=== PATIENT | male | born 1965 ===

== ENCOUNTER 2020-09-19 08:35 | Outpatient (REF) | payer OTHER, SELFPAY ==
[2020-09-19 10:03] LABS: Alanine Aminotransferase 12 U/L (0-40); Albumin Level 4.5 g/dL (3.5-5.0); Alkaline Phosphatase 76 U/L (39-117); Anion Gap 13 (12-20); Aspartate Amino Transferase 16 U/L (5-37); Bilirubin Total 0.7 mg/dL (0.0-1.0); Blood Urea Nitrogen 19 mg/dL (9-16); Calcium 9.4 mg/dL (8.4-10.2); Carbon Dioxide 27 mmol/L (22-29); Chloride 104 mmol/L (96-108); Cholesterol 199 mg/dL; Estimated Glomerular Filt Rate > 60; Glucose Fasting 95 mg/dL (60-99); HDL Cholesterol 36 mg/dL; LDL Cholesterol Calculated 142 mg/dl; Sodium 139 mmol/L (135-145); Total Protein 7.7 g/dL (6.5-8.0); Triglycerides 105 mg/dL; Uric Acid 8.4 mg/dL (3.4-7.0)
== END 2020-09-19 08:36 | disposition home or self-care (01) ==
LOC: HO.LAB 08:35
PROVIDERS: PCP Internal Medicine; Visit Provider Internal Medicine
DX: E78.00 Pure hypercholesterolemia, unspecified (principal); M10.9 Gout, unspecified
CPT/HCPCS: 80053; 80061; 84550

== ENCOUNTER 2021-12-11 07:17 | Outpatient (REF) | payer OTHER, SELFPAY ==
[2021-12-11 07:27] LABS: MANUAL DIFF FLAG NO
[2021-12-11 07:37] LABS: Basophils Absolute Auto 0.1 X10*3/uL (0.0-0.2); Basophils Percent Auto 0.9 % (0-2); Eosinophils Percent Auto 11.7 % (0-4); Hematocrit 47.6 % (42.0-52.0); Hemoglobin 15.8 g/dl (14.0-18.0); Imm Gran Abs Auto 0.02 X10*3/uL (0.00-0.03); Imm Gran Pct Auto 0.2 % (0.0-0.4); Lymphocytes Absolute Auto 2.5 X10*3/uL (1.2-4.9); Lymphocytes Percent Auto 30.6 % (20-40); Mean Corpuscular HGB Conc 33.2 g/dl (31.0-36.0); Mean Corpuscular Hemoglobin 30.3 pg (27.0-33.0); Mean Corpuscular Volume 91.2 fL (80.0-98.0); Mean Platelet Volume 9.5 fL (9.4-12.4); Monocytes Absolute Auto 0.8 X10*3/uL (0.1-1.2); Monocytes Percent Auto 10.1 % (2-11); Neutrophils Absolute Auto 3.8 x10*3/uL (2.0-8.3); Neutrophils Percent Auto 46.5 % (45-73); Platelet Count 230 X10*3/uL (160-400); Red Blood Count 5.22 X10*6/uL (4.60-5.80); Red Cell Distribution Width 12.9 % (11.0-16.0); White Blood Count 8.1 X10*3/uL (4.8-10.8)
[2021-12-11 08:06] LABS: Alanine Aminotransferase 18 U/L (0-40); Albumin Level 4.6 g/dL (3.5-5.0); Alkaline Phosphatase 79 U/L (39-117); Anion Gap 13 (12-20); Aspartate Amino Transferase 24 U/L (5-37); Bilirubin Total 0.5 mg/dL (0.0-1.0); Blood Urea Nitrogen 14 mg/dL (9-16); Calcium 9.8 mg/dL (8.4-10.2); Carbon Dioxide 28 mmol/L (22-29); Chloride 105 mmol/L (96-108); Cholesterol 180 mg/dL; Estimated Glomerular Filt Rate > 60; Glucose Random 105 mg/dL (60-115); HDL Cholesterol 31 mg/dL; LDL Cholesterol Calculated 125 mg/dl; Potassium 4.5 mmol/L (3.3-5.1); Sodium 141 mmol/L (135-145); Total Protein 7.8 g/dL (6.5-8.0); Triglycerides 123 mg/dL; Uric Acid 9.4 mg/dL (3.4-7.0)
[2021-12-11 09:29] LABS: Appearance Urine CLEAR; Color Urine YELLOW; Glucose Urine UA NEG (NEG); Leukocyte Esterase Urine NEG (NEG); Nitrite Urine NEG (NEG); PH 5.5 (5.0-8.0); Specific Gravity - Urine 1.025 (1.005-1.025); Urine Blood NEG (NEG); Urine Ketones NEG (NEG); Urine Protein NEG (NEG-TRACE)
[2021-12-11 10:14] LABS: PSA,Total (Free>4and<10) 0.52 ng/mL (0.00-4.00)
[2021-12-13 04:06] LABS: HIV AB/AG Nonreactive (Nonreactive); HIV Num 1 0.16 S/CO (0.00-0.99)
[2021-12-13 04:08] LABS: ~HepC Num1 0.06 S/CO (0.00-0.79); ~Hepatitis C Antibody Nonreactive (Nonreactive)
== END 2021-12-11 07:18 | disposition home or self-care (01) ==
LOC: HO.LAB 07:17
PROVIDERS: PCP Internal Medicine; Visit Provider Internal Medicine
DX: Z12.5 Encounter for screening for malignant neoplasm of prostate (principal); Z11.4 Encounter for screening for human immunodeficiency virus [HIV]; M1A.0720 Idiopathic chronic gout, left ankle and foot, without tophus (tophi)
CPT/HCPCS: 36415; 80053; 80061; 81003; 84153; 84550; 85025; 86803; 87389

== ENCOUNTER 2022-01-18 10:50 | Outpatient (REF) | payer OTHER, SELFPAY ==
--- NOTE | ~2022-01-18 | XR_ITS ---
EXAMINATION: XR KNEE, RIGHT CLINICAL INFORMATION: Right knee pain. COMPARISON: 07/05/2020 TECHNIQUE: Four views of the right knee. FINDINGS: There is a small to moderate-sized right knee joint effusion. Bones are normal. No fracture. Alignment is anatomic. Joint spaces are well maintained. No abnormal soft tissue calcification. XR/XR knee RT 4V IMPRESSION: Right knee joint effusion but otherwise negative exam.
== END 2022-01-18 10:51 | disposition home or self-care (01) ==
LOC: HO.XRAY 10:50
PROVIDERS: Absent Provider Internal Medicine; PCP Internal Medicine; Visit Provider Emergency Medicine
DX: M25.561 Pain in right knee (principal); Z87.39 Personal history of other diseases of the musculoskeletal system and connective tissue
CPT/HCPCS: 73564

== ENCOUNTER → 2022-02-17 14:09 | Outpatient (RCR) | payer OTHER, SELFPAY ==
--- NOTE | 2020-07-30 18:43 | MHC.PT.EP ---
[facility] [place] Office [place] Office [place] Office [address] Sriv[address]ava [address] [phone] F: [phone] F: [phone] F: [phone] F: [phone] Physical Therapy Plan of Care Date of Evaluation: 07/30/20 Date of Surgery: Diagnosis: Soft tissue injury R knee (L knee). 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 Pt is deemed an appropriate candidate to receive skilled PT services to address his physical impairments in order to improve his functional ability. Frequency and Duration: The patient will be seen 2 x wk x 4 wks. Short Term Goals: In 1 week: initiate HEP with evidence of compliance. In 3 weeks: improve R knee ext MMT to > 4+/5; initial 4/5 with pain. Media Specialist Goals: In 5 weeks: I with HEP. In 5 weeks: ascends and descends 1 flight of stairs with reciprocal fashion. Treatment Plan: Modalities to reduce pain, spasms and effusion. Manual therapy to restore motion and function. Therapeutic exercise to improve strength and flexibility. Neuromuscular re-education for posture and balance. Therapeutic activities to return to functional activities of daily living. Please sign and return to therapist. Thank you for your referral.
--- NOTE | 2020-09-01 15:59 | MHC.PT.DC ---
[facility] [place] Office [place] Office [place] Office [address] Abram Srivastava [address] [phone] F: [phone] F: [phone] F: [phone] F: [phone] Physical Therapy Discharge Report Diagnosis: Soft tissue injury R knee (L knee). Date of Surgery: Date of Evaluation: 07/30/20 Date of Discharge: Treatments to Date: 1 Cancellations to Date: 0 No Shows to Date: 0 Discharge Status: Visit Non-compliance Discharge Summary: Pt did not f/u with therapy after his evaluation despite reminder calls. Electronically signed by: Conner Mckeon PT Please sign and return to therapist. Thank you for your referral.
== END | disposition home or self-care (01) ==
LOC: HO.PTCHIC 07-30 16:45
PROVIDERS: Visit Provider Orthopaedic Surgery
DX: S89.91XD Unspecified injury of right lower leg, subsequent encounter (principal)
CPT/HCPCS: 97110; 97161

== ENCOUNTER 2022-11-28 11:00 | Outpatient (REF) | payer OTHER, SELFPAY ==
--- NOTE | ~2022-11-28 | US_ITS ---
EXAMINATION: US VENOUS ULTRASOUND WITH DOPPLER LOWER EXTREMITY, RIGHT CLINICAL INFORMATION: Swelling and pain COMPARISON: None TECHNIQUE: Ultrasound of the deep veins is performed from the hip to the calf with compression sonography and color and pulse Doppler assessment. Spectral analysis with color-flow imaging is performed. FINDINGS: There is normal venous compression and respiratory variation and augmented flow. The visualized common femoral vein, superficial femoral vein, profunda femoral vein, popliteal vein, and the trifurcation region shows no evidence of deep venous thrombosis. There is no significant popliteal fossa cyst. US/US venous duplex LE RT IMPRESSION: No DVT demonstrated in the right lower extremity.
== END 2022-11-28 11:01 | disposition home or self-care (01) ==
LOC: HO.US 11:00
PROVIDERS: PCP Internal Medicine; Visit Provider Emergency Medicine
DX: M79.661 Pain in right lower leg (principal); M79.89 Other specified soft tissue disorders
CPT/HCPCS: 93971

== ENCOUNTER 2023-08-14 08:37 | Outpatient (REF) | payer OTHER, SELFPAY ==
[2023-08-14 12:25] LABS: Cholesterol 126 mg/dL (<200); HDL Cholesterol 24 mg/dL (>40); LDL Cholesterol Calculated 74 mg/dL (<100); Triglycerides 140 mg/dL (<150)
[2023-08-14 14:52] LABS: Reflex LDLD? No
[2023-08-19 18:44] LABS: Testosterone, Free 60.3 pg/mL (35.0-155.0); Testosterone, Total 524 ng/dL (250-1100)
== END 2023-08-14 08:38 | disposition home or self-care (01) ==
LOC: HO.HHCL 08:37
PROVIDERS: Visit Provider Internal Medicine
DX: E78.1 Pure hyperglyceridemia (principal); N52.9 Male erectile dysfunction, unspecified
CPT/HCPCS: 36415; 80061; 84402; 84403

== ENCOUNTER 2023-09-14 08:33 | Outpatient (AMB) | payer OTHER, SELFPAY ==
--- NOTE | 2023-09-14 08:37 | A.OFFVIS_ITS ---
Intake Vital Signs 09/14/23 08:43 Height 5 ft 7 in Weight 179 lb 3.773 oz BMI 28.1 BP 118/66 Blood Pressure Location Rt brachial Position Sitting Pulse 68 Pulse Source Pulse Oximeter Temp 96.8 F Temp Source Skin Pulse Oximetry (%) 97 Oxygen Delivery Method Room Air Intake Visit Reasons: Hyperuricemia/gout Intake Note: New pt presents today for Gout consult. 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 Patient stated that he started having gout in his 40s. Initially it would affect his toes and feet, ankles then it progressed to involve his knees as well. He has stopped alcohol consumption many years ago since he started getting gout attacks. Patient has been on different medicines including indomethacin, colchicine and ibuprofen for his gout. He was on colchicine twice daily at some point which helped his gout but caused diarrhea. He states that currently he takes colchicine as needed for flare-ups. He took allopurinol for 2 weeks but did not want to continue taking it. States that this year has been most severe last month he was in [facility], he had a heart attack, he had a cardiac catheterization and 3 stents were placed. During the hospitalization he developed a gout flare-up affecting his right knee. Per patient arthrocentesis was attempted but was not successful. He states that he has had 2 other instances of arthrocentesis in the past. Last week he started having another gout flare-up affecting his right knee and right ankle. He now has to use a cane. Been taking colchicine once daily since the attack started He denies any history of kidney stones. Mentions that his father had gout as w ell [facility] Medical History Coronary artery disease Gout Surgical History History of cardiac catheterization History of sinus surgery Family History Father Medical history unknown Mother Diabetes Hypertension Paternal Aunt Cancer Maternal Grandmother No problems noted. Maternal Grandfather No problems noted. Social History Household Members: Spouse and Family Alcohol intake: current Alcohol intake frequency: does not drink Patient Tobacco Use Status: Former Tobacco user Current occupational status: disabled Review of Systems Musc Reports arthralgias, Reports joint swelling and Reports stiffness Physical Exam Vital Signs: Last Vital Signs Temp 96.8 F 09/14/23 08:43 Pulse 68 09/14/23 08:43 BP 118/66 09/14/23 08:43 Pulse Ox 97 09/14/23 08:43 Oxygen Delivery Method Room Air 09/14/23 08:43 BMI result Body Mass Index 28.1 Const General: cooperative, healthy appearing and comfortable Nutritional Appearance: overweight Orientation/consciousness: patient oriented x3 Limitations: ambulation with cane HEENT Head: Yes normocephalic and Yes atraumatic Mouth: moist mucous membranes Resp Effort & Inspection: normal respiratory effort and able to speak in complete sentences Auscultation: clear to auscultation bilaterally Cardio Rate: regular rate Rhythm: regular rhythm GI Palpation (GI): Soft to palpation and nontender Skin General skin exam: no rashes or lesions noted Neuro General: patient oriented x3 Extrem Other: Right knee swelling, warmth and pain with any range of motion Right ankle warmth and tenderness No gouty tophi noted Osteoarthritic changes of both hands with no active synovitis Assessment & Plan Assessment & Plan (1) Gout: Code(s): M10.9 - Gout, unspecified Qualifiers: Gout site: unspecified site Gout etiology: idiopathic Chronicity: chronic Presence of tophus: without tophus Qualified Code(s): M1A.00X0 - Idiopathic chronic gout, unspecified site, without tophus (tophi) Plan: This is a 58-year-old male with gout who presents for gout management. Per patient gout started in his 40s. He only took allopurinol for 2 weeks. This year has been most troublesome with a gout flare-up almost every month. Uric acid 05/2023 was 9.7. Discussed gout complications such as gouty nephropathy and gout association with cardiovascular disease. Discussed the need to start urate lowering therapy. Patient agreed to proceed. Start prednisone taper for acute gout flare Continue with colchicine 0.6 mg daily for prophylaxis (higher doses cause diarrhea) Start allopurinol 100 mg daily after 2 weeks Advised patient to ice affected joints in a flare of Labs today Follow-up in 4 weeks Plan I spent 45 minutes reviewing patient's chart, evaluating patient, ordering diagnostic workup, counseling patient and documenting in the chart Orders: Orders Complete Blood Count Auto Diff Today M10.9 - Gout, unspecified C Reactive Protein Today M10.9 - Gout, unspecified Creatine Kinase Total Today M10.9 - Gout, unspecified Comprehensive Met. Panel Today M10.9 - Gout, unspecified Erythrocyte Sedimentation Rate Today M10.9 - Gout, unspecified Uric Acid Today M10.9 - Gout, unspecified Medications: New colchicine 0.6 mg PO DAILY 90 tabs 1RF allopurinol Start taking mid September 100 mg PO DAILY 30 tabs 1RF prednisone Take 3 tabs by mouth once daily for 3 days then 2 tabs daily for 3 days then 1 tab daily for 3 days 18 tabs 0RF Coding Level of Care Code New Pt Level 4 (56538) Diagnoses Idiopathic chronic gout without tophus, unspecified site M1A.00X0 Gout site: unspecified site Gout etiology: idiopathic Chronicity: chronic Presence of tophus: without tophus
[2023-09-14 08:43] VITALS: BP 118/66; PULSE 68; TEMP 36; O2SAT 97; BMI 28.1
== END 2023-09-14 09:26 | disposition home or self-care (01) ==
PROVIDERS: PCP Internal Medicine; Referring Provider Internal Medicine; Visit Provider Student in an Organized Health Care Education/Training Program
DX: M1A.00X0 Idiopathic chronic gout, unspecified site, without tophus (tophi) (principal)
CPT/HCPCS: 99204

== ENCOUNTER → 2023-09-14 08:33 | Outpatient (BNVA) | payer OTHER, SELFPAY | PROVIDERS: PCP Internal Medicine; Referring Provider Internal Medicine; Visit Provider Student in an Organized Health Care Education/Training Program ==

== ENCOUNTER 2023-09-14 09:39 | Outpatient (REF) | payer OTHER, SELFPAY ==
[2023-09-14 10:19] LABS: MANUAL DIFF FLAG NO
[2023-09-14 10:22] LABS: Basophils Absolute Auto 0.1 X10*3/uL (0.0-0.2); Eosinophils Absolute Auto 0.5 X10*3/uL (0.0-0.4); Eosinophils Percent Auto 4.8 % (0-4); Hematocrit 42.4 % (42.0-52.0); Hemoglobin 14.2 g/dl (14.0-18.0); Imm Gran Abs Auto 0.03 X10*3/uL (0.00-0.03); Imm Gran Pct Auto 0.3 % (0.0-0.4); Lymphocytes Absolute Auto 2.7 X10*3/uL (1.2-4.9); Lymphocytes Percent Auto 26.5 % (20-40); Mean Corpuscular HGB Conc 33.5 g/dl (31.0-36.0); Mean Corpuscular Volume 89.6 fL (80.0-98.0); Monocytes Percent Auto 9.3 % (2-11); Neutrophils Percent Auto 58.1 % (45-73); Platelet Count 221 X10*3/uL (160-400); Red Blood Count 4.73 X10*6/uL (4.60-5.80); Red Cell Distribution Width 13.3 % (11.0-16.0); White Blood Count 10.3 X10*3/uL (4.8-10.8)
[2023-09-14 10:52] LABS: Alanine Aminotransferase 22 U/L (0-40); Albumin Level 4.3 g/dL (3.5-5.0); Alkaline Phosphatase 63 U/L (39-117); Anion Gap 11 (12-20); Aspartate Amino Transferase 18 U/L (5-37); Bilirubin Total 0.6 mg/dL (0.0-1.0); Blood Urea Nitrogen 16 mg/dL (9-16); C Reactive Protein 4.04 mg/dL (< or = 0.50); Calcium 9.9 mg/dL (8.4-10.2); Carbon Dioxide 28 mmol/L (22-29); Chloride 106 mmol/L (96-108); Estimated Glomerular Filt Rate > 60; Glucose Random 110 mg/dL (60-115); Potassium 4.4 mmol/L (3.3-5.1); Sodium 141 mmol/L (135-145); Total Protein 8.1 g/dL (6.5-8.0); Uric Acid 7.2 mg/dL (3.4-7.0)
[2023-09-14 11:02] LABS: Erythrocyte Sedimentation Rate 43 MM/HR (0-15)
== END 2023-09-14 09:40 | disposition home or self-care (01) ==
LOC: HO.10HDL 09:39
PROVIDERS: Visit Provider Student in an Organized Health Care Education/Training Program
DX: M10.9 Gout, unspecified (principal)
CPT/HCPCS: 36415; 80053; 82550; 84550; 85025; 85652; 86140

== ENCOUNTER 2023-10-12 08:06 | Outpatient (AMB) | payer OTHER, SELFPAY ==
--- NOTE | 2023-10-12 08:06 | MHC.OFFVIS ---
Intake Vital Signs 10/12/23 08:14 Height 5 ft 7 in Weight 180 lb 15.992 oz BMI 28.3 BP 132/70 Blood Pressure Location Rt brachial Position Sitting Pulse 60 Pulse Source Pulse Oximeter Temp 97 F Temp Source Skin Pulse Oximetry (%) 98 Oxygen Delivery Method Room Air Intake Visit Reasons: Gout Intake Note: Pt last seen 09/14/23 presents today for follow up and test results. Reports using colchicine PRN. Finished prednisone taper. 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 He completed the prednisone taper and started taking allopurinol daily, he did not start colchicine as prescribed. however last week he started having significant pain swelling and redness of his left foot and ankle, consistent with a gout attack. He started colchicine 1 tab twice daily for the past few days and the attack is resolving. He gets some diarrhea with colchicine twice daily Initial history: This is a 58-year-old male who was referred for gout management. Patient stated that he started having gout in his 40s. Initially it would affect his toes and feet, ankles then it progressed to involve his knees as well. He has stopped alcohol consumption many years ago since he started getting gout attacks. Patient has been on different medicines including indomethacin, colchicine and ibuprofen for his gout. He was on colchicine twice daily at some point which helped his gout but caused diarrhea. He states that currently he takes colchicine as needed for flare-ups. He took allopurinol for 2 weeks but did not want to continue taking it. States that this year has been most severe last month he was in [facility], he had a heart attack, he had a cardiac catheterization and 3 stents were placed. During the hospitalization he developed a gout flare-up affecting his right knee. Per patient arthrocentesis was attempted but was not successful. He states that he has had 2 other instances of arthrocentesis in the past. Last week he started having another gout flare-up affecting his right knee and right ankle. He now has to use a cane. Been taking colchicine once daily since the attack started He denies any history of kidney stones. Mentions that his father had gout as well PFSH Medical History Coronary artery disease Gout Surgical History History of cardiac catheterization History of sinus surgery Family History Father Medical history unknown Mother Diabetes Hypertension Paternal Aunt Cancer Maternal Grandmother No problems noted. Maternal Grandfather No problems noted. Social History Household Members: Spouse and Family Alcohol intake: current Alcohol intake frequency: does not drink Patient Tobacco Use Status: Former Tobacco user Current occupational status: disabled Review of Systems [facility] Reports arthralgias, Reports joint swelling and Reports stiffness Physical Exam Vital Signs: Last Vital Signs Temp 97 F 10/12/23 08:14 Pulse 60 10/12/23 08:14 BP 132/70 10/12/23 08:14 Pulse Ox 98 10/12/23 08:14 Oxygen Delivery Method Room Air 10/12/23 08:14 BMI result Body Mass Index 28.3 Const General: cooperative, healthy appearing and comfortable Nutritional Appearance: overweight Orientation/consciousness: patient oriented x3 Limitations: ambulation with cane HEENT Head: Yes normocephalic and Yes atraumatic Mouth: moist mucous membranes Resp Effort & Inspection: normal respiratory effort and able to speak in complete sentences Auscultation: clear to auscultation bilaterally Cardio Rate: regular rate Rhythm: regular rhythm GI Palpation (GI): Soft to palpation and nontender Skin General skin exam: no rashes or lesions noted Neuro General: patient oriented x3 Extrem Other: Minimal tenderness to palpation just and true lateral to the left lateral malleolus no noticeable redness, swelling or warmth No gouty tophi noted Osteoarthritic changes of both hands with no active synovitis Results Reviewed Results Reviewed: Lab 05/2023 Uric acid 9.7 mg/dl Assessment & Plan Assessment & Plan (1) Gout: Code(s): M10.9 - Gout, unspecified Qualifiers: Gout site: unspecified site Gout etiology: idiopathic Chronicity: chronic Presence of tophus: without tophus Qualified Code(s): M1A.00X0 - Idiopathic chronic gout, unspecified site, without tophus (tophi) Plan: This is a 58-year-old male with gout who presents for follow-up. He is on allopurinol 100 mg daily, did not start colchicine as a standing dose as prescribed. Started having a gout flare-up affecting his left ankle about a week ago and it is resolving. Has been taking colchicine twice daily for the last few days. Discussed the importance of gout prophylaxis for at least 3-6 months. Advised patient to start taking colchicine 1 tab daily Continue allopurinol 100 mg daily, preferably I would have increased his allopurinol to 200 mg today however current gout flare and lack of reliability with the colchicine. Will continue with allopurinol 100 mg daily for now Will prescribe a short prednisone taper to treat current flare Labs before next visit in 2 months Plan I spent 26 minutes reviewing patient's chart, evaluating patient, ordering diagnostic workup, counseling patient and documenting in the chart Orders: Orders Complete Blood Count Auto Diff 2 Months M10.9 - Gout, unspecified Uric Acid 2 Months M10.9 - Gout, unspecified Comprehensive Met. Panel 2 Months M10.9 - Gout, unspecified Medications: Changed From allopurinol Start taking mid September 100 mg PO DAILY 30 tabs 1RF To allopurinol 100 mg PO DAILY 90 tabs 1RF From prednisone Take 3 tabs by mouth once daily for 3 days then 2 tabs daily for 3 days then 1 tab daily for 3 days 18 tabs 0RF To prednisone Take 3 tabs by mouth once daily for 2 days then 2 tabs daily for 2 days then 1 tab daily for 2 days 12 tabs 1RF From colchicine 0.6 mg PO DAILY PRN To colchicine 0.6 mg PO DAILY 90 tabs 0RF Coding Level of Care Code Est Pt Level 4 (84375) Diagnoses Idiopathic chronic gout without tophus, unspecified site M1A.00X0 Gout site: unspecified site Gout etiology: idiopathic Chronicity: chronic Presence of tophus: without tophus
[2023-10-12 08:14] VITALS: BP 132/70; PULSE 60; TEMP 36.1; O2SAT 98; BMI 28.3
== END 2023-10-12 08:35 | disposition home or self-care (01) ==
PROVIDERS: PCP Internal Medicine; Visit Provider Student in an Organized Health Care Education/Training Program
DX: M1A.00X0 Idiopathic chronic gout, unspecified site, without tophus (tophi) (principal)
CPT/HCPCS: 99214

== ENCOUNTER → 2023-10-12 08:06 | Outpatient (BNVA) | payer OTHER, SELFPAY | PROVIDERS: PCP Internal Medicine; Visit Provider Student in an Organized Health Care Education/Training Program ==

== ENCOUNTER 2023-11-08 08:44 | Outpatient (AMB) | payer BC, OTHER, SELFPAY ==
--- NOTE | 2023-11-08 08:59 | A.OFFVIS_ITS ---
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 He has a pleasant 58-year-old male, in July he traveled to [place] meet with his family and have dental work up done. He then developed acute myocardial infarction. His symptoms were back pain the day prior which she node. However the following day he got back pain radiating up to the front with significant pressure/squeezing in his chest associated with diaphoresis and both arms getting numb. He then called for help and was taken to the local hospital there. He was then told that he was having a myocardial infarction, unknown territory. He subsequently underwent emergent cardiac catheterization and up getting 3 drug-eluting stents placement again to unknown vessels. He seems to think that there were 2 vessels that were involved 1 had 100% blockage in the other 90% blockage. However he has not sure of the anatomy. I do not have any old records. Since then he has not been pushing himself because he is afraid of having another event. He has been taking all his medications regularly. He denies any recurrent chest discomfort. Denies any prolonged palpitation irregular heartbeat. No lightheadedness, syncope. Currently taking dual antiplatelet therapy as well as high-intensity statin therapy. He denies any heart failure symptoms. [facility] Medical History Coronary artery disease Gout Surgical History Stented coronary artery History of cardiac catheterization History of sinus surgery Family History Father Medical history unknown Mother Diabetes Hypertension Paternal Aunt Cancer Maternal Grandmother No problems noted. Maternal Grandfather No problems noted. Social History Household Members: Spouse and Family Alcohol intake: current Alcohol intake frequency: does not drink Patient Tobacco Use Status: Former Tobacco user Current occupational status: disabled Review of Systems Const Denies chills, Denies daytime sleepiness, Denies fatigue, Denies fever(s), Denies frequent falls, Denies poor appetite, Denies snoring, Denies stops breathing during sleep, Denies weakness, Denies weight gain and Denies weight loss Eyes Denies loss of vision ENT Denies dizziness and Denies hearing loss Card Denies chest pain, Denies claudication, Denies leg edema, Denies lightheadedness, Denies palpitations, Denies dyspnea, Denies dyspnea on exertion and Denies orthopnea Resp Denies cough, Denies excessive phlegm production, Denies dyspnea, Denies dyspnea on exertion, Denies snoring and Denies wheezing GI Denies abdominal pain, Denies hematochezia, Denies change in bowel habits, Denie s nausea and Denies vomiting Denies dysuria and Denies urinary frequency Musc Denies arthralgias, Denies muscle weakness, Denies numbness and Denies other (frequent falls) Skin/Breast Denies nail changes and Denies rash Neuro Denies Abnormal speech present, Denies dizziness, Denies frequent falls, Denies loss of vision, Denies memory loss, Denies numbness and Denies weakness Psych Denies depression and Denies memory loss Endo Denies fatigue and Denies palpitations [place]/Lymph Reports easy bruising and Reports other (anemia) Aller/Immun Denies wheezing Physical Exam Vital Signs: Last Vital Signs Pulse 60 11/08/23 09:02 BP 116/70 11/08/23 09:02 BMI result Body Mass Index 29.3 Const General: cooperative, comfortable, no acute distress, alert, awake and well groomed Nutritional Appearance: overweight Orientation/consciousness: patient oriented x3 Limitations: no limitations HEENT Head: Yes normocephalic and Yes atraumatic Neck Neck: Yes trachea midline, Yes supple and Yes no JVD Carotids: no bruits Resp Effort & Inspection: normal respiratory effort Auscultation: clear to auscultation bilaterally Cardio Jugular venous distension: no JVD Palpation: normal PMI Rate: regular rate Rhythm: regular rhythm Heart sounds: S1 normal heart sound present, S2 normal heart sound present, no click, no gallops, no murmurs and no rubs GI Auscultation: normal bowel sounds Skin General skin exam: no rashes or lesions noted Neuro General: patient oriented x3 and no focal motor deficits Speech: No Abnormal speech present Extrem General: Yes no clubbing, cyanosis or edema Psych Affect: Anxious affect present Office Procedures EKG Details: EKG shows normal sinus rhythm with small Q-waves in inferior leads with sinus arrhythmia [id number], Complete Assessment & Plan Assessment & Plan (1) Coronary artery disease: Code(s): I25.10 - Atherosclerotic heart disease of [place] coronary artery without angina pectoris Plan: Patient with myocardial infarction 3 months ago while traveling [place] undergoing 3 drug-eluting stent placement to unknown coronary vessels. Whether he had 2 vessel coronary artery disease unclear. Will try to obtain old results. I had a detailed discussion about pathophysiology of coronary artery disease as well as acute coronary syndrome. Also discussed about nature of drug-eluting stents in details. Discussed with him about uninterrupted use of dual antiplatelet therapy for 1 year and will probably continue prolonged dual antiplatelet therapy for 30 months in him given his low bleeding risk. Also importance of high-intensity statin therapy was discussed to reduce recurrent events. Advised lipid panel near future. He is very anxious about having recurrent event and not able to exercise. I have therefore taken the liberty to refer him to phase 2 cardiac rehabilitation to improve his outlook as well as help him deal with this event as well as improve his quality of life and functional capacity. Continue aggressive control blood pressure which is currently well optimized. Target goal blood pressure less than 130/84. He is advised and encouraged to participate in exercise activity. Will obtain an echocardiogram to assess for LV systolic and diastolic function to see if there is any residual infarcted segments. Will follow up in the clinic in 6 weeks time, sooner p.r.n.. Thank you for allowing me to partake in his care Orders: Orders CRP High Sensitivity Today E78.5 - Hyperlipidemia, unspecified, I25.10 - Atherosclerotic heart disease of [place] coronary artery without angina pectoris CA echo transthoracic complete Today I25.10 - Atherosclerotic heart disease of [place] coronary artery without angina pectoris Cardiac Rehab Today I25.10 - Atherosclerotic heart disease of [place] coronary artery without angina pectoris Lipid Panel Today I25.10 - Atherosclerotic heart disease of [place] coronary artery without angina pectoris Coding Level of Care Code New Pt Level 4 (64500) Diagnoses Coronary artery disease I25.10 CPT Codes EKG - CPT: 25961-[id number], Complete ([id number])
[2023-11-08 09:02] VITALS: BP 116/70; PULSE 60; BMI 29.3
== END 2023-11-08 09:32 | disposition home or self-care (01) ==
PROVIDERS: PCP Internal Medicine; Visit Provider Internal Medicine Cardiovascular Disease
DX: I25.10 Atherosclerotic heart disease of native coronary artery without angina pectoris (principal)
CPT/HCPCS: 93010; 99204

== ENCOUNTER → 2023-11-08 08:44 | Outpatient (BNVA) | payer BC, OTHER, SELFPAY | PROVIDERS: PCP Internal Medicine; Visit Provider Internal Medicine Cardiovascular Disease | DX: I25.10 Atherosclerotic heart disease of native coronary artery without angina pectoris (principal) | CPT/HCPCS: 93005 ==

== ENCOUNTER 2023-11-20 09:00 | Outpatient (REF) | payer BC, SELFPAY ==
[2023-11-20 12:11] LABS: Cholesterol 113 mg/dL (<200); HDL Cholesterol 34 mg/dL (>40); LDL Cholesterol Calculated 52 mg/dL (<100); Triglycerides 137 mg/dL (<150)
[2023-11-21 15:33] LABS: CRP High Sensitivity 0.8 mg/L
== END 2023-11-20 09:01 | disposition home or self-care (01) ==
LOC: HO.HHCL 09:00
PROVIDERS: Visit Provider Internal Medicine Cardiovascular Disease
DX: E78.5 Hyperlipidemia, unspecified (principal); I25.10 Atherosclerotic heart disease of native coronary artery without angina pectoris
CPT/HCPCS: 36415; 80061; 86141

== ENCOUNTER → 2023-11-27 14:10 | Outpatient (REF) | payer BC, SELFPAY ==
--- NOTE | 2023-11-27 14:13 | CA_ITS ---
Transthoracic Echocardiogram Patient (Last, First, Middle): Christiano Hathaway, Gender: Male Date of : 1965 Age: 58 Procedure Date: 11/27/2023 Procedure Type: Transthoracic Echocardiogram Location: OP Height: 170.18 cm Weight: 83.01 kg BSA: 1.95 m2 Heart Rate: bpm BP: 122 / 80 mmHg Architectural Engineering Teacher: Referring MD: Elpidio Ravi MD Symptoms: I25.10 - Atherosclerotic heart disease of [place] coronary artery without... Study Quality: Good ECG Rhythm: Sinus Conclusions: - The left ventricular systolic function is normal. The calculated ejection fraction is 65% by biplane method. - No obvious valvular pathology seen on this study. Findings Left Ventricle Normal left ventricular cavity size. There is normal left ventricular wall thickness. The left ventricular systolic function is normal. The calculated ejection fraction is 65% by biplane method. There is no evidence of regional wall motion abnormalities. Diastolic function is normal for age. Right Ventricle Normal right ventricular cavity size and systolic function. Atria Both atria are normal in size. Aortic Valve There is a normal trileaflet aortic valve. There is no aortic valve stenosis. There is no aortic valve regurgitation. Mitral Valve The mitral valve appears normal. There is no mitral valve regurgitation. There is no mitral valve stenosis. Pulmonic Valve The pulmonic valve is likely normal. Tricuspid Valve Normal tricuspid valve structure. There is mild tricuspid valve regurgitation. There is no evidence of pulmonary hypertension. Great Vessels The asc aorta is normal in size. Venous The inferior vena cava is normal in size and collapses greater than 50% with inspiration. Pericardium/Pleural There is no evidence of pericardial effusion. Prior Study Comparison No prior study available for comparison. Recommendations, Care & Conclusions No obvious valvular pathology seen on this study. Measurements 2D Linear Measurements IVSd: 0.96 0.6-0.9/0.6-1.0 cm LVIDd: 5.23 3.9-5.3/4.2-5.9 cm LVIDd Index: 2.68 2.4-3.2/2.2-3.1 cm/m2 LVIDs: 3.13 2.0-3.6 cm LVPWd: 1.00 0.7-1.1 cm Ao Root: 3.00 2.1-3.5 cm LA Diam: 4.10 2.7-3.8/3.0-4.0 cm LAIDs Index: 2.10 1.5-2.3 cm/m2 LV Mass: 236.82 67-162/88-224 g LV Mass Index: 121.45 43-95/49-115 g/m2 LVOT Diam: 2.00 3.0+(-)1.3 cm 2D Systolic Function EF 4C: 66.30 >55% EF 2C: 64.50 >55% EF BiP: 65.30 >55% Mitral Valve MV Pk E: 0.96 MV PK A: 0.61 MV Decel Time: 210.00 E/A: 1.60 E'Lateral: 10.10 E'Medial: 8.59 E/E' Med: 11.20 E/E' Lat: 9.50 PHT: 62.00 MVA PHT: 3.55 Decel Hayes: 4.58 Aortic Valve AoV Pk Lazaro: 1.42 AoV Mn Lazaro: 0.92 AoV VTI: 0.37 AoV Pk Grad: 8.00 Aov Mn Grad: 4.00 PO Cont.VTI: 1.99 LVOT LVOT Pk Lazaro: 1.01 LVOT Mn Lazaro: 0.62 LVOT VTI: 0.23 LVOT Pk Grad: 4.00 LVOT Mn Grad: 2.00 LVOT Diam: 2.00 LVOT Area: 3.14 Diastolic Function MV Pk E: 0.96 MV Pk A: 0.61 E/A: 1.60 E'Medial: 8.59 E/E' Med: 11.20 E' Laterial: 10.10 E/E' Lat: 9.50 Right Ventricle TAPSE (mm): 28.00 TVS' Lazaro: 12.00 Tricuspid Valve TR Pk Lazaro: 2.66 TR Pk Grad: 28.00 RA Press: 3.00 RVSP: 31.00 Great Vessels Aorta Ao Root-2D: 3.00 2.0-3.7 cm Ao Asc: 3.40 2.1-3.4 cm Pulmonary Valve PV Pk Lazaro: 1.19 Peak PV Grad: 6.00 Updated in Other Vendor System with Status of Final Endy Hobbs MD electronically signed on 11/28/2023 8:10:23 AM with status of Final
== END ==
LOC: HO.CARD 14:10
PROVIDERS: PCP Internal Medicine; Visit Provider Internal Medicine Cardiovascular Disease
DX: I25.10 Atherosclerotic heart disease of native coronary artery without angina pectoris (principal)
CPT/HCPCS: 93306

== ENCOUNTER → 2023-11-27 14:13 | Outpatient (BNV) | payer BC, SELFPAY | PROVIDERS: PCP Internal Medicine; Visit Provider Internal Medicine | DX: I36.1 Nonrheumatic tricuspid (valve) insufficiency (principal) | CPT/HCPCS: 93306 ==

== ENCOUNTER 2023-12-11 12:25 | Outpatient (REF) | payer BC, SELFPAY ==
[2023-12-11 12:35] LABS: MANUAL DIFF FLAG NO
[2023-12-11 13:20] LABS: Basophils Absolute Auto 0.1 X10*3/uL (0.0-0.2); Basophils Percent Auto 0.8 % (0-2); Eosinophils Absolute Auto 0.6 X10*3/uL (0.0-0.4); Eosinophils Percent Auto 6.6 % (0-4); Hematocrit 43.3 % (42.0-52.0); Hemoglobin 14.4 g/dl (14.0-18.0); Imm Gran Abs Auto 0.03 X10*3/uL (0.00-0.03); Imm Gran Pct Auto 0.3 % (0.0-0.4); Lymphocytes Absolute Auto 3.6 X10*3/uL (1.2-4.9); Lymphocytes Percent Auto 41.3 % (20-40); Mean Corpuscular HGB Conc 33.3 g/dl (31.0-36.0); Mean Corpuscular Hemoglobin 30.1 pg (27.0-33.0); Mean Corpuscular Volume 90.4 fL (80.0-98.0); Mean Platelet Volume 10.3 fL (9.4-12.4); Monocytes Absolute Auto 0.6 X10*3/uL (0.1-1.2); Monocytes Percent Auto 6.6 % (2-11); Neutrophils Absolute Auto 3.9 x10*3/uL (2.0-8.3); Neutrophils Percent Auto 44.4 % (45-73); Platelet Count 204 X10*3/uL (160-400); Red Blood Count 4.79 X10*6/uL (4.60-5.80); Red Cell Distribution Width 14.1 % (11.0-16.0); White Blood Count 8.8 X10*3/uL (4.8-10.8)
[2023-12-11 14:44] LABS: Alanine Aminotransferase 21 U/L (0-40); Albumin Level 4.5 g/dL (3.5-5.0); Alkaline Phosphatase 68 U/L (39-117); Anion Gap 12 (12-20); Aspartate Amino Transferase 24 U/L (5-37); Bilirubin Total 0.3 mg/dL (0.0-1.0); Blood Urea Nitrogen 15 mg/dL (9-16); Carbon Dioxide 27 mmol/L (22-29); Chloride 105 mmol/L (96-108); Estimated Glomerular Filt Rate > 60; Glucose Random 81 mg/dL (60-115); Potassium 4.2 mmol/L (3.3-5.1); Sodium 140 mmol/L (135-145); Total Protein 7.9 g/dL (6.5-8.0); Uric Acid 5.2 mg/dL (3.4-7.0)
== END 2023-12-11 12:26 | disposition home or self-care (01) ==
LOC: HO.LAB 12:25
PROVIDERS: PCP Internal Medicine; Visit Provider Student in an Organized Health Care Education/Training Program
DX: M10.9 Gout, unspecified (principal)
CPT/HCPCS: 36415; 80053; 84550; 85025

== ENCOUNTER 2023-12-14 15:17 | Outpatient (AMB) | payer BC, SELFPAY ==
--- NOTE | 2023-12-14 15:23 | A.OFFVIS_ITS ---
Intake Vital Signs 12/14/23 15:32 Height 5 ft 7 in Weight 186 lb 4.65 oz BMI 29.2 BP 118/64 Blood Pressure Location Rt brachial Position Sitting Pulse 60 Pulse Source Pulse Oximeter Pulse Oximetry (%) 96 Oxygen Delivery Method Room Air Intake Visit Reasons: Gout Intake Note: Patient last seen 10/12/23 presents today for follow up and test results. Reports intermittent joint pain. County Coroner Required: No Accompanied by: Self / Same As Patient Allergies levofloxacin [From LEVAQUIN] Allergy (Unknown, Verified 12/14/23 15:37) Rash Medication List - Last Reconciled 12/14/23 by Jordon Burnette MD allopurinol 100 mg PO DAILY aspirin 81 mg PO DAILY colchicine 0.6 mg PO DAILY losartan 50 mg PO BID metoprolol succinate ER 100 mg PO DAILY prasugrel 10 mg PO DAILY rosuvastatin 40 mg PO DAILY HPI HPI Comments History of Present Illness Details 58-year-old male with gout returns for f ollow-up. He is on allopurinol 100 mg daily and colchicine 0.6 mg daily. He has been compliant with both meds. Stated that the last 2 weeks he has been feeling great with no joint pain or swelling. Before that he was having some intermittent joint pain. No other complaints today Initial history: This is a 58-year-old male who was referred for gout management. Patient stated that he started having gout in his 40s. Initially it would affect his toes and feet, ankles then it progressed to involve his knees as well. He has stopped alcohol consumption many years ago since he started getting gout attacks. Patient has been on different medicines including indomethacin, colchicine and ibuprofen for his gout. He was on colchicine twice daily at some point which helped his gout but caused diarrhea. He states that currently he takes colchicine as needed for flare-ups. He took allopurinol for 2 weeks but did not want to continue taking it. States that this year has been most severe last month he was in [facility], he had a heart attack, he had a cardiac catheterization and 3 stents were placed. During the hospitalization he developed a gout flare-up affecting his right knee. Per patient arthrocentesis was attempted but was not successful. He states that he has had 2 other instances of arthrocentesis in the past. Last week he started having another gout flare-up affecting his right knee and right ankle. He now has to use a cane. Been taking colchicine once daily since the attack started He denies any history of kidney stones. Mentions that his father had gout as well [facility] Medical History History of [place] (myocardial infarction) Coronary artery disease Gout Surgical History Stented coronary artery History of cardiac catheterization History of sinus surgery Family History Father Medical history unknown Mother Diabetes Hypertension Paternal Aunt Cancer Maternal Grandmother No problems noted. Maternal Grandfather No problems noted. Social History Household Members: Spouse and Family Alcohol intake: current Alcohol intake frequency: does not drink Patient Tobacco Use Status: Former Tobacco user Current occupational status: disabled Review of Systems Musc Denies arthralgias, Denies joint swelling and Denies stiffness Physical Exam Vital Signs: Last Vital Signs Pulse 60 12/14/23 15:32 BP 118/64 12/14/23 15:32 Pulse Ox 96 12/14/23 15:32 Oxygen Delivery Method Room Air 12/14/23 15:32 BMI result Body Mass Index 29.2 Const General: cooperative, healthy appearing and comfortable Nutritional Appearance: overweight Orientation/consciousness: patient oriented x3 Limitations: ambulation with cane HEENT Head: Yes normocephalic and Yes atraumatic Mouth: moist mucous membranes Resp Effort & Inspection: normal respiratory effort and able to speak in complete sentences Cardio Rate: regular rate Rhythm: regular rhythm GI Palpation (GI): Soft to palpation and nontender Skin General skin exam: no rashes or lesions noted Neuro General: patient oriented x3 Extrem Other: No synovitis today. No tophi noted Osteoarthritic changes of both hands Results Reviewed Results Reviewed: Lab 05/2023 Uric acid 9.7 mg/dl Assessment & Plan Assessment & Plan (1) Gout: Code(s): M10.9 - Gout, unspecified Qualifiers: Gout site: unspecified site Gout etiology: idiopathic Chronicity: chronic Presence of tophus: without tophus Qualified Code(s): M1A.00X0 - Idiopathic chronic gout, unspecified site, without tophus (tophi) Plan: This is a 58-year-old male with gout who presents for follow-up. On colchicine 0.6 mg daily and allopurinol 100 mg daily. Doing well with no gout flare-ups. Has been feeling quite well for the last 2 weeks, before that he was having some intermittent joint pain. His uric acid level is 5.2 mg/dl at goal Discussed the importance of medication compliance. Patient worried about side effects of medications. I reinforced compliance. Explained that colchicine is now used for patients with CAD. Continue with allopurinol 100 mg daily and colchicine 0.6 mg daily. Labs before next visit in 3 months Plan I spent 16 minutes reviewing patient's chart, evaluating patient, ordering diagnostic workup, counseling patient and documenting in the chart Orders: Orders Complete Blood Count Auto Diff 3 Months M10.9 - Gout, unspecified Comprehensive Met. Panel 3 Months M10.9 - Gout, unspecified Uric Acid 3 Months M10.9 - Gout, unspecified Coding Level of Care Code Est Pt Level 3 (25120) Diagnoses Idiopathic chronic gout without tophus, unspecified site M1A.00X0 Gout site: unspecified site Gout etiology: idiopathic Chronicity: chronic Presence of tophus: without tophus
[2023-12-14 15:32] VITALS: BP 118/64; PULSE 60; O2SAT 96; BMI 29.2
== END 2023-12-14 15:59 | disposition home or self-care (01) ==
PROVIDERS: PCP Internal Medicine; Visit Provider Student in an Organized Health Care Education/Training Program
DX: M1A.00X0 Idiopathic chronic gout, unspecified site, without tophus (tophi) (principal)
CPT/HCPCS: 99213

== ENCOUNTER → 2023-12-14 15:17 | Outpatient (BNVA) | payer OTHER, SELFPAY | PROVIDERS: PCP Internal Medicine; Visit Provider Student in an Organized Health Care Education/Training Program ==

== ENCOUNTER 2023-12-22 11:07 | Outpatient (AMB) | payer BC, SELFPAY ==
[2023-12-22 11:11] VITALS: BP 120/62; PULSE 60; BMI 28.7
--- NOTE | 2023-12-22 11:11 | A.OFFVIS_ITS ---
Intake Vital Signs 12/22/23 11:11 Height 5 ft 7 in Weight 182 lb 15.739 oz BMI 28.7 BP 120/62 Blood Pressure Location Lt brachial Position Sitting Pulse 60 Pulse Source Pulse Oximeter Intake Visit Reasons: s/p echo/ lipid rehab [place] notes Allergies levofloxacin [From LEVAQUIN] Allergy (Unknown, Verified 12/22/23 11:17) Rash Medication List - Last Reconciled 12/22/23 by Elpidio Ravi MD allopurinol 100 mg PO DAILY aspirin 81 mg PO DAILY colchicine 0.6 mg PO DAILY losartan 50 mg PO BID metoprolol succinate ER 100 mg PO DAILY prasugrel 10 mg PO DAILY rosuvastatin 40 mg PO DAILY HPI HPI Comments History of Present Illness Details Christiano comes for follow-up. He remains very anxious about his event. He has been taking all his medication although he said he ran out of losartan due to pharmacy issues. He is taking other medications. LDL is well optimized. Recent echocardiogram shows normal LV systolic function without any major regional wall motion abnormality. Said with exertion now is noticing some shortness of breath when he starts exercising. No chest pain. Denies any lightheadedness, syncope. No bleeding issues or neurologic events. No palpitations. No orthopnea, PND. [facility] Medical History (Updated 12/22/23 @ 13:25 by Elpidio Ravi MD) HTN (hypertension) History of [place] (myocardial infarction) Coronary artery disease Gout Surgical History Stented coronary artery History of cardiac catheterization History of sinus surgery Family History Father Medical history unknown Mother Diabetes Hypertension Paternal Aunt Cancer Maternal Grandmother No problems noted. Maternal Grandfather No problems noted. Social History Household Members: Spouse and Family Alcohol intake: current Alcohol intake frequency: does not drink Patient Tobacco Use Status: Former Tobacco user Current occupational status: disabled Review of Systems Const Reports no additional complaints ENT Reports dizziness Card Denies chest pain, Denies chest pain at rest, Denies chest pain with activity, Denies rapid heart rate, Denies pedal edema, Denies edema, Denies leg edema, Denies lightheadedness, Denies palpitations, Reports dyspnea, Reports dyspnea on exertion and Denies orthopnea Resp Denies cough, Reports dyspnea and Reports dyspnea on exertion GI Denies hematochezia and Denies change in stool character Musc Denies abnormal gait, Reports limited range of motion, Reports muscle cramps, Denies muscle weakness, Denies numbness, Denies radiating pain into limb, Denies stiffness and Denies tingling Neuro Denies Abnormal speech present, Denies abnormal gait, Reports dizziness, Denies numbness and Denies tingling Endo Denies palpitations Physical Exam Vital Signs: Last Vital Signs Pulse 60 12/22/23 11:11 BP 120/62 12/22/23 11:11 BMI result Body Mass Index 28.7 Const General: cooperative, comfortable, no acute distress, alert, awake and well groomed Nutritional Appearance: overweight Orientation/consciousness: patient oriented x3 Limitations: no limitations HEENT Head: Yes normocephalic and Yes atraumatic Neck Neck: Yes trachea midline, Yes supple and Yes no JVD Carotids: no bruits Resp Effort & Inspection: normal respiratory effort Auscultation: clear to auscultation bilaterally Cardio Jugular venous distension: no JVD Palpation: normal PMI Rate: regular rate Rhythm: regular rhythm Heart sounds: S1 normal heart sound present, S2 normal heart sound present, no click, no gallops, no murmurs and no rubs GI Auscultation: normal bowel sounds Skin General skin exam: no rashes or lesions noted Neuro General: patient oriented x3 and no focal motor deficits Speech: No Abnormal speech present Extrem General: Yes no clubbing, cyanosis or edema Psych Affect: Anxious affect present Assessment & Plan Assessment & Plan (1) Coronary artery disease: Code(s): I25.10 - Atherosclerotic heart disease of [place] coronary artery without angina pectoris Plan: Coronary artery disease status post STEMI in July last year. He is still is really concerned about his whole finding. I discussed about pathophysiology of coronary artery disease acute coronary syndrome again. His recent echocardiogram shows normal LV systolic function without any major wall motion abnormality suggestive that he had a timely treatment. We discussed about management of coronary artery disease. Continue aspirin and prasugrel for 1 year uninterrupted and in long-term given his age would probably continue dual antiplatelet therapy for total of 30 months. His LDL is well optimized on high- intensity statin therapy. Blood pressure is well controlled. He is strongly encouraged to participate in phase 2 cardiac rehabilitation. (2) HTN (hypertension): Code(s): I10 - Essential (primary) hypertension Plan: Hypertension which is currently well optimized advised to monitor blood pressure at home maintain a log. Goal blood pressure less than 130/84. Importance of good blood pressure control was discussed. Advised to gradually increase activity level. Low-salt diet was discussed. Follow up in the clinic in 6 months time, sooner p.r.n.. Thank you for allowing me to partake in his care Medications: New aspirin 81 mg PO DAILY 90 tabs 3RF prasugrel 10 mg PO DAILY 90 tabs 3RF rosuvastatin 40 mg PO DAILY 90 tabs 3RF losartan 50 mg PO BID 180 tabs 3RF metoprolol succinate ER 100 mg PO DAILY 90 tabs 3RF Refilled aspirin 81 mg PO DAILY 90 tabs 3RF losartan 50 mg PO BID 180 tabs 3RF rosuvastatin 40 mg PO DAILY 90 tabs 3RF metoprolol succinate ER 100 mg PO DAILY 90 tabs 3RF prasugrel 10 mg PO DAILY 90 tabs 3RF Coding Level of Care Code Est Pt Level 4 (57636) Diagnoses Coronary artery disease I25.10 HTN (hypertension) I10
== END 2023-12-22 11:30 | disposition home or self-care (01) ==
PROVIDERS: PCP Internal Medicine; Visit Provider Internal Medicine Cardiovascular Disease
DX: I25.10 Atherosclerotic heart disease of native coronary artery without angina pectoris (principal); I10 Essential (primary) hypertension
CPT/HCPCS: 99214

== ENCOUNTER → 2023-12-22 11:07 | Outpatient (BNVA) | payer BC, SELFPAY | PROVIDERS: PCP Internal Medicine; Visit Provider Internal Medicine Cardiovascular Disease ==

== ENCOUNTER 2024-01-10 10:19 | Outpatient (REF) | payer BC, SELFPAY ==
--- NOTE | ~2024-01-10 | XR_ITS ---
EXAMINATION: XR CHEST CLINICAL INFORMATION: Wheezing, shortness of breath, diffuse wheezing with history of coronary artery disease and NC 6 months ago. Wheezing on auscultation, acute exacerbation of intrinsic asthma. COMPARISON: None available. TECHNIQUE: 3 views of the chest. FINDINGS: The lungs are well inflated. Heart size is normal. There is no gross pneumothorax. No gross pleural effusion. Mild degenerative changes in the thoracic spine. Left lower lobe heterogeneous opacities may represent an infectious/inflammatory process. Small focal ill-defined opacity at the right lung base may be related to the anterior aspect of the right sixth rib versus focal pulmonary parenchymal process. XR/XR chest 2V IMPRESSION: Left lower lobe heterogeneous opacities may represent an infectious/inflammatory process. Small focal ill-defined opacity at the right lung base may be related to the anterior aspect of the right sixth rib versus focal pulmonary parenchymal process. Recommend follow-up imaging in 4-6 weeks to confirm resolution and exclude underlying pathology. This study was presented today 01/10/2024 for interpretation. STAT results provided at this time as requested by referring provider.
== END 2024-01-10 10:20 | disposition home or self-care (01) ==
LOC: HO.HHCX 10:19
PROVIDERS: Visit Provider Internal Medicine
DX: J45.901 Unspecified asthma with (acute) exacerbation (principal)
CPT/HCPCS: 71046

== ENCOUNTER 2024-02-08 08:41 | Outpatient (REF) | payer BC, SELFPAY ==
--- NOTE | ~2024-02-08 | XR_ITS ---
EXAMINATION: XR CHEST CLINICAL INFORMATION: Difficulty breathing COMPARISON: Prior chest radiograph 01/10/2024 TECHNIQUE: 2 views of the chest were obtained. FINDINGS: Lungs grossly clear. Minor chronic markings at the lung bases, with no substantial change. No infiltrate or pleural effusion seen. Heart and pulmonary vessels normal. XR/XR chest 2V IMPRESSION: No active disease.
== END 2024-02-08 08:42 | disposition home or self-care (01) ==
LOC: HO.HHCX 08:41
PROVIDERS: Visit Provider Internal Medicine
DX: J45.901 Unspecified asthma with (acute) exacerbation (principal); R93.89 Abnormal findings on diagnostic imaging of other specified body structures
CPT/HCPCS: 71046

== ENCOUNTER 2024-02-23 12:00 | Outpatient (REF) | payer BC, SELFPAY ==
[2024-02-23 12:22] LABS: MANUAL DIFF FLAG NO
[2024-02-23 12:34] LABS: Basophils Percent Auto 0.2 % (0-2); Hematocrit 38.9 % (42.0-52.0); Hemoglobin 13.3 g/dl (14.0-18.0); Imm Gran Abs Auto 0.22 X10*3/uL (0.00-0.03); Lymphocytes Absolute Auto 2.1 X10*3/uL (1.2-4.9); Lymphocytes Percent Auto 9.4 % (20-40); Mean Corpuscular HGB Conc 34.2 g/dl (31.0-36.0); Mean Corpuscular Hemoglobin 30.9 pg (27.0-33.0); Mean Corpuscular Volume 90.3 fL (80.0-98.0); Mean Platelet Volume 9.7 fL (9.4-12.4); Monocytes Absolute Auto 0.6 X10*3/uL (0.1-1.2); Monocytes Percent Auto 2.7 % (2-11); Neutrophils Absolute Auto 19.3 x10*3/uL (2.0-8.3); Neutrophils Percent Auto 86.7 % (45-73); Platelet Count 250 X10*3/uL (160-400); Red Blood Count 4.31 X10*6/uL (4.60-5.80); Red Cell Distribution Width 14.8 % (11.0-16.0); White Blood Count 22.3 X10*3/uL (4.8-10.8)
[2024-02-23 13:18] LABS: Alanine Aminotransferase 29 U/L (0-40); Albumin Level 4.2 g/dL (3.5-5.0); Alkaline Phosphatase 63 U/L (39-117); Anion Gap 16 (12-20); Aspartate Amino Transferase 55 U/L (5-37); Bilirubin Total 0.4 mg/dL (0.0-1.0); Blood Urea Nitrogen 27 mg/dL (9-16); Calcium 9.6 mg/dL (8.4-10.2); Carbon Dioxide 20 mmol/L (22-29); Chloride 109 mmol/L (96-108); Estimated Glomerular Filt Rate 58; Glucose Random 116 mg/dL (60-115); Potassium 4.9 mmol/L (3.3-5.1); Sodium 140 mmol/L (135-145); Total Protein 7.2 g/dL (6.5-8.0); Uric Acid 6.4 mg/dL (3.4-7.0)
== END 2024-02-23 12:01 | disposition home or self-care (01) ==
LOC: HO.LAB 12:00
PROVIDERS: PCP Internal Medicine; Visit Provider Student in an Organized Health Care Education/Training Program
DX: M10.9 Gout, unspecified (principal)
CPT/HCPCS: 36415; 80053; 84550; 85025

== ENCOUNTER 2024-02-29 14:31 | Outpatient (AMB) | payer BC, SELFPAY ==
[2024-02-29 14:34] VITALS: BP 118/68; PULSE 53; O2SAT 97; BMI 28.1
--- NOTE | 2024-02-29 14:34 | MHC.OFFVIS ---
Vital Signs 02/29/24 14:34 Height 5 ft 7 in Weight 179 lb 7.3 oz BMI 28.1 BP 118/68 Blood Pressure Location Rt brachial Position Sitting Pulse 53 Pulse Source Pulse Oximeter Pulse Oximetry (%) 97 Oxygen Delivery Method Room Air Intake Visit Reasons: Gout/ CM Intake Note: Patient last seen 12/14/23 presents today for follow up and test results. Reports he had pneumonia and has been feeling SOB. Will be seeing pulm Dr Calderon in April. Institutional Custodian Required: No Accompanied by: Self / Same As Patient Allergies levofloxacin [From LEVAQUIN] Allergy (Unknown, Verified 02/29/24 14:49) Rash Medication List - Last Reconciled 02/29/24 by Jordon Burnette MD albuterol sulfate mg inhalation albuterol sulfate 90 mcg/actuation (Ventolin HFA) inhalation allopurinol 100 mg PO DAILY aspirin 81 mg PO DAILY colchicine 0.6 mg PO DAILY doxycycline hyclate 100 mg PO BID losartan 50 mg PO BID metoprolol succinate ER 100 mg PO DAILY prasugrel 10 mg PO DAILY prednisone mg PO rosuvastatin 40 mg PO DAILY HPI Comments Details: 58-year-old male with gout returns for follow-up. He is on allopurinol 100 mg daily and colchicine 0.6 mg daily. He has been compliant with both meds. He has been doing quite well overall in terms of his gout. Has not had any flare-ups recently. Stated that he was diagnosed with pneumonia about a month ago and is receiving antibiotics and prednisone. He is improving but Continues to have minimal shortness of breath Initial history: This is a 58-year-old male who was referred for gout management. Patient stated that he started having gout in his 40s. Initially it would affect his toes and feet, ankles then it progressed to involve his knees as well. He has stopped alcohol consumption many years ago since he started getting gout attacks. Patient has been on different medicines including indomethacin, colchicine and ibuprofen for his gout. He was on colchicine twice daily at some point which helped his gout but caused diarrhea. He states that currently he takes colchicine as needed for flare-ups. He took allopurinol for 2 weeks but did not want to continue taking it. States that this year has been most severe last month he was in [facility], he had a heart attack, he had a cardiac catheterization and 3 stents were placed. During the hospitalization he developed a gout flare-up affecting his right knee. Per patient arthrocentesis was attempted but was not successful. He states that he has had 2 other instances of arthrocentesis in the past. Last week he started having another gout flare-up affecting his right knee and right ankle. He now has to use a cane. Been taking colchicine once daily since the attack started He denies any history of kidney stones. Mentions that his father had gout as well [facility] Medical History HTN (hypertension) History of [place] (myocardial infarction) Coronary artery disease Gout Surgical History Stented coronary artery History of cardiac catheterization History of sinus surgery Family History Father Medical history unknown Mother Diabetes Hypertension Paternal Aunt Cancer Maternal Grandmother No problems noted. Maternal Grandfather No problems noted. Social History Household Members: Spouse and Family Alcohol intake: current Alcohol intake frequency: does not drink Patient Tobacco Use Status: Former Tobacco user Current occupational status: disabled Review of Systems Card Reports dyspnea Resp Reports dyspnea Musc Denies arthralgias, Denies joint swelling and Denies stiffness Physical Exam Vital Signs: Last Vital Signs Pulse 53 02/29/24 14:34 BP 118/68 02/29/24 14:34 Pulse Ox 97 02/29/24 14:34 Oxygen Delivery Method Room Air 02/29/24 14:34 BMI result Body Mass Index 28.1 Const General: cooperative, healthy appearing and comfortable Nutritional Appearance: overweight Orientation/consciousness: patient oriented x3 Limitations: ambulation with cane HEENT Head: Yes normocephalic and Yes atraumatic Mouth: moist mucous membranes Resp Effort & Inspection: normal respiratory effort and able to speak in complete sentences Cardio Rate: regular rate Rhythm: regular rhythm GI Palpation (GI): Soft to palpation and nontender Skin General skin exam: no rashes or lesions noted Neuro General: patient oriented x3 Extrem Other: No synovitis today. No tophi noted Osteoarthritic changes of both hands Results Reviewed Results Reviewed: Lab 05/2023 Uric acid 9.7 mg/dl Assessment & Plan Assessment & Plan (1) Gout: Comment: dx 09/2024 Allopurinol + Colchicine 09/2023 Code(s): M10.9 - Gout, unspecified Category: Medical Qualifiers: Gout site: unspecified site Gout etiology: idiopathic Chronicity: chronic Presence of tophus: without tophus Qualified Code(s): M1A.00X0 - Idiopathic chronic gout, unspecified site, without tophus (tophi) Plan: This is a 58-year-old male with gout who presents for follow-up. On colchicine 0.6 mg daily and allopurinol 100 mg daily. Doing well with no gout flare-ups. Uric acid level slightly increased at 6.4 mg dL. Not at goal. Increase allopurinol to 200 mg daily Continue colchicine 0.6 mg daily. If patient gets no gout flare-ups over the coming 3 months, colchicine might be discontinued however I asked patient to discuss with his fugitive detective whether he would be a candidate for long-term colchicine due to his history of coronary artery disease Labs before next visit in 3 months Plan I spent 16 minutes reviewing patient's chart, evaluating patient, ordering diagnostic workup, counseling patient and documenting in the chart Orders: Orders Comprehensive Met. Panel 3 Months M1A.00X0 - Idiopathic chronic gout, unspecified site, without tophus (tophi) Uric Acid 3 Months M1A.00X0 - Idiopathic chronic gout, unspecified site, without tophus (tophi) Medications: Changed From allopurinol 100 mg PO DAILY 90 tabs 1RF To allopurinol 200 mg (2 x 100 mg) PO DAILY 180 tabs 1RF Refilled colchicine 0.6 mg PO DAILY 90 tabs 0RF Coding Level of Care Code Est Pt Level 3 (87675) Diagnoses Idiopathic chronic gout without tophus, unspecified site M1A.00X0 Gout site: unspecified site Gout etiology: idiopathic Chronicity: chronic Presence of tophus: without tophus
== END 2024-02-29 15:02 | disposition home or self-care (01) ==
PROVIDERS: PCP Internal Medicine; Visit Provider Student in an Organized Health Care Education/Training Program
DX: M1A.00X0 Idiopathic chronic gout, unspecified site, without tophus (tophi) (principal)
CPT/HCPCS: 99213

== ENCOUNTER → 2024-02-29 14:31 | Outpatient (BNVA) | payer BC, SELFPAY | PROVIDERS: PCP Internal Medicine; Visit Provider Student in an Organized Health Care Education/Training Program ==

== ENCOUNTER 2024-04-17 10:14 | Outpatient (AMB) | payer BC, SELFPAY ==
[2024-04-17 10:19] VITALS: BP 120/60; PULSE 60; O2SAT 99; BMI 28.1
--- NOTE | 2024-04-17 10:19 | A.OFFVIS_ITS ---
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 The patient is a 59-year-old gentleman with a known history of CAD status spoke PCI while he was in [place]. Apparently patient was in her usual state health until the last several months when he started developing worsening shortness of breath and cough. He was evaluated in the ER with a chest x-ray. Appeared to have an opacity in the left lower lobe and also some other minimal changes. I did personally review the x- ray and I did not see any significant disease just minimal changes. The patient was treated with antibiotics and prednisone, then , had a subsequent chest x-ray demonstrating some persistent minimal changes. He does state that he had pneumonia 10-15 years ago. He is scheduled to undergo a CT scan of the chest later on this month. From a respiratory status is doing better. He continues have a cough. [id number]. Nonproductive in nature. Overall he has been feeling better. The patient does have a rescue inhaler he typically does not use it more than twice a week. At this point does not need any additional therapies. [facility] Medical History (Updated 04/18/24 @ 22:37 by Dwayne Calderon MD) Pneumonia Cough HTN (hypertension) History of [place] (myocardial infarction) Coronary artery disease Gout Surgical History Stented coronary artery History of cardiac catheterization History of sinus surgery Family History Father Medical history unknown Mother Diabetes Hypertension Paternal Aunt Cancer Maternal Grandmother No problems noted. Maternal Grandfather No problems noted. Social History Household Members: Spouse and Family Alcohol intake: current Alcohol intake frequency: does not drink Patient Tobacco Use Status: Former Tobacco user Current occupational status: disabled Review of Systems Const Reports no additional complaints Card Denies chest pain and Denies palpitations Resp Reports cough Musc Denies abnormal gait and Denies muscle weakness Neuro Denies abnormal gait Endo Denies palpitations Physical Exam Vital Signs: Last Vital Signs Pulse 60 04/17/24 10:19 BP 120/60 04/17/24 10:19 Pulse Ox 99 04/17/24 10:19 Oxygen Delivery Method Room Air 04/17/24 10:19 BMI result Body Mass Index 28.1 Const General: comfortable Limitations: no limitations HEENT Head: Yes normocephalic and Yes atraumatic Neck Neck: Yes supple Resp Effort & Inspection: normal respiratory effort Auscultation: clear to auscultation bilaterally Cardio Heart sounds: S1 normal heart sound present and S2 normal heart sound present GI Auscultation: normal bowel sounds Skin General skin exam: no rashes or lesions noted Extrem General: Yes no clubbing, cyanosis or edema Assessment & Plan Assessment & Plan (1) Cough: Code(s): R05.9 - Cough, unspecified Category: Medical Qualifiers: Cough type: subacute Qualified Code(s): R05.2 - Subacute cough (2) Pneumonia: Code(s): J18.9 - Pneumonia, unspecified organism Category: Medical Qualifiers: Pneumonia type: due to unspecified organism Laterality: left Lung location: unspecified part of lung Qualified Code(s): J18.9 - Pneumonia, unspecified organism (3) Standard chest x-ray abnormal: Code(s): R93.89 - Abnormal findings on diagnostic imaging of other specified body structures Category: Medical Plan CT chest PFTs JAMILA as needed F/U 2-3 months Orders: Orders PFT pulmonary function test Today R05.2 - Subacute cough Coding Level of Care Code New Pt Level 4 (87825) Diagnoses Subacute cough R05.2 Cough type: subacute Pneumonia of left lung due to infectious organism, unspecified part of lung J18.9 Pneumonia type: due to unspecified organism Laterality: left Lung location: unspecified part of lung Standard chest x-ray abnormal R93.89 Time Spent (min) 35
== END 2024-04-17 10:50 | disposition home or self-care (01) ==
PROVIDERS: PCP Internal Medicine; Visit Provider Hospitalist
DX: R05.2 Subacute cough (principal); J18.9 Pneumonia, unspecified organism; R93.89 Abnormal findings on diagnostic imaging of other specified body structures
CPT/HCPCS: 99204

== ENCOUNTER → 2024-04-17 10:14 | Outpatient (BNVA) | payer BC, SELFPAY | PROVIDERS: PCP Internal Medicine; Visit Provider Hospitalist ==

== ENCOUNTER 2024-04-22 08:30 | Outpatient (RCR) | payer BC, SELFPAY | END 2024-05-08 06:53 | disposition home or self-care (01) | LOC: HO.CR 08:30 | PROVIDERS: PCP Internal Medicine; Visit Provider Internal Medicine Cardiovascular Disease | DX: I25.10 Atherosclerotic heart disease of native coronary artery without angina pectoris (principal); I25.2 Old myocardial infarction; Z95.5 Presence of coronary angioplasty implant and graft | CPT/HCPCS: 93798 ==

== ENCOUNTER 2024-05-08 10:03 | Outpatient (REF) | payer BC, SELFPAY ==
--- NOTE | ~2024-05-08 | CT_ITS ---
EXAMINATION: CT CHEST WITH CONTRAST CLINICAL INFORMATION: Abnormal chest radiograph, recurrent cough COMPARISON: Chest radiograph 02/08/2024 TECHNIQUE: Multidetector volumetric CT imaging of the chest was obtained after the administration of 50 mL of Omnipaque 350 intravenous contrast without immediate adverse reactions. Axial MIP volume rendering provided. Sagittal and coronal reformatted images were obtained. This CT examination was performed using dose optimization techniques as appropriate, variously including the following: *Automated exposure control *Adjustment of mA and/or kV according to patient size (this includes techniques or standardized protocols for targeted exams where dose is matched to indication/reason for exam; i.e. extremities or head) *Use of iterative reconstruction technique DLP: 149 mGy-cm FINDINGS: LUNGS: Central airways are patent. No focal consolidation. No suspicious pulmonary nodule. MEDIASTINUM: Heart is normal in size. No pericardial effusion. No enlarged mediastinal or hilar lymph nodes. Coronary artery calcifications versus stents. Thoracic aorta is nonaneurysmal with mild atherosclerotic calcifications of the aortic arch. 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 PLEURA: There is no pleural effusion. No pleural mass or thickening. AXILLA: No lymphadenopathy. UPPER ABDOMEN: Partially visualized bilateral simple renal cortical cysts. No adrenal nodules. OSSEOUS STRUCTURES: No acute or suspicious osseous abnormality. Mild degenerative changes of the visualized spine. CT/CT chest w IV con IMPRESSION: No focal consolidation or suspicious pulmonary nodule. 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 Correlation with MRI chest can be considered as clinically needed. Electronically signed by: Isac Jansen MD 06/06/2024 01:47 PM EDT
[2024-05-09 10:22] LABS: Creatinine POC 1.1 mg/dL (0.5-1.4); GFR POC > 60
== END 2024-05-08 10:04 | disposition home or self-care (01) ==
LOC: HO.CT 10:03
PROVIDERS: PCP Internal Medicine; Visit Provider Internal Medicine
DX: R93.89 Abnormal findings on diagnostic imaging of other specified body structures (principal)
CPT/HCPCS: 71260; 82565

== ENCOUNTER 2024-05-29 14:09 | Outpatient (AMB) | payer BC, SELFPAY ==
--- NOTE | 2024-05-29 14:10 | MHC.OFFVIS ---
Vital Signs 05/29/24 14:12 Height 5 ft 7 in Weight 188 lb 0.869 oz BMI 29.5 BP 118/74 Blood Pressure Location Lt brachial Position Sitting Pulse 56 Pulse Source Pulse Oximeter Pulse Oximetry (%) 97 Oxygen Delivery Method Room Air Intake Visit Reasons: gout/cm Intake Note: Patient last seen on 02/29/2024, presents today with gout follow up. Allergies levofloxacin [From LEVAQUIN] Allergy (Unknown, Verified 05/29/24 14:15) Rash Medication List - Last Reconciled 05/29/24 by Jordon Burnette MD albuterol sulfate mg inhalation albuterol sulfate 90 mcg/actuation (Ventolin HFA) inhalation allopurinol 100 mg PO DAILY aspirin 81 mg PO DAILY colchicine 0.6 mg PO DAILY losartan 50 mg PO BID metoprolol succinate ER 100 mg PO DAILY nebulizers As directed prasugrel 10 mg PO DAILY rosuvastatin 40 mg PO DAILY HPI Comments Details: 59-year-old male with gout returns for follow-up. He is on allopurinol 100 mg daily and colchicine 0.6 mg daily. He did not increase the allopurinol to 200 mg daily as recommended last visit. He has been doing quite well overall in terms of his gout. Has not had any flare-ups recently. He states that a few days ago he went to the hospital due to an episode of chest discomfort, sweating and syncope. He was admitted at [facility] for 1 day and discharged and he was advised to make an appointment with his safe technician soon Initial history: This is a 58-year-old male who was referred for gout management. Patient stated that he started having gout in his 40s. Initially it would affect his toes and feet, ankles then it progressed to involve his knees as well. He has stopped alcohol consumption many years ago since he started getting gout attacks. Patient has been on different medicines including indomethacin, colchicine and ibuprofen for his gout. He was on colchicine twice daily at some point which helped his gout but caused diarrhea. He states that currently he takes colchicine as needed for flare-ups. He took allopurinol for 2 weeks but did not want to continue taking it. States that this year has been most severe last month he was in [facility], he had a heart attack, he had a cardiac catheterization and 3 stents were placed. During the hospitalization he developed a gout flare-up affecting his right knee. Per patient arthrocentesis was attempted but was not successful. He states that he has had 2 other instances of arthrocentesis in the past. Last week he started having another gout flare-up affecting his right knee and right ankle. He now has to use a cane. Been taking colchicine once daily since the attack started He denies any history of kidney stones. Mentions that his father had gout as well [facility] Medical History Pneumonia Cough HTN (hypertension) History of [place] (myocardial infarction) Coronary artery disease Gout Surgical History Stented coronary artery History of cardiac catheterization History of sinus surgery Family History Father Medical history unknown Mother Diabetes Hypertension Paternal Aunt Cancer Maternal Grandmother No problems noted. Maternal Grandfather No problems noted. Social History Household Members: Spouse and Family Alcohol intake: current Alcohol intake frequency: does not drink Patient Tobacco Use Status: Former Tobacco user Current occupational status: disabled Review of Systems Card Reports dyspnea Resp Reports dyspnea Musc Denies arthralgias, Denies joint swelling and Denies stiffness Physical Exam Vital Signs: Last Vital Signs Pulse 56 05/29/24 14:12 BP 118/74 05/29/24 14:12 Pulse Ox 97 05/29/24 14:12 Oxygen Delivery Method Room Air 05/29/24 14:12 BMI result Body Mass Index 29.5 Const General: cooperative, healthy appearing and comfortable Nutritional Appearance: overweight Orientation/consciousness: patient oriented x3 HEENT Head: Yes normocephalic and Yes atraumatic Mouth: moist mucous membranes Resp Effort & Inspection: normal respiratory effort and able to speak in complete sentences Skin General skin exam: no rashes or lesions noted Neuro General: patient oriented x3 Extrem Other: No synovitis today. No tophi noted Osteoarthritic changes of both hands Results Reviewed Results Reviewed: Lab 05/2023 Uric acid 9.7 mg/dl Assessment & Plan Assessment & Plan (1) Gout: Comment: dx 09/2024 Allopurinol + Colchicine 09/2023 Code(s): M10.9 - Gout, unspecified Category: Medical Qualifiers: Gout site: unspecified site Gout etiology: idiopathic Chronicity: chronic Presence of tophus: without tophus Qualified Code(s): M1A.00X0 - Idiopathic chronic gout, unspecified site, without tophus (tophi) Plan: This is a 59-year-old male with gout who presents for follow-up. On colchicine 0.6 mg daily and allopurinol 100 mg daily. Last visit his uric acid level was slightly increased at 6.4 mg/dL. I advised patient to increase his allopurinol to 200 mg daily. Patient did not inches allopurinol dose. He does not want to change it at this time he is doing quite well. Has not had any gout flare-ups for many months. At this time I will continue to monitor patient on allopurinol 100 mg daily From Rheumatology standpoint, patient has not had any gout flare-ups in the last 6 months, colchicine might be discontinued however I asked patient to discuss with his safe technician whether he would be a candidate for long-term colchicine due to his history of coronary artery disease Labs before next visit in months Plan I spent 16 minutes reviewing patient's chart, evaluating patient, ordering diagnostic workup, counseling patient and documenting in the chart Orders: Orders Comprehensive Met. Panel 6 Months M1A.00X0 - Idiopathic chronic gout, unspecified site, without tophus (tophi) Uric Acid 6 Months M1A.00X0 - Idiopathic chronic gout, unspecified site, without tophus (tophi) Coding Level of Care Code Est Pt Level 3 (78296) Diagnoses Idiopathic chronic gout without tophus, unspecified site M1A.00X0 Gout site: unspecified site Gout etiology: idiopathic Chronicity: chronic Presence of tophus: without tophus
[2024-05-29 14:12] VITALS: BP 118/74; PULSE 56; O2SAT 97; BMI 29.5
== END 2024-05-29 14:24 | disposition home or self-care (01) ==
PROVIDERS: PCP Internal Medicine; Referring Provider Internal Medicine; Visit Provider Student in an Organized Health Care Education/Training Program
DX: M1A.00X0 Idiopathic chronic gout, unspecified site, without tophus (tophi) (principal)
CPT/HCPCS: 99213

== ENCOUNTER → 2024-05-29 14:09 | Outpatient (BNVA) | payer BC, SELFPAY | PROVIDERS: PCP Internal Medicine; Visit Provider Student in an Organized Health Care Education/Training Program ==

== ENCOUNTER 2024-06-04 12:47 | Outpatient (AMB) | payer BC, SELFPAY ==
[2024-06-04 12:54] VITALS: BP 118/60; PULSE 62; BMI 29.7
--- NOTE | 2024-06-04 12:54 | MHC.OFFVIS ---
Vital Signs 06/04/24 12:54 Height 5 ft 7 in Weight 189 lb 9.561 oz BMI 29.7 BP 118/60 Blood Pressure Location Lt brachial Position Sitting Pulse 62 Pulse Source Pulse Oximeter Intake Visit Reasons: [facility] f/up Allergies levofloxacin [From LEVAQUIN] Allergy (Unknown, Verified 05/29/24 14:15) Rash Medication List - Last Reconciled 06/04/24 by Neeut Mcnally NP albuterol sulfate mg inhalation albuterol sulfate 90 mcg/actuation (Ventolin HFA) inhalation allopurinol 100 mg PO DAILY aspirin 81 mg PO DAILY colchicine 0.6 mg PO DAILY losartan 50 mg PO BID metoprolol succinate ER 100 mg PO DAILY nebulizers As directed prasugrel 10 mg PO DAILY rosuvastatin 40 mg PO DAILY HPI Comments Details: 59-year-old male presents today for a follow-up after emergency care. He went to [facility] on 05/26 for chest pains and shortness of breath. He was playing dominoes with his family and suddenly got chest pains, shortness of breath, dizziness, diaphoretic, and he had vomited. He decribes the chest pain then as a elephant on his chest which reminded him of his [place] almost one year ago. He had his family call EMS. When he was registering at [facility] he syncopized and regained consciousness around 60 sec later per note. He reports he has been feeling better since. Some chest tightness worse with exertion such as heavy lifting. He reports he has some palpitations also. During his overnight stay at [facility] he had negative troponins x3, no EKG changes suggesting ischemia, CT r/o PE, and telemetery not showing any arrrhythmias, and syncopal episode thought to be vasovagal from the pain. He reports complaint with his medications. [facility] Medical History Palpitations Syncope Pneumonia Cough HTN (hypertension) History of [place] (myocardial infarction) Coronary artery disease Gout Surgical History Stented coronary artery History of cardiac catheterization History of sinus surgery Family History Father Medical history unknown Mother Diabetes Hypertension Paternal Aunt Cancer Maternal Grandmother No problems noted. Maternal Grandfather No problems noted. Social History Household Members: Spouse and Family Alcohol intake: current Alcohol intake frequency: does not drink Patient Tobacco Use Status: Former Tobacco user Current occupational status: disabled Review of Systems Const Denies weakness ENT Denies dizziness Card Denies chest pain, Denies chest pain with activity, Denies syncope, Denies rapid heart rate, Denies pedal edema, Denies edema, Denies leg edema, Denies lightheadedness, Denies palpitations, Denies dyspnea, Denies dyspnea on exertion and Denies orthopnea Resp Denies cough, Denies dyspnea and Denies dyspnea on exertion GI Denies hematochezia and Denies change in stool character Musc Denies abnormal gait, Denies muscle cramps, Denies muscle weakness, Denies numbness, Denies radiating pain into limb and Denies tingling Neuro Denies abnormal gait, Denies dizziness, Denies syncope, Denies numbness, Denies tingling and Denies weakness Endo Denies palpitations Physical Exam Vital Signs: Last Vital Signs Pulse 62 06/04/24 12:54 BP 118/60 06/04/24 12:54 BMI result Body Mass Index 29.7 Const General: healthy appearing and no acute distress Orientation/consciousness: patient oriented x3 HEENT Head: Yes normal to inspection Eyes General: appearance normal, both eyes and all related structures Neck Neck: Yes normal visual inspection Chest Chest palpation & inspection: normal inspection of the chest Resp Effort & Inspection: normal respiratory effort Auscultation: clear to auscultation bilaterally Cardio Jugular venous distension: no JVD Palpation: normal PMI Rate: regular rate Rhythm: regular rhythm Heart sounds: S1 normal heart sound present, S2 normal heart sound present, no click, no gallops, no murmurs and no rubs GI Inspection: Yes normal to inspection Palpation (GI): Soft to palpation Skin General skin exam: no rashes or lesions noted Neuro General: patient oriented x3 Extrem General: Yes normal to inspection Psych Appearance: grossly normal Assessment & Plan Assessment & Plan (1) Coronary artery disease: Code(s): I25.10 - Atherosclerotic heart disease of [place] coronary artery without angina pectoris Category: Medical (2) HTN (hypertension): Code(s): I10 - Essential (primary) hypertension Category: Medical (3) Syncope: Code(s): R55 - Syncope and collapse Category: Medical (4) Palpitations: Code(s): R00.2 - Palpitations Category: Medical Plan Coronary artery stent placed in July 2023. Continue aspirin and prasugrel. LDL in November 2023 was 52 - within goal. Blood pressure within range. We will get cardiac stress test with nuclear imaging to assess for ischemia. Has ongoing intermittent chest tightness. Patient reports he is not claustiphobic and can exercise on the treadmill. We will get a heart monitor to assess for arrhythmias to see if related to the chest tightness or syncopal episode. He does report intermittent palpitations which he struggles to describe. ED care if needed we will follow up after testing. Orders: Orders CA stress test 06/04/24 I10 - Essential (primary) hypertension, I25.10 - Atherosclerotic heart disease of [place] coronary artery without angina pectoris, R55 - Syncope and collapse ECG 14 day holter monitor 06/04/24 R00.2 - Palpitations, R55 - Syncope and collapse NM cardiolite stress test 06/04/24 I10 - Essential (primary) hypertension, I25.10 - Atherosclerotic heart disease of [place] coronary artery without angina pectoris, R55 - Syncope and collapse Coding Level of Care Code Est Pt Level 4 (47195) Diagnoses Coronary artery disease I25.10 HTN (hypertension) I10 Syncope R55 Palpitations R00.2
== END 2024-06-04 13:22 | disposition home or self-care (01) ==
PROVIDERS: PCP Internal Medicine; Visit Provider Nurse Practitioner
DX: I25.10 Atherosclerotic heart disease of native coronary artery without angina pectoris (principal); I10 Essential (primary) hypertension; R55 Syncope and collapse; R00.2 Palpitations
CPT/HCPCS: 99214

== ENCOUNTER → 2024-06-04 12:47 | Outpatient (BNVA) | payer BC, SELFPAY | PROVIDERS: PCP Internal Medicine; Visit Provider Nurse Practitioner | DX: I25.10 Atherosclerotic heart disease of native coronary artery without angina pectoris (principal); I10 Essential (primary) hypertension; R00.2 Palpitations; R55 Syncope and collapse; Z79.82 Long term (current) use of aspirin ==

== ENCOUNTER → 2024-07-05 08:14 | Outpatient (REF) | payer BC, SELFPAY ==
--- NOTE | 2024-07-05 08:18 | HM_ITS ---
* Total monitoring time 14 days. * Underlying rhythm is sinus with an average rate of 65/Min. * Frequent supraventricular ectopy with a burden of 5%. * Rare ventricular ectopy. * No significant pauses or high-grade AV blocks. * Patient marker used once in association with sinus rhythm. * No diary events. MTDD
== END ==
LOC: HO.CARD 08:14
PROVIDERS: PCP Internal Medicine; Visit Provider Nurse Practitioner
DX: R00.2 Palpitations (principal); R55 Syncope and collapse
CPT/HCPCS: 93246

== ENCOUNTER → 2024-07-05 08:18 | Outpatient (BNV) | payer BC, SELFPAY | PROVIDERS: PCP Internal Medicine; Visit Provider Internal Medicine | DX: I47.10 Supraventricular tachycardia, unspecified (principal) | CPT/HCPCS: 93248 ==

== ENCOUNTER 2024-07-10 10:09 | Outpatient (AMB) | payer BC, SELFPAY ==
[2024-07-10 10:18] VITALS: BP 110/60; PULSE 58; O2SAT 97; BMI 29.6
--- NOTE | 2024-07-10 10:18 | A.OFFVIS_ITS ---
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 Apparently patient was in her usual state health until the last several months when he started developing worsening shortness of breath and cough. He was evaluated in the ER with a chest x-ray. Appeared to have an opacity in the left lower lobe and also some other minimal changes. I did personally review the x-ray and I did not see any significant disease just minimal changes. The patient was treated with antibiotics and prednisone, then , had a subsequent chest x-ray demonstrating some persistent minimal changes. He does state that he had pneumonia 10-15 years ago. He is scheduled to undergo a CT scan of the chest later on this month. From a respiratory status is doing better. He continues have a cough. [id number]. Nonproductive in nature. Overall he has been feeling better. The patient does have a rescue inhaler he typically does not use it more than twice a week. At this point does not need any additional therapies. 07/10/2024 the patient is here for a pulmonary follow-up visit. Overall the patient has been doing well from a respiratory status. Unfortunately he was having some chest discomfort and he was evaluated at [facility]. There he had a CTA ruled out any aortic injury. Right now is working with Cardiology regarding do any cardiac stress test and also doing a Holter monitor. Hopefully everything comes out to be okay. He does have CAD with stent placement back in 2022. 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 Unfortunately the CT scan is not great modality to assess for this type of condition. Therefore the he will benefit from getting an MRI. Will plan to do that in the next 3-4 months to see if there is any progression or regression of disease. He was also found to have renal cyst. Will have to get an ultrasound of the kidneys to make sure that the renal cysts are further evaluated. But overall from a respiratory status he is doing well his cough is better. The patient does not have any evidence of any airspace disease. In he has a trip planned to [place] and he should be able to travel without any difficulties as long as his heart is okay. [facility] Medical History (Updated 07/10/24 @ 22:24 by Dwayne Calderon MD) Renal cyst Palpitations Syncope Pneumonia Cough HTN (hypertension) History of [place] (myocardial infarction) Coronary artery disease Gout Surgical History Stented coronary artery History of cardiac catheterization History of sinus surgery Family History Father Medical history unknown Mother Diabetes Hypertension Paternal Aunt Cancer Maternal Grandmother No problems noted. Maternal Grandfather No problems noted. Social History Household Members: Spouse and Family Alcohol intake: current Alcohol intake frequency: does not drink Patient Tobacco Use Status: Former Tobacco user Current occupational status: disabled Review of Systems Const Reports no additional complaints ENT Denies sore throat Card Denies chest pain and Denies palpitations Resp Reports cough Musc Denies abnormal gait and Denies muscle weakness Neuro Denies abnormal gait Endo Denies palpitations Physical Exam Vital Signs: Last Vital Signs Pulse 58 07/10/24 10:18 BP 110/60 07/10/24 10:18 Pulse Ox 97 07/10/24 10:18 Oxygen Delivery Method Room Air 07/10/24 10:18 BMI result Body Mass Index 29.6 Const General: comfortable Limitations: no limitations HEENT Head: Yes normocephalic and Yes atraumatic Neck Neck: Yes supple Resp Effort & Inspection: normal respiratory effort Auscultation: clear to auscultation bilaterally Cardio Heart sounds: S1 normal heart sound present and S2 normal heart sound present GI Auscultation: normal bowel sounds Skin General skin exam: no rashes or lesions noted Extrem General: Yes no clubbing, cyanosis or edema Assessment & Plan Assessment & Plan (1) Cough: Code(s): R05.9 - Cough, unspecified Category: Medical Qualifiers: Cough type: subacute Qualified Code(s): R05.2 - Subacute cough (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
== END 2024-07-10 10:49 | disposition home or self-care (01) ==
PROVIDERS: PCP Internal Medicine; Visit Provider Hospitalist
DX: R05.2 Subacute cough (principal); E32.8 Other diseases of thymus; N28.1 Cyst of kidney, acquired
CPT/HCPCS: 99214

== ENCOUNTER → 2024-07-10 10:09 | Outpatient (BNVA) | payer BC, SELFPAY | PROVIDERS: PCP Internal Medicine; Visit Provider Hospitalist ==

== ENCOUNTER → 2024-07-18 08:22 | Outpatient (REF) | payer BC, SELFPAY ==
--- NOTE | ~2024-07-18 | NM_ITS ---
EXERCISE MYOCARDIAL PERFUSION STUDY INDICATION: Chest pain TECHNIQUE: The patient was brought in for an exercise perfusion study on 07/18/2024. Patient performed exercise as per Jono protocol and was injected 30 mCi of sestamibi once target heart rate was achieved. Images were obtained using the SPECT gamma camera interlaced with the gating device. Images were obtained in supine position. Resting perfusion study was performed on 07/23/2024. Patient was administered 30 mCi of sestamibi intravenously at rest. Images were then obtained in supine position. Total DLP 93 mGy-cm. Images were processed with the software and compared side to side in short axis, horizontal long axis and vertical long axis views. FINDINGS: Raw aquisition reviewed. The stress perfusion study showed no significant perfusion abnormality. Both uncorrected as well as CT attenuation corrected images were reviewed. The gated study shows normal LV systolic function with calculated LVEF of > 70%. LV cavity is normal in size. The gated study shows normal wall thickening and contraction of segments. Resting study shows no significant perfusion abnormality. Gating at rest reveals normal wall motion with ejection fraction at 64%. The findings are consistent with no clear reversible or fixed perfusion abnormality. NM/NM cardiolite stress test IMPRESSION: 1. Myocardial perfusion imaging study shows normal myocardial perfusion. 2. Gated LVEF is > 70% during stress and 64% during rest. 3. Transient ischemic dilatation not present. EKG component of the test reported separately. Electronically signed by: Endy Hobbs MD 07/23/2024 12:23 PM EDT
--- NOTE | 2024-07-18 08:24 | CA_ITS ---
Acquisition Time: 2024-07-18 08:30:54 Total Exercise Time: 00:10:01 Test Indications: CAD CP Medications: SEE H Protocol: JOSE Max HR: 142 BPM 88% of Pred: 161 BPM Max BP: 134/064 mmHG Max Work Load: 11.7 METS Exercis stress test exercise 10 min 1 sec of Jose protocol achieivng 88% MPHR, with mild SOB, no chest discomfort, with mild dizziness at peak, with isolated PACs, with normotensive response to exercise, without EKG changes.Breathing and SOB resolved with rest. Nuclear images pending. Test reviewed with Dr. Del Cid. Referred By: Neetu Mcnally Overread By: Neetu Mcnally
== END ==
LOC: HO.CARD 08:22
PROVIDERS: PCP Internal Medicine; Visit Provider Nurse Practitioner
DX: I25.10 Atherosclerotic heart disease of native coronary artery without angina pectoris (principal); I10 Essential (primary) hypertension; R55 Syncope and collapse
CPT/HCPCS: 78452; 93017; A9500

== ENCOUNTER → 2024-07-18 08:24 | Outpatient (BNV) | payer BC, SELFPAY | PROVIDERS: PCP Internal Medicine; Visit Provider Nurse Practitioner | DX: R07.9 Chest pain, unspecified (principal) | CPT/HCPCS: 78452; 93016; 93018 ==

== ENCOUNTER 2024-07-23 08:14 | Outpatient (REF) | payer BC, SELFPAY ==
--- NOTE | ~2024-07-23 | US_ITS ---
EXAMINATION: US RETROPERITONEAL LIMITED (RENAL ONLY) CLINICAL INFORMATION: Cyst of kidney, acquired. COMPARISON: CT chest 05/08/2024. Ultrasound abdomen 02/24/2015. TECHNIQUE: Real-time imaging of the kidneys. FINDINGS: RIGHT KIDNEY: 10.6 x 6.1 x 4.9 cm (SAG x AP x TRV). The kidney is normal in size, contour, and echogenicity. Renal cortical thickness is normal. No renal calculi or hydronephrosis. Three benign Bosniak class I renal cysts are noted, the largest measuring 2.4 cm, which require no additional imaging or follow-up. No solid renal masses are seen. LEFT KIDNEY: 11.0 x 6.6 x 5.9 cm (SAG x AP x TRV). The kidney is normal in size, contour, and echogenicity. Renal cortical thickness is normal. No renal calculi or hydronephrosis. Multiple benign Bosniak class I renal cysts are noted, the largest two measuring 3.8 and 3.0 cm, none of these require any additional imaging or follow-up. No solid renal masses are seen. US/US renal BI IMPRESSION: Bilateral benign Bosniak class I renal cysts which require no additional imaging or follow up. Electronically signed by: Blanco Shaw MD 09/14/2024 10:47 AM EST
== END 2024-07-23 08:15 | disposition home or self-care (01) ==
LOC: HO.US 08:14
PROVIDERS: PCP Internal Medicine; Visit Provider Hospitalist
DX: N28.1 Cyst of kidney, acquired (principal)
CPT/HCPCS: 76775

== ENCOUNTER 2024-08-15 14:44 | Outpatient (AMB) | payer BC, SELFPAY ==
--- NOTE | 2024-08-15 15:08 | A.OFFVIS_ITS ---
Vital Signs 08/15/24 15:09 Height 5 ft 7 in Weight 195 lb 12.328 oz BMI 30.7 BP 100/62 Blood Pressure Location Lt brachial Position Sitting Pulse 67 Pulse Source Pulse Oximeter Intake Visit Reasons: f/up mibi/ holter Scientific Associate Required: No Allergies levofloxacin [From LEVAQUIN] Allergy (Unknown, Verified 08/15/24 15:11) Rash Medication List - Last Reconciled 08/15/24 by Halley Madison NP-C allopurinol 100 mg PO DAILY aspirin 81 mg PO DAILY colchicine 0.6 mg PO DAILY losartan 50 mg PO BID metoprolol succinate ER 100 mg PO DAILY nebulizers As directed prasugrel 10 mg PO DAILY rosuvastatin 40 mg PO DAILY sildenafil (Viagra) 100 mg PO DAILY PRN HPI HPI f/up mibi/ holter: Details: Christiano is a 59-year-old male with past medical history of hypertension, hyperlipidemia, coronary artery disease, STEMI 07/2023 in [place] with cardiac catheterization and 3 stents placed, who was seen in the [facility] emergency room for chest discomfort 05/2024, where he had a syncopal event, ruled out for ACS and PE. In follow-up he underwent a nuclear stress test and Holter monitor and now presents for follow-up. Today he reports that he has been doing well in the last few months. He has not had any chest discomfort at rest or with activity. His prior angina was initially back pain that radiated to the front with squeezing chest sensation, diaphoresis and bilateral arm numbness. He has not had any recurrent presyncope, syncope, falls. No shortness of breath, PND, orthopnea or edema. He has been walking routinely for exercise which he says he tolerates well. He is taking all his meds as directed. [facility] Medical History Renal cyst Palpitations Syncope Pneumonia Cough HTN (hypertension) History of [place] (myocardial infarction) Coronary artery disease Gout Surgical History Stented coronary artery History of cardiac catheterization History of sinus surgery Family History Father Medical history unknown Mother Diabetes Hypertension Paternal Aunt Cancer Maternal Grandmother No problems noted. Maternal Grandfather No problems noted. Social History Household Members: Spouse and Family Alcohol intake: current Alcohol intake frequency: does not drink Patient Tobacco Use Status: Former Tobacco user Current occupational status: disabled Review of Systems Const All systems reviewed & are unremarkable except as noted in HPI and below ENT Denies dizziness Card Denies chest pain, Denies chest pain at rest, Denies chest pain with activity, Denies rapid heart rate, Denies pedal edema, Denies edema, Denies leg edema, Denies lightheadedness, Denies palpitations, Denies dyspnea, Reports dyspnea on exertion and Denies orthopnea Resp Denies cough, Denies dyspnea and Reports dyspnea on exertion GI Denies hematochezia and Denies change in stool character Musc Denies abnormal gait, Denies limited range of motion, Denies muscle cramps, Denies muscle weakness, Denies numbness, Denies radiating pain into limb, Denies stiffness and Denies tingling Neuro Denies abnormal gait, Denies dizziness, Denies numbness and Denies tingling Endo Denies palpitations Physical Exam Vital Signs: Last Vital Signs Pulse 67 08/15/24 15:09 BP 100/62 08/15/24 15:09 BMI result Body Mass Index 30.7 Const General: cooperative, healthy appearing, comfortable and no acute distress Orientation/consciousness: patient oriented x3 Neck Neck: Yes normal visual inspection Resp Effort & Inspection: normal respiratory effort Auscultation: clear to auscultation bilaterally, no crackles, no rales, no rhonchi and no wheezes Cardio Jugular venous distension: no JVD Rate: regular rate Rhythm: regular rhythm Heart sounds: S1 normal heart sound present, S2 normal heart sound present, no murmurs and no rubs Neuro General: patient oriented x3 Extrem General: Yes normal to inspection, No no pedal edema and No calf tenderness Psych Appearance: grossly normal Mental Status: mental status grossly normal Speech and movement: Normal speech and movement present Assessment & Plan Assessment & Plan (1) Coronary artery disease: Code(s): I25.10 - Atherosclerotic heart disease of [place] coronary artery without angina pectoris Category: Medical Plan: History of CAD with acute STEMI 07/2023 in [place]. Full details not available. Notes indicate he did have a cardiac catheterization with 2 stents to the OM branch of circumflex and stent to the mid LAD - he had done well then had recurrent chest discomfort in May with ER evaluation. He ruled out for ACS and PE. He did have a syncopal event at that time which was thought to be vasovagal related to pain. An outpatient Holter monitor was done on 07/05/2024 for 14 days showing sinus rhythm with average heart rate 65, frequent PACs, 5%, rare ventricular ectopy. A nuclear stress test was done 07/18/2024 with exercise 10 minutes, mild shortness of breath, no EKG changes and normal myocardial perfusion imaging. His last echocardiogram was done on 11/27/2023 showing EF 65%, no valve abnormalities. At this time will continue on med management for stable CAD. Continue dual antiplatelet therapy for a total of 30 months post NH. he is currently on aspirin and prasugrel. Continue metoprolol, losartan and rosuvastatin. [place] LDL goal less than 70. Labs done 11/20/2023 showed LDL 52. Signs and symptoms of angina reviewed with him. Emergency care if ever needed for symptoms. Cardiology follow-up 6 months, sooner if needed. (2) Stented coronary artery: Comment: 2 drug-eluting stents, overlapping to OM branch of circumflex artery for STEMI. Drug-eluting stent to mid LAD for obstructive stenosis at the time of STEMI Code(s): Z95.5 - Presence of coronary angioplasty implant and graft Category: Surgical Plan: As above (3) HTN (hypertension): Code(s): I10 - Essential (primary) hypertension Category: Medical Plan: Running on the low side, asymptomatic. No med changes made. Instructed to call if he does have lightheadedness with position changes. Maintain good hydration. Plan Time spent on chart review, documentation, interview and assessment Coding Level of Care Code Est Pt Level 4 (46161) Complex EM visit Add On G2211 Diagnoses Coronary artery disease I25.10 Stented coronary artery Z95.5 HTN (hypertension) I10 Time Spent (min) 28
[2024-08-15 15:09] VITALS: BP 100/62; PULSE 67; BMI 30.7
== END 2024-08-15 15:33 | disposition home or self-care (01) ==
LOC: HO.HCS 14:45
PROVIDERS: PCP Internal Medicine; Visit Provider Nurse Practitioner Family
DX: I25.10 Atherosclerotic heart disease of native coronary artery without angina pectoris (principal); Z95.5 Presence of coronary angioplasty implant and graft; I10 Essential (primary) hypertension
CPT/HCPCS: 99214

== ENCOUNTER → 2024-08-15 14:44 | Outpatient (BNVA) | payer BC, SELFPAY | PROVIDERS: PCP Internal Medicine; Visit Provider Nurse Practitioner Family ==

== ENCOUNTER 2024-09-30 10:36 | Outpatient (REF) | payer BC, SELFPAY ==
--- NOTE | ~2024-09-30 | XR_ITS ---
EXAMINATION: XR CHEST CLINICAL INFORMATION: cough x over a week. COMPARISON: X-ray 02/08/2024 TECHNIQUE: 3 views chest FINDINGS: The cardiomediastinal silhouette is within normal limits. The lungs are well expanded. There is no focal consolidation, edema, or effusion. Mild bronchial wall thickening. No pneumothorax. No acute osseous abnormality. XR/XR chest 2V IMPRESSION: Mild bronchial wall thickening suggestive of small airway disease. Electronically signed by: Nazario Villavicencio MD 09/30/2024 03:36 PM EST
== END 2024-09-30 10:37 | disposition home or self-care (01) ==
LOC: HO.HHCX 10:36
PROVIDERS: Visit Provider Internal Medicine
DX: R05.9 Cough, unspecified (principal)
CPT/HCPCS: 71046

== ENCOUNTER 2024-10-02 08:38 | Outpatient (REF) | payer BC, SELFPAY ==
[2024-10-02 12:09] LABS: Uric Acid 7.7 mg/dL (3.4-7.0)
[2024-10-02 12:17] LABS: Alanine Aminotransferase 42 U/L (0-40); Albumin Level 4.4 g/dL (3.5-5.0); Alkaline Phosphatase 65 U/L (39-117); Anion Gap 12 (12-20); Aspartate Amino Transferase 76 U/L (5-37); Bilirubin Total 0.4 mg/dL (0.0-1.0); Blood Urea Nitrogen 46 mg/dL (9-16); Calcium 8.8 mg/dL (8.4-10.2); Carbon Dioxide 23 mmol/L (22-29); Chloride 107 mmol/L (96-108); Cholesterol 103 mg/dL (<200); Estimated Glomerular Filt Rate 36; Glucose Random 87 mg/dL (60-115); HDL Cholesterol 31 mg/dL (>40); LDL Cholesterol Calculated 54 mg/dL (<100); Potassium 4.1 mmol/L (3.3-5.1); Sodium 138 mmol/L (135-145); Total Protein 7.6 g/dL (6.5-8.0); Triglycerides 90 mg/dL (<150)
[2024-10-02 12:30] LABS: Prostate Specific Antigen Scr 0.31 ng/mL (<0.05-4.0)
== END 2024-10-02 08:39 | disposition home or self-care (01) ==
LOC: HO.HHCL 08:38
PROVIDERS: Student in an Organized Health Care Education/Training Program; Visit Provider Internal Medicine
DX: Z00.00 Encounter for general adult medical examination without abnormal findings (principal); Z12.5 Encounter for screening for malignant neoplasm of prostate; M1A.00X0 Idiopathic chronic gout, unspecified site, without tophus (tophi); E78.1 Pure hyperglyceridemia
CPT/HCPCS: 36415; 80053; 80061; 84153; 84550

== ENCOUNTER 2024-11-22 09:32 | Outpatient (REF) | payer OTHER, SELFPAY ==
[2024-11-22 10:45] LABS: MANUAL DIFF FLAG NO
--- OUTSIDE RECORDS SUMMARY | 2024-11-22 11:18 | XMS_ITS | Encounter Summary ---
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 Name Role Phone Jorge Calvillo MD Primary Care Provide r Reason for Visit * Reason Comments Med Refill Encounter Details Date Type Department Care Team ([facility] st Contact Info) Description 12/23/2023 Refill [facility] [address], [place] [phone] Jorge Calvillo MD [address], [place] [phone] Erectile dysfunction, unspecified erectile dysfunction type Social History Tobacco Use Types Packs/Day Years Used Date Smoking Tobacco: Every Day Cigarettes Passive Smoke Exposure: Current Smokeless Tobacco: Never Alcohol Use Standard Drinks/Week Comments Never 0 (1 standard drink = 0.6 oz pur e alcohol) Depression Answer Date Recorded Patient Health Questionnaire-9 Score 1 08/17/2023 Patient Health Questionnaire-9 Score 1 08/17/2023 Last PHQ-9: Questionnaire Data Not on file 1 10/17/2022 Housing Stability Answer Date Recorded What is your housing situation today? I have rian forde 08/14/[address] you li ve. Do you have problems with any of the following? None of the above 08/14/2023 Food Insecurity Answer Date Recorded Within the past 12 months, y ou worried that your food would run out before you got money to buy more: Never True 08/14/2023 Within the past 12 months,th e food you bought just didn't last and you didn't have enough money to get more: Never True Transportation Answer Date Recorded In the past 12 months, has l ack of transportation kept you from medical appts, meetings, work or from getting things needed for daily living? No 08/14/2023 Utilities Answer Date Recorded In the past 12 months, has t he electric, gas, oil or water company threatened to shut off services in your home? No 08/14/2023 Depression Answer Date Recorded Patient Health Questionnaire-2 Score 0 08/17/2023 Sex and Gender Information Value Date Recorded Sex Assigned at Male 08/15/2022 10:37 AM EDT Legal Sex Male 10:37 AM EDT Gender Identity Male 08/15/2022 10:37 AM EDT Sexual Orientation Straight 08/15/2022 10 :37 AM EDT documented as of this encounter Plan of Treatment Upcoming Encounters Date Type Department Care Team (Late st Contact Info) Description 12/26/2024 11:30 AM EDT Office Visit [facility] [address] [place] [phone] Jorge Calvillo MD [address] [place] [address] documented as of this encounter Visit Diagnoses Diagnosis Erectile dysfunction, unspecified erectile dysfunction type documented in this encounter Additional Health Concerns Assessment Noted Time PHQ-9 Depression Total Score: 1 08/17/20 23 10:33 AM EDT documented as of this encounter Care Teams [employer] Le[employer] Pumper Relationship Specialty Start Date End Date Jorge Calvillo MD [address] [place] [id number] PCP - General Internal Medicine 01/08/21 documented as of this encounter
--- OUTSIDE RECORDS SUMMARY | 2024-11-22 11:18 | XMS_ITS | Encounter Summary ---
Author Organization [employer] Address [address] [facility] 7t [place] [address] Care Team Providers Care Drying And Winding Supervisor Name Role Phone Jorge Calvillo MD Primary Care Provide r Reason for Visit * Reason Comments Cough Encounter Details Date Type Department Care Team ([facility] st Contact Info) Description 11/11/2024 10:40 AM EST Office Visit [facility] [address] [place] [address] [phone] Name, MD Luis [address] [place] [address] Cough in adult patient (Primary Dx); Wheezing on auscultation Social History Tobacco Use Types Packs/Day Years Used Date Smoking Tobacco: Former Cigarettes Passive Smoke Exposure: Past Smokeless Tobacco: Never Alcohol Use Standard Drinks/Week Comments Never 0 (1 standard drink = 0.6 oz pur e alcohol) Depression Answer Date Recorded Patient Health Questionnaire-9 Score 0 08/29/2024 Patient Health Questionnaire-9 Score 0 08/29/2024 Last PHQ-9: Questionnaire Data Not on file 1 10/29/2023 Housing Stability Answer Date Recorded What is your housing situation today? I have rianmaya forde 08/29/[address] you li ve. Do you have problems with any of the following? None of the above 08/29/2024 Food Insecurity Answer Date Recorded Within the past 12 months, y ou worried that your food would run out before you got money to buy more: Never True 08/29/2024 Within the past 12 months,th e food you bought just didn't last and you didn't have enough money to get more: Never True Transportation Answer Date Recorded In the past 12 months, has l ack of transportation kept you from medical appts, meetings, work or from getting things needed for daily living? No 08/29/2024 Utilities Answer Date Recorded In the past 12 months, has t he electric, gas, oil or water company threatened to shut off services in your home? No 08/29/2024 Depression Answer Date Recorded Patient Health Questionnaire-2 Score 0 08/29/2024 Internet Access Answer Date Recorded Internet Access Q1 I am not sure 08/29/2024 Internet Access Q2 Not on file 08/29/2024 Sex and Gender Information Value Date Recorded Sex Assigned at Male 08/15/2022 10:37 AM EDT Legal Sex Male 10:37 AM EDT Gender Identity Male 08/15/2022 10:37 AM EDT Sexual Orientation Straight 08/15/2022 10 :37 AM EDT documented as of this encounter Last Filed Vital Signs Vital Sign Reading Time Taken Comments Blood Pressure 135/81 11/11/2024 10:08 AM EST Pulse 65 11/11/2024 10:08 AM EST Temperature 36.9 ??C (98.4 ??F) 11/11/2024 10:[address] Respiratory Rate 18 11/11/2024 10:08 AM EST Oxygen Saturation - - Inhaled Oxygen Concentration - - Weight 87.1 kg (192 lb) 11/11/2024 10:08 AM EST Height - - Body Mass Index 30.07 08/29/2024 9:13 AM EST documented in this encounter Progress Notes * Luis Wilks, - 11/11/2024 10:40 AM EST Subjective Patient ID: Christiano Apodaca is a 59 y.o. male who presents for Cough. Patient comes complaining of cough, wheezing, shortness of breath. This is a recurrent problem for this patient since last year. He follows with pulmonary medicine at [facility]. He is currently treated only with albuterol. In the past he responded to short courses of prednisone. He denies ever having a history of asthma. He is a former smoker. Today viral testing was negative for COVID and flu. Review of Systems Constitutional: Negative for fatigue. Respiratory: Positive for cough, shortness of breath and wheezing. Cardiovascular: Negative for palpitations and leg swelling. Gastrointestinal: Negative for abdominal pain and blood in stool. Visit Vitals BP 135/81 (BP Location: Left arm, Patient Position: Sitting, BP Cuff Size: Large adult) Pulse 65 Temp 98.4 ??F (36.9 ??C) (Temporal) Resp 18 Wt 192 lb (87.1 kg) BMI 30.07 kg/m?? Smoking Status Former BSA 2.03 m?? Objective Physical Exam Constitutional: Appearance: Normal appearance. Cardiovascular: Rate and Rhythm: Normal rate and regular rhythm. Heart sounds: No murmur heard. Pulmonary: Effort: Pulmonary effort is normal. No respiratory distress. Breath sounds: Wheezing present. No rhonchi or rales. Abdominal: Palpations: Abdomen is soft. Tenderness: There is no abdominal tenderness. Musculoskeletal: Right lower leg: No edema. Left lower leg: No edema. Neurological: Mental Status: He is alert. Latest Reference Range & Units 11/11/24 10:12 11/11/24 10:20 Influenza A Negative, Indeterminate Negative Influenza B Negative, Indeterminate Negative Rapid COVID Ag Negative [address] [address] XRay Report Signed Patient: Christiano Magaña MR#: M [id number] : 1965 Acct:[id number] Age/Sex: 59 / M ADM Date: 09/30/24 Loc: HO.HHCX Attending Dr: Jorge Mcclure MD Ordering Physician: Jorge Mcclure MD Date of Service: 09/30/24 Procedure(s): XR chest 2V Accession Number(s): [id number] cc: Jorge Mcclure MD EXAMINATION: XR CHEST CLINICAL INFORMATION: cough x over a week. COMPARISON: X-ray 02/08/2024 TECHNIQUE: 3 views chest FINDINGS: The cardiomediastinal silhouette is within normal limits. The lungs are well expanded. There is no focal consolidation, edema, or effusion. Mild bronchial wall thickening. No pneumothorax. No acute osseous abnormality. XR/XR chest 2V IMPRESSION: Mild bronchial wall thickening suggestive of small airway disease. Electronically signed by: Nazario Villavicencio MD 09/30/2024 03:36 PM EST Dictated By: Nazario Villavicencio MD Signed By: <Electronically signed by Nazario Villavicencio MD in OV> 09/30/[address] [address] [address] Scan Report Signed Patient: Christiano Magaña MR#: M [id number] : 1965 Acct:[id number] Age/Sex: 59 / M ADM Date: 05/08/24 Loc: HO.CT Attending Dr: Jorge Cherry MD Ordering Physician: Jorge Cherry MD Date of Service: 05/08/24 Procedure(s): CT chest w IV con Accession Number(s): [id number] cc: Jorge Cherry MD EXAMINATION: CT CHEST WITH CONTRAST CLINICAL INFORMATION: Abnormal chest radiograph, recurrent cough COMPARISON: Chest radiograph 02/08/2024 TECHNIQUE: Multidetector volumetric CT imaging of the chest was obtained after the administration of 50 mL of Omnipaque 350 intravenous contrast without immediate adverse reactions. Axial MIP volume rendering provided. Sagittal and coronal reformatted images were obtained. This CT examination was performed using dose optimization techniques as appropriate, variously including the following: *Automated exposure control *Adjustment of mA and/or kV according to patient size (this includes techniques or standardized protocols for targeted exams where dose is matched to indication/reason for exam; i.e. extremities or head) *Use of iterative reconstruction technique DLP: 149 mGy-cm FINDINGS: LUNGS: Central airways are patent. No focal consolidation. No suspicious pulmonary nodule. MEDIASTINUM: Heart is normal in size. No pericardial effusion. No enlarged mediastinal or hilar lymph nodes. Coronary artery calcifications versus stents. Thoracic aorta is nonaneurysmal with mild atherosclerotic calcifications of the aortic arch. 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 PLEURA: There is no pleural effusion. No pleural mass or thickening. AXILLA: No lymphadenopathy. UPPER ABDOMEN: Partially visualized bilateral simple renal cortical cysts. No adrenal nodules. OSSEOUS STRUCTURES: No acute or suspicious osseous abnormality. Mild degenerative changes of the visualized spine. CT/CT chest w IV con IMPRESSION: No focal consolidation or suspicious pulmonary nodule. 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 Correlation with MRI chest can be considered as clinically needed. Electronically signed by: Isac Jansen MD 06/06/2024 01:47 PM EDT RP Dictated By: Isac Jansen Signed By: <Electronically signed by Isac Jansen in OV> 06/06/24 1347 Assessment/Plan Diagnoses and all orders for this visit: Cough in adult patient Comments: Patient is having asthma-like symptoms. I recommended to continue rescue albuterol, short course ofprednisone, start daily Arnuity. Keep upcoming appointment with pulmonary. Orders: - Influenza A (ID NOW Rapid Molecular) - Influenza B (ID NOW Rapid Molecular) - POCT Rapid COVID Ag Wheezing on auscultation Other orders - predniSONE (Deltasone) 20 MG tablet; Take 2 tablets (40 mg) by mouth Once per day for 5 days. - fluticasone furoate (Arnuity Ellipta) 200 MCG/ACT inhaler; Inhale 1 puff Once per day. Rinse mouth with water after use to reduce aftertaste and incidence of candidiasis. Do not swallow. - albuterol (Ventolin HFA) 108 (90 Base) MCG/ACT inhaler; Inhale 2 puffs every 6 (six) hours if needed for wheezing. documented in this encounter Plan of Treatment Upcoming Encounters Date Type Department Care Team (Late st Contact Info) Description 12/26/2024 11:30 AM EDT Office Visit [facility] [address] [place] [address] Jorge Calvillo MD [address] [place], [place] [phone] documented as of this encounter Procedures Procedure Name Priority Date/Time Associated Diagnosis Comments POCT INFLUENZA B (ID NOW RAPID MOLECULAR) Routine 11/11/2024 10:20 AM EST Cough in adult patient POCT INFLUENZA A (ID NOW RAPID MOLECULAR) Routine 11/11/2024 10:20 AM EST Cough in adult patient POCT RAPID COVID ANTIGEN Routine 11/11/2024 10:12 AM EST Cough in adult patient documented in this encounter Results * Influenza B (ID NOW Rapid Molecular) (11/11/2024 10:20 AM EST) Influenza B Negative Negative, Indeterminate [facility] Swab 11/11/2024 10:2 0 AM EST us Luis Wilks MD POINT OF CARE TEST ENTER/EDIT OR DERABLES Final Result Performing Organization Address [facility]/ZIP Co de Phone Number [facility] [address] [place] [phone] * Influenza A (ID NOW Rapid Molecular) (11/11/2024 10:20 AM EST) [facility] Influenza A Negative Negative, Indeterminate [facility] Swab 11/11/2024 10:2 0 AM EST us Luis Wilks MD POINT OF CARE TEST ENTER/EDIT OR DERABLES Final Result Performing Organization Address [facility] Co de Phone Number [facility] [address] [place] [phone] * POCT Rapid COVID Ag (11/11/2024 10:12 AM EST) Pathologist [facility] Rapid COVID Ag Negative Swab 11/11/2024 10:1 2 AM EST us Luis Wilks MD POINT OF CARE TEST ENTER/EDIT OR DERABLES Final Result documented in this encounter Visit Diagnoses Diagnosis Cough in adult patient- Primary Wheezing on auscultation documented in this encounter Additional Health Concerns Assessment Noted Time PHQ-9 Depression Total Score: 0 08/29/20 24 9:13 AM EST documented as of this encounter Care Teams Drying And Winding Supervisor Relationship Specialty Start Date End Date Jorge Calvillo MD [address] [place] [address] PCP - General Internal Medicine 01/08/21 documented as of this encounter
--- OUTSIDE RECORDS SUMMARY | 2024-11-22 11:18 | XMS_ITS | Encounter Summary ---
Author Organization [employer] Address [address] [facility] 7t [place] [address] Care Team Providers Care Felt Washing Machine Tender Name Role Phone Jorge Calvillo MD Primary Care Provide r Reason for Visit * Reason Onset Date Comments Med Refill 12/20/2023 Encounter Details Date Type Department Care Team (Late st Contact Info) Description 12/20/2023 Refill [facility] [address] [place], [place] [phone] Jorge Calvillo MD [address] [place], [place] [phone] Erectile dysfunction, unspecified erectile dysfunction type Social [...] housing situation today? I have rianmaya forde 08/14/[address] you [...] Description 12/26/2024 11:30 AM EDT Office Visit [facility] [address] [place] [address] Jorge Calvillo MD [address] [place] [address] documented as of this encounter Visit Diagnoses Diagnosis Erectile dysfunction, unspecified erectile dysfunction type documented in this encounter Additional Health Concerns Assessment Noted Time PHQ-9 Depression Total Score: 1 08/17/20 23 10:33 AM EDT documented as of this encounter Care Teams Felt Washing Machine Tender Relationship Specialty Start Date End Date Jorge Calvillo MD [address] [place] [address] PCP - General Internal Medicine 01/08/21 documented as of this encounter
--- OUTSIDE RECORDS SUMMARY | 2024-11-22 11:18 | XMS_ITS | Encounter Summary ---
Author Organization [employer] Address [address] [facility] [address] 7t [place] [address] Care Team Providers Care Chief Diversity Officer Name Role Phone Jorge Calvillo MD Primary Care Provide r Encounter Details Date Type Department Care Team (Late st Contact Info) Description 01/12/2024 Orders Only [facility] [address] [place] [address] Apple Martinez FNP Social History Tobacco Use Types Packs/Day Years [...] t he electric, gas, oil or water [employer] threatened to shut off services in your [...] Description 12/26/2024 11:30 AM EDT Office Visit [facility] [address] [place] [address] Jorge Calvillo MD [address] [place] [address] documented as of this encounter Procedures Procedure Name Priority Date/Time Associated Diagnosis Comments XR CHEST 2 VIEWS Routine 02/08/2024 8:53 AM EDT documented in this encounter Results * XR Chest 2 Views (02/08/2024 8:53 AM EDT) Anatomical Region Laterality Modality Chest Radiographic Erin ging 02/08/2024 8:53 AM EDT Narrative 02/08/2024 9:25 AM EDT ?[facility] ?Ilda [address]. ?[place] [address] ?XRay Report ? Signed ? Patient: Colon Apodaca,Christiano ?MR#: M ?? [id number] ? : 1965 ?Acct:[id number] ? Age/Sex: 58 / M ?ADM Date: 04/25/24 ? Loc: HO.HHCX ? Attending Dr: Sarika Diego MD ? Ordering Physician: Sarika Diego MD ?? Date of Service: 02/08/24 ?? Procedure(s): XR chest 2V ?? Accession Number(s): [id number] ? cc: Sarika Diego MD ? EXAMINATION: ?? XR CHEST ? CLINICAL INFORMATION: ?? Difficulty breathing ? COMPARISON: ?? Prior chest radiograph 01/10/2024 ? TECHNIQUE: ?? 2 views of the chest were obtained. ? FINDINGS: ?? Lungs grossly clear. Minor chronic markings at the lung bases, with no ?? substantial change. No infiltrate or pleural effusion seen. Heart and ?? pulmonary vessels normal. ? XR/XR chest 2V ?? IMPRESSION: ?? No active disease. ? Dictated By: ?Kael Sawyer MD ? Signed By: ?<Electronically signed by Kael Sawyer MD in OV> ?02/08/24 0922 ? DD/ 0853 ? TD/TT: ? Certified Medical Asst: ? Procedure Note Marco Christensen - 02/08/[address] [address] XRay Report Signed Patient: Timo Magaña#: M [id number] : 1965Acct:[id number] Age/Sex: 58 / MADM Date: 02/08/24 Loc: HO.HHCX Attending Dr: Sarika Diego MD Ordering Physician: Sarika Diego MD Date of Service: 02/08/24 Procedure(s): XR chest 2V Accession Number(s): [id number] cc: Sarika Diego MD EXAMINATION: XR CHEST CLINICAL INFORMATION: Difficulty breathing COMPARISON: Prior chest radiograph 01/10/2024 TECHNIQUE: 2 views of the chest were obtained. FINDINGS: Lungs grossly clear. Minor chronic markings at the lung bases, with no substantial change. No infiltrate or pleural effusion seen. Heart and pulmonary vessels normal. XR/XR chest 2V IMPRESSION: No active disease. Dictated By: Kael Sawyer MD Signed By: <Electronically signed by Kael Sawyer MD in OV> 02/08/24921 DD/ 2 TD/TT: Certified Medical Asst: Sarika Diego MD IMG XR PROCEDURES Final Resul t documented in this encounter Visit Diagnoses Not on filedocumented in this encounter Additional Health Concerns Assessment Noted Time PHQ-9 Depression Total Score: 1 08/17/20 23 10:33 AM EDT documented as of this encounter Care Teams Chief Diversity Officer Relationship Specialty Start Date End Date Jorge Calvillo MD [address] [place] [phone] PCP - General Internal Medicine 01/08/21 documented as of this encounter
--- OUTSIDE RECORDS SUMMARY | 2024-11-22 11:18 | XMS_ITS | Encounter Summary ---
Author Organization [facility] Address [address] [facility] 7t [place] [address] Care Team Providers Care Drawing In Machine Tender Name Role Phone Jorge Calvillo MD Primary Care Provide r Reason for Visit * Reason Comments Med Refill Encounter Details Date Type Department Care Team ([facility] Contact Info) Description 04/11/2023 Refill [facility] [address] [place], [place] [phone] Apple Munguia FNP [address] [place], [place] [phone] Social History Tobacco Use Types Packs/Day Years Used Date Smoking Tobacco: Never Passive Smoke Exposure: Never Smokeless Tobacco: Never Alcohol Use Standard Drinks/Week Comments Never 0 (1 standard drink = 0.6 oz pur e alcohol) Sex and Gender Information Value Date Recorded Sex Assigned at Male 08/15/2022 10:37 AM EDT Legal Sex Male 10:37 AM EDT Gender Identity Male 08/15/2022 10:37 AM EDT Sexual Orientation Straight 08/15/2022 10 :37 AM EDT COVID-19 Exposure Response Date Recorded In the last 10 days, have yo u been in contact with someone who was confirmed or suspected to have Coronavirus/COVID-19? No / Unsure 03/20/2023 10:45 AM EDT documented as of this encounter Plan of Treatment Upcoming Encounters Date Type Department Care Team ([facility] Contact Info) Description 12/26/2024 11:30 AM EDT Office Visit [facility] [address] [place] [address] Jorge Calvillo MD [address] [place] [address] documented as of this encounter Visit Diagnoses Not on filedocumented in this encounter Care Teams Drawing In Machine Tender Relationship Specialty Start Date End Date Jorge Calvillo MD [address] [place] [phone] PCP - General Internal Medicine 01/08/21 documented as of this encounter
--- OUTSIDE RECORDS SUMMARY | 2024-11-22 11:18 | XMS_ITS | Encounter Summary ---
Author Organization [employer] Address [address] [facility] 7t [place] [address] Care Team Providers Care Communication Electronic Technician Name Role Phone Jorge Calvillo MD Primary Care Provide r Encounter Details Date Type Department Care Team (Latest Contact Info) Description 11/11/2024 Travel Social History Tobacco Use Types Packs/Day Years [...] housing situation today? I have rian forde 08/29/[address] you [...] 11:30 AM EDT Office Visit [facility] [address] [place] [address] Jorge Calvillo MD [address] [place] [address] documented as of this encounter Visit Diagnoses Not on filedocumented in this encounter Additional Health Concerns Assessment Noted Time PHQ-9 Depression Total Score: 0 08/29/20 24 9:13 AM EST documented as of this encounter Care Teams Communication Electronic Technician Relationship Specialty Start Date End Date Jorge Calvillo MD [address] [place] [phone] PCP - General Internal Medicine 01/08/21 documented as of this encounter
--- OUTSIDE RECORDS SUMMARY | 2024-11-22 11:18 | XMS_ITS | Encounter Summary ---
Author Organization [employer] [facility] Address [address] [facility] 7t [place] [address] Care Team Providers Care Mangle Tender Name Role Phone Jorge Calvillo MD Primary Care Provide r Reason for Visit * Reason Comments Med Refill Encounter Details Date Type Department Care Team (Late Contact Info) Description 12/28/2022 Refill [facility] [address] [place], [place] [phone] Kodak Delacruz FNP Acute idiopathic gout of right foot Social History Tobacco Use Types Packs/Day Years [...] suspected to have Coronavirus/COVID-19? No / Unsure 12/06/2022 9:10 AM EST documented as of this encounter Plan of Treatment Upcoming Encounters Date Type Department Care Team (Late Contact Info) Description 12/26/2024 11:30 AM EDT Office Visit [facility] [address] [place], [place] [phone] Jorge Calvillo MD [address] [place], [place] [phone] documented as of this encounter Visit Diagnoses Diagnosis Acute idiopathic gout of right foot documented in this encounter Care Teams Mangle Tender Relationship Specialty Start Date End Date Jorge Calvillo MD [address] [place] [phone] PCP - General Internal Medicine 01/08/21 documented as of this encounter
--- OUTSIDE RECORDS SUMMARY | 2024-11-22 11:18 | XMS_ITS | Encounter Summary ---
Author Organization [employer] [facility] Address [address] [place] [address] 7t [place] [address] Care Team Providers Care Cyanide Case Hardener Name Role Phone Jorge Calvillo MD Primary Care Provide r Encounter Details Date Type Department Care Team (Late Contact Info) Description 05/02/2023 Telephone [facility] [address] [place] [address] [phone] Jorge Calvillo MD [address] [place] [address] [phone] Social History Tobacco Use Types Packs/Day Years [...] Description 12/26/2024 11:30 AM EDT Office Visit [facility] [address] [place] [address] [phone] Jorge Calvillo MD [address] [place] [address] [phone] documented as of this encounter Visit Diagnoses Not on filedocumented in this encounter Care Teams Cyanide Case Hardener Relationship Specialty Start Date End Date Jorge Calvillo MD [address] [place] [address] PCP - General Internal Medicine 01/08/21 documented as of this encounter
--- OUTSIDE RECORDS SUMMARY | 2024-11-22 11:18 | XMS_ITS | Encounter Summary ---
Author Organization [employer] Address [address] [facility] 7t [place] [address] Care Team Providers Care News Producer Name Role Phone Jorge Calvillo MD Primary Care Provide r Reason for Visit * Reason Comments Med Refill Encounter Details Date Type Department Care Team ([facility] st Contact Info) Description 02/12/2024 Refill [facility] [address] [place], [place] [phone] Jorge Calvillo MD [address] [place] [address] Hyperuricemia Social History Tobacco Use Types Packs/Day Years [...] Description 12/26/2024 11:30 AM EDT Office Visit [facility] [address] [place] [address] Jorge Calvillo MD [address] [place] [address] documented as of this encounter Visit Diagnoses Diagnosis Hyperuricemia Other abnormal blood chemistry documented in this encounter Additional Health Concerns Assessment Noted Time PHQ-9 Depression Total Score: 1 08/17/20 23 10:33 AM EDT documented as of this encounter Care Teams News Producer Relationship Specialty Start Date End Date Jorge Calvillo MD [address] [place] [address] PCP - General Internal Medicine 01/08/21 documented as of this encounter
--- OUTSIDE RECORDS SUMMARY | 2024-11-22 11:18 | XMS_ITS | Encounter Summary ---
Author Organization [employer] [facility] Address [address] [place] [address] 7t [place] [address] Care Team Providers Care Twisting Frame Fixer Name Role Phone Jorge Calvillo MD Primary Care Provide r Reason for Visit * Reason Comments Med Change Request Encounter Details Date Type Department Care Team (Late Contact Info) Description 06/01/2023 Refill [facility] [address] [place], [place] [phone] Jorge Calvillo MD [address] [place], [place] [phone] Social History Tobacco Use Types Packs/Day Years [...] Description 12/26/2024 11:30 AM EDT Office Visit [facility] [address] [place], [place] [phone] Jorge Calvillo MD [address] [place], [place] [phone] documented as of this encounter Visit Diagnoses Not on filedocumented in this encounter Care Teams Twisting Frame Fixer Relationship Specialty Start Date End Date Jorge Calvillo MD [address] [place] [phone] PCP - General Internal Medicine 01/08/21 documented as of this encounter
--- OUTSIDE RECORDS SUMMARY | 2024-11-22 11:19 | XMS_ITS | Clinical Summary ---
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 180 tablet 1 02/10/20 23 Active metoprolol succinate XL (Toprol-XL) 100 MG 24 hr tablet Take 100 mg by mouth in the morning. Do not crush or chew. Active losartan (Cozaar) 50 MG tablet Take 50 mg by mouth 2 times daily. Active aspirin 81 MG EC tablet Take 81 mg by mouth in the morning. Active rosuvastatin (Crestor) 40 MG tablet Take 40 mg by mouth in the morning. Active prasugrel (Effient) 10 MG tablet Take 10 mg by mouth in the morning. Active Nebulizers misc 1 kit if needed in the morning, at noon, in the evening, and at bedtime (shortness of breath, cough, wheezing). Given in walk in center 01/10/24, teaching provided. Use as directed Active sildenafil (Viagra) 100 MG tabletIndicati ons:Erectile dysfunction, unspecified erectile dysfunction type TAKE 1 TABLET 1 HOUR BEFORE SEXUAL RELATIONS ONCE DAILY NEEDED. 10 tablet 1 07/23/20 24 Active albuterol (2.5 MG/3ML) 0.083% nebulizer solutionIndica tions:Cough in adult patient Take 3 mL (2.5 mg) by nebulization every 6 (six) hours if needed for wheezing or shortness of breath. 75 mL 09/30/20 24 2024 Active fluticasone (Flonase) 50 MCG/ACT nasal sprayIndicatio ns:Cough in adult patient Administer 1 spray into each nostril if needed at bedtime for rhinitis. Shake gently. Before first use, prime pump. After use, clean tip and replace cap. 16 g 10/07/20 24 2024 Active allopurinol (Zyloprim) 100 MG tabletIndicati ons:Hyperurice estefanía TAKE 1 TABLET BY MOUTH EVERY MORNING 30 tablet 1 10/22/19 Active fluticasone furoate (Arnuity Ellipta) 200 MCG/ACT inhaler Inhale 1 puff Once per day. Rinse mouth with water after use to reduce aftertaste and incidence of candidiasis. Do not swallow. 1 each 11/11/19 25 2025 Active albuterol (Ventolin HFA) 108 (90 Base) MCG/ACT inhaler Inhale 2 puffs every 6 (six) hours if needed for wheezing. 18 g 11/11/19 25 Active Ventolin HFA 108 (90 Base) MCG/ACT inhaler INHALE 2 PUFFS BY MOUTH EVERY 4 HOURS NEEDED FOR WHEEZING OR SHORTNESS OF BREATH 18 g 1 03/12/20 24 2024 Discontinued(R eorder (will not trigger notification to Pharmacy)) predniSONE (Deltasone) 20 MG tablet Take 2 tablets (40 mg) by mouth Once per day for 5 days. 10 tablet 11/11/19 25 2024 Active Problems Problem Noted Date Diagnosed Date Elevated blood sugar level 03/28/2024 Assessment & Plan (03/28/2024 1:25 PM EDT): 116 unclear if fasting Will repeat Recurrent non-productive cough 02/20/2024 Assessment & Plan (08/29/2024 9:13 AM EST): Patient with previous c/o recurrent non productive cough, associated with wheezing Pt diagnosed with CAP. Repeat xhest x-ray 02/08/2024 had shown resolution. Given recurrence of symptoms and perviously abnormal chest x-ray I ordered a Chest CT to rule out any obstructive process that could be contributing to his symptoms ( Pt denies any Hx of smoking, No hx of asthma ) CT chest 05/2024 showed: IMPRESSION: No focal consolidation or suspicious pulmonary nodule. 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 Correlation with MRI chest can be considered as clinically needed. I placed order, [facility] recommended to [facility] order to CT of chest with and without contrast instead He was also seen by Pulmonology for evaluation and Pulmonary function testing, last seen 07/10/2024 Uses Albuterol MDI PRN Assessment & Plan (03/28/2024 1:17 PM EDT): Patient with recurrent non productive cough, associated with wheezing Pt diagnosed with CAP back in december. Repeat xhest x-ray 02/08/2024 had shown resolution. Given recurrence of symptoms and perviously abnormal chest x-ray I ordered a Chest CT to rule out any obstructive process that could be contributing to his symptoms ( Pt denies any Hx of smoking, No hx of asthma ) booked for 05/08/2024 He was also referred to Pulmonology for evaluation and Pulmonary function testing Uses Albuterol MDI PRN Assessment & Plan (02/20/2024 9:59 AM EDT): Patient with recurrent non productive cough, associated with wheezing x 4 days On exam he has left sided expiratory wheezes. Pt recently diagnosed with CAP back in december. Repeat xhest x-ray 02/08/2024 had shown resolution. Plan: Given recurrence of symptoms and perviously abnormal chest x-ray I will proceed with a Chest CT to rule out any obstructive process that could be contributing to his symptoms ( Pt denies any Hx of smoking, No hx of asthma ) Will also refer to Pulmonology for evaluation and Pulmonary function testing In the meantime will give nilesh a prednisone taper and will star on Doxy 100 mg po BID x 10 days. Continue Albuterol MDI PRN Rapid Covid-19 was negative Asked pt to come back if symptoms do not improve or worsen Abnormal chest xray 02/01/2024 Assessment & Plan (02/20/2024 9:22 AM EDT): Pt seen at our [facility] on 2 different ocasions first 01/09 diagnosed with acute asthmatic exacerbation and again on 01/12/2024 where her was diagnosed with a CAP and was started on Abx Chest x-ray showed: Left lower lobe heterogeneous opacities may represent an infectious/inflammatory process. Small focal ill-defined opacity at the right lung base may be related to the anterior aspect of the right sixth rib versus focal pulmonary parenchymal process. Recommend follow-up imaging in 4-6 weeks to confirm resolution and exclude underlying pathology. Repeat Chest x-ray on 02/08/2024 was read as clear lungs, no further work up Assessment & Plan (02/01/2024 3:09 PM EDT): Pt seen at our [facility] on 2 different ocasions first 01/09 diagnosed with acute asthmatic exacerbation and again on 01/12/2024 where her was diagnosed with a CAP and was started on Abx Chest x-ray showed: Left lower lobe heterogeneous opacities may represent an infectious/inflammatory process. Small focal ill-defined opacity at the right lung base may be related to the anterior aspect of the right sixth rib versus focal pulmonary parenchymal process. Recommend follow-up imaging in 4-6 weeks to confirm resolution and exclude underlying pathology. Plan: Repeat Chest x-ray on 02/07/2024 If findings resolve no further intervention, if findings persist will need to proceed with a CT of chest Follow up with me in 2 weeks Primary hypertension 02/01/2024 Assessment & Plan (08/29/2024 9:17 AM EST): Blood pressure controlled on BMP 02/23/2024 Normal Losartan 50 mg po daily and Metoprolol XL 100 mg po daily Assessment & Plan (03/28/2024 1:19 PM EDT): Blood pressure controlled on BMP 02/23/2024 Normal Losartan 50 mg po daily and Metoprolol XL 100 mg po daily Assessment & Plan (02/01/2024 3:12 PM EDT): Blood pressure controlled on Losartan 50 mg po daily and Metoprolol XL 100 mg po daily History of ST elevation myocardial infarction (S PRO) 08/17/2023 Assessment & Plan (08/17/2023 11:29 AM EDT): Pt comes in after recently having been in his [place] [facility] where he apparently had an STEMI on 08/03/2023. He was hospitalized from 08-03 until 08/06/2023 were he presented with oppressive chest pain, dyspnea and nausea x 1 hr while he was walking. EKG confirmed STEMI in the inferior wall and an emergency coronary angiogram was done that showed: The main left trunk without lesions The Anterior descending artery had a lesion of about 80% in its middle third and another distal lesion of 90% The circumflex artery had an acute oclussion of the obtuse marginal artery due to abundant thrombi The right coronary had mild plaques As a result he underwent Primary ballon angioplasty on the OM1 lesion, because of an episode of Ventricular fibrillation discharge with 360jl was need. 2 drug eluding-stents were placed in tandem obtaining KINJAL 3 flow. Tirofiban infusion was started because of thrombi On the middle third of the anterior descending artery was placed a drug-elluding stent obtaining good final result. ECHO was reported as normal without ventricular dysfunction. 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 Today his vital signs are stable, he denies any chest pain, sob or any other symptom. EKG shows evidence of previous [place]. Recent Lipid profile within acceptable ranges Plan: Cardiology referral Pt requested specifically Dr Ravi He tells me he has a 6 month supply of all of his medications that he purchased in [facility] Follow up with me after he sees Cardiology Coronary artery disease invo lving [place] coronary artery of [place] heart without angina pectoris 08/17/2023 Assessment & Plan (08/29/2024 9:17 AM EST): Hx of STEMI on 08/03/2023 in [facility]. He was hospitalized from 08-03 until 08/06/2023 EKG confirmed STEMI in the inferior wall and an emergency coronary angiogram was done that showed: The main left trunk without lesions The Anterior descending artery had a lesion of about 80% in its middle third and another distal lesion of 90% The circumflex artery had an acute oclussion of the obtuse marginal artery due to abundant thrombi The right coronary had mild plaques As a result he underwent Primary ballon angioplasty on the OM1 lesion, because of an episode of Ventricular fibrillation discharge with 360jl was need. 2 drug eluding-stents were placed in tandem obtaining KINJAL 3 flow. Tirofiban infusion was started because of thrombi On the middle third of the anterior descending artery was placed a drug-elluding stent obtaining good final result. ECHO was reported as normal without ventricular dysfunction. He is now under the care of Dr Ravi, seen 08/15/2024. He mentioned patient had an outpatient Holter monitor was done on 07/05/2024 for 14 days showing sinus rhythm with average heart rate 65, frequent PACs, 5%, rare ventricular ectopy. A nuclear stress test was done 07/18/2024 with exercise 10 minutes, mild shortness of breath, no EKG changes and normal myocardial perfusion imaging. His last echocardiogram was done on 11/27/2023 showing EF 65%, no valve abnormalities. At this time will continue on med management for stable CAD. He recommended to continue dual antiplatelet therapy for a total of 30 months post IL. he is currently on aspirin and prasugrel. Continue metoprolol, losartan and rosuvastatin. [place] LDL goal less than 70. Labs done 11/20/2023 showed LDL 52. Signs and symptoms of angina reviewed with him. Cardiology follow-up 6 months Assessment & Plan (03/28/2024 1:20 PM EDT): Hx of STEMI on 08/03/2023 in [facility]. He was hospitalized from 08-03 until 08/06/2023 EKG confirmed STEMI in the inferior wall and an emergency coronary angiogram was done that showed: The main left trunk without lesions The Anterior descending artery had a lesion of about 80% in its middle third and another distal lesion of 90% The circumflex artery had an acute oclussion of the obtuse marginal artery due to abundant thrombi The right coronary had mild plaques As a result he underwent Primary ballon angioplasty on the OM1 lesion, because of an episode of Ventricular fibrillation discharge with 360jl was need. 2 drug eluding-stents were placed in tandem obtaining KINJAL 3 flow. Tirofiban infusion was started because of thrombi On the middle third of the anterior descending artery was placed a drug-elluding stent obtaining good final result. ECHO was reported as normal without ventricular dysfunction. 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 He is now under the care of Dr Ravi, seen 12/22/2023 He reviewed with patient that his most recent echocardiogram showed normal LV systolic function without any major wall motion abnormality suggestive that he had a timely treatment. Dr ravi recommended he continued aspirin and prasugrel for 1 year uninterrupted and in long-term and stated that given his age he would probably continue dual antiplatelet therapy for total of 30 months. Currently His LDL is well optimized on high-intensity statin therapy. And Blood pressure is well controlled. He was strongly encouraged to participate in phase 2 cardiac rehabilitation by [employer]. Assessment & Plan (02/01/2024 3:03 PM EDT): Hx of STEMI on 08/03/2023 in [facility]. He was hospitalized from 08-03 until 08/06/2023 EKG confirmed STEMI in the inferior wall and an emergency coronary angiogram was done that showed: The main left trunk without lesions The Anterior descending artery had a lesion of about 80% in its middle third and another distal lesion of 90% The circumflex artery had an acute oclussion of the obtuse marginal artery due to abundant thrombi The right coronary had mild plaques As a result he underwent Primary ballon angioplasty on the OM1 lesion, because of an episode of Ventricular fibrillation discharge with 360jl was need. 2 drug eluding-stents were placed in tandem obtaining KINJAL 3 flow. Tirofiban infusion was started because of thrombi On the middle third of the anterior descending artery was placed a drug-elluding stent obtaining good final result. ECHO was reported as normal without ventricular dysfunction. 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 He is now under the care of Dr Ravi, seen 12/22/2023 He reviewed with patient that his most recent echocardiogram showed normal LV systolic function without any major wall motion abnormality suggestive that he had a timely treatment. Dr ravi recommended he continued aspirin and prasugrel for 1 year uninterrupted and in long-term and stated that given his age he would probably continue dual antiplatelet therapy for total of 30 months. Currently His LDL is well optimized on high-intensity statin therapy. And Blood pressure is well controlled. He was strongly encouraged to participate in phase 2 cardiac rehabilitation by [employer]. Assessment & Plan (11/23/2023 11:50 AM EST): Hx of STEMI on 08/03/2023 in [facility]. He was hospitalized from 08-03 until 08/06/2023 EKG confirmed STEMI in the inferior wall and an emergency coronary angiogram was done that showed: The main left trunk without lesions The Anterior descending artery had a lesion of about 80% in its middle third and another distal lesion of 90% The circumflex artery had an acute oclussion of the obtuse marginal artery due to abundant thrombi The right coronary had mild plaques As a result he underwent Primary ballon angioplasty on the OM1 lesion, because of an episode of Ventricular fibrillation discharge with 360jl was need. 2 drug eluding-stents were placed in tandem obtaining KINJAL 3 flow. Tirofiban infusion was started because of thrombi On the middle third of the anterior descending artery was placed a drug-elluding stent obtaining good final result. ECHO was reported as normal without ventricular dysfunction. 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 He is now under the care of Dr Ravi, seen 11/08/2023 Preventative health care 06/08/2023 Assessment & Plan (08/29/2024 9:19 AM EST): NICO: next PE, PSA 12/11/2021 Normal Colonoscopy: 2019 Dr Ben Serrano, 10 year follow up Vaccines: Declines all, tried to educate him about the importance of vaccine , specially Covid-19 vaccines, stated he would think about it Assessment & Plan (03/28/2024 1:34 PM EDT): NICO: next , PSA 12/11/2021 Normal Colonoscopy: Pt reports he had one 4 years ago at [facility] records requested never obtained. He will requested them directly from her previous PCP Dr. Cook, have not received yet, asked my MA to insist Vaccines: Declines all, tried to educate him about the importance of vaccine , specially Covid-19 vaccines, stated he would think about it Assessment & Plan (11/23/2023 11:51 AM EST): NICO: next , PSA 12/11/2021 Normal Colonoscopy: Pt reports he had one 4 years ago at [facility] records requested never obtained. He will request that directly from her previous PCP Dr. Cook Vaccines: Declines all, tried to educate him about the importance of vaccine , specially Covid-19 vaccines, stated he would think about it Assessment & Plan (06/08/2023 2:34 PM EDT): NICO: next , PSA 12/11/2021 Normal Colonoscopy: Pt reports he had one 4 years ago at [facility] records requested never obtained. He will request that directly from her previous PCP Dr. Cook Vaccines: Declines all, tried to educate him about the importance of vaccine , specially Covid-19 vaccines, stated he would think about it Hypertriglyceridemia 06/08/2023 Assessment & Plan (08/29/2024 9:19 AM EST): Pt had lab work done in [facility] that showed elevated Triglicerides of 271 back in January 2023 Repeat Lab Results Component Value Date TRIG 140 08/14/2023 CHOL 126 08/14/2023 LDLCHOLCAL 74 08/14/2023 HDL 24 (L) 08/14/2023 On Crestor 40 Assessment & Plan (11/23/2023 11:48 AM EST): Pt had lab work done in [facility] that showed elevated Triglicerides of 271 back in January 2023 Repeat 08/14/2023 Triglycerides <150 mg/dL 140 Comment: Desirable Triglyceride: ? less than 150 mg/dLBorderline High Triglyceride ??150-199 mg/dLHigh Triglyceride: ?200-499 mg/dLVery High Triglyceride: ? greater than or equal to ?5OO mg/dL Cholesterol <200 mg/dL 126 Comment: Desirable Cholesterol: ?less than 200 mg/dLBorderline High Cholesterol: ??200-239 mg/dLHigh Cholesterol: ? greater than 239 mg/dL LDL Cholesterol Calculated <100 mg/dL 74 Comment: Desirable LDL: ? less than 100 mg/dLNear Optimal/Above Optimal LDL: ??110-129 mg/dLBorderline High LDL: ? 130-159 mg/dLHigh LDL: ?160-189 mg/dLVery High LDL: ? greater than or equal to ? 190 mg/dL HDL Cholesterol >40 mg/dL 24??Low?? On Crestor 40 Assessment & Plan (08/17/2023 11:30 AM EDT): Pt had lab work done in [facility] that showed elevated Triglicerides of 271 back in January 2023 Repeat 08/14/2023 Triglycerides <150 mg/dL 140 Comment: Desirable Triglyceride: ? less than 150 mg/dLBorderline High Triglyceride ??150-199 mg/dLHigh Triglyceride: ?200-499 mg/dLVery High Triglyceride: ? greater than or equal to ?5OO mg/dL Cholesterol <200 mg/dL 126 Comment: Desirable Cholesterol: ?less than 200 mg/dLBorderline High Cholesterol: ??200-239 mg/dLHigh Cholesterol: ? greater than 239 mg/dL LDL Cholesterol Calculated <100 mg/dL 74 Comment: Desirable LDL: ? less than 100 mg/dLNear Optimal/Above Optimal LDL: ??110-129 mg/dLBorderline High LDL: ? 130-159 mg/dLHigh LDL: ?160-189 mg/dLVery High LDL: ? greater than or equal to ? 190 mg/dL HDL Cholesterol >40 mg/dL 24??Low?? Assessment & Plan (06/08/2023 2:32 PM EDT): Pt had lab work done in [place] that showed elevated Triglicerides of 271 back in January 2023 Plan: will repeat Erectile dysfunction 06/08/2023 Assessment & Plan (03/28/2024 1:26 PM EDT): Pt with c/o ED x Testosterone free and total normal 2022 Uses Viagra PRN Assessment & Plan (06/08/2023 3:00 PM EDT): Pt with c/o ED x 1 year Plan : Testosterone free and total Trial of Viagra, discussed pros and cons Class 1 obesity due to exces s calories without serious comorbidity with body mass index (BMI) of 31.0 to 31.9 in adult 06/08/2023 Assessment & Plan (08/29/2024 9:26 AM EST): Patient has been counseled and educated about diet and exercise.Patient has comorbidity of: HTN Personal goal of weight loss: 10 lbs. Assessment & Plan (06/08/2023 3:02 PM EDT): Patient has been counseled and educated about diet and exercise. Idiopathic gout of left foot 03/03/2023 Assessment & Plan (02/01/2024 2:57 PM EDT): Persistent hyperuricemia Taking Allopurinol more consistently Under the care of Rheumatology, last seen 11/2023 recommended: To stay on colchicine 0.6 mg daily and allopurinol 100 mg daily. His uric acid level is 5.2 mg/dl at goal Discussed the importance of medication compliance. Assessment & Plan (11/23/2023 11:47 AM EST): Persistent hyperuricemia Taking Allopurinol more consistently Under the care of Rheumatology Assessment & Plan (03/03/2023 11:07 AM EDT): PRD 40 mg taper x 1-2w. Avoid protein rich diet, infor re low purine diet given today. Avoid ETOH, red meat etc. Check U. Acid levels 2w after acute attack is resolved, fu w PCP Out of work x 3d Chronic gout of left foot 03/03/2023 Assessment & Plan (08/29/2024 9:18 AM EST): Persistent hyperuricemia On Allopurinol 100 mg 2 tabs po daily Under the care of Rheumatology, last seen 05/29/2024 Assessment & Plan (03/28/2024 1:23 PM EDT): Persistent hyperuricemia On Allopurinol 100 mg 2 tabs po daily Under the care of Rheumatology, last seen 02/29/2024 Assessment & Plan (06/08/2023 3:01 PM EDT): Persistent hyperuricemia Does not take Allopurinol consistently Today acute gouty attack for over 1 week, does not tolerate Indocin and Ibuprofen has been ineffective Plan: Prednisone taper, Rheum consult Once attack resolved instructed to resume Allopurinol Hyperuricemia 03/03/2023 Assessment & Plan (06/08/2023 2:41 PM EDT): Most recent Uric Acid 03/20/2023 was elevated at 9.7 Pt declines to take medication, dose not give me a clear explanation as to why he is hesitant he just tells me he does not want to take many medications and is concerned about side effects, I tried to reassure him unsuccessfully. Pt is supposed to be on Allopurinol 100 mg po daily Plan: Rheumatology referral Encounters Date Type Department Care Team Description 11/11/2024 10:40 AM EST Office Visit [facility] [address] [place] [id number] Name, MD Luis Cough in adult patient (Primary Dx); Wheezing on auscultation 11/11/2024 Travel 10/22/2024 Refill [facility] [address] [place] [id number] Karime Chou MD Hyperuricemia 10/07/2024 9:00 AM EST Office Visit [facility] [address] [address] Yvrose Garrison NP Cough in adult patient 10/02/2024 Orders Only GENERIC EXTERNAL DATA DEPARTMENT Provider, Generic External Data 10/01/2024 Telephone [facility] [address] [place], [place] [id number] Jorge Mcclure MD Results 09/30/2024 9:40 AM EST Office Visit [facility] [address] [place] [id number] Jorge Mcclure MD Cough in adult patient 09/13/2024 Refill [facility] [address] [place] [phone] Stephanie Rodriguez MD Hyperuricemia 08/29/2024 9:15 AM EST Office Visit [facility] [address] [place] [address] Jorge Calvillo MD Primary hypertension (Primary Dx); Recurrent non-productive cough; Coronary artery disease involving [place] coronary artery of [place] heart without angina pectoris; Chronic gout of left foot, unspecified cause; Hypertriglyceridemia; Preventative health care; Class 1 obesity due to excess calories without serious comorbidity with body mass index (BMI) of 31.0 to 31.9 in adult; Dietary counseling; Exercise counseling 08/29/2024 Travel from Last 3 Months Social History Tobacco Use Types Packs/Day Years Used Date Smoking Tobacco: Former Cigarettes Passive Smoke Exposure: Past Smokeless Tobacco: Never Tobacco Cessation:Counseling Given: Not Answered Alcohol Use Standard Drinks/Week Comments Never 0 (1 standard drink = 0.6 oz pur e alcohol) Depression Answer Date Recorded Patient Health Questionnaire-9 Score 0 08/29/2024 Patient Health Questionnaire-9 Score 0 08/29/2024 Last PHQ-9: Questionnaire Data Not on file 1 10/29/2023 Housing Stability Answer Date Recorded What is your housing situation today? I have rian maurisio 08/29/[address] you li [...] Orientation Straight 08/15/2022 10 :37 AM EDT Last Filed Vital Signs Vital Sign Reading Time Taken Comments Blood Pressure 135/81 11/11/2024 10:08 AM EST Pulse 65 11/11/2024 10:08 AM EST Temperature 36.9 ??C (98.4 ??F) 11/11/2024 10:[address] Respiratory Rate 18 11/11/2024 10:08 AM EST Oxygen Saturation 97% 10/07/2024 9:08 AM EST Inhaled Oxygen Concentration - - Weight 87.1 kg (192 lb) 11/11/2024 10:08 AM EST Height 170.2 cm (5' 7 ) 08/29/2024 9:13 AM EST Body Mass Index 30.07 08/29/2024 9:13 AM EST Plan of Treatment Upcoming Encounters Date Type Department Care Team (Late st Contact Info) Description 12/26/2024 11:30 AM EDT Office Visit [facility] [address] [place] [address] Jorge Calvillo MD [address] [place] [address] Health Maintenance Due Date Last Done Comments CT Colonography 1965 FIT DNA/Cologuard 1965 FIT 1965 FOBT 1965 Sigmoidoscopy 1965 DTaP/Tdap/Td Vaccines (1 - Tdap) 1984 Hepatitis B Vaccines (1 of 3 - 19+ 3-dose series) 1984 Pneumococcal Vaccine: 50+ Years (1 of 2 - PCV) 1984 Zoster Vaccines (1 of 2) 2015 COVID-19 Vaccine (1 - 2023-2 5 season) 2024 Influenza Vaccine (#1) 2024 Alcohol/Substance Use Screening 08/29/2025 08/29/2024 Depression Screening 08/29/2025 08/29/2024, 08/29/2024 SDOH Screening 08/29/2025 08/29/2024 Tobacco Screening 10/07/2025 10/07/2024 Colonoscopy 11/16/2028 11/16/2018 Colorectal Cancer Screening 11/16/2028 Lipid Panel 10/02/2029 10/02/2024, 08/14/2023 RSV Patients and Patients Aged 60 years or older (1 - 1-dose 75+ series) 2040 HIV Screening Completed 12/11/2021 Hepatitis C Screening Completed 12/11/2021 HIB Vaccines Aged Out No longer eligi ble based on patient's age to complete this topic HPV Vaccines Aged Out No longer eligi ble based on patient's age to complete this topic Hepatitis A Vaccines Aged Out No long er eligible based on patient's age to complete this topic IPV Vaccines Aged Out No longer eligi ble based on patient's age to complete this topic Meningococcal Vaccine Aged Out No amber yareli eligible based on patient's age to complete this topic RSV under 20 months Aged Out No longe r eligible based on patient's age to complete this topic Rotavirus Vaccines Aged Out No longer eligible based on patient's age to complete this topic Procedures Procedure Name Priority Date/Time Associated Diagnosis Comments POCT INFLUENZA B (ID NOW RAPID MOLECULAR) Routine 11/11/2024 10:20 AM EST Cough in adult patient POCT INFLUENZA A (ID NOW RAPID MOLECULAR) Routine 11/11/2024 10:20 AM EST Cough in adult patient POCT RAPID COVID ANTIGEN Routine 11/11/2024 10:12 AM EST Cough in adult patient POCT INFLUENZA B (ID NOW RAPID MOLECULAR) Routine 10/07/2024 9:17 AM EST Cough in adult patient POCT INFLUENZA A (ID NOW RAPID MOLECULAR) Routine 10/07/2024 9:16 AM EST Cough in adult patient POCT RAPID COVID ANTIGEN Routine 10/07/2024 9:14 AM EST Cough in adult patient COMPREHENSIVE METABOLIC PANEL Routine 10/02/2024 8:40 AM EST URIC ACID Routine 10/02/2024 8:40 AM EST PSA, SCREEN Routine 10/02/2024 8:40 AM EST Preventative health care LIPID PANEL, STANDARD Routine 10/02/2024 8:40 AM EST Hypertriglyceridem ia XR CHEST 2 VIEWS Routine 09/30/2024 10:3 6 AM EST Cough in adult patient POCT INFLUENZA B (ID NOW RAPID MOLECULAR) Routine 09/30/2024 10:20 AM EST Cough in adult patient POCT INFLUENZA A (ID NOW RAPID MOLECULAR) Routine 09/30/2024 10:19 AM EST Cough in adult patient POCT RAPID COVID ANTIGEN Routine 09/30/2024 10:04 AM EST Cough in adult patient ZZZ HISTORICAL HEPATITIS C ANTIBODY RFLX Routine 12/11/2021 7:26 AM EST ZZZ HISTORICAL HIV AB/AG Routine 12/11/2021 7:26 AM EST HM COLONOSCOPY Routine 11/16/2018 from Last 3 Months or Most Recently Relevant to Health Maintenance Results * Influenza B (ID NOW Rapid Molecular) (11/11/2024 10:20 AM EST) Only the most recent of3 resultswithin the time period is included. Influenza B Negative Negative, Indeterminate [facility] Swab 11/11/2024 10:2 0 AM EST Luis Wilks MD POINT OF CARE TEST ENTER/EDIT OR DERABLES Final Result [facility] [address] [place] [phone] * Influenza A (ID NOW Rapid Molecular) (11/11/2024 10:20 AM EST) Only the most recent of3 resultswithin the time period is included. Pathologist [facility] Influenza A Negative Negative, Indeterminate [facility] Swab 11/11/2024 10:2 0 AM EST Luis Wilks MD POINT OF CARE TEST ENTER/EDIT OR DERABLES Final Result Performing Organization Address City/[facility]/ZIP Co de Phone Number [facility] [address] [place] [phone] * POCT Rapid COVID Ag (11/11/2024 10:12 AM EST) Only the most recent of3 resultswithin the time period is included. [facility] Rapid COVID Ag Negative Swab 11/11/2024 10:1 2 AM EST Luis Wilks MD POINT OF CARE TEST ENTER/EDIT OR DERABLES Final Result * PSA, Screen (10/02/2024 8:40 AM EST) [facility] PSA, Total 0.31 <0.05 - 4.0 ng/mL [facility] Comment:PSA methodology: Abb tia Aliwilbertty i ChemiluminescentMicroparticle Immunoassay (CMIA) Blood Venous blood specimen / Unknown 10/02/2024 8:40 AM EST 10/02/2024 11:52 AM EST Jorge Thomas MD LAB BLOOD ORDERABLES Final Result Performing Organization Address [facility]/ZIP Co de Phone Number [facility] [address] [place] [phone] * (ABNORMAL) Uric acid (10/02/2024 8:40 AM EST) [facility] Uric Acid 7.7(H) 3.4 - 7.0 mg/dL [facility] 10/02/2024 8:40 AM EST 10/02/2024 11:52 AM EST us Generic External Data Provider LAB BLOOD ORDERAB LES Final Result Performing Organization Address [facility]/ZIP Co de Phone Number [facility] [address] [place] [phone] * (ABNORMAL) Lipid Panel, Standard (10/02/2024 8:40 AM EST) Triglycerides 90 <150 mg/dL [facility] Comment:Desirable Triglyceri de: less than 150 mg/dLBorderline High Triglyceride 150-199 mg/dLHigh Triglyceride: 200-499 mg/dLVery High Triglyceride: greater than or equal to 5OO mg/dL Cholesterol 103 <200 mg/dL [facility] Comment:Desirable Cholestero l: less than 200 mg/dLBorderline High Cholesterol: 200-239 mg/dLHigh Cholesterol: greater than 239 mg/dL LDL Cholesterol Calculated 54 <100 mg/dL [facility] Comment:Desirable LDL: less than 100 mg/dLNear Optimal/Above Optimal LDL: 110- 129 mg/dLBorderline High LDL: 130-159 mg/dLHigh LDL: 160-189 mg/dLVery High LDL: greater than or equal to 190 mg/dL HDL Cholesterol 31(L) >40 mg/dL [facility] Comment:Desirable HDL: great er than 40 mg/dL Note: This HDL assay may give artificially low results in patients with liver disease. Blood Venous blood specimen / Unknown 10/02/2024 8:40 AM EST 10/02/2024 11:52 AM EST us Jorge Thomas MD LAB BLOOD ORDERABLES Final Result Performing Organization Address City/[facility]/ZIP Co de Phone Number [facility] [address] [place] [phone] * (ABNORMAL) Comprehensive Metabolic Panel (10/02/2024 8:40 AM EST) Sodium 138 135 - 145 mmol/L [facility] Potassium 4.1 3.3 - 5.1 mmol/L [facility] Chloride 107 96 - 108 mmol/L [facility] Carbon Dioxide 23 22 - 29 mmol/L [facility] Anion Gap 12 12 - 20 [facility] Urea Nitrogen (BUN) 46(H) 9 - 16 mg/dL [facility] Creatinine, Serum 1.90(H) 0.5 - 1.4 mg/dL [facility] Estimated Glomerular Filt Rate 36 [facility] Comment:Chronic Kidney Disea se: Estimated GFR < 60 mL/min/1.58f4Eusvma Kidney Disease: Estimated GFR < 15 mL/min/1.73m2 Glucose 87 60 - 115 mg/dL [facility] Calcium 8.8 8.4 - 10.2 mg/dL [facility] Bilirubin, Total 0.4 0.0 - 1.0 mg/dL [facility] Aspartate Amino Transferase 76(H) 5 - 37 U/L [facility] Alanine Aminotransferase 42(H) 0 - 40 U/L [facility] Total Protein 7.6 6.5 - 8.0 g/dL [facility] Albumin Level 4.4 3.5 - 5.0 g/dL [facility] Alkaline Phosphatase 65 39 - 117 U/L [facility] 10/02/2024 8:40 AM EST 10/02/2024 11:52 AM EST us Generic External Data Provider LAB BLOOD ORDERAB LES Final Result [facility] [address] [place] [phone] * XR Chest 2 Views (09/30/2024 10:36 AM EST) Anatomical Region Laterality Modality Chest Radiographic Erin ging 09/30/2024 10:3 6 AM EST Narrative 09/30/2024 3:39 PM EST ?[facility] ?[address] ?[place] [address] ?XRay Report ? Signed ? Patient: Colon Apodaca,Christiano ?MR#: [id number] ?? [id number] ? : 1965 ?Acct:[id number] ? Age/Sex: 59 / M ?ADM Date: 09/30/24 ? Loc: HO.HHCX ? Attending Dr: Jorge Mcclure MD ? Ordering Physician: Jorge Mcclure MD ?? Date of Service: 09/30/24 ?? Procedure(s): XR chest 2V ?? Accession Number(s): [id number] ? cc: Jorge Mcclure MD ? EXAMINATION: ?? XR CHEST ? CLINICAL INFORMATION: ?? cough x over ??a week. ? COMPARISON: ?? X-ray 02/08/2024 ? TECHNIQUE: ?? 3 views chest ? FINDINGS: ?? The cardiomediastinal silhouette is within normal limits. The lungs are ?? well expanded. There is no focal consolidation, edema, or effusion. ?? Mild bronchial wall thickening. No pneumothorax. ? No acute osseous abnormality. ? XR/XR chest 2V ?? IMPRESSION: ?? Mild bronchial wall thickening suggestive of small airway disease. ? Electronically signed by: ??Nazario Villavicencio MD ??09/30/2024 03:36 PM EST ? Dictated By: ?Nazario Villavicencio MD ? Signed By: ?<Electronically signed by Nazario Villavicencio MD in OV> ?09/30/24 1536 ? DD/ 1036 ? TD/TT: 09/30/24 1040 ? Baccarat Manager: HB ? Procedure Note Amparo, Image - 09/30/2024 [facility] [address] [place] [address] XRay Report Signed Patient: Timo Magaña#: M [id number] : 1965Acct:[id number] Age/Sex: 59 / MADM Date: 09/30/24 Loc: HO.HHCX Attending Dr: Jorge Mcclure MD Ordering Physician: Jorge Mcclure MD Date of Service: 09/30/24 Procedure(s): XR chest 2V Accession Number(s): [id number] cc: Jorge Mcclure MD EXAMINATION: XR CHEST [...] Nazario Villavicencio MD in OV> 09/30/24 1536 DD/ 1036 TD/TT: 09/30/24 1040 Baccarat Manager: OLIVIA Jorge Mcclure MD IMG XR PROCEDURES Edited Re sult - Final * HEPATITIS C ANTIBODY RFLX (12/11/2021 7:26 AM EST) Pathologist [facility] Hepatitis C Antibody Nonreactive Nonreactive [facility] Comment: Antibodies to HCV not detected; does not exclude early acute HCV infection. 12/11/2021 7:26 AM EST Jroge Thomas MD HISTORICAL/NON ORDERA BLE LABS Final Result [facility] [address] * HIV AB/AG (12/11/2021 7:26 AM EST) HIV AB/AG Nonreactive Nonreactive [facility] Comment: HIV-1 p24 Ag and/or HIV-1/HIV-2 Ab not detected. ?? A test result that is nonreactive does not exclude the possibility of exposure to or infection with HIV-1 and/or HIV-2. Nonreactive results in this assay for individuals with prior exposure to HIV-1 and/or HIV-2 may be due to antigen and antibody levels that are below the limit of detection of this assay. ?? The [employer] Up HIV Ag/Ab Combo assay result and supplemental assay results should be interpreted in conjunction with the patient's clinical presentation, history and other laboratory results. ??If the results are inconsistent with clinical evidence, additional testing is suggested to confirm the result. 12/11/2021 7:26 AM EST Jorge Thomas MD HISTORICAL/NON ORDERA BLE LABS Final Result [facility] [address] * Colonoscopy (11/16/2018) [facility] Colonoscopy Normal Normal 11/16/2018 Historical Provider HEALTH MAINTENANCE Final Result from Last 3 Months or Most Recently Relevant to Health Maintenance Insurance [facility] FULL Care Teams Tankage Grinder Operator Relationship Specialty Start Date End Date Jorge Calvillo MD [address] [place] [phone] PCP - General Internal Medicine 01/08/21
--- OUTSIDE RECORDS SUMMARY | 2024-11-22 11:19 | XMS_ITS | Encounter Summary ---
Author Organization [employer] Address [address] [facility] [address]t [place] [address] Care Team Providers Care Diesel Technician Mechanic Name Role Phone Jorge Calvillo MD Primary Care Provide r Reason for Visit * Reason Onset Date Comments Med Refill 08/28/2023 Encounter Details Date Type Department Care Team (Late st Contact Info) Description 08/28/2023 Refill [facility] [address] [place], [place] [phone] Jorge Calvillo MD [address] [place], [place] [phone] Erectile dysfunction, unspecified erectile dysfunction type Social [...] 12/26/2024 11:30 AM EDT Office Visit [facility] [address] [place] [address] Jorge Calvillo MD [address] [place] [address] documented as of this encounter Visit Diagnoses Diagnosis Erectile dysfunction, unspecified erectile dysfunction type documented in this encounter Additional Health Concerns Assessment Noted Time PHQ-9 Depression Total Score: 1 08/17/20 23 10:33 AM EDT documented as of this encounter Care Teams Diesel Technician Mechanic Relationship Specialty Start Date End Date Jorge Calvillo MD [address] [place] [phone] PCP - General Internal Medicine 01/08/21 documented as of this encounter
[2024-11-22 11:36] LABS: Basophils Percent Auto 0.5 % (0-2); Eosinophils Absolute Auto 0.7 X10*3/uL (0.0-0.4); Eosinophils Percent Auto 8.8 % (0-4); Hematocrit 46.6 % (42.0-52.0); Hemoglobin 15.7 g/dl (14.0-18.0); Imm Gran Abs Auto 0.02 X10*3/uL (0.00-0.03); Imm Gran Pct Auto 0.2 % (0.0-0.4); Lymphocytes Absolute Auto 3.8 X10*3/uL (1.2-4.9); Lymphocytes Percent Auto 46.3 % (20-40); Mean Corpuscular HGB Conc 33.7 g/dl (31.0-36.0); Mean Corpuscular Volume 89.1 fL (80.0-98.0); Mean Platelet Volume 9.7 fL (9.4-12.4); Monocytes Absolute Auto 0.6 X10*3/uL (0.1-1.2); Monocytes Percent Auto 7.7 % (2-11); Neutrophils Percent Auto 36.5 % (45-73); Platelet Count 194 X10*3/uL (160-400); Red Blood Count 5.23 X10*6/uL (4.60-5.80); Red Cell Distribution Width 13.2 % (11.0-16.0); White Blood Count 8.3 X10*3/uL (4.8-10.8)
[2024-11-22 12:09] LABS: Alanine Aminotransferase 73 U/L (0-40); Albumin Level 4.1 g/dL (3.5-5.0); Alkaline Phosphatase 65 U/L (39-117); Anion Gap 12 (12-20); Aspartate Amino Transferase 47 U/L (5-37); Bilirubin Total 0.4 mg/dL (0.0-1.0); Blood Urea Nitrogen 29 mg/dL (9-16); Calcium 8.9 mg/dL (8.4-10.2); Carbon Dioxide 21 mmol/L (22-29); Chloride 110 mmol/L (96-108); Estimated Glomerular Filt Rate > 60; Glucose Random 89 mg/dL (60-115); Potassium 4.6 mmol/L (3.3-5.1); Sodium 138 mmol/L (135-145); Total Protein 7.8 g/dL (6.5-8.0); Uric Acid 6.7 mg/dL (3.4-7.0)
[2024-11-22 12:12] LABS: Erythrocyte Sedimentation Rate 23 MM/HR (0-15)
[2024-11-25 07:47] LABS: IgA 408 mg/dL (47-310); IgG 1060 mg/dL (600-1640); IgM 96 mg/dL (50-300)
[2024-11-27 14:19] LABS: Class Alternaria alternata 0; Class Aspergillus fumigatus 0/1; Class Bermuda Grass 4; Class Birch 5; Class Cat Dander 2; Class Cladosporium herbarum 0; Class Cockroach 3; Class Common Ragweed 3; Class Cottonwood 3; Class Derm. pterony 1; Class Dermatophagoides farinae 1; Class Dog Dander 2; Class Elm 3; Class Maple Box Elder 3; Class Mountain Cedar 3; Class Mouse Urine Protein 0; Class Mugwort 3; Class Oak 5; Class Penicillium crysogenum 0; Class Rough Pigweed 3; Class Sheep Sorrel 3; Class Sycamore 3; Class Timothy Grass 5; Class Walnut Tree 3; Class White Ash 3; Class White Mulberry 3; D001 IgE D pteronyssinus 0.36 kU/L; D002 - IgE D farinae 0.54 kU/L; E001 - IgE Cat Dander 1.82 kU/L; E005 - IgE Dog Dander 1.22 kU/L; E072-IgE Mouse Urine <0.10 kU/L; I006-IgE Cockroach, German 4.67 kU/L; Immunoglobulin E 3653 kU/L (<OR=114); M001 IgE Penicillium chrysogen <0.10 kU/L; M002 - IgE Cladosporium herbar <0.10 kU/L; M003 - IgE Aspergillus fumigat 0.12 kU/L; M006 - IgE Alternaria alternat <0.10 kU/L; T006 - IgE Cedar, Mountain 4.06 kU/L; T010 - IgE Walnut 9.83 kU/L; T014 - IgE Cottonwood 5.45 kU/L; T015 - IgE Ash, White 6.32 kU/L; T070 - IgE White Mulberry 4.06 kU/L; W006 - IgE Mugwort 4.03 kU/L; W014 IgE Pigweed, Common 5.47 kU/L; W018 IgE Sheep Sorrel 7.73 kU/L
[2024-12-10 11:44] LABS: Asperg fumigatus Precip Abs NEGATIVE; Micropoly faeni Abs NEGATIVE; Pigeon serum Abs NEGATIVE; Thermo candidus Abs NEGATIVE; Thermoa vulgaris #1 NEGATIVE
[2024-12-10 11:45] LABS: Saccharo pora viridis Abs NEGATIVE
== END 2024-11-22 09:33 | disposition home or self-care (01) ==
LOC: HO.LAB 09:32
PROVIDERS: Student in an Organized Health Care Education/Training Program; PCP Internal Medicine; Visit Provider Hospitalist
DX: R91.8 Other nonspecific abnormal finding of lung field (principal); T78.40XA Allergy, unspecified, initial encounter; J45.909 Unspecified asthma, uncomplicated; R91.1 Solitary pulmonary nodule; M1A.00X0 Idiopathic chronic gout, unspecified site, without tophus (tophi)
CPT/HCPCS: 36415; 80053; 82784; 82785; 84550; 85025; 85652; 86003; 86331; 86606; 86609

== ENCOUNTER → 2024-11-22 09:32 | Outpatient (AMB) | payer OTHER, SELFPAY ==
--- NOTE | 2024-11-22 09:50 | MHC.OFFVIS ---
Vital Signs 11/22/24 09:50 Height 5 ft 7 in Weight 184 lb 1.376 oz BMI 28.8 BP 110/62 Blood Pressure Location Lt brachial Position Sitting Pulse 63 Pulse Source Pulse Oximeter Pulse Oximetry (%) 96 Oxygen Delivery Method Room Air Intake Visit Reasons: cough Building Associate Required: No Allergies levofloxacin [From LEVAQUIN] Allergy (Unknown, Verified 11/22/24 09:53) Rash HPI Comments Details: The patient is a 59-year-old gentleman with a known history of CAD status spoke PCI while he was in [place]. Apparently patient was in her usual state health until the last several months when he started developing worsening shortness of breath and cough. He was evaluated in the ER with a chest x-ray. Appeared to have an opacity in the left lower lobe and also some other minimal changes. I did personally review the x-ray and I did not see any significant disease just minimal changes. The patient was treated with antibiotics and prednisone, then , had a subsequent chest x-ray demonstrating some persistent minimal changes. He does state that he had pneumonia 10-15 years ago. He is scheduled to undergo a CT scan of the chest later on this month. From a respiratory status is doing better. He continues have a cough. [id number]. Nonproductive in nature. Overall he has been feeling better. The patient does have a rescue inhaler he typically does not use it more than twice a week. At this point does not need any additional therapies. 07/10/2024 the patient is here for a pulmonary follow-up visit. Overall the patient has been doing well from a respiratory status. Unfortunately he was having some chest discomfort and he was evaluated at [facility]. There he had a CTA ruled out any aortic injury. Right now is working with Cardiology regarding do any cardiac stress test and also doing a Holter monitor. Hopefully everything comes out to be okay. He does have CAD with stent placement back in 2022. 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 Unfortunately the CT scan is not great modality to assess for this type of condition. Therefore the he will benefit from getting an MRI. Will plan to do that in the next 3-4 months to see if there is any progression or regression of disease. He was also found to have renal cyst. Will have to get an ultrasound of the kidneys to make sure that the renal cysts are further evaluated. But overall from a respiratory status he is doing well his cough is better. The patient does not have any evidence of any airspace disease. In he has a trip planned to [place] and he should be able to travel without any difficulties as long as his heart is okay. 11/22/2024 the patient is here for pulmonary follow-up visit. He has been having hard time with his breathing since September. He has been seen at his primary care doctor urgent cares because of significant shortness of breath and chest tightness. He did have a chest x-ray done 10/04/2024 which I personally reviewed demonstrating small airways disease. He has been treated with a course of prednisone and antibiotics. More recently he was given another course of prednisone which is completed. Initially did help her. But then symptoms returned. 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 In the meantime will optimize his respiratory therapy by switching his Arnuity to Trelegy. He also has a nebulizer he has been using albuterol. Because he has significant wheezing on exam he will need another course of prednisone. Was also placed him on some antibiotics in case these are infectious process that may be triggering his bronchospasms. The patient will undergo blood work before starting the prednisone so we could assess for biologic options. The patient also has a thymic cyst or mass. He is scheduled to undergo an MRI in the coming weeks. Will review that on his return in 3-4 weeks. [facility] Medical History (Updated 11/24/24 @ 19:28 by Dwayne Calderon MD) Allergies Asthma Renal cyst Palpitations Syncope Pneumonia Cough HTN (hypertension) History of [place] (myocardial infarction) Coronary artery disease Gout Surgical History Stented coronary artery History of cardiac catheterization History of sinus surgery Family History Father Medical history unknown Mother Diabetes Hypertension Paternal Aunt Cancer Maternal Grandmother No problems noted. Maternal Grandfather No problems noted. Social History Household Members: Spouse and Family Alcohol intake: current Alcohol intake frequency: does not drink Patient Tobacco Use Status: Former Tobacco user Current occupational status: disabled Review of Systems Const All systems reviewed & are unremarkable except as noted in HPI and below ENT Denies dizziness Card Denies chest pain, Denies chest pain at rest, Denies chest pain with activity, Denies rapid heart rate, Denies pedal edema, Denies edema, Denies leg edema, Denies lightheadedness, Denies palpitations, Denies dyspnea, Reports dyspnea on exertion and Denies orthopnea Resp Reports cough, Denies dyspnea, Reports dyspnea on exertion and Reports wheezing GI Denies hematochezia and Denies change in stool character Musc Denies abnormal gait, Denies limited range of motion, Denies muscle cramps, Denies muscle weakness, Denies numbness, Denies radiating pain into limb, Denies stiffness and Denies tingling Neuro Denies abnormal gait, Denies dizziness, Denies numbness and Denies tingling Endo Denies palpitations Aller/Immun Reports wheezing Physical Exam Vital Signs: Last Vital Signs Pulse 63 11/22/24 09:50 BP 110/62 11/22/24 09:50 Pulse Ox 96 11/22/24 09:50 Oxygen Delivery Method Room Air 11/22/24 09:50 BMI result Body Mass Index 28.8 Const General: comfortable Limitations: no limitations HEENT Head: Yes normocephalic and Yes atraumatic Neck Neck: Yes supple Resp Effort & Inspection: normal respiratory effort Auscultation: wheezes and diminished lung sounds Cardio Heart sounds: S1 normal heart sound present and S2 normal heart sound present GI Auscultation: normal bowel sounds Skin General skin exam: no rashes or lesions noted Extrem General: Yes no clubbing, cyanosis or edema Assessment & Plan Assessment & Plan (1) Asthma: Code(s): J45.909 - Unspecified asthma, uncomplicated Category: Medical Qualifiers: Asthma severity: moderate Asthma complication type: with acute exacerbation Asthma persistence: persistent Qualified Code(s): J45.41 - Moderate persistent asthma with (acute) exacerbation (2) Cough: Code(s): R05.9 - Cough, unspecified Category: Medical Qualifiers: Cough type: subacute Qualified Code(s): R05.2 - Subacute cough (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 Category: Medical (4) Renal cyst: Code(s): N28.1 - Cyst of kidney, acquired Category: Medical (5) Allergies: Code(s): T78.40XA - Allergy, unspecified, initial encounter Category: Medical Qualifiers: Encounter type: initial encounter Qualified Code(s): T78.40XA - Allergy, unspecified, initial encounter Plan Start Trelegy 200 start Prednisone Zpack JAMILA as needed Bloodwork / allergy testing Thymus MRI F/U 4-6 weeks Orders: Orders Complete Blood Count Auto Diff 11/22/24 J45.909 - Unspecified asthma, uncomplicated, T78.40XA - Allergy, unspecified, initial encounter Hypersensitive Pneumonitis Prf 11/22/24 J45.909 - Unspecified asthma, uncomplicated, R91.8 - Other nonspecific abnormal finding of lung field, T78.40XA - Allergy, unspecified, initial encounter Resp Allergy Profile Region I 11/22/24 J45.909 - Unspecified asthma, uncomplicated, R91.1 - Solitary pulmonary nodule, T78.40XA - Allergy, unspecified, initial encounter Immunoglobulin E 11/22/24 J45.909 - Unspecified asthma, uncomplicated, T78.40XA - Allergy, unspecified, initial encounter Immunoglobulins,IgG IgA IgM 11/22/24 J45.909 - Unspecified asthma, uncomplicated, T78.40XA - Allergy, unspecified, initial encounter Erythrocyte Sedimentation Rate 11/22/24 J45.909 - Unspecified asthma, uncomplicated, T78.40XA - Allergy, unspecified, initial encounter Medications: New qxfnzjqcmld-wqtntlnci-wfbsheyv 200-62.5-25 mcg (Trelegy Ellipta) 1 inh inhalation DAILY 60 ea 12RF 30 days azithromycin 500 mg PO DAILY 5 tabs 0RF 5 days prednisone PO daily; Take 6 tabs daily x 3 days, then 5 tabs x 3 days, then 4 tabs x 3 days, then 3 tabs x 3 days, then 2 tabs daily x 3 days, then 1 tab x 3 days to complete. 63 tabs 0RF 18 days Coding Level of Care Code Est Pt Level 4 (47641) Diagnoses Moderate persistent asthma with acute exacerbation J45.41 Asthma severity: moderate Asthma complication type: with acute exacerbation Asthma persistence: persistent Subacute cough R05.2 Cough type: subacute Thymic cyst E32.8 Renal cyst N28.1 Allergy, initial encounter T78.40XA Encounter type: initial encounter Time Spent (min) 17
== END | disposition home or self-care (01) ==
PROVIDERS: PCP Internal Medicine; Visit Provider Hospitalist
CPT/HCPCS: 99214

== ENCOUNTER → 2024-12-09 10:20 | Outpatient (BNV) | payer OTHER, SELFPAY | PROVIDERS: PCP Internal Medicine; Visit Provider Radiology Diagnostic Radiology | DX: E32.8 Other diseases of thymus (principal) | CPT/HCPCS: 71552 ==

== ENCOUNTER 2024-12-09 10:29 | Outpatient (REF) | payer OTHER, SELFPAY ==
--- NOTE | ~2024-12-09 | MR_ITS ---
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 TECHNIQUE: Coronal T2 and STIR, sagittal T2 and axial in and out of phase gradient echo, T2, and fat-suppressed T2-weighted MR images of the chest were obtained. Subsequently, axial and coronal fat-suppressed T1-weighted images were obtained after the intravenous administration of 8.5 mm Gadavist. COMPARISON: Correlation is made with a CT of the chest with contrast dated 05/08/2024. FINDINGS: There is a 4.2 x 2.9 x 2.1 cm fluid signal intensity structure in the anterior superior mediastinum corresponding to the hypodensity noted on CT. This demonstrates fluid signal intensity on all sequences and does not enhance. There are no associated soft tissue components. 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 There is no mediastinal lymphadenopathy. The great vessels are patent. No abnormality is seen involving the chest wall. Imaging of the visualized upper abdomen demonstrates multiple bilateral renal cysts measuring up to 5.9 cm. These are incompletely imaged. The visualized bones demonstrate normal signal intensity. 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 Electronically signed by: Mustapha Perez MD 12/09/2024 03:03 PM [facility]
[2024-12-09] MEDS: gadobutroL 10 ML VIAL IVPUSH (11:42)
--- OUTSIDE RECORDS SUMMARY | 2024-12-09 11:46 | XMS_ITS | Encounter Summary ---
Author Organization [employer] Address [address] [facility] 7t [place] [address] Care Team Providers Care Rn Er Name Role Phone Jorge Calvillo MD Primary Care Provide r Reason for Visit * Reason Comments Med Refill Encounter Details Date Type Department Care Team ([facility] st Contact Info) Description 02/12/2024 Refill [facility] [address] [place], [place] [phone] Jorge Calvillo MD [address] [place] [address] Hyperuricemia Social History Tobacco Use Types Packs/Day [...] Description 12/26/2024 11:30 AM EDT Office Visit [facility] [address] [place] [address] Jorge Calvillo MD [address] [place] [address] documented as of this encounter Visit Diagnoses Diagnosis Hyperuricemia Other abnormal blood chemistry documented in this encounter Additional Health Concerns Assessment Noted Time PHQ-9 Depression Total Score: 1 08/17/20 23 10:33 AM EDT documented as of this encounter Care Teams Rn Er Relationship Specialty Start Date End Date Jorge Calvillo MD [address] [place] [phone] PCP - General Internal Medicine 01/08/21 documented as of this encounter
--- OUTSIDE RECORDS SUMMARY | 2024-12-09 11:46 | XMS_ITS | Encounter Summary ---
Author Organization [employer] [facility] Address [address] [facility] 7t [place] [address] Care Team Providers Care Java Web Developer Name Role Phone Jogre Calvillo MD Primary Care Provide r Reason for Visit * Reason Comments Med Refill Encounter Details Date Type Department Care Team (Late Contact Info) Description 12/28/2022 Refill [facility] [address] [place], [place] [phone] Kodak Delacruz FNP Acute idiopathic gout of [...] Description 12/26/2024 11:30 AM EDT Office Visit [facility] [address] [place], [place] [phone] Jorge Calvillo MD [address] [place], [place] [phone] documented as of this encounter Visit Diagnoses Diagnosis Acute idiopathic gout of right foot documented in this encounter Care Teams Java Web Developer Relationship Specialty Start Date End Date Jorge Calvillo MD [address] [place] [phone] PCP - General Internal Medicine 01/08/21 documented as of this encounter
--- OUTSIDE RECORDS SUMMARY | 2024-12-09 11:47 | XMS_ITS | Encounter Summary ---
Author Organization [employer] Address [address] [facility] 7t [place] [address] Care Team Providers Care Clinical Informatics Spec Name Role Phone Jorge Calvillo MD Primary Care Provide r Reason for Visit * Reason Comments Med Refill Encounter Details Date Type Department Care Team ([facility] st Contact Info) Description 12/23/2023 Refill [facility] [address] [place], [place] [phone] Jorge Calvillo MD [address] [place], [place] [phone] Erectile dysfunction, unspecified erectile dysfunction type Social [...] Description 12/26/2024 11:30 AM EDT Office Visit [facility] [address] [place] [phone] Jorge Calvillo MD [address] [place] [address] documented as of this encounter Visit Diagnoses Diagnosis Erectile dysfunction, unspecified erectile dysfunction type documented in this encounter Additional Health Concerns Assessment Noted Time PHQ-9 Depression Total Score: 1 08/17/20 23 10:33 AM EDT documented as of this encounter Care Teams Clinical Informatics Spec Relationship Specialty Start Date End Date Jorge Calvillo MD [address] [place] [phone] PCP - General Internal Medicine 01/08/21 documented as of this encounter
--- OUTSIDE RECORDS SUMMARY | 2024-12-09 11:47 | XMS_ITS | Encounter Summary ---
Author Organization [employer] Address [address] [facility] 7[address] [place] [address] Care Team Providers Care Medicine Man Name Role Phone Jorge Calvillo MD Primary Care Provide r Encounter Details Date Type Department Care Team (Late st Contact Info) Description 11/22/2024 Orders Only GENERIC EXTERNAL DATA DEPARTMENT Provider, Generic External Data Social History Tobacco Use Types Packs/Day Years [...] 11:30 AM EDT Office Visit [facility] [address] [place], [place] [phone] Jorge Calvillo MD [address] [place] [phone] Pending Results Name Type Priority Associated Diagnoses Date /Time Immunoglobulins, Quantitative, IgA, IgG, IgM Lab Routine 04/2025 10:43 AM EST Immunoglobulin E Lab Routine 11/22/19 10:43 AM EST Respiratory Allergy Profile Region I Lab Routine 11/22/2024 10:43 AM EST documented as of this encounter Procedures Procedure Name Priority Date/Time Associated Diagnosis Comments RESPIRATORY ALLERGY PROFILE REGION I Routine 11/22/2024 10:43 AM EST CBC WITH AUTO DIFFERENTIAL Routine 11/22/2024 10:43 AM EST SED RATE BY MODIFIED WESTERGREN Routine 11/22/2024 10:43 AM EST IMMUNOGLOBULINS, QUANTITATIVE, IGA, IGG, IGM Routine 11/22/2024 10:43 AM EST URIC ACID Routine 11/22/2024 10:43 AM EST IMMUNOGLOBULIN E Routine 11/22/2024 10:4 3 AM EST COMPREHENSIVE METABOLIC PANEL Routine 11/22/2024 10:43 AM EST documented in this encounter Results * (ABNORMAL) Sed Rate by Modified Westergren (11/22/2024 10:43 AM EST) Erythrocyte Sedimentation Rate 23(H) 0 - 15 MM/HR [facility] Comment:Patients with polycy themia and many hemoglobin abnormalitiesmay have depressed sed rates whereas patients with anemiamay have elevated sed rates. 11/22/2024 10:4 3 AM EST 11/22/2024 10:43 AM EST Generic External Data Provider LAB BLOOD ORDERAB LES Final Result Performing Organization Address [facility] de Phone Number [facility] [address] [place] [phone] * Uric acid (11/22/2024 10:43 AM EST) [facility] Uric Acid 6.7 3.4 - 7.0 mg/dL [facility] 11/22/2024 10:4 3 AM EST 11/22/2024 10:43 AM EST [employer] External Data Provider LAB BLOOD ORDERAB LES Final Result Performing Organization Address [facility] de Phone Number [facility] [address] [place] [phone] * (ABNORMAL) Comprehensive Metabolic Panel (11/22/2024 10:43 AM EST) Pathologist [facility] Sodium 138 135 - 145 mmol/L [facility] Potassium 4.6 3.3 - 5.1 mmol/L [facility] Chloride 110(H) 96 - 108 mmol/L [facility] Carbon Dioxide 21(L) 22 - 29 mmol/L [facility] Anion Gap 12 12 - 20 [facility] Urea Nitrogen (BUN) 29(H) 9 - 16 mg/dL [facility] Creatinine, Serum 1.19 0.5 - 1.4 mg/dL [facility] Estimated Glomerular Filt Rate >60 [facility] Comment:Chronic Kidney Disea se: Estimated GFR < 60 mL/min/1.28w2Bmragk Kidney Disease: Estimated GFR < 15 mL/min/1.73m2 Glucose 89 60 - 115 mg/dL [facility] Calcium 8.9 8.4 - 10.2 mg/dL [facility] Bilirubin, Total 0.4 0.0 - 1.0 mg/dL [facility] Aspartate Amino Transferase 47(H) 5 - 37 U/L [facility] Alanine Aminotransferase 73(H) 0 - 40 U/L [facility] Total Protein 7.8 6.5 - 8.0 g/dL [facility] Albumin Level 4.1 3.5 - 5.0 g/dL [facility] Alkaline Phosphatase 65 39 - 117 U/L [facility] 11/22/2024 10:4 3 AM EST 11/22/2024 10:43 AM EST us Generic External Data Provider LAB BLOOD ORDERAB LES Final Result Performing Organization Address City/State/[facility] Co de Phone Number [facility] [address] [place] [phone] * (ABNORMAL) CBC auto differential (11/22/2024 10:43 AM EST) White Blood Count 8.3 4.8 - 10.8 X10*3/uL [facility] Red Blood Count 5.23 4.60 - 5.80 X10*6/uL [facility] Hemoglobin 15.7 14.0 - 18.0 g/dl [facility] Hematocrit 46.6 42.0 - 52.0 % [facility] Mean Corpuscular Volume 89.1 80.0 - 98.0 fL [facility] Mean Corpuscular Hemoglobin 30.0 27.0 - 33.0 pg [facility] Mean Corpuscular HGB Conc 33.7 31.0 - 36.0 g/dl [facility] Red Cell Distribution Width 13.2 11.0 - 16.0 % [facility] Platelet Count 194 160 - 400 X10*3/uL [facility] Mean Platelet Volume 9.7 9.4 - 12.4 fL [facility] Neutrophils Percent Auto 36.5(L) 45 - 73 % [facility] Imm Gran Pct Auto 0.2 0.0 - 0.4 % [facility] Lymphocytes Percent Auto 46.3(H) 20 - 40 % [facility] Monocytes Percent Auto 7.7 2 - 11 % [facility] Eosinophils Percent Auto 8.8(H) 0 - 4 % [facility] Basophils Percent Auto 0.5 0 - 2 % [facility] NRBC Pct Auto 0.0 0.0 - 0.2 /100WBC [facility] Neutrophils Absolute Auto 3.0 2.0 - 8.3 x10*3/uL [facility] Imm Gran Abs Auto 0.02 0.00 - 0.03 X10*3/uL [facility] Lymphocytes Absolute Auto 3.8 1.2 - 4.9 X10*3/uL [facility] Monocytes Absolute Auto 0.6 0.1 - 1.2 X10*3/uL [facility] Eosinophils Absolute Auto 0.7(H) 0.0 - 0.4 X10*3/uL [facility] Basophils Absolute Auto 0.0 0.0 - 0.2 X10*3/uL [facility] NRBC Abs Auto 0.000 0.0 - 0.012 X10*3/uL [facility] 11/22/2024 10:4 3 AM EST 11/22/2024 10:43 AM EST us Generic External Data Provider LAB BLOOD ORDERAB LES Final Result [facility] [address] [place] [phone] [phone] documented in this encounter Visit Diagnoses Not on filedocumented in this encounter Additional Health Concerns Assessment Noted Time PHQ-9 Depression Total Score: 0 08/29/20 24 9:13 AM EST documented as of this encounter Care Teams Medicine Man Relationship Specialty Start Date End Date Jorge Calvillo MD [address] [place] [phone] PCP - General Internal Medicine 01/08/21 documented as of this encounter
--- OUTSIDE RECORDS SUMMARY | 2024-12-09 11:47 | XMS_ITS | Clinical Summary ---
Author Organization [employer] Address [address] [place] [address] 7t [place] [address] Care Team Providers Care Rn Clinical Documentation Specialist Name Role Phone Jorge Calvillo MD Primary [...] considered as clinically needed. I placed order, [facility] recommended to [facility] order to CT of chest with and [...] 9:22 AM EDT): Pt seen at our [facility] on 2 different ocasions first 01/09 [...] 3:09 PM EDT): Pt seen at our [facility] on 2 different ocasions first 01/09 [...] in after recently having been in his [place] [facility] where he apparently had an [...] On August 10 he was evaluated by Sales Promotion Representative and he was allowed to return to [place] in a commercial flight. Today his vital signs are stable, he denies any chest pain, sob or any other symptom. EKG shows evidence of previous GA. Recent Lipid profile within acceptable ranges Plan: Cardiology referral Pt requested specifically Dr Ravi He tells me he has a 6 month supply of all of his medications that he purchased in [facility] Follow up with me after he sees Cardiology Coronary artery disease invo lving [place] coronary artery of [place] heart without angina pectoris 08/17/2023 Assessment & Plan (08/29/2024 9:17 AM EST): Hx of STEMI on 08/03/2023 in [facility]. He was hospitalized from 08-03 [...] for a total of 30 months post GA. he is currently on aspirin and prasugrel. Continue metoprolol, losartan and rosuvastatin. [place] LDL goal less than 70. Labs done 11/20/2023 showed LDL 52. Signs and symptoms of angina reviewed with him. Cardiology follow-up 6 months Assessment & Plan (03/28/2024 1:20 PM EDT): Hx of STEMI on 08/03/2023 in [facility]. He was hospitalized from 08-03 [...] On August 10 he was evaluated by Sales Promotion Representative and he was allowed to return to [place] commercial flight. He is now [...] participate in phase 2 cardiac rehabilitation by Sales Promotion Representative. Assessment & Plan (02/01/2024 3:03 PM EDT): Hx of STEMI on 08/03/2023 in [facility]. He was hospitalized from 08-03 [...] On August 10 he was evaluated by Sales Promotion Representative and he was allowed to return to [place] commercial flight. He is now [...] participate in phase 2 cardiac rehabilitation by Sales Promotion Representative. Assessment & Plan (11/23/2023 11:50 AM EST): Hx of STEMI on 08/03/2023 in [facility]. He was hospitalized from 08-03 [...] On August 10 he was evaluated by Sales Promotion Representative and he was allowed to return to [place] in a commercial flight. He is now [...] he had one 4 years ago at [facility] records requested never obtained. He will requested [...] he had one 4 years ago at [facility] records requested never obtained. He will request that directly from her previous PCP Dr. Cook Vaccines: Declines all, tried to educate him about the importance of vaccine , specially Covid-19 vaccines, stated he would think about it Assessment & Plan (06/08/2023 2:34 PM EDT): NICO: next , PSA 12/11/2021 Normal Colonoscopy: Pt reports he had one 4 years ago at [facility] records requested never obtained. He will request that directly from her previous PCP Dr. Cook Vaccines: Declines all, tried to educate him about the importance of vaccine , specially Covid-19 vaccines, stated he would think about it Hypertriglyceridemia 06/08/2023 Assessment & Plan (08/29/2024 9:19 AM EST): Pt had lab work done in [facility] that showed elevated Triglicerides of 271 back in January 2023 Repeat Lab Results Component Value Date TRIG 140 08/14/2023 CHOL 126 08/14/2023 LDLCHOLCAL 74 08/14/2023 HDL 24 (L) 08/14/2023 On Crestor 40 Assessment & Plan (11/23/2023 11:48 AM EST): Pt had lab work done in [facility] that showed elevated Triglicerides of [...] EDT): Pt had lab work done in [facility] that showed elevated Triglicerides of [...] Encounters Date Type Department Care Team Description 11/22/2024 Orders Only GENERIC EXTERNAL DATA DEPARTMENT Provider, Generic External Data 11/11/2024 10:40 AM EST Office Visit [facility] [address] [place] [phone] Name, MD Luis Cough in adult patient (Primary Dx); Wheezing on auscultation 11/11/2024 Travel 10/22/2024 Refill [facility] [address] [place] [phone] Karime Chou MD Hyperuricemia 10/07/2024 9:00 AM EST Office Visit [facility] [address] [place] [phone] Yvrose Garrison NP Cough in adult patient 10/02/2024 Orders Only GENERIC EXTERNAL DATA DEPARTMENT Provider, Generic External Data 10/01/2024 Telephone [facility] [address] [place] [address] Jorge Mcclure MD Results 09/30/2024 9:40 AM EST [facility] [address] [phone] Jorge Mcclure MD Cough in adult patient 09/13/2024 Refill [facility] [address] [place] [phone] Stephanie Rodriguez MD Hyperuricemia from Last 3 Months Social History Tobacco [...] Description 12/26/2024 11:30 AM EDT Office Visit [facility] [address] [place], [place] [phone] Jorge Calvillo MD [address] [place], [place] [phone] Health Maintenance Due Date Last Done Comments CT Colonography 1965 FIT DNA/Cologuard 1965 FIT 1965 FOBT 1965 Sigmoidoscopy 1965 DTaP/Tdap/Td Vaccines (1 - Tdap) 1984 Hepatitis B Vaccines (1 of 3 - 19+ 3-dose series) 1984 Pneumococcal Vaccine: 50+ Years (1 of 2 - PCV) 1984 Zoster Vaccines (1 of 2) 2015 COVID-19 Vaccine ( - 2023-2 5 season) 2024 Influenza Vaccine [...] REGION I Routine 11/22/2024 10:43 AM EST IMMUNOGLOBULIN E Routine 11/22/2024 10:4 3 AM EST IMMUNOGLOBULINS, QUANTITATIVE, IGA, IGG, IGM Routine 11/22/2024 10:43 AM EST SED RATE BY MODIFIED WESTERGREN Routine 11/22/2024 10:43 AM EST URIC ACID Routine 11/22/2024 10:43 AM EST COMPREHENSIVE METABOLIC PANEL Routine 11/22/2024 10:43 AM EST CBC WITH AUTO DIFFERENTIAL Routine 11/22/2024 10:43 AM EST POCT INFLUENZA B (ID NOW RAPID MOLECULAR) [...] HIV AB/AG Routine 12/11/2021 7:26 AM EST COLONOSCOPY Routine 11/16/2018 from Last 3 Months or Most Recently Relevant to Health Maintenance Results * (ABNORMAL) CBC auto differential (11/22/2024 10:43 AM EST) White Blood Count 8.3 4.8 - 10.8 X10*3/uL [facility] Red Blood Count 5.23 4.60 - 5.80 X10*6/uL [facility] Hemoglobin 15.7 14.0 - 18.0 g/dl [facility] Hematocrit 46.6 42.0 - 52.0 % [facility] Mean Corpuscular Volume 89.1 80.0 - 98.0 fL [facility] Mean Corpuscular Hemoglobin 30.0 27.0 - 33.0 pg [facility] Mean Corpuscular HGB Conc 33.7 31.0 - 36.0 g/dl [facility] Red Cell Distribution Width 13.2 11.0 - 16.0 % [facility] Platelet Count 194 160 - 400 X10*3/uL [facility] Mean Platelet Volume 9.7 9.4 - 12.4 fL [facility] Neutrophils Percent Auto 36.5(L) 45 - 73 % [facility] Imm Gran Pct Auto 0.2 0.0 - 0.4 % [facility] Lymphocytes Percent Auto 46.3(H) 20 - 40 % [facility] Monocytes Percent Auto 7.7 2 - 11 % [facility] Eosinophils Percent Auto 8.8(H) 0 - 4 % [facility] Basophils Percent Auto 0.5 0 - 2 % [facility] NRBC Pct Auto 0.0 0.0 - 0.2 /100WBC [facility] Neutrophils Absolute Auto 3.0 2.0 - 8.3 x10*3/uL [facility] Imm Gran Abs Auto 0.02 0.00 - 0.03 X10*3/uL [facility] Lymphocytes Absolute Auto 3.8 1.2 - 4.9 X10*3/uL [facility] Monocytes Absolute Auto 0.6 0.1 - 1.2 X10*3/uL [facility] Eosinophils Absolute Auto 0.7(H) 0.0 - 0.4 X10*3/uL [facility] Basophils Absolute Auto 0.0 0.0 - 0.2 X10*3/uL [facility] NRBC Abs Auto 0.000 0.0 - 0.012 X10*3/uL [facility] 11/22/2024 10:4 3 AM EST 11/22/2024 10:43 AM EST Generic External Data Provider LAB BLOOD ORDERAB LES Final Result Performing Organization Address [facility] de Phone Number [facility] [address] [place] [phone] * (ABNORMAL) Sed Rate by Modified Martellren (11/22/2024 10:43 AM EST) Pathologist [facility] Erythrocyte Sedimentation Rate 23(H) 0 - 15 MM/HR [facility] Comment:Patients with polycy themia and many hemoglobin abnormalitiesmay have depressed sed rates whereas patients with anemiamay have elevated sed rates. 11/22/2024 10:4 3 AM EST 11/22/2024 10:43 AM EST Generic External Data Provider LAB BLOOD ORDERAB LES Final Result Performing Organization Address [facility] Phone Number [facility] [address] [place] [phone] * Uric acid (11/22/2024 10:43 AM EST) Only the most recent of2 resultswithin the time period is included. [facility] Uric Acid 6.7 3.4 - 7.0 mg/dL [facility] 11/22/2024 10:4 3 AM EST 11/22/2024 10:43 AM EST Generic External Data Provider LAB BLOOD ORDERAB LES Final Result Performing Organization Address [facility] de Phone Number [facility] [address] [place] [phone] * (ABNORMAL) Comprehensive Metabolic Panel (11/22/2024 10:43 AM EST) Only the most recent of2 resultswithin the time period is included. Pathologist [facility] Sodium 138 135 - 145 mmol/L [facility] Potassium 4.6 3.3 - 5.1 mmol/L [facility] Chloride 110(H) 96 - 108 mmol/L [facility] Carbon Dioxide 21(L) 22 - 29 mmol/L [facility] Anion Gap 12 12 - 20 [facility] Urea Nitrogen (BUN) 29(H) 9 - 16 mg/dL [facility] Creatinine, Serum 1.19 0.5 - 1.4 mg/dL [facility] Estimated Glomerular Filt Rate >60 [facility] Comment:Chronic Kidney Disea se: Estimated GFR < 60 mL/min/1.84e2Ljimgp Kidney Disease: Estimated GFR < 15 mL/min/1.73m2 Glucose 89 60 - 115 mg/dL [facility] Calcium 8.9 8.4 - 10.2 mg/dL [facility] Bilirubin, Total 0.4 0.0 - 1.0 mg/dL [facility] Aspartate Amino Transferase 47(H) 5 - 37 U/L [facility] Alanine Aminotransferase 73(H) 0 - 40 U/L [facility] Total Protein 7.8 6.5 - 8.0 g/dL [facility] Albumin Level 4.1 3.5 - 5.0 g/dL [facility] Alkaline Phosphatase 65 39 - 117 U/L [facility] 11/22/2024 10:4 3 AM EST 11/22/2024 10:43 AM EST us Generic External Data Provider LAB BLOOD ORDERAB LES Final Result Performing Organization Address City/[facility]/ZIP Co de Phone Number [facility] [address] [place] [phone] * Influenza B (ID NOW Rapid Molecular) (11/11/2024 10:20 AM EST) Only the most recent of3 resultswithin the time period is included. Influenza B Negative Negative, Indeterminate [facility] Swab 11/11/2024 10:2 0 AM EST us Luis Wilks MD POINT OF CARE TEST ENTER/EDIT OR DERABLES Final Result [facility] [address] [place] [phone] * Influenza A (ID NOW Rapid Molecular) (11/11/2024 10:20 AM EST) Only the most recent of3 resultswithin the time period is included. Pathologist [facility] Influenza A Negative Negative, Indeterminate [facility] Swab 11/11/2024 10:2 0 AM EST Luis Wilks MD POINT OF CARE TEST ENTER/EDIT OR DERABLES Final Result Performing Organization Address City/[facility]/ZIP Co de Phone Number [facility] [address] [place] [phone] * POCT Rapid COVID Ag (11/11/2024 10:12 AM EST) Only the most recent of3 resultswithin the time period is included. [facility] Rapid COVID Ag Negative Swab 11/11/2024 10:1 2 AM EST Luis Wilks MD POINT OF CARE TEST ENTER/EDIT OR DERABLES Final Result * PSA, Screen (10/02/2024 8:40 AM EST) [facility] PSA, Total 0.31 <0.05 - 4.0 ng/mL [facility] Comment:PSA methodology: Abb tia Alinity i ChemiluminescentMicroparticle Immunoassay (CMIA) Blood Venous blood specimen / Unknown 10/02/2024 8:40 AM EST 10/02/2024 11:52 AM EST Jorge Thomas MD LAB BLOOD ORDERABLES Final Result [facility] [address] [place] [phone] * (ABNORMAL) Lipid Panel, Standard (10/02/2024 8:40 AM EST) Triglycerides 90 <150 mg/dL [facility] Comment:Desirable Triglyceri de: less than 150 mg/dLBorderline High Triglyceride 150-199 mg/dLHigh Triglyceride: 200-499 mg/dLVery High Triglyceride: greater than or equal to 5OO mg/dL Cholesterol 103 <200 mg/dL [facility] Comment:Desirable Cholestero l: less than 200 mg/dLBorderline High Cholesterol: 200-239 mg/dLHigh Cholesterol: greater than 239 mg/dL LDL Cholesterol Calculated 54 <100 mg/dL [facility] Comment:Desirable LDL: less than 100 mg/dLNear [...] Thomas MD LAB BLOOD ORDERABLES Final Result [facility] [address] [place], [place] [phone] * XR Chest 2 Views (09/30/2024 10:36 AM EST) Anatomical Region Laterality Modality Chest Radiographic Erin ging 09/30/2024 10:3 6 AM EST Narrative 09/30/2024 3:39 PM EST ?[facility] ?[address] ?[place] [address] ?XRay Report ? Signed ? Patient: Colon Apodaca,Christiano ?MR#: [id number] ?? [id number] ? : 1965 ?Acct:[id number] ? Age/Sex: 59 / M ?ADM Date: 12/16/24 ? Loc: HO.HHCX ? Attending Dr: Jorge Mcclure MD ? Ordering Physician: Jorge Mcclure MD ?? Date of Service: 09/30/24 ?? Procedure(s): XR chest 2V ?? Accession Number(s): [id number] ? cc: Jorge Mcclure MD ? EXAMINATION: [...] signed by Nazario Villavicencio MD in OV> ?12/16/24 1536 ? DD/ 1036 ? TD/TT: 09/30/24 1040 ? Technician Assistant: HB ? Procedure Note Garthrica, Image - 09/30/2024 [place] [address] XRay Report Signed Patient: Timo Magaña#: [id number] : 1965Acct:[id number] Age/Sex: 59 / MADM Date: 09/30/24 Loc: HO.HHCX Attending Dr: Jorge Mcclure MD Ordering Physician: Jorge Mcclure MD Date of Service: 09/30/24 Procedure(s): XR chest 2V Accession Number(s): [id number] cc: Jorge Mcclure MD EXAMINATION: XR CHEST [...] 09/30/24 1536 DD/ 1036 TD/TT: 09/30/24 1040 Technician Assistant: OLIVIA Jorge Mcclure MD IMG XR PROCEDURES Edited Re sult - Final * HEPATITIS C ANTIBODY RFLX (12/11/2021 7:26 AM EST) Pathologist [facility] Hepatitis C Antibody Nonreactive Nonreactive [facility] Comment: Antibodies to HCV not detected; does not exclude early acute HCV infection. 12/11/2021 7:26 AM EST Jorge Thomas MD HISTORICAL/NON ORDERA BLE LABS Final Result [facility] [address] * HIV AB/AG (12/11/2021 7:26 AM EST) Pathologist [facility] HIV AB/AG Nonreactive Nonreactive [facility] Comment: HIV-1 p24 Ag and/or [...] detection of this assay. ?? The [facility] HIV Ag/Ab Combo assay result and supplemental assay results should be interpreted in conjunction with the patient's clinical presentation, history and other laboratory results. ??If the results are inconsistent with clinical evidence, additional testing is suggested to confirm the result. 12/11/2021 7:26 AM EST Jorge Thomas MD HISTORICAL/NON ORDERA BLE LABS Final Result [facility] [address] * Colonoscopy (11/16/2018) Colonoscopy Normal Normal 11/16/2018 Historical Provider HEALTH MAINTENANCE Final Result from Last 3 Months or Most Recently Relevant to Health Maintenance [place] [address] [place] [address] [facility] Care Teams Rn Clinical Documentation Specialist Relationship Specialty Start Date End Date Jorge Calvillo MD [address] [place] [phone] PCP - General Internal Medicine 01/08/21
--- OUTSIDE RECORDS SUMMARY | 2024-12-09 11:47 | XMS_ITS | Encounter Summary ---
Author Organization [employer] [facility] Address [address] [place] [address] [address] [place] [address] Care Team Providers Care Cook Jelly Name Role Phone Jorge Calvillo MD Primary Care Provide r Reason for Visit * Reason Comments Med Change Request Encounter Details Date Type Department Care Team (Late Contact Info) Description 06/01/2023 Refill [facility] [address] [place], [place] [phone] Jorge Calvillo MD [address] [place], [place] [phone] Social History Tobacco Use Types Packs/Day Years [...] Description 12/26/2024 11:30 AM EDT Office Visit [facility] [address] [place], [place] [phone] Jorge Calvillo MD [address] [place], [place] [phone] documented as of this encounter Visit Diagnoses Not on filedocumented in this encounter Care Teams Cook Jelly Relationship Specialty Start Date End Date Jorge Calvillo MD [address] [place] [phone] PCP - General Internal Medicine 01/08/21 documented as of this encounter
--- OUTSIDE RECORDS SUMMARY | 2024-12-09 11:47 | XMS_ITS | Encounter Summary ---
Author Organization [employer] Address [address] [facility] 7t [place] [address] Care Team Providers Care Manual Training Teacher Name Role Phone Jorge Calvillo MD Primary Care Provide r Reason for Visit * Reason Onset Date Comments Med Refill 08/28/2023 Encounter Details Date Type Department Care Team (Late st Contact Info) Description 08/28/2023 Refill [facility] MEDICINE [address] [place], [place] [phone] Jorge Calvillo MD [address] [place], [place] [phone] Erectile dysfunction, unspecified erectile dysfunction type Social [...] Description 12/26/2024 11:30 AM EDT Office Visit [facility] MEDICINE [address] [place] [address] Jorge Calvillo MD [address] [place] [address] documented as of this encounter Visit Diagnoses Diagnosis Erectile dysfunction, unspecified erectile dysfunction type documented in this encounter Additional Health Concerns Assessment Noted Time PHQ-9 Depression Total Score: 1 08/17/20 23 10:33 AM EDT documented as of this encounter Care Teams Manual Training Teacher Relationship Specialty Start Date End Date Jorge Calvillo MD [address] [place] [phone] PCP - General Internal Medicine 01/08/21 documented as of this encounter
--- OUTSIDE RECORDS SUMMARY | 2024-12-09 11:47 | XMS_ITS | Encounter Summary ---
Author Organization [email or web address] Address [address] [facility] 7t [place] [address] Care Team Providers Care Pcmh Specialist Name Role Phone Jorge Calvillo MD Primary Care Provide r Reason for Visit * Reason Comments Cough Encounter Details Date Type Department Care Team ([facility] st Contact Info) Description 11/11/2024 10:40 AM EST Office Visit [facility] [address] [place] [address] [phone] Name, MD Luis [address] [place] [address] Cough in adult patient (Primary Dx); Wheezing [...] year. He follows with pulmonary medicine at [facility]. He is currently treated only with albuterol. [...] Negative, Indeterminate Negative Rapid COVID Ag Negative [address] [address] XRay Report Signed Patient: Christiano Magaña MR#: [id number] : 1965 Acct:[id number] Age/Sex: 59 / M ADM Date: 09/30/24 Loc: HO.HHCX Attending Dr: Jorge Mcclure MD Ordering Physician: Jorge Mcclure MD Date of Service: 09/30/24 Procedure(s): XR chest 2V Accession Number(s): [id number] cc: Jorge Mcclure MD EXAMINATION: XR CHEST [...] Nazario Villavicencio MD in OV> 09/30/[address] [address] [address] Scan Report Signed Patient: Christiano Magaña MR#: [id number] : 1965 Acct:[id number] Age/Sex: 59 / M ADM Date: 05/08/24 Loc: HO.CT Attending Dr: Jorge Cherry MD Ordering Physician: Jorge Cherry MD Date of Service: 05/08/24 Procedure(s): CT chest w IV con Accession Number(s): [id number] cc: Jorge Cherry MD EXAMINATION: CT CHEST [...] Description 12/26/2024 11:30 AM EDT Office Visit [facility] [address] [place] [address] Jorge Calvillo MD [address] [place], [place] [phone] documented as of this encounter Procedures Procedure [...] AM EST) Influenza B Negative Negative, Indeterminate [facility] Swab 11/11/2024 10:2 0 AM EST us Luis Wilks MD POINT OF CARE TEST ENTER/EDIT OR DERABLES Final Result Performing Organization Address [facility]/ZIP Co de Phone Number [facility] [address] [place] [phone] * Influenza A (ID NOW Rapid Molecular) (11/11/2024 10:20 AM EST) [facility] Influenza A Negative Negative, Indeterminate [facility] Swab 11/11/2024 10:2 0 AM EST us Luis Wilks MD POINT OF CARE TEST ENTER/EDIT OR DERABLES Final Result Performing Organization Address [facility] Co de Phone Number [facility] [address] [place] [phone] * POCT Rapid COVID Ag (11/11/2024 10:12 AM EST) Pathologist [facility] Rapid COVID Ag Negative Swab 11/11/2024 10:1 [...] documented as of this encounter Care Teams Pcmh Specialist Relationship Specialty Start Date End Date Jorge Calvillo MD [address] [place] [address] PCP - General Internal Medicine 01/08/21 documented as of this encounter
--- OUTSIDE RECORDS SUMMARY | 2024-12-09 11:47 | XMS_ITS | Encounter Summary ---
Author Organization [employer] Address [address] [facility] 7t [place] [address] Care Team Providers Care Set Up Mechanic Stamping Machines Name Role Phone Jorge Calvillo MD Primary Care Provide r Reason for Visit * Reason Onset Date Comments Med Refill 12/20/2023 Encounter Details Date Type Department Care Team (Late st Contact Info) Description 12/20/2023 Refill [facility] MEDICINE [address] [place], [place] [phone] Jorge Calvillo MD [address] [place], [place] [phone] Erectile dysfunction, unspecified erectile dysfunction type Social [...] Description 12/26/2024 11:30 AM EDT Office Visit [facility] MEDICINE [address] [place] [address] Jorge Calvillo MD [address] [place] [address] documented as of this encounter Visit Diagnoses Diagnosis Erectile dysfunction, unspecified erectile dysfunction type documented in this encounter Additional Health Concerns Assessment Noted Time PHQ-9 Depression Total Score: 1 08/17/20 23 10:33 AM EDT documented as of this encounter Care Teams Set Up Mechanic Stamping Machines Relationship Specialty Start Date End Date Jorge Calvillo MD [address] [place] [address] PCP - General Internal Medicine 01/08/21 documented as of this encounter
--- OUTSIDE RECORDS SUMMARY | 2024-12-09 11:47 | XMS_ITS | Encounter Summary ---
Author Organization [employer] Address [address] [facility] [address] 7t [place] [address] Care Team Providers Care Skiagrapher Name Role Phone Jorge Calvillo MD Primary Care Provide r Encounter Details Date Type Department Care Team (Late st Contact Info) Description 01/12/2024 Orders Only [facility] [address] [place] [address] Apple Martinez FNP Social History Tobacco Use [...] t he electric, gas, oil or water [employer] threatened to shut off services in your [...] 11:30 AM EDT Office Visit [facility] MEDICINE [address] [place] [address] Jorge Calvillo MD [address] [place] [address] documented as of this encounter Procedures Procedure Name Priority Date/Time Associated Diagnosis Comments XR CHEST 2 VIEWS Routine 02/08/2024 8:53 AM EDT documented in this encounter Results * XR Chest 2 Views (02/08/2024 8:53 AM EDT) Anatomical Region Laterality Modality Chest Radiographic Erin ging 02/08/2024 8:53 AM EDT Narrative 02/08/2024 9:25 AM EDT ?[facility] ?[address]a [address]. ?[place] [address] ?XRay Report ? Signed ? Patient: Colon Apodaca,Christiano ?MR#: M ?? [id number] ? : 1965 ?Acct:[id number] ? Age/Sex: 58 / M ?ADM Date: 04/25/24 ? Loc: HO.HHCX ? Attending Dr: Sarika Diego MD ? Ordering Physician: Sarika Diego MD ?? Date of Service: 02/08/24 ?? Procedure(s): XR chest 2V ?? Accession Number(s): [id number] ? cc: Sarika Diego MD ? EXAMINATION: [...] ?? No active disease. ? Dictated By: ?Kale Sawyer MD ? Signed By: ?<Electronically signed by Kael Sawyer MD in OV> ?02/08/24 0922 ? DD/ 0853 ? TD/TT: ? Bicycle Fitter: ? Procedure Note Marco Christensen - 02/08/[address] [address] XRay Report Signed Patient: Timo Magaña#: M [id number] : 1965Acct:[id number] Age/Sex: 58 / MADM Date: 02/08/24 Loc: HO.HHCX Attending Dr: Sarika Diego MD Ordering Physician: Sarika Diego MD Date of Service: 02/08/24 Procedure(s): XR chest 2V Accession Number(s): [id number] cc: Sarika Diego MD EXAMINATION: XR CHEST [...] MD in OV> 02/08/24921 DD/ 2 TD/TT: Bicycle Fitter: Sarika Diego MD IMG XR PROCEDURES Final Resul t documented in this encounter Visit Diagnoses Not on filedocumented in this encounter Additional Health Concerns Assessment Noted Time PHQ-9 Depression Total Score: 1 08/17/20 23 10:33 AM EDT documented as of this encounter Care Teams Skiagrapher Relationship Specialty Start Date End Date Jorge Calvillo MD [address] [place] [phone] PCP - General Internal Medicine 01/08/21 documented as of this encounter
--- OUTSIDE RECORDS SUMMARY | 2024-12-09 11:47 | XMS_ITS | Encounter Summary ---
Author Organization [employer] [facility] Address [address] [place] [address] 7t [place] [address] Care Team Providers Care Middle School Professional Name Role Phone Jorge Calvillo MD Primary Care Provide r Encounter Details Date Type Department Care Team (Late Contact Info) Description 05/02/[address] [facility] MEDICINE [address] [place] [address] [phone] Jorge Calvillo MD [address] [place] [address] [phone] Social History Tobacco Use Types Packs/Day Years [...] Description 12/26/2024 11:30 AM EDT Office Visit [facility] MEDICINE [address] [place] [address] [phone] Jorge Calvillo MD [address] [place] [address] [phone] documented as of this encounter Visit Diagnoses Not on filedocumented in this encounter Care Teams Middle School Professional Relationship Specialty Start Date End Date Jorge Calvillo MD [address] [place] [address] PCP - General Internal Medicine 01/08/21 documented as of this encounter
--- OUTSIDE RECORDS SUMMARY | 2024-12-09 11:47 | XMS_ITS | Encounter Summary ---
Author Organization [employer] Address [address] [facility] 7t [place] [address] Care Team Providers Care Independent Consultant Name Role Phone Jorge Calvillo MD Primary [...] Description 12/26/2024 11:30 AM EDT Office Visit [facility] MEDICINE [address] [place] [address] Jorge Calvillo MD [address] [place] [address] documented as of this encounter Visit Diagnoses Not on filedocumented in this encounter Additional Health Concerns Assessment Noted Time PHQ-9 Depression Total Score: 0 08/29/20 24 9:13 AM EST documented as of this encounter Care Teams Independent Consultant Relationship Specialty Start Date End Date Jorge Calvillo MD [address] [place] [phone] PCP - General Internal Medicine 01/08/21 documented as of this encounter
--- OUTSIDE RECORDS SUMMARY | 2024-12-09 11:47 | XMS_ITS | Encounter Summary ---
Author Organization [employer] [facility] Address [address] [facility] 7t [place] [address] Care Team Providers Care Miter Grinder Operator Name Role Phone Jorge Calvillo MD Primary Care Provide r Reason for Visit * Reason Comments Med Refill Encounter Details Date Type Department Care Team ([facility] Contact Info) Description 04/11/2023 Refill [facility] MEDICINE [address] [place], [place] [phone] Apple Munguia FNP [address] [place], [place] [phone] Social History Tobacco Use Types Packs/Day Years [...] Upcoming Encounters Date Type Department Care Team ([facility] Contact Info) Description 12/26/2024 11:30 AM EDT Office Visit [facility] MEDICINE [address] [place] [address] Jorge Calvillo MD [address] [place] [address] documented as of this encounter Visit Diagnoses Not on filedocumented in this encounter Care Teams Miter Grinder Operator Relationship Specialty Start Date End Date Jorge Calvillo MD [address] [place] [phone] PCP - General Internal Medicine 01/08/21 documented as of this encounter
== END 2024-12-09 10:30 | disposition home or self-care (01) ==
LOC: HO.MRI 10:29
PROVIDERS: PCP Internal Medicine; Visit Provider Hospitalist
DX: E32.8 Other diseases of thymus (principal)
CPT/HCPCS: 71552; A9585

== ENCOUNTER 2024-12-12 12:57 | Outpatient (AMB) | payer OTHER, SELFPAY ==
[2024-12-12 13:13] VITALS: BP 116/74; PULSE 57; O2SAT 98; BMI 29.9
--- NOTE | 2024-12-12 13:13 | MHC.OFFVIS ---
Vital Signs 12/12/24 13:13 Height 5 ft 7 in Weight 190 lb 11.198 oz BMI 29.9 BP 116/74 Blood Pressure Location Rt brachial Position Sitting Pulse 57 Pulse Source Pulse Oximeter Pulse Oximetry (%) 98 Oxygen Delivery Method Room Air Intake Visit Reasons: Cough Allergies levofloxacin [From LEVAQUIN] Allergy (Unknown, Verified 12/12/24 13:17) Rash HPI Comments Details: The patient is a 59-year-old gentleman with a known history of CAD status spoke PCI while he was in [place]. Apparently patient was in her usual state health until the last several months when he started developing worsening shortness of breath and cough. He was evaluated in the ER with a chest x-ray. Appeared to have an opacity in the left lower lobe and also some other minimal changes. I did personally review the x-ray and I did not see any significant disease just minimal changes. The patient was treated with antibiotics and prednisone, then , had a subsequent chest x-ray demonstrating some persistent minimal changes. He does state that he had pneumonia 10-15 years ago. He is scheduled to undergo a CT scan of the chest later on this month. From a respiratory status is doing better. He continues have a cough. [id number]. Nonproductive in nature. Overall he has been feeling better. The patient does have a rescue inhaler he typically does not use it more than twice a week. At this point does not need any additional therapies. 07/10/2024 the patient is here for a pulmonary follow-up visit. Overall the patient has been doing well from a respiratory status. Unfortunately he was having some chest discomfort and he was evaluated at [facility]. There he had a CTA ruled out any aortic injury. Right now is working with Cardiology regarding do any cardiac stress test and also doing a Holter monitor. Hopefully everything comes out to be okay. He does have CAD with stent placement back in 2022. 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 Unfortunately the CT scan is not great modality to assess for this type of condition. Therefore the he will benefit from getting an MRI. Will plan to do that in the next 3-4 months to see if there is any progression or regression of disease. He was also found to have renal cyst. Will have to get an ultrasound of the kidneys to make sure that the renal cysts are further evaluated. But overall from a respiratory status he is doing well his cough is better. The patient does not have any evidence of any airspace disease. In he has a trip planned to [place] and he should be able to travel without any difficulties as long as his heart is okay. 11/22/2024 the patient is here for pulmonary follow-up visit. He has been having hard time with his breathing since September. He has been seen at his primary care doctor urgent cares because of significant shortness of breath and chest tightness. He did have a chest x-ray done 10/04/2024 which I personally reviewed demonstrating small airways disease. He has been treated with a course of prednisone and antibiotics. More recently he was given another course of prednisone which is completed. Initially did help her. But then symptoms returned. 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 In the meantime will optimize his respiratory therapy by switching his Arnuity to Trelegy. He also has a nebulizer he has been using albuterol. Because he has significant wheezing on exam he will need another course of prednisone. Was also placed him on some antibiotics in case these are infectious process that may be triggering his bronchospasms. The patient will undergo blood work before starting the prednisone so we could assess for biologic options. The patient also has a thymic cyst or mass. He is scheduled to undergo an MRI in the coming weeks. Will review that on his return in 3-4 weeks. 12/12/2024 the patient is here for a pulmonary follow-up visit. Overall he is feeling a lot better. He has started the Trelegy. He has not completed the prednisone and the antibiotics. The patient has a rescue inhaler he has not had to use it more than twice a week. In addition to that he did undergo blood work including allergy testing. He has severe allergies. Would potentially benefit from biologic therapy if he continues to be symptomatic feels a little better. Only dealing with some gout issues. The patient also did undergo an MRI of the chest. 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 In addition to that does have some renal cysts. Overall the cyst appeared to be benign in have not significantly worsened. To repeat a CT scan in a year's time to make sure that there is no interval worsening of disease. Will have the patient return in 6 months to address the ongoing respiratory issues. [facility] Medical History (Updated 12/12/24 @ 20:05 by Dwayne Calderon MD) Allergies Asthma Renal cyst Palpitations Syncope Pneumonia Cough HTN (hypertension) History of NH (myocardial infarction) Coronary artery disease Gout Surgical History Stented coronary artery History of cardiac catheterization History of sinus surgery Family History Father Medical history unknown Mother Diabetes Hypertension Paternal Aunt Cancer Maternal Grandmother No problems noted. Maternal Grandfather No problems noted. Social History Household Members: Spouse and Family Alcohol intake: current Alcohol intake frequency: does not drink Patient Tobacco Use Status: Former Tobacco user Current occupational status: disabled Review of Systems Const All systems reviewed & are unremarkable except as noted in HPI and below ENT Denies dizziness Card Denies chest pain, Denies chest pain at rest, Denies chest pain with activity, Denies rapid heart rate, Denies pedal edema, Denies edema, Denies leg edema, Denies lightheadedness, Denies palpitations, Denies dyspnea, Reports dyspnea on exertion and Denies orthopnea Resp Reports cough, Denies dyspnea, Reports dyspnea on exertion and Denies wheezing GI Denies hematochezia and Denies change in stool character Musc Denies abnormal gait, Denies limited range of motion, Denies muscle cramps, Denies muscle weakness, Denies numbness, Denies radiating pain into limb, Denies stiffness and Denies tingling Neuro Denies abnormal gait, Denies dizziness, Denies numbness and Denies tingling Endo Denies palpitations Aller/Immun Denies wheezing Physical Exam Vital Signs: Last Vital Signs Pulse 57 12/12/24 13:13 BP 116/74 12/12/24 13:13 Pulse Ox 98 12/12/24 13:13 Oxygen Delivery Method Room Air 12/12/24 13:13 BMI result Body Mass Index 29.9 Const General: comfortable Limitations: no limitations HEENT Head: Yes normocephalic and Yes atraumatic Neck Neck: Yes supple Resp Effort & Inspection: normal respiratory effort Auscultation: clear to auscultation bilaterally and no wheezes Cardio Heart sounds: S1 normal heart sound present and S2 normal heart sound present GI Auscultation: normal bowel sounds Skin General skin exam: no rashes or lesions noted Extrem General: Yes no clubbing, cyanosis or edema Assessment & Plan Assessment & Plan (1) Asthma: Code(s): J45.909 - Unspecified asthma, uncomplicated Category: Medical Qualifiers: Asthma complication type: uncomplicated Asthma persistence: persistent Asthma severity: moderate Qualified Code(s): J45.40 - Moderate persistent asthma, uncomplicated (2) Cough: Code(s): R05.9 - Cough, unspecified Category: Medical Qualifiers: Cough type: subacute Qualified Code(s): R05.2 - Subacute cough (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 Category: Medical (4) Renal cyst: Code(s): N28.1 - Cyst of kidney, acquired Category: Medical (5) Allergies: Code(s): T78.40XA - Allergy, unspecified, initial encounter Category: Medical Qualifiers: Encounter type: initial encounter Qualified Code(s): T78.40XA - Allergy, unspecified, initial encounter Plan continue Trelegy 200 JAMILA as needed Allergy avoidance start Zyrtec start Singulair Thymus MRI-stable Will repeat CT chest in 1 yr F/U 6 months Medications: New montelukast (Singulair) 10 mg PO BEDTIME 30 tabs 11RF 30 days J45.909 - Unspecified asthma, uncomplicated cetirizine (Zyrtec) 10 mg PO DAILY 30 tabs 10RF 30 days Coding Level of Care Code Est Pt Level 4 (00933) Complex EM visit Add On G2211 Diagnoses Moderate persistent asthma without complication J45.40 Asthma complication type: uncomplicated Asthma persistence: persistent Asthma severity: moderate Subacute cough R05.2 Cough type: subacute Thymic cyst E32.8 Renal cyst N28.1 Allergy, initial encounter T78.40XA Encounter type: initial encounter Time Spent (min) 18
--- OUTSIDE RECORDS SUMMARY | 2024-12-12 15:23 | XMS_ITS | Encounter Summary ---
Author Organization [facility] Address [address] [place] [address] 7t [place] [address] Care Team Providers Care Technical Delivery Manager Name Role Phone Jorge Calvillo MD Primary Care Provide r Encounter Details Date Type Department Care Team (Late Contact Info) Description 05/02/2023 Telephone [facility] MEDICINE [address] [place] [address] [phone] Jorge Calvillo MD [address] [place] [address] [phone] Social History Tobacco Use Types Packs/Day Years [...] Description 12/26/2024 11:30 AM EDT Office Visit [facility] MEDIC[facility] [address] [place] [address] [phone] Jorge Calvillo MD [address] [place] [address] [phone] documented as of this encounter Visit Diagnoses Not on filedocumented in this encounter Care Teams Technical Delivery Manager Relationship Specialty Start Date End Date Jorge Calvillo MD [address] [place] [address] PCP - General Internal Medicine 01/08/21 documented as of this encounter
--- OUTSIDE RECORDS SUMMARY | 2024-12-12 15:23 | XMS_ITS | Encounter Summary ---
Author Organization [employer] Address [address] [place] [address] Care Team Providers Care Celery Cutter Name Role Phone Jorge Calvillo MD Primary Care Provide r Encounter Details Date Type Department Care Team (Late st Contact Info) Description 01/12/2024 Orders Only [facility] [address] [place] [address] Apple Martinez FNP Social History Tobacco Use [...] t he electric, gas, oil or water [employer] threatened to shut off services in [...] Description 12/26/2024 11:30 AM EDT Office Visit [facility] [address] [place] [address] Jorge Calvillo MD [address] [place] [address] documented as of this encounter Procedures Procedure Name Priority Date/Time Associated Diagnosis Comments XR CHEST 2 VIEWS Routine 02/08/2024 8:53 AM EDT documented in this encounter Results * XR Chest 2 Views (02/08/2024 8:53 AM EDT) Anatomical Region Laterality Modality Chest Radiographic Erin ging 02/08/2024 8:53 AM EDT Narrative 02/08/2024 9:25 AM EDT ?[facility] ?[address]. ?[place] [address] ?XRay Report ? Signed ? Patient: Colon Apodaca,Christiano ?MR#: M ?? [id number] ? : 1965 ?Acct:[id number] ? Age/Sex: 58 / M ?ADM Date: 04/25/24 ? Loc: HO.HHCX ? Attending Dr: Sarika Diego MD ? Ordering Physician: Sarika Diego MD ?? Date of Service: 02/08/24 ?? Procedure(s): XR chest 2V ?? Accession Number(s): [id number] ? cc: Sarika Diego MD ? EXAMINATION: [...] 0922 ? DD/ 0853 ? TD/TT: ? Construction Ironworker Helper: ? Procedure Note Marco Christensen - 02/08/[address] [address] XRay Report Signed Patient: Timo Magaña#: M [id number] : 1965Acct:[id number] Age/Sex: 58 / MADM Date: 02/08/24 Loc: HO.HHCX Attending Dr: Sarika Diego MD Ordering Physician: Sarika Diego MD Date of Service: 02/08/24 Procedure(s): XR chest 2V Accession Number(s): [id number] cc: Sarika Diego MD EXAMINATION: XR CHEST [...] MD in OV> 02/08/24921 DD/ 2 TD/TT: Construction Ironworker Helper: Sarika Diego MD IMG XR PROCEDURES Final Resul t documented in this encounter Visit Diagnoses Not on filedocumented in this encounter Additional Health Concerns Assessment Noted Time PHQ-9 Depression Total Score: 1 08/17/20 23 10:33 AM EDT documented as of this encounter Care Teams Celery Cutter Relationship Specialty Start Date End Date Jorge Calvillo MD [address] [place] [phone] PCP - General Internal Medicine 01/08/21 documented as of this encounter
--- OUTSIDE RECORDS SUMMARY | 2024-12-12 15:23 | XMS_ITS | Encounter Summary ---
Author Organization [employer] [facility] Address [address] [place] [address] 7t [place] [address] Care Team Providers Care Physicians Assistant Name Role Phone Jorge Calvillo MD Primary Care Provide r Reason for Visit * Reason Comments Med Change Request Encounter Details Date Type Department Care Team (Late Contact Info) Description 06/01/2023 Refill [facility] [address] [place], [place] [phone] Jorge Calvillo MD [address] [place], [place] [phone] Social History Tobacco Use Types Packs/Day Years [...] Description 12/26/2024 11:30 AM EDT Office Visit [facility] [address] [place], [place] [phone] Jorge Calvillo MD [address] [place], [place] [phone] documented as of this encounter Visit Diagnoses Not on filedocumented in this encounter Care Teams Physicians Assistant Relationship Specialty Start Date End Date Jorge Calvillo MD [address] [place] [phone] PCP - General Internal Medicine 01/08/21 documented as of this encounter
--- OUTSIDE RECORDS SUMMARY | 2024-12-12 15:23 | XMS_ITS | Encounter Summary ---
Author Organization [employer] [facility] Address [address] 7t [place] [address] Care Team Providers Care Daytime Caregiver Name Role Phone Jorge Calvillo MD Primary Care Provide r Reason for Visit * Reason Comments Med Refill Encounter Details Date Type Department Care Team (Late Contact Info) Description 12/28/2022 Refill [facility] [address] [place], [place] [phone] Kodak Delacruz FNP Acute idiopathic gout of [...] 12/26/2024 11:30 AM EDT Office Visit [facility] [address] [place], [place] [phone] Jorge Calvillo MD [address] [place], [place] [phone] documented as of this encounter Visit Diagnoses Diagnosis Acute idiopathic gout of right foot documented in this encounter Care Teams Daytime Caregiver Relationship Specialty Start Date End Date Jorge Calvillo MD [address] [place] [phone] PCP - General Internal Medicine 01/08/21 documented as of this encounter
--- OUTSIDE RECORDS SUMMARY | 2024-12-12 15:23 | XMS_ITS | Encounter Summary ---
Author Organization [employer] [facility] Address [address] [place] [address] 7t [place] [address] Care Team Providers Care Distresser Name Role Phone Jorge Calvillo MD Primary Care Provide r Reason for Visit * Reason Comments Med Refill Encounter Details Date Type Department Care Team ([facility] Contact Info) Description 04/11/2023 Refill [facility] [address] [place], [place] [phone] Apple Munguia FNP [address] [place], [place] [phone] Social History Tobacco Use Types Packs/Day Years [...] Upcoming Encounters Date Type Department Care Team ([facility] Contact Info) Description 12/26/2024 11:30 AM EDT Office Visit [facility] [address] [place] [address] Jorge Calvillo MD [address] [place] [address] documented as of this encounter Visit Diagnoses Not on filedocumented in this encounter Care Teams Distresser Relationship Specialty Start Date End Date Jorge Calvillo MD [address] [place] [phone] PCP - General Internal Medicine 01/08/21 documented as of this encounter
--- OUTSIDE RECORDS SUMMARY | 2024-12-12 15:23 | XMS_ITS | Encounter Summary ---
Author Organization [employer] Address [address] [facility] 7t [place] [address] Care Team Providers Care Children'S Book Author Name Role Phone Jorge Calvillo MD Primary [...] Description 12/26/2024 11:30 AM EDT Office Visit [facility] [address] [place], [place] [phone] Jorge Calvillo MD [address] [place] [address] documented as of this encounter Procedures Procedure Name Priority Date/Time Associated Diagnosis Comments MR CHEST W AND WO CONTRAST Routine 12/09/2024 10:20 AM EST RESPIRATORY ALLERGY PROFILE REGION I Routine 11/22/2024 10:43 AM EST CBC WITH AUTO DIFFERENTIAL Routine 11/22/2024 10:43 AM EST HYPERSENSITIVITY PNUEMONITIS PROFILE Routine 11/22/2024 10:43 AM EST SED RATE BY MODIFIED WESTERGREN Routine 11/22/2024 10:43 AM EST IMMUNOGLOBULINS, QUANTITATIVE, IGA, IGG, IGM Routine 11/22/2024 10:43 AM EST URIC ACID Routine 11/22/2024 10:43 AM EST IMMUNOGLOBULIN E Routine 11/22/2024 10:4 3 AM EST COMPREHENSIVE METABOLIC PANEL Routine 11/22/2024 10:43 AM EST documented in this encounter Results * MR Chest w/ and w/o Contrast (12/09/2024 10:20 AM EST) Anatomical Region Laterality Modality Chest Magnetic Resonan ce 12/09/2024 10:2 0 AM EST Narrative 12/09/2024 3:05 PM EST ? [facility] ?[address] ?[place] [address] ? Magnetic Resonance Report ? Signed ? Patient: Colon Apodaca,Christiano ?MR#: M ?? [id number] ? : 1965 ?Acct:[id number] ? Age/Sex: 59 / M ?ADM Date: 12/09/24 ? Loc: HO.MRI ? Attending Dr: Dwayne Calderon MD ? Ordering Physician: Dwayne Calderon MD ?? Date of Service: 12/09/24 ?? Procedure(s): MR chest wo/w con ?? Accession Number(s): [id number] ? cc: Jorge Cherry MD; Dwayne Calderon MD ? EXAMINATION: MR CHEST WITHOUT THEN WITH IV CONTRAST ? 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 ? TECHNIQUE: ??Coronal T2 and STIR, sagittal T2 and axial in and out of ?? phase gradient echo, T2, and fat-suppressed T2-weighted MR images of ?? the chest were obtained. Subsequently, axial and coronal fat-suppressed ?? T1-weighted images were obtained after the intravenous administration ?? of 8.5 mm Gadavist. ? COMPARISON: Correlation is made with a CT of the chest with contrast ?? dated 05/08/2024. ? FINDINGS: ? There is a 4.2 x 2.9 x 2.1 cm fluid signal intensity structure in the ?? anterior superior mediastinum corresponding to the hypodensity noted on ?? CT. This demonstrates fluid signal intensity on all sequences and does ?? not enhance. There are no associated soft tissue components. 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 ? There is no mediastinal lymphadenopathy. The great vessels are patent. ?? No abnormality is seen involving the chest wall. Imaging of the ?? visualized upper abdomen demonstrates multiple bilateral renal cysts ?? measuring up to 5.9 cm. These are incompletely imaged. The visualized ?? bones demonstrate normal signal intensity. ? MR/MR chest wo/w con ?? IMPRESSION: ? 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 ? Electronically signed by: ??Mustapha Perez MD ??12/09/2024 03:03 PM EST ? Dictated By: ?Mustapha Perez MD ? Signed By: ?<Electronically signed by Mustapha Perez MD in OV> ?12/09/24 1503 ? DD/ 1020 ? TD/TT: 12/09/24 1130 ? Family Day Carer: ? 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 TECHNIQUE: Coronal T2 and STIR, sagittal T2 and axial in and out of phase gradient echo, T2, and fat-suppressed T2-weighted MR images of the chest were obtained. Subsequently, axial and coronal fat-suppressed T1-weighted images were obtained after the intravenous administration of 8.5 mm Gadavist. COMPARISON: Correlation is made with a CT of the chest with contrast dated 05/08/2024. FINDINGS: There is a 4.2 x 2.9 x 2.1 cm fluid signal intensity structure in the anterior superior mediastinum corresponding to the hypodensity noted on CT. This demonstrates fluid signal intensity on all sequences and does not enhance. There are no associated soft tissue components. 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 There is no mediastinal lymphadenopathy. The great vessels are patent. No abnormality is seen involving the chest wall. Imaging of the visualized upper abdomen demonstrates multiple bilateral renal cysts measuring up to 5.9 cm. These are incompletely imaged. The visualized bones demonstrate normal signal intensity. 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 Electronically signed by: Mustapha Perez MD 12/09/2024 03:03 PM EST RP Dictated By: Mustapha Perez MD Signed By: <Electronically signed by Mustapha Perez MD in OV> 12/09/24 1503 DD/ 1020 TD/TT: 12/09/24 1130 Family Day Carer: [facility] External Provider IMG MRI PROCEDURES Final Result * Hypersensitivity Pneumonitis Screen (11/22/2024 10:43 AM EST) Aspergillus fumigatus Ab NEGATIVE [facility] Comment:REFERENCE RANGE: NEG ATIVE Micropolyspora Faeni NEGATIVE [facility] Comment:REFERENCE RANGE: NEG ATIVE [place] Serum Abs NEGATIVE [facility] Comment:REFERENCE RANGE: NEG ATIVE Thermoactinomyces candidus NEGATIVE [facility] Comment:REFERENCE RANGE: NEG ATIVE Thermoactinomyces vulgaris Ab NEGATIVE [facility] Comment:REFERENCE RANGE: NEG ATIVE Saccharomonospora viridis Ab NEGATIVE [facility] Comment:REFERENCE RANGE: NEG ATIVEThis test was developed and its analytical performancecharacteristics have been determined by [employer].It has not been cleared or approved by FDA. This assay hasbeen validated pursuant to the CLIA regulations and is usedfor clinical purposes.THIS TEST PERFORMED AT:[facility] [place] [phone] DIRECTOR: JEFFREY WATSON MD, PHD, KAVYA 11/22/2024 10:4 3 AM EST 11/22/2024 10:43 AM EST us Generic External Data Provider LAB BLOOD ORDERAB LES Final Result [facility] [address] [place] [phone] * (ABNORMAL) Respiratory Allergy Profile Region I (11/22/2024 10:43 AM EST) Mouse Urine Proteins (E72) IgE <0.10 kU/L [facility] Class 0 [facility] Cockroach (I6) IgE 4.67(A) kU/L [facility] Class 3 [facility] Dermatophagoides farinae (D2) IgE 0.54(A) kU/L [facility] Class 1 [facility] Cat Dander (E1) IgE 1.82(A) kU/L [facility] Class 2 [facility] Comment:THIS TEST WAS PERFOR MED AT:[facility] [address] [phone] TANNER MD Dog Dander (E5) IgE 1.22(A) kU/L [facility] Class 2 [facility] Comment:THIS TEST WAS PERFOR MED AT:[facility] [address] [phone] TANNER MD Maged Grass (G6) IgE 65.00(A) kU/L [facility] Class 5 [facility] Cladosporium herbarum (M2) IgE <0.10 kU/L [facility] Class 0 [facility] Aspergillus Fumigatis (M3) IgE 0.12(A) kU/L [facility] Class 0/1 [facility] Alternaria alternata (M6) IgE <0.10 kU/L [facility] Class 0 [facility] Comment:THIS TEST WAS PERFOR MED AT:[employer] [place] [phone] Julianna HODGES [place] (t6) IgE 4.06(A) kU/L [facility] Class 3 [facility] Arley (T7) IgE 53.20(A) kU/L [facility] Class 5 [facility] Kermit Tree (T10) IgE 9.83(A) kU/L [facility] Class 3 [facility] [place] (T11) IgE 9.20(A) kU/L [facility] Class 3 [facility] Ziebach (T14) IgE 5.45(A) kU/L [facility] Class 3 [facility] White Satish (t15) IgE 6.32(A) kU/L [facility] Class 3 [facility] White Pearl (T70) IgE 4.06(A) kU/L [facility] Class 3 [facility] Common Ragweed (Short) (W1) IgE 12.30(A) kU/L [facility] Class 3 [facility] Mugwort (w6) IgE 4.03(A) kU/L [facility] Class 3 [facility] Dermatophagoides pteronyssinus (D1) IgE 0.36(A) kU/L [facility] Class 1 [facility] Bermuda Grass (g2) IgE 25.90(A) kU/L [facility] Class 4 [facility] Penicillium Notatum (M1) IgE <0.10 kU/L [facility] Class 0 [facility] Birch (T3) IgE 52.70(A) kU/L [facility] Class 5 [facility] Elm (t8) IgE 8.50(A) kU/L [facility] Class 3 [facility] Maple ([place]tu[place]) (T1) IgE 10.50(A) kU/L [facility] Class 3 [facility] Rough Pigweed (W14) IgE 5.47(A) kU/L [facility] Class 3 [facility] Sheep Maguayo (W18) IgE 7.73(A) kU/L [facility] Class 3 [facility] Allergen Comment See Below [facility] Comment: Specific ?Level of AllergenIGE Class ?kU/L ? Specific IGE Antibody ----- ? --------- ?0 ?<0.10 ? Absent/Undetectable ??0/1 ?0.10-0.34 ? Very Low Level ??1 ?0.35-0.69 ? Low Level ??2 ?0.70-3.49 ? Moderate Level ??3 ?3.50-17.4 ? High Level ??4 ?17.5-49.9 ? Very High Level ??5 ?50-100 ?Very High Level ??6 ?>100 ?Very High LevelThe clinical relevance of allergen results of0.10-0.34 kU/L are undetermined and intended forspecialist use.Allergens denoted with a include results usingone or more analyte specific reagents. In thosecases, the test was developed and its analyticalperformance characteristics have been determined by[employer]. It has not been cleared or approvedby the U.S. Food and Drug Administration. This assayhas been validated pursuant to the CLIA regulationsand is used for clinical purposes.THIS TEST WAS PERFORMED AT:[facility] [address] ??[phone] TANNER MD 11/22/2024 10:4 3 AM EST 11/22/2024 10:43 AM EST Generic External Data Provider LAB BLOOD ORDERAB LES Final Result Performing Organization Address [facility]/ZIP Co de Phone Number [facility] [address] [place] [address] [phone] * (ABNORMAL) Immunoglobulin E (11/22/2024 10:43 AM EST) Immunoglobulin E 3653(A) <AV=709 kU/L [facility] 11/22/2024 10:4 3 AM EST 11/22/2024 10:43 AM EST Generic External Data Provider LAB BLOOD ORDERAB LES Final Result Performing Organization Address [facility] Phone Number [facility] [address] [place] [phone] * (ABNORMAL) Immunoglobulins, Quantitative, IgA, IgG, IgM (11/22/2024 10:43 AM EST) IMMUNOGLOBULIN G 1060 600 - 1640 mg/dL [facility] IMMUNOGLOBULIN A 408(A) 47 - 310 mg/dL [facility] Immunoglobulin M 96 50 - 300 mg/dL [facility] Comment:THIS TEST WAS PERFOR MED AT:[facility] [address] [phone] TANNER MD 11/22/2024 10:4 3 AM EST 11/22/2024 10:43 AM EST Generic External Data Provider LAB BLOOD ORDERAB LES Final Result Performing Organization Address [facility] de Phone Number [facility] [address] [place] [phone] * (ABNORMAL) Sed Rate by Modified Martellren (11/22/2024 10:43 AM EST) Erythrocyte Sedimentation Rate 23(H) 0 - 15 MM/HR [facility] Comment:Patients with polycy themia and many hemoglobin abnormalitiesmay have depressed sed rates whereas patients with anemiamay have elevated sed rates. 11/22/2024 10:4 3 AM EST 11/22/2024 10:43 AM EST Generic External Data Provider LAB BLOOD ORDERAB LES Final Result Performing Organization Address [facility] de Phone Number [facility] [address] [place] [phone] * Uric acid (11/22/2024 10:43 AM EST) Uric Acid 6.7 3.4 - 7.0 mg/dL [facility] 11/22/2024 10:4 3 AM EST 11/22/2024 10:43 AM EST Generic External Data Provider LAB BLOOD ORDERAB LES Final Result Performing Organization Address [facility] de Phone Number [facility] [address] [place] [phone] * (ABNORMAL) Comprehensive Metabolic Panel (11/22/2024 10:43 AM EST) Sodium 138 135 - 145 mmol/L [facility] Potassium 4.6 3.3 - 5.1 mmol/L [facility] Chloride 110(H) 96 - 108 mmol/L [facility] Carbon Dioxide 21(L) 22 - 29 mmol/L [facility] Anion Gap 12 12 - 20 [facility] Urea Nitrogen (BUN) 29(H) 9 - 16 mg/dL [facility] Creatinine, Serum 1.19 0.5 - 1.4 mg/dL [facility] Estimated Glomerular Filt Rate >60 [facility] Comment:Chronic Kidney Disea se: Estimated GFR < 60 mL/min/1.22q2Wexjte Kidney Disease: Estimated GFR < 15 mL/min/1.73m2 Glucose 89 60 - 115 mg/dL [facility] Calcium 8.9 8.4 - 10.2 mg/dL [facility] Bilirubin, Total 0.4 0.0 - 1.0 mg/dL [facility] Aspartate Amino Transferase 47(H) 5 - 37 U/L [facility] Alanine Aminotransferase 73(H) 0 - 40 U/L [facility] Total Protein 7.8 6.5 - 8.0 g/dL [facility] Albumin Level 4.1 3.5 - 5.0 g/dL [facility] Alkaline Phosphatase 65 39 - 117 U/L [facility] 11/22/2024 10:4 3 AM EST 11/22/2024 10:43 AM EST us Generic External Data Provider LAB BLOOD ORDERAB LES Final Result [facility] [address] [place] [phone] * (ABNORMAL) CBC auto differential (11/22/2024 10:43 AM EST) White Blood Count 8.3 4.8 - 10.8 X10*3/uL [facility] Red Blood Count 5.23 4.60 - 5.80 X10*6/uL [facility] Hemoglobin 15.7 14.0 - 18.0 g/dl [facility] Hematocrit 46.6 42.0 - 52.0 % [facility] Mean Corpuscular Volume 89.1 80.0 - 98.0 fL [facility] Mean Corpuscular Hemoglobin 30.0 27.0 - 33.0 pg [facility] Mean Corpuscular HGB Conc 33.7 31.0 - 36.0 g/dl [facility] Red Cell Distribution Width 13.2 11.0 - 16.0 % [facility] Platelet Count 194 160 - 400 X10*3/uL [facility] Mean Platelet Volume 9.7 9.4 - 12.4 fL [facility] Neutrophils Percent Auto 36.5(L) 45 - 73 % [facility] Imm Gran Pct Auto 0.2 0.0 - 0.4 % [facility] Lymphocytes Percent Auto 46.3(H) 20 - 40 % [facility] Monocytes Percent Auto 7.7 2 - 11 % [facility] Eosinophils Percent Auto 8.8(H) 0 - 4 % [facility] Basophils Percent Auto 0.5 0 - 2 % [facility] NRBC Pct Auto 0.0 0.0 - 0.2 /100WBC [facility] Neutrophils Absolute Auto 3.0 2.0 - 8.3 x10*3/uL [facility] Imm Gran Abs Auto 0.02 0.00 - 0.03 X10*3/uL [facility] Lymphocytes Absolute Auto 3.8 1.2 - 4.9 X10*3/uL [facility] Monocytes Absolute Auto 0.6 0.1 - 1.2 X10*3/uL [facility] Eosinophils Absolute Auto 0.7(H) 0.0 - 0.4 X10*3/uL [facility] Basophils Absolute Auto 0.0 0.0 - 0.2 X10*3/uL [facility] NRBC Abs Auto 0.000 0.0 - 0.012 X10*3/uL [facility] 11/22/2024 10:4 3 AM EST 11/22/2024 10:43 AM EST us Generic External Data Provider LAB BLOOD ORDERAB LES Final Result [facility] [address] [place] [phone] documented in this encounter Visit Diagnoses Not on filedocumented in this encounter Additional Health Concerns Assessment Noted Time PHQ-9 Depression Total Score: 0 08/29/20 24 9:13 AM EST documented as of this encounter Care Teams Children'S Book Author Relationship Specialty Start Date End Date Jorge Calvillo MD [address] [place] [address] PCP - General Internal Medicine 01/08/21 documented as of this encounter
--- OUTSIDE RECORDS SUMMARY | 2024-12-12 15:23 | XMS_ITS | Clinical Summary ---
Author Organization [employer] Address [address] [place] [address] 7[address] [place] [address] Care Team Providers Care Rfid Technician Name Role Phone Jorge Calvillo MD Primary Care Provide r Allergies Active Allergy Reactions Criticality Noted Date Comments Levofloxacin 11/28/2022 Yeast 12/06/2022 Medications colchicine 0.6 MG tabletIndicatio ns:Acute idiopathic gout of right foot TAKE 2 TABLETS TODAY THEN 1 TABLET ONCE A DAY, DISCONTINUE 2-3 DAYS AFTER FLAREUP HAS RESOLVED. 180 tablet 1 3 Active metoprolol succinate XL (Toprol-XL) 100 MG [...] as directed Active sildenafil (Viagra) 100 MG tabletIndicatio ns:Erectile dysfunction, unspecified erectile dysfunction type TAKE 1 TABLET 1 HOUR BEFORE SEXUAL RELATIONS ONCE DAILY NEEDED. 10 tablet 1 4 Active albuterol (2.5 MG/3ML) 0.083% nebulizer solutionIndicat ions:Cough in adult patient Take 3 mL (2.5 mg) by nebulization every 6 (six) hours if needed for wheezing or shortness of breath. 75 mL 11 4 025 Active fluticasone (Flonase) 50 MCG/ACT nasal sprayIndication s:Cough in adult patient Administer 1 spray into each nostril if needed at bedtime for rhinitis. Shake gently. Before first use, prime pump. After use, clean tip and replace cap. 16 g 1 4 025 Active allopurinol (Zyloprim) 100 MG tabletIndicatio ns:Hyperuricemi a TAKE 1 TABLET BY MOUTH EVERY MORNING 30 tablet 1 5 Active fluticasone furoate (Arnuity Ellipta) 200 MCG/ACT inhaler Inhale 1 puff Once per day. Rinse mouth with water after use to reduce aftertaste and incidence of candidiasis. Do not swallow. 1 each 11 5 026 Active albuterol (Ventolin HFA) 108 (90 Base) MCG/ACT inhaler Inhale 2 puffs every 6 (six) hours if needed for wheezing. 18 g 1 5 Active predniSONE (Deltasone) 20 MG tablet Take 2 tablets (40 mg) by mouth Once per day for 5 days. 10 tablet 5 025 Active Problems Problem Noted Date Diagnosed Date [...] considered as clinically needed. I placed order, [facility] recommended to [facility] order to CT of chest with and [...] 9:22 AM EDT): Pt seen at our [facility] on 2 different ocasions first 01/09 [...] 3:09 PM EDT): Pt seen at our [facility] on 2 different ocasions first 01/09 [...] 9:17 AM EST): Blood pressure controlled on [facility] 02/23/2024 Normal Losartan 50 mg po daily and Metoprolol XL 100 mg po daily Assessment & Plan (03/28/2024 1:19 PM EDT): Blood pressure controlled on [facility] 02/23/2024 Normal Losartan 50 mg po daily and Metoprolol XL 100 mg po daily Assessment & Plan (02/01/2024 3:12 PM EDT): Blood pressure controlled on Losartan 50 mg po daily and Metoprolol XL 100 mg po daily History of ST elevation myocardial infarction (S PRO) 08/17/2023 Assessment & Plan (08/17/2023 11:29 AM EDT): Pt comes in after recently having been in [place] where he apparently had an STEMI on [...] On August 10 he was evaluated by Order Planner and he was allowed to return to [place] in a commercial flight. Today his vital signs are stable, he denies any chest pain, sob or any other symptom. EKG shows evidence of previous SC. Recent Lipid profile within acceptable ranges Plan: Cardiology referral Pt requested specifically Dr Ravi He tells me he has a 6 month supply of all of his medications that he purchased in [facility] Follow up with me after he sees Cardiology Coronary artery disease invo lving [place] coronary artery of [place] heart without angina pectoris 08/17/2023 Assessment & Plan (08/29/2024 9:17 AM EST): Hx of STEMI on 08/03/2023 in [facility]. He was hospitalized from 08-03 [...] for a total of 30 months post SC. he is currently on aspirin and prasugrel. Continue metoprolol, losartan and rosuvastatin. [place] LDL goal less than 70. Labs done 11/20/2023 showed LDL 52. Signs and symptoms of angina reviewed with him. Cardiology follow-up 6 months Assessment & Plan (03/28/2024 1:20 PM EDT): Hx of STEMI on 08/03/2023 in [facility]. He was hospitalized from 08-03 [...] On August 10 he was evaluated by Order Planner and he was allowed to return to [place] in a commercial flight. He is now [...] participate in phase 2 cardiac rehabilitation by Order Planner. Assessment & Plan (02/01/2024 3:03 PM EDT): Hx of STEMI on 08/03/2023 in [facility]. He was hospitalized from 08-03 [...] On August 10 he was evaluated by Order Planner and he was allowed to return to [place] in a commercial flight. He is now [...] participate in phase 2 cardiac rehabilitation by Order Planner. Assessment & Plan (11/23/2023 11:50 AM EST): Hx of STEMI on 08/03/2023 in [facility]. He was hospitalized from 08-03 [...] On August 10 he was evaluated by Order Planner and he was allowed to return to [place] in a commercial flight. He is now under the care of Dr Ravi, seen 11/08/2023 [facility] health care 06/08/2023 Assessment & Plan (08/29/2024 9:19 AM EST): NICO: next PE, PSA 12/11/2021 Normal Colonoscopy: 2019 Dr Ben Serrano, 10 year follow up Vaccines: Declines all, tried to educate him about the importance of vaccine , specially Covid-19 vaccines, stated he would think about it Assessment & Plan (03/28/2024 1:34 PM EDT): NICO: next PE, PSA 12/11/2021 Normal Colonoscopy: Pt reports he had one 4 years ago at [facility] records requested never obtained. He will requested them directly from her previous PCP Dr. Cook, have not received yet, asked my [place] to insist Vaccines: Declines all, tried to educate him about the importance of vaccine , specially Covid-19 vaccines, stated he would think about it Assessment & Plan (11/23/2023 11:51 AM EST): NICO: next PE, PSA 12/11/2021 Normal Colonoscopy: Pt reports he had one 4 years ago at [facility] [place] [facility] records requested never obtained. He will request that directly from her previous PCP Dr. Cook Vaccines: Declines all, tried to educate him about the importance of vaccine , specially Covid-19 vaccines, stated he would think about it Assessment & Plan (06/08/2023 2:34 PM EDT): NICO: next PE, PSA 12/11/2021 Normal Colonoscopy: Pt reports he had one 4 years ago at [facility] [place] records requested never obtained. He will request that directly from her previous PCP Dr. Cook Vaccines: Declines all, tried to educate him about the importance of vaccine , specially Covid-19 vaccines, stated he would think about it Hypertriglyceridemia 06/08/2023 Assessment & Plan (08/29/2024 9:19 AM EST): Pt had lab work done in [facility] that showed elevated Triglicerides of 271 back in January 2023 Repeat Lab Results Component Value Date TRIG 140 08/14/2023 CHOL 126 08/14/2023 LDLCHOLCAL 74 08/14/2023 HDL 24 (L) 08/14/2023 On Crestor 40 Assessment & Plan (11/23/2023 11:48 AM EST): Pt had lab work done in [facility] that showed elevated Triglicerides of [...] EDT): Pt had lab work done in [facility] that showed elevated Triglicerides of [...] EDT): Pt had lab work done in [facility] that showed elevated Triglicerides of [...] Data 11/11/2024 10:40 AM EST Office Visit [facility] [address] [place] [phone] Name, MD Luis Cough in adult patient (Primary Dx); Wheezing on auscultation 11/11/2024 Travel 10/22/2024 Refill [facility] [address] [place] [address] [phone] Karime Chou MD Hyperuricemia 10/07/2024 9:00 AM EST Office Visit [facility] [address] [phone] Yvrose Garrison NP Cough in adult patient 10/02/2024 Orders Only GENERIC EXTERNAL DATA DEPARTMENT Provider, Generic External Data 10/01/2024 Telephone [facility] [address] [place], [place] [phone] Jorge Mcclure MD Results 09/30/2024 9:40 AM EST Office Visit [facility] [address] [phone] Jorge Mcclure MD Cough in adult patient 09/13/2024 Refill [facility] [address] [place] [phone] Stephanie Rodriguez MD Hyperuricemia from Last 3 [...] 12/26/2024 11:30 AM EDT Office Visit [facility] [address] [place], [place] [phone] Jorge Calvillo MD [address] [place] [address] Health Maintenance Due Date Last Done Comments [...] WO CONTRAST Routine 12/09/2024 10:20 AM EST HYPERSENSITIVITY PNUEMONITIS PROFILE Routine 11/22/2024 10:43 AM EST RESPIRATORY ALLERGY PROFILE REGION I [...] adult patient POCT RAPID COVID ANTIGEN Routine 025 10:12 AM EST Cough in adult patient POCT INFLUENZA B (ID NOW RAPID MOLECULAR) Routine 10/07/2024 9:17 AM EST Cough in adult patient POCT INFLUENZA A (ID NOW RAPID MOLECULAR) Routine 10/07/2024 9:16 AM EST Cough in adult patient POCT RAPID COVID ANTIGEN Routine 024 9:14 AM EST Cough in adult patient [...] adult patient POCT RAPID COVID ANTIGEN Routine 024 10:04 AM EST Cough in adult patient ZZZ HISTORICAL HEPATITIS C ANTIBODY RFLX Routine 12/11/2021 7:26 AM EST ZZZ HISTORICAL HIV AB/AG Routine 022 7:26 AM EST HM COLONOSCOPY Routine 11/16/2018 from Last 3 Months or Most Recently Relevant to Health Maintenance Results * MR Chest w/ and w/o Contrast (12/09/2024 10:20 AM EST) Anatomical Region Laterality Modality Chest Magnetic Resonan ce 12/09/2024 10:2 0 AM EST Narrative 12/09/2024 3:05 PM EST ? [facility] ?[address] ?[place] [address] ? Magnetic Resonance Report ? Signed ? Patient: Colon Apodaca,Christiano ?MR#: M ?? [id number] ? : 1965 ?Acct:[id number] ? Age/Sex: 59 / M ?ADM Date: 12/09/24 ? Loc: HO.MRI ? Attending Dr: Dwayne Calderon MD ? Ordering Physician: Dwayne Calderon MD ?? Date of Service: 12/09/24 ?? Procedure(s): MR chest wo/w con ?? Accession Number(s): [id number] ? cc: Jorge Cherry MD; Dwayne Calderon [...] ??Mustapha Perez MD ??12/09/2024 03:03 PM EST ?? RP ? Dictated By: ?Mustapha Perez MD ? Signed By: ?<Electronically signed by Mustapha Perez MD in OV> ?12/09/24 1503 ? DD/ 1020 ? TD/TT: 12/09/24 1130 ? [employer]: ? Procedure Note Donotuseinterpreter, Image - 12/09/[address] [address] Magnetic Resonance Report Signed Patient: Timo Magaña#: M [id number] : 1965Acct:[id number] Age/Sex: 59 / MADM Date: 12/09/24 Loc: HO.MRI Attending Dr: Dwayne Calderon MD Ordering Physician: Dwayne Calderon MD Date of Service: 12/09/24 Procedure(s): MR chest wo/w con Accession Number(s): [id number] cc: Jorge Cherry MD; Dwayne Calderon MD [...] 12/09/24 1503 DD/ 1020 TD/TT: 12/09/24 1130 Cigar Packer And Grader: [facility] External Provider IMG MRI PROCEDURES Final Result * (ABNORMAL) Respiratory Allergy Profile Region I (11/22/2024 10:43 AM EST) Mouse Urine Proteins (E72) IgE <0.10 kU/L [facility] Class 0 [facility] Cockroach (I6) IgE 4.67(A) kU/L [facility] Class 3 [facility] Dermatophagoides farinae (D2) IgE 0.54(A) kU/L [facility] Class 1 [facility] Cat Dander (E1) IgE 1.82(A) kU/L [facility] Class 2 [facility] Comment:THIS TEST WAS PERFOR MED AT:[facility] [id number] [place] [address]TDMYZDILLAN TANNER MD Dog Dander (E5) IgE 1.22(A) kU/L [facility] Class 2 [facility] Comment:THIS TEST WAS PERFOR MED AT:[facility] [id number] [place] [address]HNXFTDILLAN TANNER MD Maged Grass (G6) IgE 65.00(A) kU/L [facility] Class 5 [facility] Cladosporium herbarum (M2) IgE <0.10 kU/L [facility] Class 0 [facility] Aspergillus Fumigatis (M3) IgE 0.12(A) kU/L [facility] Class 0/1 [facility] Alternaria alternata (M6) IgE <0.10 kU/L [facility] Class 0 [facility] Comment:THIS TEST WAS PERFOR MED AT:[facility] [address] [address]GQUPMDILLAN TANNER MD [place] Moro (t6) IgE 4.06(A) kU/L [facility] Class 3 [facility] [place] (T7) IgE 53.20(A) kU/L [facility] Class 5 [facility] Saint [place] Tree (T10) IgE 9.83(A) kU/L [facility] Class 3 [facility] [place] (T11) IgE 9.20(A) kU/L [facility] Class 3 [facility] [place] (T14) IgE 5.45(A) kU/L [facility] Class 3 [facility] White Satish (t15) IgE 6.32(A) kU/L [facility] Class 3 [facility] White Art[place] (T70) IgE 4.06(A) kU/L [facility] Class 3 [facility] Common Ragweed (Short) (W1) IgE 12.30(A) kU/L [facility] Class 3 [facility] Mugwort (w6) IgE 4.03(A) kU/L [facility] Class 3 [facility] Dermatophagoides pteronyssinus (D1) IgE 0.36(A) kU/L [facility] Class 1 [facility] Bermuda Grass (g2) IgE 25.90(A) kU/L [facility] Class 4 [facility] Penicillium Notatum (M1) IgE <0.10 kU/L [facility] Class 0 [facility] Birch (T3) IgE 52.70(A) kU/L [facility] Class 5 [facility] Elm (t8) IgE 8.50(A) kU/L [facility] Class 3 [facility] Maple (Yellow Medicine) (T1) IgE 10.50(A) kU/L [facility] Class 3 [facility] Rough Pigweed (W14) IgE 5.47(A) kU/L [facility] Class 3 [facility] Sheep Bryant (W18) IgE 7.73(A) kU/L [facility] Class 3 [facility] Allergen Comment See Below [facility] Comment: Specific ?Level of AllergenIGE Class [...] and its analyticalperformance characteristics have been determined by[facility]. It has not been cleared or approvedby the U.S. Food and Drug Administration. This assayhas been validated pursuant to the CLIA regulationsand is used for clinical purposes.THIS TEST WAS PERFORMED AT:[facility] [address] ??[id number] TANNER MD 11/22/2024 10:4 3 AM EST 11/22/2024 10:43 AM EST us Generic External Data Provider LAB BLOOD ORDERAB LES Final Result [facility] [address] [place] [phone] * (ABNORMAL) CBC auto differential (11/22/2024 10:43 AM EST) White Blood Count 8.3 4.8 - 10.8 X10*3/uL [facility] Red Blood Count 5.23 4.60 - 5.80 X10*6/uL [facility] Hemoglobin 15.7 14.0 - 18.0 g/dl [facility] Hematocrit 46.6 42.0 - 52.0 % [facility] Mean Corpuscular Volume 89.1 80.0 - 98.0 fL [facility] Mean Corpuscular Hemoglobin 30.0 27.0 - 33.0 pg [facility] Mean Corpuscular HGB Conc 33.7 31.0 - 36.0 g/dl [facility] Red Cell Distribution Width 13.2 11.0 - 16.0 % [facility] Platelet Count 194 160 - 400 X10*3/uL [facility] Mean Platelet Volume 9.7 9.4 - 12.4 fL [facility] Neutrophils Percent Auto 36.5(L) 45 - 73 % [facility] Imm Gran Pct Auto 0.2 0.0 - 0.4 % [facility] Lymphocytes Percent Auto 46.3(H) 20 - 40 % [facility] Monocytes Percent Auto 7.7 2 - 11 % [facility] Eosinophils Percent Auto 8.8(H) 0 - 4 % [facility] Basophils Percent Auto 0.5 0 - 2 % [facility] NRBC Pct Auto 0.0 0.0 - 0.2 /100WBC [facility] Neutrophils Absolute Auto 3.0 2.0 - 8.3 x10*3/uL [facility] Imm Gran Abs Auto 0.02 0.00 - 0.03 X10*3/uL [facility] Lymphocytes Absolute Auto 3.8 1.2 - 4.9 X10*3/uL [facility] Monocytes Absolute Auto 0.6 0.1 - 1.2 X10*3/uL [facility] Eosinophils Absolute Auto 0.7(H) 0.0 - 0.4 X10*3/uL [facility] Basophils Absolute Auto 0.0 0.0 - 0.2 X10*3/uL [facility] NRBC Abs Auto 0.000 0.0 - 0.012 X10*3/uL [facility] 11/22/2024 10:4 3 AM EST 11/22/2024 10:43 AM EST us Generic External Data Provider LAB BLOOD ORDERAB LES Final Result [facility] [address], [place] [phone] * Hypersensitivity Pneumonitis Screen (11/22/2024 10:43 AM EST) Aspergillus fumigatus Ab NEGATIVE [facility] Comment:REFERENCE RANGE: NEG ATIVE Micropolyspora Faeni NEGATIVE [facility] Comment:REFERENCE RANGE: NEG ATIVE [place] Serum Abs NEGATIVE [facility] Comment:REFERENCE RANGE: NEG ATIVE Thermoactinomyces candidus NEGATIVE [facility] Comment:REFERENCE RANGE: NEG ATIVE Thermoactinomyces vulgaris Ab NEGATIVE [facility] Comment:REFERENCE RANGE: NEG ATIVE Saccharomonospora viridis Ab NEGATIVE [facility] Comment:REFERENCE RANGE: NEG ATIVEThis test was developed and its analytical performancecharacteristics have been determined by [employer].It has not been cleared or approved by FDA. This assay hasbeen validated pursuant to the CLIA regulations and is usedfor clinical purposes.THIS TEST PERFORMED AT:[facility] [place] [phone] DIRECTOR: JEFFREY WATSON MD, PHD, KAVYA 11/22/2024 10:4 3 AM EST 11/22/2024 10:43 AM EST Generic External Data Provider LAB BLOOD ORDERAB LES Final Result Performing Organization Address [facility] Co de Phone Number [facility] [address] [place] [phone] * (ABNORMAL) Sed Rate by Modified Martellren (11/22/2024 10:43 AM EST) [facility] Erythrocyte Sedimentation Rate 23(H) 0 - 15 MM/HR [facility] Comment:Patients with polycy themia and many hemoglobin abnormalitiesmay have depressed sed rates whereas patients with anemiamay have elevated sed rates. 11/22/2024 10:4 3 AM EST 11/22/2024 10:43 AM EST Generic External Data Provider LAB BLOOD ORDERAB LES Final Result Performing Organization Address [facility] Co de Phone Number [facility] [address] [place] [phone] * (ABNORMAL) Immunoglobulins, Quantitative, IgA, IgG, IgM (11/22/2024 10:43 AM EST) IMMUNOGLOBULIN G 1060 600 - 1640 mg/dL [facility] IMMUNOGLOBULIN A 408(A) 47 - 310 mg/dL [facility] Immunoglobulin M 96 50 - 300 mg/dL [facility] Comment:THIS TEST WAS PERFOR MED AT:[facility] [place] [phone] TANNER MD 11/22/2024 10:4 3 AM EST 11/22/2024 10:43 AM EST us Generic External Data Provider LAB BLOOD ORDERAB LES Final Result Performing Organization Address [facility] de Phone Number [facility] [address] [place] [phone] * Uric acid (11/22/2024 10:43 AM EST) Only the most recent of2 resultswithin the time period is included. Pathologist [facility] Uric Acid 6.7 3.4 - 7.0 mg/dL [facility] 11/22/2024 10:4 3 AM EST 11/22/2024 10:43 AM EST us Generic External Data Provider LAB BLOOD ORDERAB LES Final Result Performing Organization Address [facility] de Phone Number [facility] [address] [place] [phone] * (ABNORMAL) Immunoglobulin E (11/22/2024 10:43 AM EST) Immunoglobulin E 3653(A) <ZQ=478 kU/L [facility] 11/22/2024 10:4 3 AM EST 11/22/2024 10:43 AM EST Generic External Data Provider LAB BLOOD ORDERAB LES Final Result Performing Organization Address [facility] Co de Phone Number [facility] [address] [place] [phone] * (ABNORMAL) Comprehensive Metabolic Panel (11/22/2024 10:43 AM EST) Only the most recent of2 resultswithin the time period is included. Sodium 138 135 - 145 mmol/L [facility] Potassium 4.6 3.3 - 5.1 mmol/L [facility] Chloride 110(H) 96 - 108 mmol/L [facility] Carbon Dioxide 21(L) 22 - 29 mmol/L [facility] Anion Gap 12 12 - 20 [facility] Urea Nitrogen (BUN) 29(H) 9 - 16 mg/dL [facility] Creatinine, Serum 1.19 0.5 - 1.4 mg/dL [facility] Estimated Glomerular Filt Rate >60 [facility] Comment:Chronic Kidney Disea se: Estimated GFR < 60 mL/min/1.91y4Fzwcks Kidney Disease: Estimated GFR < 15 mL/min/1.73m2 Glucose 89 60 - 115 mg/dL [facility] Calcium 8.9 8.4 - 10.2 mg/dL [facility] Bilirubin, Total 0.4 0.0 - 1.0 mg/dL [facility] Aspartate Amino Transferase 47(H) 5 - 37 U/L [facility] Alanine Aminotransferase 73(H) 0 - 40 U/L [facility] Total Protein 7.8 6.5 - 8.0 g/dL [facility] Albumin Level 4.1 3.5 - 5.0 g/dL [facility] Alkaline Phosphatase 65 39 - 117 U/L [facility] 11/22/2024 10:4 3 AM EST 11/22/2024 10:43 AM EST us Generic External Data Provider LAB BLOOD ORDERAB LES Final Result [facility] [address] [place] [phone] * Influenza B (ID NOW Rapid Molecular) (11/11/2024 10:20 AM EST) Only the most recent of3 resultswithin the time period is included. Pathologist [facility] Influenza B Negative Negative, Indeterminate [facility] Swab 11/11/2024 10:2 0 AM EST Luis Wilks MD POINT OF CARE TEST ENTER/EDIT OR DERABLES Final Result Performing Organization Address [facility] Co de Phone Number [facility] [address] [place] [phone] * Influenza A (ID NOW Rapid Molecular) (11/11/2024 10:20 AM EST) Only the most recent of3 resultswithin the time period is included. Pathologist [facility] Influenza A Negative Negative, Indeterminate [facility] Swab 11/11/2024 10:2 0 AM EST Luis Wilks MD POINT OF CARE TEST ENTER/EDIT OR DERABLES Final Result Performing Organization Address [facility] Co de Phone Number [facility] [address] [place] [phone] * POCT Rapid COVID Ag (11/11/2024 10:12 AM EST) Only the most recent of3 resultswithin the time period is included. [facility] Rapid COVID Ag Negative Swab 11/11/2024 10:1 2 AM EST Luis Wilks MD POINT OF CARE TEST ENTER/EDIT OR DERABLES Final Result * PSA, Screen (10/02/2024 8:40 AM EST) [facility] PSA, Total 0.31 <0.05 - 4.0 ng/mL [facility] Comment:PSA methodology: Abb tia Wilcox i ChemiluminescentMicroparticle Immunoassay (CMIA) Blood Venous blood specimen / Unknown 10/02/2024 8:40 AM EST 10/02/2024 11:52 AM EST Jorge Thomas MD LAB BLOOD ORDERABLES Final Result Performing Organization Address City/[facility]/ZIP Co de Phone Number [facility] [address] [place] [phone] * (ABNORMAL) Lipid Panel, Standard (10/02/2024 8:40 AM EST) Triglycerides 90 <150 mg/dL [facility] Comment:Desirable Triglyceri de: less than 150 mg/dLBorderline High Triglyceride 150-199 mg/dLHigh Triglyceride: 200-499 mg/dLVery High Triglyceride: greater than or equal to 5OO mg/dL Cholesterol 103 <200 mg/dL [facility] Comment:Desirable Cholestero l: less than 200 mg/dLBorderline High Cholesterol: 200-239 mg/dLHigh Cholesterol: greater than 239 mg/dL LDL Cholesterol Calculated 54 <100 mg/dL [facility] Comment:Desirable LDL: less than 100 mg/dLNear Optimal/Above Optimal LDL: 110- 129 mg/dLBorderline High LDL: 130-159 mg/dLHigh LDL: 160-189 mg/dLVery High LDL: greater than or equal to 190 mg/dL HDL Cholesterol 31(L) >40 mg/dL [facility] Comment:Desirable HDL: great er than 40 mg/dL Note: This HDL assay may give artificially low results in patients with liver disease. Blood Venous blood specimen / Unknown 10/02/2024 8:40 AM EST 10/02/2024 11:52 AM EST Jorge Thomas MD LAB BLOOD ORDERABLES Final Result [facility] [address] [place] [phone] * XR Chest 2 Views (09/30/2024 10:36 AM EST) Anatomical Region Laterality Modality Chest Radiographic Erin ging 09/30/2024 10:3 6 AM EST Narrative 09/30/2024 3:39 PM EST ?[facility] [place] ?[address] ?[place] [address] ?XRay Report ? Signed ? Patient: Colon Apodaca,Christiano ?MR#: [id number] ?? [id number] ? : 1965 ?Acct:[id number] ? Age/Sex: 59 / M ?ADM Date: 09/30/24 ? Loc: HO.HHCX ? Attending Dr: Jorge Mcclure MD ? Ordering Physician: Jorge Mcclure MD ?? Date of Service: 09/30/24 ?? Procedure(s): XR chest 2V ?? Accession Number(s): [id number] ? cc: Jorge Mcclure MD ? EXAMINATION: [...] ??Nazario Villavicencio MD ??09/30/2024 03:36 PM EST ?? RP ? Dictated By: ?Nazario Villavicencio MD ? Signed By: ?<Electronically signed by Nazario Villavicencio MD in OV> ?09/30/24 1536 ? DD/ 1036 ? TD/TT: 09/30/24 1040 ? Cigar Packer And Grader: HB ? Procedure Note Marco Christensen - 09/30/[address] [address] XRay Report Signed Patient: Timo Magaña#: M [id number] : 1965Acct:[id number] Age/Sex: 59 / MADM Date: 09/30/24 Loc: HO.HHCX Attending Dr: Jorge Mcclure MD Ordering Physician: Jorge Mcclure MD Date of Service: 09/30/24 Procedure(s): XR chest 2V Accession Number(s): [id number] cc: Jorge Mcclure MD EXAMINATION: XR CHEST [...] Nazario Villavicencio MD 09/30/2024 03:36 PM EST RP Dictated By: Nazario Villavicencio MD Signed By: <Electronically signed by Nazario Villavicencio MD in OV> 09/30/24 1536 DD/ 1036 TD/TT: 09/30/24 1040 Cigar Packer And Grader: HB Jorge Mcclure MD IMG XR PROCEDURES Edited Re sult - Final * HEPATITIS C ANTIBODY RFLX (12/11/2021 7:26 AM EST) Hepatitis C Antibody Nonreactive Nonreactive [facility] Comment: Antibodies to HCV not detected; does not exclude early acute HCV infection. 12/11/2021 7:26 AM EST us Jorge Thomas MD HISTORICAL/NON ORDERA BLE LABS Final Result [facility] [address] * HIV AB/AG (12/11/2021 7:26 AM EST) HIV AB/AG Nonreactive Nonreactive [facility] [...] detection of this assay. ?? The [employer] Officer HIV Ag/Ab Combo assay result and supplemental assay results should be interpreted in conjunction with the patient's clinical presentation, history and other laboratory results. ??If the results are inconsistent with clinical evidence, additional testing is suggested to confirm the result. 12/11/2021 7:26 AM EST Jorge Thomas MD HISTORICAL/NON ORDERA BLE LABS Final Result [facility] [address] * Colonoscopy (11/16/2018) Colonoscopy Normal Normal 11/16/2018 Historical Provider HEALTH MAINTENANCE Final Result from Last 3 Months or Most Recently Relevant to Health Maintenance [facility] Care Teams Rfid Technician Relationship Specialty Start Date End Date Jorge Calvillo MD [address] [place] [phone] PCP - General Internal Medicine 01/08/21
--- OUTSIDE RECORDS SUMMARY | 2024-12-12 15:23 | XMS_ITS | Encounter Summary ---
Author Organization [employer] Address 75 [facility] 7t [place] [address] Care Team Providers Care Dance Studio Manager Name Role Phone Jorge Calvillo MD Primary Care Provide r Reason for Visit * Reason Onset Date Comments Med Refill 12/20/2023 Encounter Details Date Type Department Care Team (Late st Contact Info) Description 12/20/[address] [facility] [address] [place], [place] [phone] Jorge Calvillo MD [address] [place], [place] [phone] Erectile dysfunction, unspecified erectile dysfunction type Social [...] AM EDT Office Visit [facility] [address] [place] [address] Jorge Calvillo MD 230 [place] [address] documented as of this encounter Visit Diagnoses Diagnosis Erectile dysfunction, unspecified erectile dysfunction type documented in this encounter Additional Health Concerns Assessment Noted Time PHQ-9 Depression Total Score: 1 08/17/20 23 10:33 AM EDT documented as of this encounter Care Teams Dance Studio Manager Relationship Specialty Start Date End Date Jorge Calvillo MD [address] [place] [address] PCP - General Internal Medicine 01/08/21 documented as of this encounter
--- OUTSIDE RECORDS SUMMARY | 2024-12-12 15:23 | XMS_ITS | Encounter Summary ---
Author Organization [employer] Address 75 [facility] 7t [place] [address] Care Team Providers Care Vb Net Developer Name Role Phone Jorge Calvillo MD Primary Care Provide r Reason for Visit * Reason Comments Med Refill Encounter Details Date Type Department Care Team ([facility] st Contact Info) Description 02/12/2024 Refill [facility] [address] [place], [place] [phone] Jorge Calvillo MD [address] [place] [address] Hyperuricemia Social History Tobacco Use Types Packs/Day [...] Visit [facility] [address] [place] [address] Jorge Calvillo MD [address] [place] [address] documented as of this encounter Visit Diagnoses Diagnosis Hyperuricemia Other abnormal blood chemistry documented in this encounter Additional Health Concerns Assessment Noted Time PHQ-9 Depression Total Score: 1 08/17/20 23 10:33 AM EDT documented as of this encounter Care Teams Vb Net Developer Relationship Specialty Start Date End Date Jorge Calvillo MD [address] [place] [address] PCP - General Internal Medicine 01/08/21 documented as of this encounter
--- OUTSIDE RECORDS SUMMARY | 2024-12-12 15:23 | XMS_ITS | Encounter Summary ---
Author Organization [employer] Address 75 [facility] 7t [place] [address] Care Team Providers Care Roller Leveler Operator Name Role Phone Jorge Calvillo MD Primary Care Provide r Reason for Visit * Reason Comments Med Refill Encounter Details Date Type Department Care Team ([facility] st Contact Info) Description 12/23/2023 Refill [facility] 230 [place], [place] [phone] Jorge Calvillo MD [address] [place], [place] [phone] Erectile dysfunction, unspecified erectile dysfunction type Social [...] Description 12/26/2024 11:30 AM EDT Office Visit [facility] [address] [place] [phone] Jorge Calvillo MD 230 [place] [address] documented as of this encounter Visit Diagnoses Diagnosis Erectile dysfunction, unspecified erectile dysfunction type documented in this encounter Additional Health Concerns Assessment Noted Time PHQ-9 Depression Total Score: 1 08/17/20 23 10:33 AM EDT documented as of this encounter Care Teams Roller Leveler Operator Relationship Specialty Start Date End Date Jorge Calvillo MD [address] [place] [phone] PCP - General Internal Medicine 01/08/21 documented as of this encounter
--- OUTSIDE RECORDS SUMMARY | 2024-12-12 15:23 | XMS_ITS | Encounter Summary ---
Author Organization [employer] Address 75 [facility] 7t [place] [address] Care Team Providers Care Chain Carrier Name Role Phone Jorge Calvillo MD Primary Care Provide r Reason for Visit * Reason Onset Date Comments Med Refill 08/28/2023 Encounter Details Date Type Department Care Team (Late st Contact Info) Description 08/28/2023 Refill [facility] 230 [place], [place] [phone] Jorge Calvillo MD 230 [place], [place] [phone] Erectile dysfunction, unspecified erectile dysfunction type Social [...] Description 12/26/2024 11:30 AM EDT Office Visit [facility] [address] [place] [address] Jorge Calvillo MD 230 [place] [address] documented as of this encounter Visit Diagnoses Diagnosis Erectile dysfunction, unspecified erectile dysfunction type documented in this encounter Additional Health Concerns Assessment Noted Time PHQ-9 Depression Total Score: 1 08/17/20 23 10:33 AM EDT documented as of this encounter Care Teams Chain Carrier Relationship Specialty Start Date End Date Jorge Calvillo MD [address] [place] [phone] PCP - General Internal Medicine 01/08/21 documented as of this encounter
== END 2024-12-12 13:42 | disposition home or self-care (01) ==
PROVIDERS: PCP Internal Medicine; Visit Provider Hospitalist
DX: J45.40 Moderate persistent asthma, uncomplicated (principal); R05.2 Subacute cough; E32.8 Other diseases of thymus; N28.1 Cyst of kidney, acquired; T78.40XA Allergy, unspecified, initial encounter
CPT/HCPCS: 99214; G2211

== ENCOUNTER → 2024-12-12 12:57 | Outpatient (BNVA) | payer OTHER, SELFPAY | PROVIDERS: PCP Internal Medicine; Visit Provider Hospitalist | DX: T78.40XA Allergy, unspecified, initial encounter (principal); J45.909 Unspecified asthma, uncomplicated ==

== ENCOUNTER 2025-01-27 12:35 | Outpatient (AMB) | payer OTHER, SELFPAY ==
--- NOTE | 2025-01-27 12:45 | MHC.OFFVIS ---
Vital Signs 01/27/25 12:46 Height 5 ft 7 in Weight 198 lb 6.656 oz BMI 31.1 BP 120/80 Blood Pressure Location Lt brachial Position Sitting Pulse 56 Intake Visit Reasons: 6 mth f/up Intake Note: 6 month follow-up with ekg ? if med's should be changed Maintenance Of Way Superintendent Required: No Allergies levofloxacin [From LEVAQUIN] Allergy (Unknown, Verified 12/12/24 13:17) Rash Medication List - Last Reconciled 01/27/25 by Elpidio Ravi MD allopurinol 100 mg PO DAILY aspirin 81 mg PO DAILY cetirizine (Zyrtec) 10 mg PO DAILY 30 days losartan 50 mg PO BID metoprolol succinate ER 100 mg PO DAILY nebulizers As directed prasugrel HCl 10 mg PO DAILY rosuvastatin 40 mg PO DAILY sildenafil (Viagra) 100 mg PO DAILY PRN HPI Comments Details: Christiano comes for follow-up. Overall he is doing well. He said he does not push when he goes for exercise but can walk for 40 minutes without any restriction. Denies any exertional chest pain during walks. Denies any prolonged palpitation irregular heartbeat. No worsening shortness of breath, orthopnea, PND. Taking all his medications. Last LDL was well optimized at 54 mg/dL. [facility] Medical History Allergies Asthma Renal cyst Palpitations Syncope Pneumonia Cough HTN (hypertension) History of NM (myocardial infarction) Coronary artery disease Gout Surgical History Stented coronary artery History of cardiac catheterization History of sinus surgery Family History Father Medical history unknown Mother Diabetes Hypertension Paternal Aunt Cancer Maternal Grandmother No problems noted. Maternal Grandfather No problems noted. Social History Household Members: Spouse and Family Alcohol intake: current Alcohol intake frequency: does not drink Patient Tobacco Use Status: Former Tobacco user Current occupational status: disabled Review of Systems Const Denies chills, Denies fatigue, Denies fever(s), Denies frequent falls, Denies weakness, Denies weight gain and Denies weight loss ENT Denies dizziness Card Denies chest pain, Denies leg edema, Denies lightheadedness, Denies palpitations, Denies dyspnea, Denies dyspnea on exertion, Denies orthopnea and Denies other (loss of consciousness) Resp Denies cough, Denies dyspnea and Denies dyspnea on exertion GI Denies hematochezia and Denies change in stool character Musc Denies abnormal gait, Denies muscle weakness, Denies numbness, Denies radiating pain into limb and Denies tingling Neuro Denies abnormal gait, Denies dizziness, Denies frequent falls, Denies numbness, Denies tingling and Denies weakness Endo Denies fatigue and Denies palpitations Physical Exam Vital Signs: Last Vital Signs Pulse 56 01/27/25 12:46 BP 120/80 01/27/25 12:46 BMI result Body Mass Index 31.1 Const General: cooperative, healthy appearing, comfortable and no acute distress Orientation/consciousness: patient oriented x3 Neck Neck: Yes normal visual inspection Resp Effort & Inspection: normal respiratory effort Auscultation: clear to auscultation bilaterally, no crackles, no rales, no rhonchi and no wheezes Cardio Jugular venous distension: no JVD Rate: regular rate Rhythm: regular rhythm Heart sounds: S1 normal heart sound present, S2 normal heart sound present, no murmurs and no rubs Neuro General: patient oriented x3 Extrem General: Yes normal to inspection, No no pedal edema and No calf tenderness Psych Appearance: grossly normal Mental Status: mental status grossly normal Speech and movement: Normal speech and movement present Office Procedures EKG Details: EKG shows sinus bradycardia at 57 beats per minute otherwise normal EKG 75282-[id number], Complete Assessment & Plan Assessment & Plan (1) Coronary artery disease: Code(s): I25.10 - Atherosclerotic heart disease of qagan [place]ung[place] coronary artery without angina pectoris Category: Medical Plan: Coronary artery disease status post drug-eluting stents by year and half ago. Continue dual antiplatelet therapy for additional here to reduce late stent thrombosis with lower bleeding risk. After that long-term aspirin therapy will be pursued. Continue high-intensity statin therapy with target goal LDL currently well optimized. Continue aggressive blood pressure control. Encouraged to increase activity level and participate in regular physical activity to improve cardiovascular long-term outcomes. (2) HTN (hypertension): Code(s): I10 - Essential (primary) hypertension Category: Medical Plan: Hypertension which is currently well optimized on losartan and metoprolol therapy. Importance of good blood pressure control was discussed. Low-salt diet was discussed. Advised to continue current therapy. Advised to monitor blood pressure at home maintain a log. Follow up in the clinic 1 year's time, sooner p.r.n.. Thank you for allowing me to partake in his care Coding Level of Care Code Est Pt Level 4 (68904) Complex EM visit Add On G2211 Diagnoses Coronary artery disease I25.10 HTN (hypertension) I10 CPT Codes EKG - CPT: 90789-[id number], Complete ([id number])
[2025-01-27 12:46] VITALS: BP 120/80; PULSE 56; BMI 31.1
--- OUTSIDE RECORDS SUMMARY | 2025-01-27 14:33 | XMS_ITS | Encounter Summary ---
Author Organization [employer] Address 75 [facility] 7t [place] [address] Care Team Providers Care Dermatology Nurse Name Role Phone Jorge Calvillo MD Primary Care Provide r Reason for Visit * Reason Comments Med Refill Encounter Details Date Type Department Care Team ([facility] st Contact Info) Description 12/23/2023 Refill [facility] [address] [place], [place] [phone] Jorge Calvillo MD [address] [place], [place] [phone] Erectile dysfunction, unspecified erectile dysfunction type Social [...] Care Team (Late st Contact Info) Description 04/01/2025 11:30 AM EDT Office Visit [facility] [address] [place] [address] Jorge Calvillo MD [address] [place] [address] documented as of this encounter Visit Diagnoses Diagnosis Erectile dysfunction, unspecified erectile dysfunction type documented in this encounter Additional Health Concerns Assessment Noted Time PHQ-9 Depression Total Score: 1 08/17/20 23 10:33 AM EDT documented as of this encounter Care Teams Dermatology Nurse Relationship Specialty Start Date End Date Jorge Calvillo MD [address] [place] [phone] PCP - General Internal Medicine 01/08/21 documented as of this encounter
--- OUTSIDE RECORDS SUMMARY | 2025-01-27 14:33 | XMS_ITS | Encounter Summary ---
Author Organization [employer] Address 75 [facility] 7t [place] [address] Care Team Providers Care Importer Exporter Name Role Phone Jorge Calvillo MD Primary Care Provide r Reason for Visit * Reason Comments Med Refill Encounter Details Date Type Department Care Team ([facility] st Contact Info) Description 01/25/2025 Refill [facility] [address] [place], [place] [phone] Jorge Calvillo MD [address] [place], [place] [phone] Erectile dysfunction, unspecified erectile dysfunction type Social [...] Access Answer Date Recorded Internet Access Q1 Yes 12/16/2024 Internet Access Q2 Not on file 12/16/2024 Sex and Gender Information Value Date Recorded Sex Assigned at Male 08/15/2022 10:37 AM EDT Legal Sex Male 10:37 AM EDT Gender Identity Male 08/15/2022 10:37 AM EDT Sexual Orientation Straight 08/15/2022 10 :37 AM EDT documented as of this encounter Plan of Treatment Upcoming Encounters Date Type Department Care Team (Late st Contact Info) Description 04/01/2025 11:30 AM EDT Office Visit [facility] [address] [place] [address] Jorge Calvillo MD [address] [place] [address] documented as of this encounter Visit Diagnoses Diagnosis Erectile dysfunction, unspecified erectile dysfunction type documented in this encounter Additional Health Concerns Assessment Noted Time PHQ-9 Depression Total Score: 0 08/29/20 24 9:13 AM EST documented as of this encounter Care Teams Importer Exporter Relationship Specialty Start Date End Date Jorge Calvillo MD [address] [place] [address] PCP - General Internal Medicine 01/08/21 documented as of this encounter
--- OUTSIDE RECORDS SUMMARY | 2025-01-27 14:33 | XMS_ITS | Encounter Summary ---
Author Organization [employer] [facility] Address 75 [facility] 7t [place] [address] Care Team Providers Care Silk Screen Printing Racker Name Role Phone Jorge Calvillo MD Primary Care Provide r Reason for Visit * Reason Comments Med Refill Encounter Details Date Type Department Care Team (Late Contact Info) Description 12/28/2022 Refill [facility] 230 [place], [place] [phone] Kodak Delacruz FNP Acute idiopathic gout of [...] Department Care Team (Late Contact Info) Description 04/01/2025 11:30 AM EDT Office Visit [facility] [address] [place], [place] [phone] Jorge Calvillo MD [address] [place], [place] [phone] documented as of this encounter Visit Diagnoses Diagnosis Acute idiopathic gout of right foot documented in this encounter Care Teams Silk Screen Printing Racker Relationship Specialty Start Date End Date Jorge Calvillo MD [address] [place] [phone] PCP - General Internal Medicine 01/08/21 documented as of this encounter
--- OUTSIDE RECORDS SUMMARY | 2025-01-27 14:33 | XMS_ITS | Encounter Summary ---
Author Organization [employer] [facility] Address 75 [facility] 7t [place] [address] Care Team Providers Care Short Goods Drier Name Role Phone Jorge Calvillo MD Primary Care Provide r Reason for Visit * Reason Comments Med Refill Encounter Details Date Type Department Care Team ([facility] Contact Info) Description 04/11/2023 Refill [facility] [address] [place], [place] [phone] Apple Munguia FNP [address] [place], [place] [phone] Social History Tobacco Use Types Packs/Day Years [...] Upcoming Encounters Date Type Department Care Team ([facility] Contact Info) Description 04/01/2025 11:30 AM EDT Office Visit [facility] [address] [place] [address] Jorge Calvillo MD [address] [place] [address] documented as of this encounter Visit Diagnoses Not on filedocumented in this encounter Care Teams Short Goods Drier Relationship Specialty Start Date End Date Jorge Calvillo MD [address] [place] [phone] PCP - General Internal Medicine 01/08/21 documented as of this encounter
--- OUTSIDE RECORDS SUMMARY | 2025-01-27 14:33 | XMS_ITS | Encounter Summary ---
Author Organization [employer] Address 75 [facility] 7t [place] [address] Care Team Providers Care Sanitary Plumber Name Role Phone Jorge Calvillo MD Primary Care Provide r Reason for Visit * Reason Onset Date Comments Med Refill 12/20/2023 Encounter Details Date Type Department Care Team (Late st Contact Info) Description 12/20/2023 Refill [facility] 230 [place], [place] [phone] Jorge Calvillo MD [address] [place], [place] [phone] Erectile dysfunction, unspecified erectile dysfunction type Social [...] Description 04/01/2025 11:30 AM EDT Office Visit [facility] [address] [place] [address] Jorge Calvillo MD [address] [place] [address] documented as of this encounter Visit Diagnoses Diagnosis Erectile dysfunction, unspecified erectile dysfunction type documented in this encounter Additional Health Concerns Assessment Noted Time PHQ-9 Depression Total Score: 1 08/17/20 23 10:33 AM EDT documented as of this encounter Care Teams Sanitary Plumber Relationship Specialty Start Date End Date Jorge Calvillo MD [address] [place] [address] PCP - General Internal Medicine 01/08/21 documented as of this encounter
--- OUTSIDE RECORDS SUMMARY | 2025-01-27 14:33 | XMS_ITS | Clinical Summary ---
Author Organization [employer] Address [address] [place] [address] [address] [place] [address] Care Team Providers Care Data Analyst Report Writer Name Role Phone Jorge Calvillo MD Primary [...] shortness of breath. 75 mL 11 4 09/30/20 25 Active fluticasone (Flonase) 50 MCG/ACT nasal sprayIndication s:Cough in adult patient Administer 1 spray into each nostril if needed at bedtime for rhinitis. Shake gently. Before first use, prime pump. After use, clean tip and replace cap. 16 g 1 4 10/07/20 25 Active fluticasone furoate (Arnuity Ellipta) 200 MCG/ACT inhaler Inhale 1 puff Once per day. Rinse mouth with water after use to reduce aftertaste and incidence of candidiasis. Do not swallow. 1 each 11 5 11/11/19 26 Active albuterol (Ventolin HFA) 108 (90 Base) MCG/ACT inhaler Inhale 2 puffs every 6 (six) hours if needed for wheezing. 18 g 1 5 Active allopurinol (Zyloprim) 100 MG tabletIndicatio ns:Hyperuricemi a TAKE 1 TABLET BY MOUTH EVERY DAY IN THE MORNING 30 tablet 1 5 Active montelukast (Singulair) 10 MG tablet Take 10 mg by mouth at bedtime. 5 Active Active Problems Problem Noted Date Diagnosed Date Elevated LFTs 12/26/2024 Assessment & Plan (12/26/2024 11:49 AM EDT): 11/22/2024 Mild elevation of LFTs done by outside provider Plan: Repeat, obtain Hepatitis Profile and Liver US Pt is on Crestor, pending on results will decide if any changes need to be made Elevated blood sugar level 03/28/2024 Assessment & Plan (12/26/2024 11:38 AM EDT): Repeat 89 11/22/2024 Assessment & Plan (03/28/2024 1:25 PM EDT): 116 unclear if fasting Will repeat Moderate persistent asthma without complication 02/20/2024 Assessment & Plan (12/26/2024 11:35 AM EDT): Patient with previous c/o recurrent non productive cough, associated with wheezing CT chest 05/2024 showed: 2.5 cm slightly lobulated hypoattenuating lesion in the midline superior mediastinum with fluid density, 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 Correlation with MRI chest can be considered as clinically needed. He was also seen by Pulmonology for evaluation and Pulmonary function testing, last seen 12/12/2024 He stated: Pt feeling a lot better on Trelegy. In addition he undergo blood work including allergy testing. He has severe allergies. Would potentially benefit from biologic therapy if he continues to be symptomatic The patient also did undergo an MRI of the chest. 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 In addition to that does have some renal cysts. Overall the cyst appeared to be benign in have not significantly worsened. To repeat a CT scan in a year's time to make sure that there is no interval worsening of disease. Will have the patient return in 6 months to address the ongoing respiratory issues. Assessment & Plan (08/29/2024 9:13 AM EST): [...] as clinically needed. I placed order, [facility] recommended to [facility] order to CT of chest [...] if symptoms do not improve or worsen Primary hypertension 02/01/2024 Assessment & Plan (12/26/2024 11:35 AM EDT): Blood pressure controlled on BMP Lab Results Component Value Date NA 138 11/22/2024 NA 138 10/02/2024 K 4.6 11/22/2024 K 4.1 10/02/2024 CL 110 (H) 11/22/2024 CL 107 10/02/2024 BUN 29 (H) 11/22/2024 BUN 46 (H) 10/02/2024 CREATININE 1.19 11/22/2024 CREATININE 1.90 (H) 10/02/2024 Normal On Losartan 50 mg po daily and Metoprolol XL 100 mg po daily Assessment & Plan (08/29/2024 9:17 AM EST): [...] in after recently having been in his [place] [facility] where he apparently had an STEMI on [...] On August 10 he was evaluated by Is Technician and he was allowed to return to [place] in a commercial flight. Today his vital signs are stable, he denies any chest pain, sob or any other symptom. EKG shows evidence of previous KS. 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 He was hospitalized from 08-03 until 08/06/2023 [...] for a total of 30 months post KS. he is currently on aspirin and prasugrel. Continue metoprolol, losartan and rosuvastatin. [place] LDL goal less than 70. Labs done 11/20/2023 showed LDL 52. Signs and symptoms of angina reviewed with him. Cardiology appointment scheduled for 01/27/2025 Assessment & Plan (08/29/2024 9:17 AM EST): Hx of STEMI on 08/03/2023 in [facility]. He was hospitalized from 08-03 until 08/06/2023 [...] for a total of 30 months post KS. he is currently on aspirin and prasugrel. Continue metoprolol, losartan and rosuvastatin. [place] LDL goal less than 70. Labs done 11/20/2023 showed LDL 52. Signs and symptoms of angina reviewed with him. Cardiology follow-up 6 months Assessment & Plan (03/28/2024 1:20 PM EDT): Hx of STEMI on 08/03/2023 in [facility]. He was hospitalized from 08-03 until 08/06/2023 [...] On August 10 he was evaluated by Is Technician and he was allowed to return to [place] in a commercial flight. He is now [...] participate in phase 2 cardiac rehabilitation by Is Technician. Assessment & Plan (02/01/2024 3:03 PM EDT): Hx of STEMI on 08/03/2023 in [facility]. He was hospitalized from 08-03 until 08/06/2023 [...] On August 10 he was evaluated by Is Technician and he was allowed to return to [place] in a commercial flight. He is now [...] participate in phase 2 cardiac rehabilitation by Is Technician. Assessment & Plan (11/23/2023 11:50 AM EST): Hx of STEMI on 08/03/2023 in [facility]. He was hospitalized from 08-03 until 08/06/2023 [...] On August 10 he was evaluated by Is Technician and he was allowed to return to [place] in a commercial flight. He is now under the care of Dr Ravi, seen 11/08/2023 Preventative health care 06/08/2023 Assessment & Plan (12/26/2024 11:37 AM EDT): PSA 10/02/24 Normal 0.31 Colonoscopy: 2019 Dr Ben Serrano, 10 year follow up Vaccines: Declines all, tried to educate him about the importance of vaccine , specially Covid-19 vaccines, stated he would think about it Assessment & Plan (08/29/2024 9:19 AM EST): [...] had one 4 years ago at [facility] records requested never [...] had one 4 years ago at [facility] records requested never [...] had one 4 years ago at [facility] records requested never obtained. He will request that directly from her previous PCP Dr. Cook Vaccines: Declines all, tried to educate him about the importance of vaccine , specially Covid-19 vaccines, stated he would think about it Hypertriglyceridemia 06/08/2023 Assessment & Plan (12/26/2024 11:37 AM EDT): Pt had lab work done in [facility] that showed elevated Triglicerides of 271 back in January 2023 Repeat Lab Results Component Value Date TRIG 90 10/02/2024 TRIG 140 08/14/2023 CHOL 103 10/02/2024 CHOL 126 08/14/2023 LDLCHOLCAL 54 10/02/2024 LDLCHOLCAL 74 08/14/2023 HDL 31 (L) 10/02/2024 HDL 24 (L) 08/14/2023 On Crestor 40 Assessment & Plan (08/29/2024 9:19 AM EST): Pt had lab work done in [facility] that showed elevated Triglicerides of 271 back in January 2023 Repeat Lab Results Component Value Date TRIG 140 08/14/2023 CHOL 126 08/14/2023 LDLCHOLCAL 74 08/14/2023 HDL 24 (L) 08/14/2023 On Crestor 40 Assessment & Plan (11/23/2023 11:48 AM EST): Pt had lab work done in [facility] that showed elevated Triglicerides of 271 back [...] EDT): Pt had lab work done in [facility] that showed elevated Triglicerides of 271 back [...] EDT): Pt had lab work done in [facility] that showed elevated Triglicerides of 271 back [...] 31.9 in adult 06/08/2023 Assessment & Plan (12/26/2024 11:41 AM EDT): Patient has been counseled and educated about diet and exercise.Patient has comorbidity of: HTN Dietary Recommendations: Fruits, vegetables, whole grains, protein foods, and fat-free or low-fat dairy products are healthy choices. Eat different types of protein foods in your diet. This can include seafood, lean meats, poultry, beans, peas, lentils, nuts, seeds, soy products, and eggs. Limit foods and beverages higher in added sugars, saturated fat, and sodium. Exercise Recommendations: At least 150 minutes of moderate-intensity physical activity per week, or an equivalent combination of moderate- and vigorous-intensity activity Assessment & Plan (08/29/2024 9:26 AM EST): [...] levels 2w after acute attack is resolved, tal w PCP Out of work x 3d [...] 100 mg po daily Plan: Rheumatology referral Resolved Problems Problem Noted Date Diagnosed Date Resolved Date Abnormal chest xray 02/01/2024 12/27/19 Assessment & Plan (02/20/2024 9:22 AM EDT): Pt seen at our [facility] on 2 different ocasions first 01/09 [...] 3:09 PM EDT): Pt seen at our [facility] on 2 different ocasions first 01/09 [...] Follow up with me in 2 weeks Encounters Date Type Department Care Team Description 01/25/2025 Refill [facility] [address] [place] [phone] Jorge Calvillo MD Erectile dysfunction, unspecified erectile dysfunction type 12/26/2024 11:30 AM EDT Office Visit [facility] [address] [place] [phone] Jorge Calvillo MD Moderate persistent asthma without complication (Primary Dx); Primary hypertension; Coronary artery disease involving oneida coronary artery of oneida heart without angina pectoris; Preventative health care; Hypertriglyceridemia; Elevated blood sugar level; Elevated LFTs; Class 1 obesity due to excess calories without serious comorbidity with body mass index (BMI) of 31.0 to 31.9 in adult; Dietary counseling; Exercise counseling 12/26/2024 Travel 12/25/2024 Telephone [facility] [address] [place] [phone] Jorge Calvillo MD 12/16/2024 Patient Outreach [facility] [address] [place] [phone] Jorge Calvillo MD Pre-visit Planning (SDOH Screening negative and Tobacco screening negative) 12/14/2024 Refill [facility] [address] [place] [phone] Jorge Calvillo MD Hyperuricemia 12/12/[address] [address] Jorge Calvillo MD Chart Prep 11/22/2024 Orders Only GENERIC EXTERNAL DATA DEPARTMENT Provider, Generic External Data 11/11/2024 10:40 AM EST Office Visit [facility] [address] [place] [phone] Luis Wilks MD Cough in adult patient (Primary Dx); Wheezing on auscultation 11/11/2024 Travel from Last 3 Months Social History [...] Sign Reading Time Taken Comments Blood Pressure 115/66 12/26/2024 11:19 AM EDT Pulse 73 12/26/2024 11:19 AM EDT Temperature 36.4 ??C (97.6 ??F) 12/26/2024 11:19 AM E DT Respiratory Rate 20 12/26/2024 11:19 AM EDT Oxygen Saturation 98% 12/26/2024 11:19 AM EDT Inhaled Oxygen Concentration - - Weight 88.2 kg (194 lb 6.4 oz) 12/26/2024 11:19 AM EDT Height 170.2 cm (5' 7 ) 12/26/2024 11:19 AM EDT Body Mass Index 30.45 12/26/2024 11:19 AM EDT Plan of Treatment Upcoming Encounters Date Type Department Care Team (Late st Contact Info) Description 04/01/2025 11:30 AM EDT Office Visit [facility] [address] [place] [phone] Jorge Calvillo MD [address] [place] [phone] Health Maintenance Due Date Last Done Comments [...] 08/29/2024 SDOH Screening 08/29/2025 08/29/2024 Tobacco Screening 12/26/2025 12/26/2024 Colonoscopy 11/16/2028 11/16/2018 Colorectal Cancer Screening 11/16/2028 [...] 10:12 AM EST Cough in adult patient LIPID PANEL, STANDARD Routine 10/02/2024 8:40 AM EST Hypertriglyceridem ia ZZZ HISTORICAL HEPATITIS C ANTIBODY RFLX Routine [...] EST Narrative 12/09/2024 3:05 PM EST ? [facility] ?[address] ?[place] [address] ? Magnetic Resonance Report ? Signed ? Patient: Colon Apodaca,Christiano ?MR#: [id number] ?? [id number] ? : 1965 ?Acct:[id number] ? Age/Sex: 59 / M ?ADM Date: 12/09/24 ? Loc: HO.MRI ? Attending Dr: Dwayne Calderon MD ? Ordering Physician: Dwayne Calderon MD ?? Date of Service: 12/09/24 ?? Procedure(s): MR chest wo/w con ?? Accession Number(s): [id number] ? cc: Jorge Cherry MD; Dwayne Calderon [...] DD/ 1020 ? TD/TT: 12/09/24 1130 ? Performance Improvement Analyst: ? Procedure Note Amparo, Image - 12/09/2024 [place] [address] Magnetic Resonance Report Signed Patient: Timo Magaña#: [id number] : 1965Acct:[id number] Age/Sex: 59 / MADM Date: 12/09/24 Loc: .MRI Attending Dr: Dwayne Calderon MD Ordering Physician: Dwayne Calderon MD Date of Service: 12/09/24 Procedure(s): MR chest wo/w con Accession Number(s): [id number] cc: Jorge Cherry MD; Dwayne Calderon MD [...] Mustapha Perez MD 12/09/2024 03:03 PM EST Dictated By: Mustapha Perez MD Signed By: <Electronically signed by Mustapha Perez MD in OV> 12/09/24 1503 DD/ 1020 TD/TT: 12/09/24 1130 Performance Improvement Analyst: [facility] External Provider IMG MRI PROCEDURES Final Result * (ABNORMAL) Respiratory Allergy Profile Region I (11/22/2024 10:43 AM EST) Mouse Urine Proteins (E72) IgE <0.10 kU/L [facility] Class 0 [facility] Cockroach (I6) IgE 4.67(A) kU/L [facility] Class 3 [facility] Dermatophagoides farinae (D2) IgE 0.54(A) kU/L [facility] Class 1 [facility] Cat Dander (E1) IgE 1.82(A) kU/L [facility] Class 2 [facility] Comment:THIS TEST WAS PERFOR MED AT:[employer] [place] [phone] TANNER MD Dog Dander (E5) IgE 1.22(A) kU/L [facility] Class 2 [facility] Comment:THIS TEST WAS PERFOR MED AT:[employer] [address] [phone] TANNER MD Maged Grass (G6) IgE 65.00(A) kU/L [facility] Class 5 [facility] Cladosporium herbarum (M2) IgE <0.10 kU/L [facility] Class 0 [facility] Aspergillus Fumigatis (M3) IgE 0.12(A) kU/L [facility] Class 0/1 [facility] Alternaria alternata (M6) IgE <0.10 kU/L [facility] Class 0 [facility] Comment:THIS TEST WAS PERFOR MED AT:[employer] [address] [phone] TANNER MD [place] Blanca (t6) IgE 4.06(A) kU/L [facility] Class 3 [facility] Salyer (T7) IgE 53.20(A) kU/L [facility] Class [address] [facility] Lane Tree (T10) IgE 9.83(A) kU/L [facility] Class 3 [facility] [place] (T11) IgE 9.20(A) kU/L [facility] Class 3 [facility] Mesilla (T14) IgE 5.45(A) kU/L [facility] Class 3 [facility] White Satish (t15) IgE 6.32(A) kU/L [facility] Class 3 [facility] [place] (T70) IgE 4.06(A) kU/L [facility] Class 3 [facility] Common Ragweed (Short) (W1) IgE 12.30(A) kU/L [facility] Class 3 [facility] Mugwort (w6) IgE 4.03(A) kU/L [facility] Class 3 [facility] Dermatophagoides pteronyssinus (D1) IgE 0.36(A) kU/L [facility] Class 1 [facility] Bermuda Grass (g2) IgE 25.90(A) kU/L [facility] Class 4 [facility] Penicillium Notatum (M1) IgE <0.10 kU/L [facility] Class 0 [facility] Birch (T3) IgE 52.70(A) kU/L [facility] Class 5 [facility] Elm (t8) IgE 8.50(A) kU/L [facility] Class 3 [facility] Maple ([place]) (T1) IgE 10.50(A) kU/L [facility] Class 3 [facility] Rough Pigweed (W14) IgE 5.47(A) kU/L [facility] Class 3 [facility] Sheep Esko (W18) IgE 7.73(A) kU/L [facility] Class 3 [facility] Allergen Comment See Below [facility] Comment: Specific ?Level of AllergenIGE [...] and its analyticalperformance characteristics have been determined by[employer]. It has not been cleared or approvedby the U.S. Food and Drug Administration. This assayhas been validated pursuant to the CLIA regulationsand is used for clinical purposes.THIS TEST WAS PERFORMED AT:[facility] [place] [address] [phone] TANNER MD 11/22/2024 10:4 3 AM EST 11/22/2024 10:43 AM EST us Generic External Data Provider LAB BLOOD ORDERAB LES Final Result [facility] [address] [place] [phone] * (ABNORMAL) CBC auto differential (11/22/2024 10:43 AM EST) White Blood Count 8.3 4.8 - 10.8 X10*3/uL [facility] Red Blood Count 5.23 4.60 - 5.80 X10*6/uL [facility] Hemoglobin 15.7 14.0 - 18.0 g/dl [facility] Hematocrit 46.6 42.0 - 52.0 % [facility] Mean Corpuscular Volume 89.1 80.0 - 98.0 fL [facility] Mean Corpuscular Hemoglobin 30.0 27.0 - 33.0 pg [facility] Mean Corpuscular HGB Conc 33.7 31.0 - 36.0 g/dl [facility] Red Cell Distribution Width 13.2 11.0 - 16.0 % [facility] Platelet Count 194 160 - 400 X10*3/uL [facility] Mean Platelet Volume 9.7 9.4 - 12.4 fL [facility] Neutrophils Percent Auto 36.5(L) 45 - 73 % [facility] Imm Gran Pct Auto 0.2 0.0 - 0.4 % [facility] Lymphocytes Percent Auto 46.3(H) 20 - 40 % [facility] Monocytes Percent Auto 7.7 2 - 11 % [facility] Eosinophils Percent Auto 8.8(H) 0 - 4 % [facility] Basophils Percent Auto 0.5 0 - 2 % [facility] NRBC Pct Auto 0.0 0.0 - 0.2 /100WBC [facility] Neutrophils Absolute Auto 3.0 2.0 - 8.3 x10*3/uL [facility] Imm Gran Abs Auto 0.02 0.00 - 0.03 X10*3/uL [facility] Lymphocytes Absolute Auto 3.8 1.2 - 4.9 X10*3/uL [facility] Monocytes Absolute Auto 0.6 0.1 - 1.2 X10*3/uL [facility] Eosinophils Absolute Auto 0.7(H) 0.0 - 0.4 X10*3/uL [facility] Basophils Absolute Auto 0.0 0.0 - 0.2 X10*3/uL [facility] NRBC Abs Auto 0.000 0.0 - 0.012 X10*3/uL [facility] 11/22/2024 10:4 3 AM EST 11/22/2024 10:43 AM EST us Generic External Data Provider LAB BLOOD ORDERAB LES Final Result [facility] [address] [place] [address] [phone] * Hypersensitivity Pneumonitis Screen (11/22/2024 10:43 AM EST) Aspergillus fumigatus Ab NEGATIVE [facility] Comment:REFERENCE RANGE: NEG ATIVE Micropolyspora Faeni NEGATIVE [facility] Comment:REFERENCE RANGE: NEG ATIVE [place] Serum Abs NEGATIVE [facility] Comment:REFERENCE RANGE: NEG ATIVE Thermoactinomyces candidus NEGATIVE [facility] Comment:REFERENCE RANGE: NEG ATIVE Thermoactinomyces vulgaris Ab NEGATIVE [facility] Comment:REFERENCE RANGE: NEG ATIVE Saccharomonospora viridis Ab NEGATIVE [facility] Comment:REFERENCE RANGE: NEG ATIVEThis test was developed and its analytical performancecharacteristics have been determined by [employer].It has not been cleared or approved by FDA. This assay hasbeen validated pursuant to the CLIA regulations and is usedfor clinical purposes.THIS TEST PERFORMED AT:[employer]/[facility] [place] [phone] DIRECTOR: JEFFREY WATSON MD, PHD, KAVYA 11/22/2024 10:4 3 AM EST 11/22/2024 10:43 AM EST us Generic External Data Provider LAB BLOOD ORDERAB LES Final Result [facility] [address] [place] [phone] * (ABNORMAL) Sed Rate by Modified Martellren (11/22/2024 10:43 AM EST) Erythrocyte Sedimentation Rate 23(H) 0 - 15 MM/HR [facility] Comment:Patients with polycy themia and many hemoglobin abnormalitiesmay have depressed sed rates whereas patients with anemiamay have elevated sed rates. 11/22/2024 10:4 3 AM EST 11/22/2024 10:43 AM EST us Generic External Data Provider LAB BLOOD ORDERAB LES Final Result Performing Organization Address [facility] de Phone Number [facility] [address] [place] [phone] * (ABNORMAL) Immunoglobulins, Quantitative, IgA, IgG, IgM (11/22/2024 10:43 AM EST) IMMUNOGLOBULIN G 1060 600 - 1640 mg/dL [facility] IMMUNOGLOBULIN A 408(A) 47 - 310 mg/dL [facility] Immunoglobulin M 96 50 - 300 mg/dL [facility] Comment:THIS TEST WAS PERFOR MED AT:[facility] [place] [phone] TANNER MD 11/22/2024 10:4 3 AM EST 11/22/2024 10:43 AM EST us Generic External Data Provider LAB BLOOD ORDERAB LES Final Result Performing Organization Address [facility] Co de Phone Number [facility] [address] [place] [phone] * Uric acid (11/22/2024 10:43 AM EST) Uric Acid 6.7 3.4 - 7.0 mg/dL [facility] 11/22/2024 10:4 3 AM EST 11/22/2024 10:43 AM EST us Generic External Data Provider LAB BLOOD ORDERAB LES Final Result Performing Organization Address [facility] de Phone Number [facility] [address] [place] [phone] * (ABNORMAL) Immunoglobulin E (11/22/2024 10:43 AM EST) Immunoglobulin E 3653(A) <BW=073 kU/L [facility] 11/22/2024 10:4 3 AM EST 11/22/2024 10:43 AM EST us Generic External Data Provider LAB BLOOD ORDERAB LES Final Result [facility] [address] [place] [phone] [phone] * (ABNORMAL) Comprehensive Metabolic Panel (11/22/2024 10:43 AM EST) Sodium 138 135 - 145 mmol/L [facility] Potassium 4.6 3.3 - 5.1 mmol/L [facility] Chloride 110(H) 96 - 108 mmol/L [facility] Carbon Dioxide 21(L) 22 - 29 mmol/L [facility] Anion Gap 12 12 - 20 [facility] Urea Nitrogen (BUN) 29(H) 9 - 16 mg/dL [facility] Creatinine, Serum 1.19 0.5 - 1.4 mg/dL [facility] Estimated Glomerular Filt Rate >60 [facility] Comment:Chronic Kidney Disea se: Estimated GFR < 60 mL/min/1.71v0Zueion Kidney Disease: Estimated GFR < 15 mL/min/1.73m2 Glucose 89 60 - 115 mg/dL [facility] Calcium 8.9 8.4 - 10.2 mg/dL [facility] Bilirubin, Total 0.4 0.0 - 1.0 mg/dL [facility] Aspartate Amino Transferase 47(H) 5 - 37 U/L [facility] Alanine Aminotransferase 73(H) 0 - 40 U/L [facility] Total Protein 7.8 6.5 - 8.0 g/dL [facility] Albumin Level 4.1 3.5 - 5.0 g/dL [facility] Alkaline Phosphatase 65 39 - 117 U/L [facility] 11/22/2024 10:4 3 AM EST 11/22/2024 10:43 AM EST us Generic External Data Provider LAB BLOOD ORDERAB LES Final Result Performing Organization Address City/[facility]/ZIP Co de Phone Number [facility] [facility] [address] [place] [phone] * Influenza B (ID NOW Rapid Molecular) (11/11/2024 10:20 AM EST) Pathologist [facility] Influenza B Negative Negative, Indeterminate [facility] Swab 11/11/2024 10:2 0 AM EST us Smith Name POINT OF CARE TEST ENTER/EDIT OR DERABLES Final Result Performing Organization Address [facility] Co de Phone Number [facility] [address] [place] [address] [phone] * Influenza A (ID NOW Rapid Molecular) (11/11/2024 10:20 AM EST) [facility] Influenza A Negative Negative, Indeterminate [facility] Swab 11/11/2024 10:2 0 AM EST Luis Wilks MD POINT OF CARE TEST ENTER/EDIT OR DERABLES Final Result Performing Organization Address [facility] Co de Phone Number [facility] [address] [place] [phone] * POCT Rapid COVID Ag (11/11/2024 10:12 AM EST) [facility] Rapid COVID Ag Negative Swab 11/11/2024 10:1 2 AM EST us Luis Wilks MD POINT OF CARE TEST ENTER/EDIT OR DERABLES Final Result * (ABNORMAL) Lipid Panel, Standard (10/02/2024 8:40 AM EST) [facility] Triglycerides 90 <150 mg/dL [facility] Comment:Desirable Triglyceri de: less than 150 mg/dLBorderline High Triglyceride 150-199 mg/dLHigh Triglyceride: 200-499 mg/dLVery High Triglyceride: greater than or equal to 5OO mg/dL Cholesterol 103 <200 mg/dL [facility] Comment:Desirable Cholestero l: less than 200 mg/dLBorderline High Cholesterol: 200-239 mg/dLHigh Cholesterol: greater than 239 mg/dL LDL Cholesterol Calculated 54 <100 mg/dL [facility] Comment:Desirable LDL: less than 100 mg/dLNear Optimal/Above Optimal LDL: 110- 129 mg/dLBorderline High LDL: 130-159 mg/dLHigh LDL: 160-189 mg/dLVery High LDL: greater than or equal to 190 mg/dL HDL Cholesterol 31(L) >40 mg/dL [facility] Comment:Desirable HDL: great er than 40 mg/dL Note: This HDL assay may give artificially low results in patients with liver disease. Blood Venous blood specimen / Unknown 10/02/2024 8:40 AM EST 10/02/2024 11:52 AM EST Jorge Thomas MD LAB BLOOD ORDERABLES Final Result [facility] [address] [place] [phone] * HEPATITIS C ANTIBODY RFLX (12/11/2021 7:26 AM EST) Pathologist [facility] Hepatitis C Antibody Nonreactive Nonreactive [facility] Comment: Antibodies to HCV not detected; does not exclude early acute HCV infection. 12/11/2021 7:26 AM EST Jorge Thomas MD HISTORICAL/NON ORDERA BLE LABS Final Result [facility] [address] * HIV AB/AG (12/11/2021 7:26 AM [...] detection of this assay. ?? The [facility] Pharmacist Technician HIV Ag/Ab Combo assay result and supplemental assay results should be interpreted in conjunction with the patient's clinical presentation, history and other laboratory results. ??If the results are inconsistent with clinical evidence, additional testing is suggested to confirm the result. 12/11/2021 7:26 AM EST Jorge Thomas MD HISTORICAL/NON ORDERA BLE LABS Final Result Performing Organization Address City/State/[facility] Co de Phone Number [facility] [address] * Colonoscopy (11/16/2018) Colonoscopy Normal Normal 11/16/2018 Historical Provider HEALTH MAINTENANCE Final Result from Last 3 Months or Most Recently Relevant to Health Maintenance Insurance [facility] Care Teams Data Analyst Report Writer Relationship Specialty Start Date End Date Jorge Calvillo MD [address] [place] [phone] PCP - General Internal Medicine 01/08/21
--- OUTSIDE RECORDS SUMMARY | 2025-01-27 14:33 | XMS_ITS | Encounter Summary ---
Author Organization [employer] Address [address] 7t [place] [address] Care Team Providers Care Clinical Support Associate Name Role Phone Jorge Calvillo MD Primary Care Provide r Encounter Details Date Type Department Care Team (Late st Contact Info) Description 01/12/2024 Orders Only [facility] [address] [place] [address] Apple Martinez FNP Social History Tobacco Use [...] t he electric, gas, oil or water [employer] threatened to shut off services in your [...] Description 04/01/2025 11:30 AM EDT Office Visit [facility] [address] [place] [address] Jorge Calvillo MD [address] [place] [address] documented as of this encounter Procedures Procedure Name Priority Date/Time Associated Diagnosis Comments XR CHEST 2 VIEWS Routine 02/08/2024 8:53 AM EDT documented in this encounter Results * XR Chest 2 Views (02/08/2024 8:53 AM EDT) Anatomical Region Laterality Modality Chest Radiographic Erin ging 02/08/2024 8:53 AM EDT Narrative 02/08/2024 9:25 AM EDT ?[facility] ?[address]. ?[place] [address] ?XRay Report ? Signed ? Patient: Colon Apodaca,Christiano ?MR#: M ?? [id number] ? : 1965 ?Acct:[id number] ? Age/Sex: 58 / M ?ADM Date: 04/25/24 ? Loc: HO.HHCX ? Attending Dr: Sarika Diego MD ? Ordering Physician: Sarika Diego MD ?? Date of Service: 02/08/24 ?? Procedure(s): XR chest 2V ?? Accession Number(s): [id number] ? cc: Sarika Diego MD ? EXAMINATION: [...] 0922 ? DD/ 0853 ? TD/TT: ? Assembly Line Inspector: ? Procedure Note Marco Christensen - 02/08/[address] [address] XRay Report Signed Patient: Timo Magaña#: M [id number] : 1965Acct:[id number] Age/Sex: 58 / MADM Date: 02/08/24 Loc: HO.HHCX Attending Dr: Sarika Diego MD Ordering Physician: Sarika Diego MD Date of Service: 02/08/24 Procedure(s): XR chest 2V Accession Number(s): [id number] cc: Sarika Diego MD EXAMINATION: XR CHEST [...] MD in OV> 02/08/24921 DD/ 2 TD/TT: Assembly Line Inspector: Sarika Diego MD IMG XR PROCEDURES Final Resul t documented in this encounter Visit Diagnoses Not on filedocumented in this encounter Additional Health Concerns Assessment Noted Time PHQ-9 Depression Total Score: 1 08/17/20 23 10:33 AM EDT documented as of this encounter Care Teams Clinical Support Associate Relationship Specialty Start Date End Date Jorge Calvillo MD [address] [place] [phone] PCP - General Internal Medicine 01/08/21 documented as of this encounter
--- OUTSIDE RECORDS SUMMARY | 2025-01-27 14:33 | XMS_ITS | Encounter Summary ---
Author Organization [employer] Address [address] [facility] 7t [place] [address] Care Team Providers Care Operations Support Representative Name Role Phone Jorge Calvillo MD Primary Care Provide r Reason for Visit * Reason Onset Date Comments Med Refill 08/28/2023 Encounter Details Date Type Department Care Team (Late st Contact Info) Description 08/28/2023 Refill [facility] [address] [place], [place] [phone] Jorge Calvillo MD [address] [place], [place] [phone] Erectile dysfunction, unspecified erectile dysfunction type Social [...] Description 04/01/2025 11:30 AM EDT Office Visit [facility] [address] [place] [address] Jorge Calvillo MD [address] [place] [address] documented as of this encounter Visit Diagnoses Diagnosis Erectile dysfunction, unspecified erectile dysfunction type documented in this encounter Additional Health Concerns Assessment Noted Time PHQ-9 Depression Total Score: 1 08/17/20 23 10:33 AM EDT documented as of this encounter Care Teams Operations Support Representative Relationship Specialty Start Date End Date Jorge Calvillo MD [address] [place] [phone] PCP - General Internal Medicine 01/08/21 documented as of this encounter
--- OUTSIDE RECORDS SUMMARY | 2025-01-27 14:33 | XMS_ITS | Encounter Summary ---
Author Organization [employer] Address [address] [facility] 7t [place] [address] Care Team Providers Care Home Therapy Clinician Name Role Phone Jorge Calvillo MD Primary Care Provide r Reason for Visit * Reason Comments Med Refill Encounter Details Date Type Department Care Team ([facility] st Contact Info) Description 02/12/2024 Refill [facility] [address] [place], [place] [phone] Jorge Calvillo MD [address] [place] [address] Hyperuricemia Social History Tobacco Use Types Packs/Day [...] Description 04/01/2025 11:30 AM EDT Office Visit [facility] [address] [place] [address] Jorge Calvillo MD [address] [place] [phone] documented as of this encounter Visit Diagnoses Diagnosis Hyperuricemia Other abnormal blood chemistry documented in this encounter Additional Health Concerns Assessment Noted Time PHQ-9 Depression Total Score: 1 08/17/20 23 10:33 AM EDT documented as of this encounter Care Teams Home Therapy Clinician Relationship Specialty Start Date End Date Jorge Calvillo MD [address] [place] [address] PCP - General Internal Medicine 01/08/21 documented as of this encounter
--- OUTSIDE RECORDS SUMMARY | 2025-01-27 14:33 | XMS_ITS | Encounter Summary ---
Author Organization [employer] [facility] Address [address] [place] [address] 7t [place] [address] Care Team Providers Care Superintendent Tests Name Role Phone Jorge Calvillo MD Primary Care Provide r Encounter Details Date Type Department Care Team (Late Contact Info) Description 05/02/2023 Telephone [facility] [address] [place] [address] [phone] Jorge Calvillo MD [address] [place] [address] [phone] Social History Tobacco Use Types Packs/Day Years [...] Description 04/01/2025 11:30 AM EDT Office Visit [facility] [address] [place] [address] [phone] Jorge Calvillo MD [address] [place] [address] [phone] documented as of this encounter Visit Diagnoses Not on filedocumented in this encounter Care Teams Superintendent Tests Relationship Specialty Start Date End Date Jorge Calvillo MD [address] [place] [address] PCP - General Internal Medicine 01/08/21 documented as of this encounter
--- OUTSIDE RECORDS SUMMARY | 2025-01-27 14:33 | XMS_ITS | Encounter Summary ---
Author Organization [employer] [facility] Address [address] [place] [address] 7t [place] [address] Care Team Providers Care Manager Meeting Name Role Phone Jorge Calvillo MD Primary Care Provide r Reason for Visit * Reason Comments Med Change Request Encounter Details Date Type Department Care Team (Late Contact Info) Description 06/01/2023 Refill [facility] [address] [place], [place] [phone] Jorge Calvillo MD [address] [place], [place] [phone] Social History Tobacco Use Types Packs/Day Years [...] Description 04/01/2025 11:30 AM EDT Office Visit [facility] [address] [place], [place] [phone] Jorge Calvillo MD [address] [place], [place] [phone] documented as of this encounter Visit Diagnoses Not on filedocumented in this encounter Care Teams Manager Meeting Relationship Specialty Start Date End Date Jorge Calvillo MD [address] [place] [phone] PCP - General Internal Medicine 01/08/21 documented as of this encounter
== END 2025-01-27 13:03 | disposition home or self-care (01) ==
LOC: HO.HCS 12:40
PROVIDERS: PCP Internal Medicine; Visit Provider Internal Medicine Cardiovascular Disease
DX: I25.10 Atherosclerotic heart disease of native coronary artery without angina pectoris (principal); I10 Essential (primary) hypertension
CPT/HCPCS: 93010; 99214

== ENCOUNTER → 2025-01-27 12:35 | Outpatient (BNVA) | payer OTHER, SELFPAY | PROVIDERS: PCP Internal Medicine; Visit Provider Internal Medicine Cardiovascular Disease | DX: I25.10 Atherosclerotic heart disease of native coronary artery without angina pectoris (principal); I10 Essential (primary) hypertension; R00.1 Bradycardia, unspecified | CPT/HCPCS: 93005; 99212 ==

== ENCOUNTER 2025-01-30 09:28 | Outpatient (REF) | payer OTHER, SELFPAY ==
--- NOTE | ~2025-01-30 | US_ITS ---
CLINICAL HISTORY: elevated LFTs US abdomen complete Comparison: None Findings: The visualized pancreas is normal. The aorta and inferior vena cava are normal caliber. The appearance of the liver suggests fatty infiltration without focal lesion. There is no intrahepatic bile duct dilatation. The common duct is 3.0 mm in diameter. The gallbladder is normal. There is no sonographic Kaye sign. The main portal vein is antegrade. The right kidney is 10.2 cm in length. The left kidney is 11.5 cm in length. There are bilateral Bosniak 1 cysts, largest on the left measuring 5.7 x 4.7 x 4.5 cm. The spleen is normal. No ascites. IMPRESSION: 1. Hepatic steatosis. This document has been electronically signed by: Ariel Pham MD on 01/31/2025 08:45:28
--- OUTSIDE RECORDS SUMMARY | 2025-01-30 10:48 | XMS_ITS | Encounter Summary ---
Author Organization [employer] Address [address] [facility] 7t [place] [address] Care Team Providers Care Remote Control Assembler Name Role Phone Jorge Calvillo MD Primary Care Provide r Reason for Visit * Reason Comments Med Refill Encounter Details Date Type Department Care Team ([facility] st Contact Info) Description 12/23/2023 Refill [facility] [address] [place], [place] [phone] Jorge Calvillo MD [address] [place], [place] [phone] Erectile dysfunction, unspecified erectile dysfunction type Social [...] Description 04/01/2025 11:30 AM EDT Office Visit [facility] [address] [place] [phone] Jorge Calvillo MD [address] [place] [address] documented as of this encounter Visit Diagnoses Diagnosis Erectile dysfunction, unspecified erectile dysfunction type documented in this encounter Additional Health Concerns Assessment Noted Time PHQ-9 Depression Total Score: 1 08/17/20 23 10:33 AM EDT documented as of this encounter Care Teams Remote Control Assembler Relationship Specialty Start Date End Date Jorge Calvillo MD [address] [place] [phone] PCP - General Internal Medicine 01/08/21 documented as of this encounter
--- OUTSIDE RECORDS SUMMARY | 2025-01-30 10:48 | XMS_ITS | Encounter Summary ---
Author Organization [employer] [facility] Address [address] [facility] 7t [place] [address] Care Team Providers Care Shake Backboard Notcher Name Role Phone Jorge Calvillo MD Primary Care Provide r Reason for Visit * Reason Comments Med Refill Encounter Details Date Type Department Care Team ([facility] Contact Info) Description 04/11/2023 Refill [facility] [address] [place], [place] [phone] Apple Munguia FNP [address] [place], [place] [phone] Social History Tobacco Use Types Packs/Day Years [...] Upcoming Encounters Date Type Department Care Team ([facility] Contact Info) Description 04/01/2025 11:30 AM EDT Office Visit [facility] [address] [place] [address] Jorge Calvillo MD [address] [place] [address] documented as of this encounter Visit Diagnoses Not on filedocumented in this encounter Care Teams Shake Backboard Notcher Relationship Specialty Start Date End Date Jorge Calvillo MD [address] [place] [phone] PCP - General Internal Medicine 01/08/21 documented as of this encounter
--- OUTSIDE RECORDS SUMMARY | 2025-01-30 10:48 | XMS_ITS | Encounter Summary ---
Author Organization [email or web address] [facility] Address [address] [place] [address] 7t [place] [address] Care Team Providers Care Switch Technician Name Role Phone Jorge Calvillo MD Primary Care Provide r Encounter Details Date Type Department Care Team (Late Contact Info) Description 05/02/2023 Telephone [facility] [address] [place] [address] [phone] Jorge Calvillo MD [address] [place] [address] [phone] Social History Tobacco Use Types Packs/Day Years [...] Description 04/01/2025 11:30 AM EDT Office Visit [facility] [address] [place] [address] [phone] Jorge Calvillo MD [address] [place] [address] [phone] documented as of this encounter Visit Diagnoses Not on filedocumented in this encounter Care Teams Switch Technician Relationship Specialty Start Date End Date Jorge Calvillo MD [address] [place] [address] PCP - General Internal Medicine 01/08/21 documented as of this encounter
--- OUTSIDE RECORDS SUMMARY | 2025-01-30 10:48 | XMS_ITS | Encounter Summary ---
Author Organization [employer] Address [address] [address] 7[address] [place] [address] Care Team Providers Care Certified Veterinary Technician Name Role Phone Jorge Calvillo MD Primary Care Provide r Encounter Details Date Type Department Care Team (Late st Contact Info) Description 01/12/[address] [facility] [address] [place] [address] Apple Martinez FNP Social History Tobacco Use [...] t he electric, gas, oil or water [employer] threatened to shut off services in your [...] Description 04/01/2025 11:30 AM EDT Office [address] [facility] [address] [place] [address] Jorge Calvillo MD [address] [place] [address] documented as of this encounter Procedures Procedure Name Priority Date/Time Associated Diagnosis Comments XR CHEST 2 VIEWS Routine 02/08/2024 8:53 AM EDT documented in this encounter Results * XR Chest 2 Views (02/08/2024 8:53 AM EDT) Anatomical Region Laterality Modality Chest Radiographic Erin ging 02/08/2024 8:53 AM EDT Narrative 02/08/2024 9:25 AM EDT ?[facility] ?[address] ?[place] [address] ?XRay Report ? Signed ? Patient: Colon Apodaca,Christiano ?MR#: M ?? [id number] ? : 1965 ?Acct:[id number] ? Age/Sex: 58 / M ?ADM Date: 04/25/24 ? Loc: HO.HHCX ? Attending Dr: Sarika Diego MD ? Ordering Physician: Sarika Diego MD ?? Date of Service: 02/08/24 ?? Procedure(s): XR chest 2V ?? Accession Number(s): [id number] ? cc: Sarika Diego MD ? EXAMINATION: [...] 0922 ? DD/ 0853 ? TD/TT: ? Information Systems Operator: ? Procedure Note Marco Christensen - 02/08/[address] [address] XRay Report Signed Patient: Timo Magaña#: M [id number] : 1965Acct:[id number] Age/Sex: 58 / MADM Date: 02/08/24 Loc: HO.HHCX Attending Dr: Sarika Diego MD Ordering Physician: Sarika Diego MD Date of Service: 02/08/24 Procedure(s): XR chest 2V Accession Number(s): [id number] cc: Sarika Diego MD EXAMINATION: XR CHEST [...] MD in OV> 02/08/24921 DD/ 2 TD/TT: Information Systems Operator: Sarika Diego MD IMG XR PROCEDURES Final Resul t documented in this encounter Visit Diagnoses Not on filedocumented in this encounter Additional Health Concerns Assessment Noted Time PHQ-9 Depression Total Score: 1 08/17/20 23 10:33 AM EDT documented as of this encounter Care Teams Certified Veterinary Technician Relationship Specialty Start Date End Date Jorge Calvillo MD [address] [place] [phone] PCP - General Internal Medicine 01/08/21 documented as of this encounter
--- OUTSIDE RECORDS SUMMARY | 2025-01-30 10:48 | XMS_ITS | Encounter Summary ---
Author Organization [employer] Address [address] [facility] 7t [place] [address] Care Team Providers Care Tire Mechanic Name Role Phone Jorge Calvillo MD Primary Care Provide r Reason for Visit * Reason Comments Med Refill Encounter Details Date Type Department Care Team ([facility] st Contact Info) Description 01/25/2025 Refill [facility] [address] [place], [place] [phone] Jorge Calvillo MD [address] [place], [place] [phone] Erectile dysfunction, unspecified erectile dysfunction type Social [...] Description 04/01/2025 11:30 AM EDT Office Visit [facility] [address] [place] [address] Jorge Calvillo MD [address] [place] [address] documented as of this encounter Visit Diagnoses Diagnosis Erectile dysfunction, unspecified erectile dysfunction type documented in this encounter Additional Health Concerns Assessment Noted Time PHQ-9 Depression Total Score: 0 08/29/20 24 9:13 AM EST documented as of this encounter Care Teams Tire Mechanic Relationship Specialty Start Date End Date Jorge Calvillo MD [address] [place] [address] PCP - General Internal Medicine 01/08/21 documented as of this encounter
--- OUTSIDE RECORDS SUMMARY | 2025-01-30 10:48 | XMS_ITS | Encounter Summary ---
Author Organization [employer] [facility] Address [address] [place] [address] 7t [place] [address] Care Team Providers Care Director Statistical Programming Name Role Phone Jorge Calvillo MD Primary Care Provide r Reason for Visit * Reason Comments Med Change Request Encounter Details Date Type Department Care Team (Late Contact Info) Description 06/01/2023 Refill [facility] [address] [place], [place] [phone] Jorge Calvillo MD [address] [place], [place] [phone] Social History Tobacco Use Types Packs/Day Years [...] Visit [facility] [address] [place], [place] [phone] Jorge Calvillo MD [address] [place], [place] [phone] documented as of this encounter Visit Diagnoses Not on filedocumented in this encounter Care Teams Director Statistical Programming Relationship Specialty Start Date End Date Jogre Calvillo MD [address] [place] [phone] PCP - General Internal Medicine 01/08/21 documented as of this encounter
--- OUTSIDE RECORDS SUMMARY | 2025-01-30 10:48 | XMS_ITS | Clinical Summary ---
Author Organization [employer] Address [address] [facility] [address] [place] [address] Care Team Providers Care Silk Screen Etcher Name Role Phone Jorge Calvillo MD Primary [...] 01/10/24, teaching provided. Use as directed Active albuterol (2.5 MG/3ML) 0.083% nebulizer solutionIndica tions:Cough in adult patient Take 3 mL (2.5 mg) by nebulization every 6 (six) hours if needed for wheezing or shortness of breath. 75 mL 11 09/30/20 24 025 Active fluticasone (Flonase) 50 MCG/ACT nasal sprayIndicatio ns:Cough in adult patient Administer 1 spray into each nostril if needed at bedtime for rhinitis. Shake gently. Before first use, prime pump. After use, clean tip and replace cap. 16 g 1 10/07/20 24 025 Active fluticasone furoate (Arnuity Ellipta) 200 MCG/ACT inhaler Inhale 1 puff Once per day. Rinse mouth with water after use to reduce aftertaste and incidence of candidiasis. Do not swallow. 1 each 11 11/11/19 25 026 Active albuterol (Ventolin HFA) 108 (90 Base) MCG/ACT inhaler Inhale 2 puffs every 6 (six) hours if needed for wheezing. 18 g 1 11/11/19 25 Active allopurinol (Zyloprim) 100 MG tabletIndicati ons:Hyperurice estefanía TAKE 1 TABLET BY MOUTH EVERY DAY IN THE MORNING 30 tablet 1 12/18/19 25 Active montelukast (Singulair) 10 MG tablet Take 10 mg by mouth at bedtime. 12/12/19 25 Active sildenafil (Viagra) 100 MG tabletIndicati ons:Erectile dysfunction, unspecified erectile dysfunction type TAKE 1 TABLET 1 HOUR BEFORE SEXUAL RELATIONS ONCE DAILY NEEDED. 10 tablet 1 01/29/20 25 Active sildenafil (Viagra) 100 MG tabletIndicati ons:Erectile dysfunction, unspecified erectile dysfunction type TAKE 1 TABLET 1 HOUR BEFORE SEXUAL RELATIONS ONCE DAILY NEEDED. 10 tablet 1 07/23/20 24 025 Discontinued Active Problems Problem Noted Date Diagnosed Date [...] considered as clinically needed. I placed order, [facility] to [facility] order to CT of chest with [...] 9:17 AM EST): Blood pressure controlled on [facility] 02/23/2024 Normal Losartan 50 mg po daily and Metoprolol XL 100 mg po daily Assessment & Plan (03/28/2024 1:19 PM EDT): Blood pressure controlled on [facility] 02/23/2024 Normal Losartan 50 mg po daily and Metoprolol XL 100 mg po daily Assessment & Plan (02/01/2024 3:12 PM EDT): Blood pressure controlled on Losartan 50 mg po daily and Metoprolol XL 100 mg po daily History of ST elevation myocardial infarction (S PRO) 08/17/2023 Assessment & Plan (08/17/2023 11:29 AM EDT): Pt comes in after recently having been in his [place] [facility] where he apparently had an [...] On August 10 he was evaluated by [employer] and he was allowed to return to OR in a commercial flight. Today his vital signs are stable, he denies any chest pain, sob or any other symptom. EKG shows evidence of previous CT. 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 He was hospitalized from 08-03 [...] for a total of [address] he is currently on aspirin and prasugrel. Continue metoprolol, losartan and rosuvastatin. [place] LDL goal less than 70. Labs done 11/20/2023 showed LDL 52. Signs and symptoms of angina reviewed with him. Cardiology appointment scheduled for 01/27/2025 Assessment & Plan (08/29/2024 9:17 AM EST): Hx of STEMI on 08/03/2023 in [facility]. He was hospitalized from 08-03 [...] for a total of [address] he is currently on aspirin and prasugrel. Continue metoprolol, losartan and rosuvastatin. [place] LDL goal less than 70. Labs done 11/20/2023 showed LDL 52. Signs and symptoms of angina reviewed with him. Cardiology follow-up 6 months Assessment & Plan (03/28/2024 1:20 PM EDT): Hx of STEMI on 08/03/2023 in [facility]. He was hospitalized from 08-03 [...] On August 10 he was evaluated by [employer] and he was allowed to return to OR in a commercial flight. He is now [...] participate in phase 2 cardiac rehabilitation by [employer]. Assessment & Plan (02/01/2024 3:03 PM EDT): Hx of STEMI on 08/03/2023 in [facility]. He was hospitalized from 08-03 [...] On August 10 he was evaluated by [employer] and he was allowed to return to OR in a commercial flight. He is now [...] participate in phase 2 cardiac rehabilitation by [employer]. Assessment & Plan (11/23/2023 11:50 AM EST): Hx of STEMI on 08/03/2023 in [facility]. He was hospitalized from 08-03 [...] On August 10 he was evaluated by [employer] and he was allowed to return to OR in a commercial flight. He is now [...] he had one 4 years ago at [facility] records requested never obtained. He will requested [...] he had one 4 years ago at [facility] records requested never obtained. He will request that directly from her previous PCP Dr. Cook Vaccines: Declines all, tried to educate him about the importance of vaccine , specially Covid-19 vaccines, stated he would think about it Assessment & Plan (06/08/2023 2:34 PM EDT): NICO: next PE, PSA 12/11/2021 Normal Colonoscopy: Pt reports he had one 4 years ago at [facility] records requested never obtained. He will request that directly from her previous PCP Dr. Cook Vaccines: Declines all, tried to educate him about the importance of vaccine , specially Covid-19 vaccines, stated he would think about it Hypertriglyceridemia 06/08/2023 Assessment & Plan (12/26/2024 11:37 AM EDT): Pt had lab work done in [facility] that showed elevated Triglicerides of 271 back in January 2023 Repeat Lab Results Component Value Date TRIG 90 10/02/2024 TRIG 140 08/14/2023 CHOL 103 10/02/2024 CHOL 126 08/14/2023 LDLCHOLCAL 54 10/02/2024 LDLCHOLCAL 74 08/14/2023 HDL 31 (L) 10/02/2024 HDL 24 (L) 08/14/2023 On Crestor 40 Assessment & Plan (08/29/2024 9:19 AM EST): Pt had lab work done in [facility] that showed elevated Triglicerides of 271 back in January 2023 Repeat Lab Results Component Value Date TRIG 140 08/14/2023 CHOL 126 08/14/2023 LDLCHOLCAL 74 08/14/2023 HDL 24 (L) 08/14/2023 On Crestor 40 Assessment & Plan (11/23/2023 11:48 AM EST): Pt had lab work done in [facility] that showed elevated Triglicerides of [...] EDT): Pt had lab work done in [facility] that showed elevated Triglicerides of [...] EDT): Pt had lab work done in [facility] that showed elevated Triglicerides of [...] 9:22 AM EDT): Pt seen at our [facility] on 2 different ocasions first 01/09 [...] 3:09 PM EDT): Pt seen at our [facility] on 2 different ocasions first 01/09 [...] Type Department Care Team Description 01/25/2025 Refill [facility] [place] [address] Jorge Calvillo MD Erectile dysfunction, unspecified erectile dysfunction type 12/26/2024 11:30 AM EDT Office Visit [facility] [address] [place], [place] [address] [address] Jorge Calvillo MD Moderate persistent asthma without complication (Primary Dx); Primary hypertension; Coronary artery disease involving standing rock coronary artery of standing rock heart without angina pectoris; Preventative health care; Hypertriglyceridemia; Elevated blood sugar level; Elevated LFTs; Class 1 obesity due to excess calories without serious comorbidity with body mass index (BMI) of 31.0 to 31.9 in adult; Dietary counseling; Exercise counseling 12/26/2024 Travel 12/25/[address] [address] Jorge Calvillo MD 12/16/2024 Patient Outreach [address] [address] Jorge Calvillo MD Pre-visit Planning (SDOH Screening negative and Tobacco screening negative) 12/14/[address] [address] Jorge Calvillo MD Hyperuricemia 12/12/[address] [address] Jorge Calvillo MD Chart Prep 11/22/2024 Orders Only GENERIC EXTERNAL DATA DEPARTMENT Provider, Generic External Data 11/11/2024 10:40 AM EST Office Visit [facility] [address] Luis Wilks MD Cough in adult patient [...] Description 04/01/2025 11:30 AM EDT Office Visit [facility] [address] [place] [address] Jorge Calvillo MD [address] [place] [address] Health Maintenance Due Date Last Done Comments [...] EST Narrative 12/09/2024 3:05 PM EST ? [facility] ?[address] ?[place] [address] ? Magnetic Resonance Report ? Signed ? Patient: Colon Apodaca,Christiano ?MR#: [id number] ?? [id number] ? : 1965 ?Acct:[id number] ? Age/Sex: 59 / M ?ADM Date: 12/09/24 ? Loc: HO.MRI ? Attending Dr: Dwayne Calderon MD ? Ordering Physician: Dwayne Calderon MD ?? Date of Service: 12/09/24 ?? Procedure(s): MR chest wo/w con ?? Accession Number(s): [id number] ? cc: Jorge Cherry MD; Dwayne Calderon [...] DD/ 1020 ? TD/TT: 12/09/24 1130 ? Tire Retreader: ? Procedure Note Amparo, Image - 12/09/2024 [place] [address] Magnetic Resonance Report Signed Patient: Timo Magaña#: M [id number] : 1965Acct:[id number] Age/Sex: 59 / MADM Date: 12/09/24 Loc: HO.MRI Attending Dr: Dwayne Calderon MD Ordering Physician: Dwayne Calderon MD Date of Service: 12/09/24 Procedure(s): MR chest wo/w con Accession Number(s): [id number] cc: Jorge Cherry MD; Dwayne Calderon MD [...] 12/09/24 1503 DD/ 1020 TD/TT: 12/09/24 1130 Tire Retreader: [facility] External Provider IMG MRI PROCEDURES Final Result * (ABNORMAL) Respiratory Allergy Profile Region I (11/22/2024 10:43 AM EST) Mouse Urine Proteins (E72) IgE <0.10 kU/L [facility] Class 0 [facility] Cockroach (I6) IgE 4.67(A) kU/L [facility] Class 3 [facility] Dermatophagoides farinae (D2) IgE 0.54(A) kU/L [facility] Class 1 [facility] Cat Dander (E1) IgE 1.82(A) kU/L [facility] Class 2 [facility] Comment:THIS TEST WAS PERFOR MED AT:[facility] [address] [phone] TANNER MD Dog Dander (E5) IgE 1.22(A) kU/L [facility] Class 2 [facility] Comment:THIS TEST WAS PERFOR MED AT:[facility] [address] [phone] TANNER MD Maged Grass (G6) IgE 65.00(A) kU/L [facility] Class 5 [facility] Cladosporium herbarum (M2) IgE <0.10 kU/L [facility] Class 0 [facility] Aspergillus Fumigatis (M3) IgE 0.12(A) kU/L [facility] Class 0/1 [facility] Alternaria alternata (M6) IgE <0.10 kU/L [facility] Class 0 [facility] Comment:THIS TEST WAS PERFOR MED AT:[facility] [address] [phone] TANNER MD [place]er (t6) IgE 4.06(A) kU/L [facility] Class 3 [facility] [place] (T7) IgE 53.20(A) kU/L [facility] Class 5 [facility] [place] Tree (T10) IgE 9.83(A) kU/L [facility] Class 3 [facility] Brandeis (T11) IgE 9.20(A) kU/L [facility] Class 3 [facility] Waller (T14) IgE 5.45(A) kU/L [facility] Class 3 [facility] White Satish (t15) IgE 6.32(A) kU/L [facility] Class 3 [facility] White [place] (T70) IgE 4.06(A) kU/L [facility] Class 3 [facility] Common Ragweed (Short) (W1) IgE 12.30(A) kU/L [facility] Class 3 [facility] Mugwort (w6) IgE 4.03(A) kU/L [facility] Class 3 [facility] Dermatophagoides pteronyssinus (D1) IgE 0.36(A) kU/L [facility] Class 1 [facility] Bermuda Grass (g2) IgE 25.90(A) kU/L [facility] Class 4 [facility] Penicillium Notatum (M1) IgE <0.10 kU/L [facility] Class 0 [facility] Birch (T3) IgE 52.70(A) kU/L [facility] Class 5 [facility] Elm (t8) IgE 8.50(A) kU/L [facility] Class 3 [facility] Maple ([place]) (T1) IgE 10.50(A) kU/L [facility] Class 3 [facility] Rough Pigweed (W14) IgE 5.47(A) kU/L [facility] Class 3 [facility] Sheep [place] (W18) IgE 7.73(A) kU/L [facility] Class 3 [facility] Allergen Comment See Below [facility] Comment: Specific ?Level of AllergenIGE Class [...] and its analyticalperformance characteristics have been determined by[employer]. It has not been cleared or approvedby the U.S. Food and Drug Administration. This assayhas been validated pursuant to the CLIA regulationsand is used for clinical purposes.THIS TEST WAS PERFORMED AT:[facility] [address] ??[phone] TANNER MD 11/22/2024 10:4 3 AM EST 11/22/2024 10:43 AM EST us Generic External Data Provider LAB BLOOD ORDERAB LES Final Result [facility] [address] [place] [address] [phone] * (ABNORMAL) CBC auto differential (11/22/2024 10:43 AM EST) White Blood Count 8.3 4.8 - 10.8 X10*3/uL [facility] Red Blood Count 5.23 4.60 - 5.80 X10*6/uL [facility] Hemoglobin 15.7 14.0 - 18.0 g/dl [facility] Hematocrit 46.6 42.0 - 52.0 % [facility] Mean Corpuscular Volume 89.1 80.0 - 98.0 fL [facility] Mean Corpuscular Hemoglobin 30.0 27.0 - 33.0 pg [facility] Mean Corpuscular HGB Conc 33.7 31.0 - 36.0 g/dl [facility] Red Cell Distribution Width 13.2 11.0 - 16.0 % [facility] Platelet Count 194 160 - 400 X10*3/uL [facility] Mean Platelet Volume 9.7 9.4 - 12.4 fL [facility] Neutrophils Percent Auto 36.5(L) 45 - 73 % [facility] Imm Gran Pct Auto 0.2 0.0 - 0.4 % [facility] Lymphocytes Percent Auto 46.3(H) 20 - 40 % [facility] Monocytes Percent Auto 7.7 2 - 11 % [facility] Eosinophils Percent Auto 8.8(H) 0 - 4 % [facility] Basophils Percent Auto 0.5 0 - 2 % [facility] NRBC Pct Auto 0.0 0.0 - 0.2 /100WBC [facility] Neutrophils Absolute Auto 3.0 2.0 - 8.3 x10*3/uL [facility] Imm Gran Abs Auto 0.02 0.00 - 0.03 X10*3/uL [facility] Lymphocytes Absolute Auto 3.8 1.2 - 4.9 X10*3/uL [facility] Monocytes Absolute Auto 0.6 0.1 - 1.2 X10*3/uL [facility] Eosinophils Absolute Auto 0.7(H) 0.0 - 0.4 X10*3/uL [facility] Basophils Absolute Auto 0.0 0.0 - 0.2 X10*3/uL [facility] NRBC Abs Auto 0.000 0.0 - 0.012 X10*3/uL [facility] 11/22/2024 10:4 3 AM EST 11/22/2024 10:43 AM EST Generic External Data Provider LAB BLOOD ORDERAB LES Final Result Performing Organization Address [facility] Co de Phone Number [facility] [address] [place] [phone] * Hypersensitivity Pneumonitis Screen (11/22/2024 10:43 AM EST) Aspergillus fumigatus Ab NEGATIVE [facility] Comment:REFERENCE RANGE: NEG ATIVE Micropolyspora Faeni NEGATIVE [facility] Comment:REFERENCE RANGE: NEG ATIVE Marked Tree Serum Abs NEGATIVE [facility] Comment:REFERENCE RANGE: NEG ATIVE Thermoactinomyces candidus NEGATIVE [facility] Comment:REFERENCE RANGE: NEG ATIVE Thermoactinomyces vulgaris Ab NEGATIVE [facility] Comment:REFERENCE RANGE: NEG ATIVE Saccharomonospora viridis Ab NEGATIVE [facility] Comment:REFERENCE RANGE: NEG ATIVEThis test was developed and its analytical performancecharacteristics have been determined by [employer].It has not been cleared or approved by FDA. This assay hasbeen validated pursuant to the CLIA regulations and is usedfor clinical purposes.THIS TEST PERFORMED AT:[facility] [place] [phone] DIRECTOR: JEFFREY WATSON MD, PHD, KAVYA 11/22/2024 10:4 3 AM EST 11/22/2024 10:43 AM EST us Generic External Data Provider LAB BLOOD ORDERAB LES Final Result Performing Organization Address [facility]/ZIP Co de Phone Number [facility] [address] [place] [phone] * (ABNORMAL) Sed Rate by Modified Nancy (11/22/2024 10:43 AM EST) Erythrocyte Sedimentation Rate 23(H) 0 - 15 MM/HR [facility] Comment:Patients with polycy themia and many hemoglobin abnormalitiesmay have depressed sed rates whereas patients with anemiamay have elevated sed rates. 11/22/2024 10:4 3 AM EST 11/22/2024 10:43 AM EST Generic External Data Provider LAB BLOOD ORDERAB LES Final Result Performing Organization Address [facility] de Phone Number [facility] [address] [place] [phone] * (ABNORMAL) Immunoglobulins, Quantitative, IgA, IgG, IgM (11/22/2024 10:43 AM EST) IMMUNOGLOBULIN G 1060 600 - 1640 mg/dL [facility] IMMUNOGLOBULIN A 408(A) 47 - 310 mg/dL [facility] Immunoglobulin M 96 50 - 300 mg/dL [facility] Comment:THIS TEST WAS PERFOR MED AT:[facility] [address] [phone] TANNER MD 11/22/2024 10:4 3 AM EST 11/22/2024 10:43 AM EST Generic External Data Provider LAB BLOOD ORDERAB LES Final Result Performing Organization Address [facility] Phone Number [facility] [address] [place] [phone] * Uric acid (11/22/2024 10:43 AM EST) Uric Acid 6.7 3.4 - 7.0 mg/dL [facility] 11/22/2024 10:4 3 AM EST 11/22/2024 10:43 AM EST Generic External Data Provider LAB BLOOD ORDERAB LES Final Result Performing Organization Address [facility] Co de Phone Number [facility] [address] [place] [phone] * (ABNORMAL) Immunoglobulin E (11/22/2024 10:43 AM EST) Immunoglobulin E 3653(A) <UH=251 kU/L [facility] 11/22/2024 10:4 3 AM EST 11/22/2024 10:43 AM EST us Generic External Data Provider LAB BLOOD ORDERAB LES Final Result Performing Organization Address City/State/[facility] Co de Phone Number [facility] [address] [place] [phone] * (ABNORMAL) Comprehensive Metabolic Panel (11/22/2024 10:43 AM EST) Sodium 138 135 - 145 mmol/L [facility] Potassium 4.6 3.3 - 5.1 mmol/L [facility] Chloride 110(H) 96 - 108 mmol/L [facility] Carbon Dioxide 21(L) 22 - 29 mmol/L [facility] Anion Gap 12 12 - 20 [facility] Urea Nitrogen (BUN) 29(H) 9 - 16 mg/dL [facility] Creatinine, Serum 1.19 0.5 - 1.4 mg/dL [facility] Estimated Glomerular Filt Rate >60 [facility] Comment:Chronic Kidney Disea se: Estimated GFR < 60 mL/min/[id number] Kidney Disease: Estimated GFR < 15 mL/min/1.73m2 Glucose 89 60 - 115 mg/dL [facility] Calcium 8.9 8.4 - 10.2 mg/dL [facility] Bilirubin, Total 0.4 0.0 - 1.0 mg/dL [facility] Aspartate Amino Transferase 47(H) 5 - 37 U/L [facility] Alanine Aminotransferase 73(H) 0 - 40 U/L [facility] Total Protein 7.8 6.5 - 8.0 g/dL [facility] Albumin Level 4.1 3.5 - 5.0 g/dL [facility] Alkaline Phosphatase 65 39 - 117 U/L [facility] 11/22/2024 10:4 3 AM EST 11/22/2024 10:43 AM EST Generic External Data Provider LAB BLOOD ORDERAB LES Final Result Performing Organization Address [facility]/ZIP Co de Phone Number [facility] [address] [place] [phone] * Influenza B (ID NOW Rapid Molecular) (11/11/2024 10:20 AM EST) Influenza B Negative Negative, Indeterminate [facility] Swab 11/11/2024 10:2 0 AM EST Luis Wilks MD POINT OF CARE TEST ENTER/EDIT OR DERABLES Final Result Performing Organization Address [facility] Co de Phone Number [facility] [address] [place] [phone] * Influenza A (ID NOW Rapid Molecular) (11/11/2024 10:20 AM EST) Influenza A Negative Negative, Indeterminate [facility] Swab 11/11/2024 10:2 0 AM EST Luis Wilks MD POINT OF CARE TEST ENTER/EDIT OR DERABLES Final Result Performing Organization Address [facility] Co de Phone Number [facility] [address] [place] [phone] * POCT Rapid COVID Ag (11/11/2024 10:12 AM EST) Rapid COVID Ag Negative Swab 11/11/2024 10:1 2 AM EST Luis Wilks MD POINT OF CARE TEST ENTER/EDIT OR DERABLES Final Result * (ABNORMAL) Lipid Panel, Standard (10/02/2024 8:40 AM EST) Triglycerides 90 <150 mg/dL [facility] Comment:Desirable Triglyceri de: less than 150 mg/dLBorderline High Triglyceride 150-199 mg/dLHigh Triglyceride: 200-499 mg/dLVery High Triglyceride: greater than or equal to 5OO mg/dL Cholesterol 103 <200 mg/dL [facility] Comment:Desirable Cholestero l: less than 200 mg/dLBorderline High Cholesterol: 200-239 mg/dLHigh Cholesterol: greater than 239 mg/dL LDL Cholesterol Calculated 54 <100 mg/dL [facility] Comment:Desirable LDL: less than 100 mg/dLNear Optimal/Above Optimal LDL: 110- 129 mg/dLBorderline High LDL: 130-159 mg/dLHigh LDL: 160-189 mg/dLVery High LDL: greater than or equal to 190 mg/dL HDL Cholesterol 31(L) >40 mg/dL [facility] Comment:Desirable HDL: great er than 40 mg/dL Note: This HDL assay may give artificially low results in patients with liver disease. Blood Venous blood specimen / Unknown 10/02/2024 8:40 AM EST 10/02/2024 11:52 AM EST Jorge Thomas MD LAB BLOOD ORDERABLES Final Result Performing Organization Address City/[facility]/ZIP Co de Phone Number [facility] [address] [place] [address] [phone] * HEPATITIS C ANTIBODY RFLX (12/11/2021 7:26 AM EST) Pathologist [facility] Hepatitis C Antibody Nonreactive Nonreactive [facility] Comment: Antibodies to HCV not detected; does not exclude early acute HCV infection. 12/11/2021 7:26 AM EST Jorge Thomas MD HISTORICAL/NON ORDERA BLE LABS Final Result Performing Organization Address City/[facility]/ZIP Co de Phone Number [facility] [address] * HIV AB/AG (12/11/2021 7:26 AM EST) Pathologist [facility] HIV AB/AG Nonreactive Nonreactive [facility] [...] detection of this assay. ?? The [employer] HIV Ag/Ab Combo assay result and supplemental assay results should be interpreted in conjunction with the patient's clinical presentation, history and other laboratory results. ??If the results are inconsistent with clinical evidence, additional testing is suggested to confirm the result. 12/11/2021 7:26 AM EST Jorge Thomas MD HISTORICAL/NON ORDERA BLE LABS Final Result [facility] [address] [place] [address] * Colonoscopy (11/16/2018) Pathologist [facility] Colonoscopy Normal Normal 11/16/2018 Historical Provider HEALTH MAINTENANCE Final Result from Last 3 Months or Most Recently Relevant to Health Maintenance Insurance [facility] Care Teams Silk Screen Etcher Relationship Specialty Start Date End Date Jorge Calvillo MD [address] [place] [id number] PCP - General Internal Medicine 01/08/21
--- OUTSIDE RECORDS SUMMARY | 2025-01-30 10:48 | XMS_ITS | Encounter Summary ---
Author Organization [employer] Address [address] [facility] 7t [place] [address] Care Team Providers Care Underground Mine Superintendent Name Role Phone Jorge Calvillo MD Primary Care Provide r Reason for Visit * Reason Onset Date Comments Med Refill 12/20/2023 Encounter Details Date Type Department Care Team (Late st Contact Info) Description 12/20/2023 Refill [facility] MEDICINE [address] [place], [place] [phone] Jorge Calvillo MD [address] [place], [place] [phone] Erectile dysfunction, unspecified erectile dysfunction type Social [...] Description 04/01/2025 11:30 AM EDT Office Visit [facility] MEDICINE [address] [place] [address] Jorge Calvillo MD [address] [place] [address] documented as of this encounter Visit Diagnoses Diagnosis Erectile dysfunction, unspecified erectile dysfunction type documented in this encounter Additional Health Concerns Assessment Noted Time PHQ-9 Depression Total Score: 1 08/17/20 23 10:33 AM EDT documented as of this encounter Care Teams Underground Mine Superintendent Relationship Specialty Start Date End Date Jorge Calvillo MD [address] [place] [address] PCP - General Internal Medicine 01/08/21 documented as of this encounter
--- OUTSIDE RECORDS SUMMARY | 2025-01-30 10:48 | XMS_ITS | Encounter Summary ---
Author Organization [employer] Address [address] [facility] 7t [place] [address] Care Team Providers Care Real Estate Development Manager Name Role Phone Jorge Calvillo MD Primary Care Provide r Reason for Visit * Reason Comments Med Refill Encounter Details Date Type Department Care Team ([facility] st Contact Info) Description 02/12/2024 Refill [facility] MEDICINE [address] [place], [place] [phone] Jorge Calvillo MD [address] [place] [address] Hyperuricemia Social History Tobacco Use Types Packs/Day [...] Description 04/01/2025 11:30 AM EDT Office Visit [facility] MEDICINE [address] [place] [address] Jorge Calvillo MD [address] [place] [address] documented as of this encounter Visit Diagnoses Diagnosis Hyperuricemia Other abnormal blood chemistry documented in this encounter Additional Health Concerns Assessment Noted Time PHQ-9 Depression Total Score: 1 08/17/20 23 10:33 AM EDT documented as of this encounter Care Teams Real Estate Development Manager Relationship Specialty Start Date End Date Jorge Calvillo MD [address] [place] [address] PCP - General Internal Medicine 01/08/21 documented as of this encounter
--- OUTSIDE RECORDS SUMMARY | 2025-01-30 10:48 | XMS_ITS | Encounter Summary ---
Author Organization [employer] Address [address] [facility] 7t [place] [address] Care Team Providers Care Director Employee Communications Name Role Phone Jorge Calvillo MD Primary Care Provide r Reason for Visit * Reason Onset Date Comments Med Refill 08/28/2023 Encounter Details Date Type Department Care Team (Late st Contact Info) Description 08/28/2023 Refill [facility] MEDICINE [address] [place], [place] [phone] Jorge Calvillo MD [address] [place], [place] [phone] Erectile dysfunction, unspecified erectile dysfunction type Social [...] 11:30 AM EDT Office Visit [facility] MEDICINE [address] [place] [address] Jorge Calvillo MD [address] [place] [address] documented as of this encounter Visit Diagnoses Diagnosis Erectile dysfunction, unspecified erectile dysfunction type documented in this encounter Additional Health Concerns Assessment Noted Time PHQ-9 Depression Total Score: 1 08/17/20 23 10:33 AM EDT documented as of this encounter Care Teams Director Employee Communications Relationship Specialty Start Date End Date Jorge Calvillo MD [address] [place] [phone] PCP - General Internal Medicine 01/08/21 documented as of this encounter
--- OUTSIDE RECORDS SUMMARY | 2025-01-30 10:48 | XMS_ITS | Encounter Summary ---
Author Organization [facility] [facility] Address [address] [facility] 7t [place] [address] Care Team Providers Care Veneer Press Operator Name Role Phone Jorge Calvillo MD Primary Care Provide r Reason for Visit * Reason Comments Med Refill Encounter Details Date Type Department Care Team (Late Contact Info) Description 12/28/2022 Refill [facility] [address] [place], [place] [phone] Kodak Delacruz FNP Acute idiopathic gout of [...] Description 04/01/2025 11:30 AM EDT Office Visit [facility] MEDICINE [address] [place], [place] [phone] Jorge Calvillo MD [address] [place], [place] [phone] documented as of this encounter Visit Diagnoses Diagnosis Acute idiopathic gout of right foot documented in this encounter Care Teams Veneer Press Operator Relationship Specialty Start Date End Date Jorge Calvillo MD [address] [place] [id number] PCP - General Internal Medicine 01/08/21 documented as of this encounter
== END 2025-01-30 09:29 | disposition home or self-care (01) ==
LOC: HO.US 09:28
PROVIDERS: PCP Internal Medicine; Visit Provider Internal Medicine
DX: R79.89 Other specified abnormal findings of blood chemistry (principal)
CPT/HCPCS: 76700

== ENCOUNTER → 2025-01-30 09:30 | Outpatient (BNV) | payer OTHER, SELFPAY | PROVIDERS: PCP Internal Medicine; Visit Provider Specialist | DX: R74.01 Elevation of levels of liver transaminase levels (principal) | CPT/HCPCS: 76700 ==

== ENCOUNTER 2025-03-28 12:08 | Outpatient (AMB) | payer OTHER, SELFPAY ==
[2025-03-28 12:37] VITALS: BP 122/70; PULSE 54; O2SAT 96; BMI 29.7
--- NOTE | 2025-03-28 12:37 | A.OFFVIS_ITS ---
Vital Signs 03/28/25 12:37 Height 5 ft 7 in Weight 189 lb 13.088 oz BMI 29.7 BP 122/70 Blood Pressure Location Lt brachial Position Sitting Pulse 54 Pulse Source Pulse Oximeter Pulse Oximetry (%) 96 Oxygen Delivery Method Room Air Intake Visit Reasons: Gout Intake Note: Patient last seen by Doctor Jordon Burnette on 05/29/25. Presents today for Gout follow up and test results. Patient states medication is helping him. Allergies levofloxacin (From LEVAQUIN) Allergy (Unknown, Verified 03/28/25 12:39) Rash Medication List - Last Reconciled 03/28/25 by Brittney Weathers MD allopurinol 100 mg PO DAILY aspirin 81 mg PO DAILY cetirizine (Zyrtec) 10 mg PO DAILY 30 days losartan 50 mg PO BID metoprolol succinate ER 100 mg PO DAILY nebulizers As directed prasugrel HCl 10 mg PO DAILY rosuvastatin 40 mg PO DAILY sildenafil (Viagra) 100 mg PO DAILY PRN HPI Comments Details: Patient is a 59-year-old male with asthma, hypertension, hyperlipidemia complicated by coronary artery disease status post stenting and non crystal proven gout here today for follow up Interval History: Patient last seen 05/[address] Burnette. At that time his UA was not at goal and he was instructed to increase his allopurinol to 200mg. He did not want to increase and so he was monitored on the 100mg No gout flares since the last visit Rheumatologic History: dx 09/2024 Allopurinol + Colchicine 09/2023 Initial history: This is a 58-year-old male who was referred for gout management. Patient stated that he started having gout in his 40s. Initially it would affect his toes and feet, ankles then it progressed to involve his knees as well. He has stopped alcohol consumption many years ago since he started getting gout attacks. Patient has been on different medicines including indomethacin, colchicine and ibuprofen for his gout. He was on colchicine twice daily at some point which helped his gout but caused diarrhea. He states that currently he takes colchicine as needed for flare-ups. He took allopurinol for 2 weeks but did not want to continue taking it. States that this year has been most severe last month he was in [facility], he had a heart attack, he had a cardiac catheterization and 3 stents were placed. During the hospitalization he developed a gout flare-up affecting his right knee. Per patient arthrocentesis was attempted but was not successful. He states that he has had 2 other instances of arthrocentesis in the past. Last week he started having another gout flare-up affecting his right knee and right ankle. He now has to use a cane. Been taking colchicine once daily since the attack started He denies any history of kidney stones. Mentions that his father had gout as well Current Rheumatology Medication(s): Allopurinol 100mg PFSH Medical History Allergies Asthma Renal cyst Palpitations Syncope Pneumonia Cough HTN (hypertension) History of RI (myocardial infarction) Coronary artery disease Gout Surgical History Stented coronary artery History of cardiac catheterization History of sinus surgery Family History Father Medical history unknown Mother Diabetes Hypertension Paternal Aunt Cancer Maternal Grandmother No problems noted. Maternal Grandfather No problems noted. Social History Household Members: Spouse and Family Alcohol intake: current Alcohol intake frequency: does not drink Patient Tobacco Use Status: Former Tobacco user Current occupational status: disabled Review of Systems Const Details: Review of Systems Constitutional: Denies fever, chills, weight loss ENT: Denies vision changes, eye pain or eye redness, dental caries, dry mouth GI: Denies nausea, vomiting, diarrhea, abdominal pain, change in BM Pulm: Denies SOB, REYES, hemoptysis, wheezing Cards: Denies chest pain, palpitations Skin: Denies Raynaud's, rash, nail changes, photosensitivity, EDUCATIONAL RESOURCE COORDINATOR: Denies headaches, weakness, paresthesias, recurrent falls MSK: as per HPI All other systems reviewed and are unremarkable except noted above Physical Exam Vital Signs: Last Vital Signs Pulse 54 03/28/25 12:37 BP 122/70 03/28/25 12:37 Pulse Ox 96 03/28/25 12:37 Oxygen Delivery Method Room Air 03/28/25 12:37 BMI result Body Mass Index 29.7 Vital signs reviewed Physical Examination CONSTITUITIONAL Patient alert and cooperative. Well appearing and in no apparent painful distress HEENT Conjunctiva and sclera clear. No lymphadenopathy. CHEST/RESPIRATORY SYSTEM Normal respiratory effort and able to speak in complete sentences. Clear to auscultation bilaterally. No crackles, rales, rhonchi, wheezes heard. CARDIAC SYSTEM Regular rate and rhythm. S1 and S2 heard no murmurs. Radial pulses intact bilaterally MSK No synovitis. Herbeden's nodes noted No tophi SKIN No rashes Results Reviewed Results Reviewed: Laboratory Tests 09/14/23 10/02/24 11/22/24 09:45 08:40 10:43 WBC 8.3 RBC 5.23 D Hgb 15.7 Hct 46.6 Plt Count 194 ESR 43 H 23 H Sodium 138 Potassium 4.6 Chloride 110 H Carbon Dioxide 21 L BUN 29 H Creatinine 1.19 Uric Acid 7.7 H 6.7 AST 76 H 47 H ALT 42 H 73 H Assessment & Plan Assessment & Plan (1) Gout: Comment: dx 09/2024 Allopurinol + Colchicine 09/2023 Code(s): M10.9 - Gout, unspecified Category: Medical Qualifiers: Chronicity: chronic Gout etiology: idiopathic Gout site: unspecified site Presence of tophus: without tophus Qualified Code(s): M1A.00X0 - Idiopathic chronic gout, unspecified site, without tophus (tophi) Plan: #Gout Patient is a 59 y.o. male with non crystal proven gout here today for follow up. No gout flares but UA not at goal of <6. Discussed with patient that there is still an increased risk of having a flare with the UA not being at goal. Also discussed that we could continue the same dose and monitor for flares or increase the allopurinol to get to the target of <6. Patient stated that he did not want to risk getting a flare and so wanted to increase the allopurinol. Since we will be optimizing his uric acid we need to restart the colchicine to prevent flares Plan - Increase allopurinol to 200mg daily - Restart colchicine 0.6mg daily x 90 days - Labs in 3 months: CMP, uric acid, ESR, CRP - RTC 6 months - Labs before visit (2) On colchicine therapy: Code(s): Z79.899 - Other usp (current) drug therapy Plan: #Long-term use of colchicine Risks and benefits of long-term colchicine for the management of this patient's gout discussed with patient. Benefits include reduced occurrence of flares while we titrate and regulate his uric acid on allopurinol and other uric acid lowering medications. ? Risks include worsening myalgias especially if on statins and GI upset including diarrhea (3) On allopurinol therapy: Code(s): Z79.899 - Other usp (current) drug therapy Plan: #Long-term Current Use of Allopurinol Risks and benefits of allopurinol discussed with patient Benefits include decreased gout flares, remission of gout and reduction of tophi Risks include allopurinol hypersensitivity syndrome which is a severe cutaneous adverse reaction associated with allopurinol use particularly in patients who are HLA [id number] positive, increased transaminases, GI upset including diarrhea, nausea and vomiting, and other dermatologic manifestations. Plan I spent 20 minutes reviewing the record and labs, taking a history, examining the patient, discussing the treatment plan, ordering diagnostic work up and documenting in the medical record Orders: Orders Comprehensive Met. Panel 3 Months M1A.00X0 - Idiopathic chronic gout, unspecified site, without tophus (tophi) Erythrocyte Sedimentation Rate 3 Months M1A.00X0 - Idiopathic chronic gout, unspecified site, without tophus (tophi) Comprehensive Met. Panel 6 Months M1A.00X0 - Idiopathic chronic gout, unspecified site, without tophus (tophi) C Reactive Protein 6 Months M1A.00X0 - Idiopathic chronic gout, unspecified site, without tophus (tophi) C Reactive Protein 3 Months M1A.00X0 - Idiopathic chronic gout, unspecified site, without tophus (tophi) Uric Acid 3 Months M1A.00X0 - Idiopathic chronic gout, unspecified site, without tophus (tophi) Complete Blood Count Auto Diff 6 Months M1A.00X0 - Idiopathic chronic gout, unspecified site, without tophus (tophi) Erythrocyte Sedimentation Rate 6 Months M1A.00X0 - Idiopathic chronic gout, unspecified site, without tophus (tophi) Uric Acid 6 Months M1A.00X0 - Idiopathic chronic gout, unspecified site, without tophus (tophi) Medications: New colchicine 0.6 mg PO DAILY 90 tabs 1RF M1A.00X0 - Idiopathic chronic gout, unspecified site, without tophus (tophi) Changed From allopurinol 100 mg PO DAILY M1A.00X0 - Idiopathic chronic gout, unspecified site, without tophus (tophi), Z79.899 - Other adjunct faculty for medical terminology (current) drug therapy To allopurinol 200 mg (2 x 100 mg) PO DAILY 180 tabs 1RF 90 days M1A.00X0 - Idiopathic chronic gout, unspecified site, without tophus (tophi), Z79.899 - Other adjunct faculty for medical terminology (current) drug therapy Coding Level of Care Code Est Pt Level 3 (52528) Complex EM visit Add On G2211 Diagnoses Idiopathic chronic gout without tophus, unspecified site M1A.00X0 Chronicity: chronic Gout etiology: idiopathic Gout site: unspecified site Presence of tophus: without tophus On colchicine therapy Z79.899 On allopurinol therapy Z79.899
--- OUTSIDE RECORDS SUMMARY | 2025-03-28 12:53 | XMS_ITS | Encounter Summary ---
Author Organization [email or web address] Address [address] [facility] 7t [place] [address] Care Team Providers Care Auction Clerk Name Role Phone Jorge Calvillo MD Primary Care Provide r Reason for Visit * Reason Comments Med Refill Encounter Details Date Type Department Care Team ([facility] st Contact Info) Description 02/12/2024 Refill [facility] MEDICINE [address] [place], [place] [phone] Jorge Calvillo MD [address] [place] [address] Hyperuricemia Social History Tobacco Use Types Packs/Day [...] as of this encounter Plan of Treatment Not on file documented as of this encounter Visit Diagnoses Diagnosis Hyperuricemia Other abnormal blood chemistry documented in this encounter Additional Health Concerns Assessment Noted Time PHQ-9 Depression Total Score: 1 08/17/20 23 10:33 AM EDT documented as of this encounter Care Teams Auction Clerk Relationship Specialty Start Date End Date Jorge Calvillo MD [address] [place] [id number] PCP - General Internal Medicine 01/08/21 documented as of this encounter
== END 2025-03-28 13:01 | disposition home or self-care (01) ==
PROVIDERS: PCP Internal Medicine; Visit Provider Student in an Organized Health Care Education/Training Program
DX: M1A.00X0 Idiopathic chronic gout, unspecified site, without tophus (tophi) (principal); Z79.899 Other long term (current) drug therapy
CPT/HCPCS: 99213; G2211

== ENCOUNTER → 2025-03-28 12:08 | Outpatient (BNVA) | payer OTHER, SELFPAY | PROVIDERS: PCP Internal Medicine; Visit Provider Student in an Organized Health Care Education/Training Program ==

== ENCOUNTER 2025-07-14 11:00 | Outpatient (REF) | payer OTHER, SELFPAY ==
--- NOTE | ~2025-07-14 | XR_ITS ---
EXAMINATION: XR CHEST CLINICAL INFORMATION: wheezing/bronchitis? ro C AP COMPARISON: September 30, 2024 MRI chest dated December 09, 2024 reporting a 4.2 cm cyst, thymus. TECHNIQUE: PA and lateral views. FINDINGS: No hyperinflation. No consolidation, pleural effusion or pneumothorax. Cardiomediastinal silhouette size is normal. Vascular calcifications in the coronary arteries likely thoracic aorta. Multilevel thoracolumbar spondylosis pronounced at the thoracolumbar junction. A shaped curvature of the thoracolumbar spine. XR/XR chest 2V IMPRESSION: No acute airspace disease. Scoliosis and multilevel spondylosis, thoracolumbar spine. Electronically signed by: Goldy Stanton MD 07/14/2025 11:17 AM EDT
--- OUTSIDE RECORDS SUMMARY | 2025-07-14 10:00 | XMS_ITS | Encounter Summary ---
Author Organization [employer] Address [address] [facility] 7t [place] [address] Care Team Providers Care Count Room Clerk Name Role Phone Jorge Calvillo MD Primary Care Provide r Encounter Details Date Type Department Care Team (Late st Contact Info) Description 07/14/2025 10:00 AM EDT Office Visit [facility] [address] [place] [address] [phone] Yi Toribio MD [address] [place], [place] [phone] Bronchitis (Primary Dx); Cough in adult patient Social History Tobacco Use Types Packs/Day Years [...] Sign Reading Time Taken Comments Blood Pressure 117/77 07/14/2025 10:04 AM EDT Pulse 82 07/14/2025 10:04 AM EDT Temperature 36.6 C (97.8 F) 07/14/2025 10:04 AM EDT Respiratory Rate 18 07/14/2025 10:0 4 AM EDT Oxygen Saturation 96% 07/14/2025 10: 41 AM EDT RA, on ambulation x 3min Inhaled Oxygen Concentration - - Weight - - Height - - Body Mass Index - - documented in this encounter Progress Notes * Yi Toribio MD - 07/14/2025 10:00 AM EDT SUBJECTIVE: Christiano Apodaca is a 60 y.o. year old male who presents for Walk In Center/cough/CP. Denies recent illness, injury, or hospitalization. Acute Concerns: CO dry cough, pleuritic CP, REYES, MOSS, weakness x 3w. He's been using albuterol nebs daily with no significant improvement of sxs. 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 No sick contacts, he quit smoking about 1mo ago. Social History Social History Narrative Not on file Problem List[1] Family History[2] Review of Systems Constitutional: Positive for fatigue. Negative for fever. HENT: Positive for congestion and rhinorrhea. Negative for ear pain and sore throat. Eyes: Negative for pain and discharge. Respiratory: Positive for cough and shortness of breath. Cardiovascular: Positive for chest pain. Gastrointestinal: Negative for abdominal pain, constipation, diarrhea and nausea. Endocrine: Negative for polydipsia. Genitourinary: Negative for dysuria and frequency. Musculoskeletal: Negative for arthralgias, back pain and neck pain. Neurological: Positive for headaches. Negative for dizziness and numbness. Psychiatric/Behavioral: Negative for agitation. OBJECTIVE: Vitals: 07/14/25 1004 07/14/25 1041 BP: 117/77 BP Location: Left arm Patient Position: Sitting BP Cuff Size: Adult Pulse: 82 Resp: 18 Temp: 97.8 ??F (36.6 ??C) TempSrc: Oral SpO2: 98% 96% Physical Exam Constitutional: Appearance: Normal appearance. HENT: Right Ear: Tympanic membrane and ear canal normal. Left Ear: Tympanic membrane and ear canal normal. Mouth/Throat: Mouth: Mucous membranes are moist. Pharynx: No oropharyngeal exudate or posterior oropharyngeal erythema. Eyes: Pupils: Pupils are equal, round, and reactive to light. Cardiovascular: Rate and Rhythm: Normal rate and regular rhythm. Heart sounds: No murmur heard. Pulmonary: Breath sounds: Examination of the right-upper field reveals wheezing. Examination of the left-upperfield reveals wheezing. Examination of the right- middle field reveals wheezing. Examination of the left-middle field reveals wheezing. Examination of the right-lower field reveals wheezing. Examination of the left-lower field reveals wheezing. Wheezing present. Abdominal: General: Bowel sounds are normal. Palpations: Abdomen is soft. Tenderness: There is no abdominal tenderness. Musculoskeletal: General: No tenderness. Normal range of motion. Cervical back: Normal range of motion. No tenderness. Skin: General: Skin is warm. Neurological: General: No focal deficit present. Mental Status: He is alert and oriented to person, place, and time. Psychiatric: Mood and Affect: Mood normal. Problem List Items Addressed This Visit Bronchitis - Primary Rapid viral tests are NEG today, I will prescription Augmentin x 7d, order chest x-ray to ro CAP, if so, may need a second ab. Rest (sleep at least 8 hours a night), out of work x 5d PRD 40mg taper dose. Hydrate with plenty of water (avoid caffeine and alcohol). Use saline nose drops to loosen mucus Take Acetaminophen (Tylenol??) as needed to reduce fever, headache, body aches or discomfort Gargle with salt water and use throat sprays/lozenges for throat pain. If you have exertional CP, worsening REYES, got to ED immediately. Advised to quit smoking Relevant Medications predniSONE (Deltasone) 20 MG tablet albuterol (Ventolin HFA) 108 (90 Base) MCG/ACT inhaler Other Visit Diagnoses Cough in adult patient Relevant Medications predniSONE (Deltasone) 20 MG tablet albuterol (Ventolin HFA) 108 (90 Base) MCG/ACT inhaler Other Relevant Orders Influenza A (ID NOW Rapid Molecular) (Completed) Influenza B (ID NOW Rapid Molecular) (Completed) POCT Rapid COVID Ag (Completed) XR Chest 2 Views Follow Up: Medications Ordered Prior to Encounter[3] [1] Patient Active Problem List Diagnosis Idiopathic gout of left foot Chronic gout of left foot Hyperuricemia Preventative health care Hypertriglyceridemia Erectile dysfunction Class 1 obesity due to excess calories without serious comorbidity with body mass index (BMI) of 31.0 to 31.[address] elevation myocardial infarction (STEMI) Coronary artery disease involving [place] coronary artery of [place] heart without angina pectoris Primary hypertension Moderate persistent asthma without complication Elevated blood sugar level Elevated LFTs Bronchitis [2] No family history on file. [3] Current Outpatient Medications on File Prior to Visit Medication Sig Dispense Refill albuterol (2.5 MG/3ML) 0.083% nebulizer solution Take 3 mL (2.5 mg) by nebulization every 6 (six) hours if needed for wheezing or shortness of breath. 75 mL 11 allopurinol (Zyloprim) 100 MG tablet TAKE 1 TABLET BY MOUTH DAILY IN THE MORNING 30 tablet 1 aspirin 81 MG EC tablet Take 81 mg by mouth in the morning. colchicine 0.6 MG tablet TAKE 2 TABLETS TODAY THEN 1 TABLET ONCE A DAY, DISCONTINUE 2-3 DAYS AFTER FLAREUP HAS RESOLVED. 180 tablet 1 fluticasone (Flonase) 50 MCG/ACT nasal spray Administer 1 spray into each nostril if needed at bedtime for rhinitis. Shake gently. Before first use, prime pump. After use, clean tip and replace cap. 16 g 1 fluticasone furoate (Arnuity Ellipta) 200 MCG/ACT inhaler Inhale 1 puff Once per day. Rinse mouth with water after use to reduce aftertaste and incidence of candidiasis. Do not swallow. 1 each 11 losartan (Cozaar) 50 MG tablet Take 50 mg by mouth 2 times daily. metoprolol succinate XL (Toprol-XL) 100 MG 24 hr tablet Take 100 mg by mouth in the morning. Do notcrush or chew. montelukast (Singulair) 10 MG tablet Take 10 mg by mouth at bedtime. Nebulizers misc 1 kit if needed in the morning, at noon, in the evening, and at bedtime (shortness of breath, cough, wheezing). Given in walk in center 01/10/24, teaching provided. Use as directed prasugrel (Effient) 10 MG tablet Take 10 mg by mouth in the morning. rosuvastatin (Crestor) 40 MG tablet Take 40 mg by mouth in the morning. sildenafil (Viagra) 100 MG tablet TAKE 1 TABLET 1 HOUR BEFORE SEXUAL RELATIONS ONCE DAILY NEEDED. 10 tablet 1 [DISCONTINUED] Ventolin HFA 108 (90 Base) MCG/ACT inhaler INHALE 2 PUFFS EVERY 6 HOURS NEEDED FOR WHEEZING 18 g 1 No current facility-administered medications on file prior to visit. documented in this encounter Miscellaneous Notes * Assessment & Plan Note - Yi Toribio MD - 07/14/2025 10:54 AM EDT Associated Problem(s): Bronchitis Rapid viral tests are NEG today, I will prescription Augmentin x 7d, order chest x-ray to ro CAP, if so, may need a second ab. Rest (sleep at least 8 hours a night), out of work x 5d PRD 40mg taper dose. Hydrate with plenty of water (avoid caffeine and alcohol). Use saline nose drops to loosen mucus Take Acetaminophen (Tylenol??) as needed to reduce fever, headache, body aches or discomfort Gargle with salt water and use throat sprays/lozenges for throat pain. If you have exertional CP, worsening REYES, got to ED immediately. Advised to quit smoking documented in this encounter Plan of Treatment Not on file documented as of this encounter Procedures Procedure Name Priority Date/Time Associated Diagnosis Comments XR CHEST 2 VIEWS Routine 07/14/2025 11:1 0 AM EDT Cough in adult patient POCT INFLUENZA B (ID NOW RAPID MOLECULAR) Routine 07/14/2025 10:32 AM EDT Cough in adult patient POCT INFLUENZA A (ID NOW RAPID MOLECULAR) Routine 07/14/2025 10:32 AM EDT Cough in adult patient POCT RAPID COVID ANTIGEN Routine 07/14/2025 10:26 AM EDT Cough in adult patient documented in this encounter Results * XR Chest 2 Views (07/14/2025 11:10 AM EDT) Anatomical Region Laterality Modality Chest Radiographic Erin ging 07/14/2025 11:1 0 AM EDT Narrative 07/14/2025 11:20 AM EDT [place] [address] XRay Report Signed Patient: Christiano Magaña MR#: M [id number] : 1965 Acct:[id number] Age/Sex: 60 / M ADM Date: 07/14/25 Loc: HO.XRAY Attending Dr: Yi Toribio MD Ordering Physician: Yi oTribio MD Date of Service: 07/14/25 Procedure(s): XR chest 2V Accession Number(s): [id number] cc: Yi Toribio MD; Jorge Cherry MD Reason for Exam: wheezing/bronchitis? ro C AP EXAMINATION: XR CHEST CLINICAL INFORMATION: wheezing/bronchitis? ro C AP COMPARISON: September 30, 2024 MRI chest dated December 09, 2024 reporting a 4.2 cm cyst, thymus. TECHNIQUE: PA and lateral views. FINDINGS: No hyperinflation. No consolidation, pleural effusion or pneumothorax. Cardiomediastinal silhouette size is normal. Vascular calcifications in the coronary arteries likely thoracic aorta. Multilevel thoracolumbar spondylosis pronounced at the thoracolumbar junction. A shaped curvature of the thoracolumbar spine. XR/XR chest 2V IMPRESSION: No acute airspace disease. Scoliosis and multilevel spondylosis, thoracolumbar spine. Electronically signed by: Goldy Stanton MD 07/14/2025 11:17 AM EDT RP Dictated By: Goldy Rowley MD Signed By: <Electronically signed by Goldy Olguin MD in OV> 07/14/25 1117 DD/ 1110 TD/TT: 07/14/25 1110 Agent Licensing Clerk: Procedure Note Donotuseinterpreter, Image - 07/14/2025 [place] [address] XRay Report Signed Patient: Timo Magaña#: M [id number] : 1965Acct:[id number] Age/Sex: 60 / MADM Date: 07/14/25 Loc: HO.DURGAAY Attending Dr: Yi Toribio MD Ordering Physician: Yi Toribio MD Date of Service: 07/14/25 Procedure(s): XR chest 2V Accession Number(s): [id number] cc: Yi Toribio MD; Jorge Cherry MD Reason for Exam: wheezing/bronchitis? ro C AP EXAMINATION: XR CHEST CLINICAL INFORMATION: wheezing/bronchitis? ro C AP COMPARISON: September 30, 2024 MRI chest dated December 09, 2024 reporting a 4.2 cm cyst, thymus. TECHNIQUE: PA and lateral views. FINDINGS: No hyperinflation. No consolidation, pleural effusion or pneumothorax. Cardiomediastinal silhouette size is normal. Vascular calcifications in the coronary arteries likely thoracic aorta. Multilevel thoracolumbar spondylosis pronounced at the thoracolumbar junction. A shaped curvature of the thoracolumbar spine. XR/XR chest 2V IMPRESSION: No acute airspace disease. Scoliosis and multilevel spondylosis, thoracolumbar spine. Electronically signed by: Goldy Stanton MD 07/14/2025 11:17 AM EDT RP Dictated By: Goldy Rowley MD Signed By: <Electronically signed by Goldy Olguin MDin OV> 07/14/25 1117 DD/ 1110 TD/TT: 07/14/25 1110 Agent Licensing Clerk: us Yi Toribio MD IMG XR PROCEDURES Final Result * Influenza B (ID NOW Rapid Molecular) (07/14/2025 10:32 AM EDT) [facility] Influenza B Negative Negative, Indeterminate [facility] Swab 07/14/2025 10:3 2 AM EDT us Yi Toribio MD POINT OF CARE TEST ENTER /EDIT ORDERABLES Final Result Performing Organization Address City/[facility]/ZIP Co de Phone Number [facility] [address] [place] [phone] * Influenza A (ID NOW Rapid Molecular) (07/14/2025 10:32 AM EDT) [facility] Influenza A Negative Negative, Indeterminate [facility] Swab 07/14/2025 10:3 2 AM EDT us Yi Toribio MD POINT OF CARE TEST ENTER /EDIT ORDERABLES Final Result Performing Organization Address [facility] Co de Phone Number [facility] [address] [place] [phone] * POCT Rapid COVID Ag (07/14/2025 10:26 AM EDT) Pathologist [facility] Rapid COVID Ag Negative Swab 07/14/2025 10:2 6 AM EDT us Yi Toribio MD POINT OF CARE TEST ENTER /EDIT ORDERABLES Final Result documented in this encounter Visit Diagnoses Diagnosis Bronchitis- Primary Bronchitis, not specified as acute or chronic Cough in adult patient documented in this encounter Additional Health Concerns Assessment Noted Time PHQ-9 Depression Total Score: 0 08/29/20 24 9:13 AM EST documented as of this encounter Care Teams Count Room Clerk Relationship Specialty Start Date End Date Jorge Calvillo MD [address] [place] [phone] PCP - General Internal Medicine 01/08/21 documented as of this encounter
--- OUTSIDE RECORDS SUMMARY | 2025-07-14 12:29 | XMS_ITS | Encounter Summary ---
Author Organization [employer] Address [address] [facility] 7 [place] [address] Care Team Providers Care Needle Polisher Name Role Phone Jorge Calvillo MD Primary Care Provide r Reason for Visit * Reason Onset Date Comments Nurse Triage 07/14/2025 Encounter Details Date Type Department Care Team ([facility] st Contact Info) Description 07/14/2025 Telephone [facility] [address] [place], [place] [phone] Jorge Calvillo MD [address] [place], [place] [phone] Nurse Triage Social History Tobacco Use Types Packs/Day Years [...] AM EDT documented as of this encounter Miscellaneous Notes * Telephone Encounter - Felicia Kim RN - 07/14/2025 10:05 AM EDT Assessment: Patient presents to Walk- In Center c/o shortness of breath, chest tightness with cough x3 weeks. Pt reports headache, congestion. Using nebulizer (last used last night) and inhaler PRN but no relief. Expiratory wheezes RUL, RLL, RUL, LLL. Symptoms have been present for 3 weeks. Symptoms are episodic. Symptoms worsen with inspiration. Symptoms are relieved by n/a. Patient is taking (treatment/meds) regular medications, using nebulizer and inhaler PRN. VS as follows (if applicable): Temp 97.8 orally HR 82 Resp 18 none BP 117/77 left Arm; Device: Automatic Cuff Size: regular O2 sat 98 % on room air Lung sounds (if applicable) End expiratory wheezes bilaterally, Location: RUL, RLL, LLL, RAMEZ Allergies[1] In Office Testing Covid, flu, strep Plan of care: Report to Dr Toribio who orders respiratory swabs Provider evaluation: Yes Tx provider to determine Pt next for provider evaluation Felicia Kim RN [1] Allergies Allergen Reactions Levofloxacin Yeast documented in this encounter Plan of Treatment Not on file documented as of this encounter Visit Diagnoses Not on filedocumented in this encounter Additional Health Concerns Assessment Noted Time PHQ-9 Depression Total Score: 0 08/29/20 24 9:13 AM EST documented as of this encounter Care Teams Needle Polisher Relationship Specialty Start Date End Date Jorge Calvillo MD [address] [place] [phone] PCP - General Internal Medicine 01/08/21 documented as of this encounter
--- OUTSIDE RECORDS SUMMARY | 2025-07-14 12:29 | XMS_ITS | Encounter Summary ---
Author Organization [employer] Address [address] [place] [address] 7t [place] [address] Care Team Providers Care Hog Stomach Preparer Name Role Phone Jorge Calvillo MD Primary Care Provide r Encounter Details Date Type Department Care Team ([facility] st Contact Info) Description 05/02/2023 Telephone [facility] [address] [place], [place] [phone] Jorge Calvillo MD [address] [place], [place] [phone] Social History Tobacco Use Types Packs/Day Years [...] on filedocumented in this encounter Care Teams Hog Stomach Preparer Relationship Specialty Start Date End Date Jorge Calvillo MD [address] [place], [place] [phone] PCP - General Internal Medicine 01/08/21 documented as of this encounter
--- OUTSIDE RECORDS SUMMARY | 2025-07-14 12:29 | XMS_ITS | Encounter Summary ---
Author Organization [employer] Address [address] [facility] 7t [place] [address] Care Team Providers Care Senior Storage Administrator Name Role Phone Jorge Calvillo MD Primary Care Provide r Reason for Visit * Reason Comments Med Refill Encounter Details Date Type Department Care Team ([facility] st Contact Info) Description 12/23/[address] [facility] MED[facility] [address] [place], [place] [phone] Jorge Calvillo MD [address] [place], [place] [phone] Erectile dysfunction, unspecified erectile dysfunction type Social [...] documented as of this encounter Care Teams Senior Storage Administrator Relationship Specialty Start Date End Date Jorge Calvillo MD [address] [place] [phone] PCP - General Internal Medicine 01/08/21 documented as of this encounter
--- OUTSIDE RECORDS SUMMARY | 2025-07-14 12:29 | XMS_ITS | Encounter Summary ---
Author Organization [employer] Address [address] [facility] [address] 7t [place] [address] Care Team Providers Care Machine Coremaker Name Role Phone Jorge Calvillo MD Primary Care Provide r Encounter Details Date Type Department Care Team (Late st Contact Info) Description 01/12/2024 Orders Only [facility] [address] [place] [address] Apple Martinez FNP Social History Tobacco Use [...] AM EDT Narrative 02/08/2024 9:25 [place] [address] XRay Report Signed Patient: Christiano Magaña MR#: M [id number] : 1965 Acct:[id number] Age/Sex: 58 / M ADM Date: 02/08/24 Loc: HO.HHCX Attending Dr: Sarika Diego MD Ordering Physician: Sarika Diego MD Date of Service: 02/08/24 Procedure(s): XR chest 2V Accession Number(s): [id number] cc: Sarika Diego MD EXAMINATION: XR CHEST [...] Sawyer MD Signed By: <Electronically signed by aKel Sawyer MD in OV> 02/08/24 0922 DD/ 0853 TD/TT: Audiovisual Technician: Procedure Note Donotmaryanninterpreter, Image - 02/08/2024 [facility] [address] [place] [address] XRay Report Signed Patient: Timo Magaña#: M [id number] : 1965Acct:[id number] Age/Sex: 58 / MADM Date: 02/08/24 Loc: HO.HHCX Attending Dr: Sarika Diego MD Ordering Physician: Sarika Diego MD Date of Service: 02/08/24 Procedure(s): XR chest 2V Accession Number(s): [id number] cc: Sarika Diego MD EXAMINATION: XR CHEST [...] Kael Sawyer MD in OV> 02/08/24921 DD/ TD/TT: Audiovisual Technician: Sarika Diego MD IMG XR PROCEDURES Final Resul t documented in this encounter Visit Diagnoses Not on filedocumented in this encounter Additional Health Concerns Assessment Noted Time PHQ-9 Depression Total Score: 1 08/17/20 23 10:33 AM EDT documented as of this encounter Care Teams Machine Coremaker Relationship Specialty Start Date End Date Jorge Calvillo MD [address] [place] [address] PCP - General Internal Medicine 01/08/21 documented as of this encounter
--- OUTSIDE RECORDS SUMMARY | 2025-07-14 12:29 | XMS_ITS | Encounter Summary ---
Author Organization [employer] Address [address] [place] [address] 7t [place] [address] Care Team Providers Care Cottonseed Meat Presser Name Role Phone Jorge Calvillo MD Primary Care Provide r Reason for Visit * Reason Comments Med Change Request Encounter Details Date Type Department Care Team ([facility] st Contact Info) Description 06/01/2023 Refill [facility] MEDICINE [address] [place], [place] [phone] Jorge Calvillo MD [address] [place] [address] Social History Tobacco Use Types Packs/Day Years [...] on filedocumented in this encounter Care Teams Cottonseed Meat Presser Relationship Specialty Start Date End Date Jorge Calvillo MD [address] [place], [place] [phone] PCP - General Internal Medicine 01/08/21 documented as of this encounter
--- OUTSIDE RECORDS SUMMARY | 2025-07-14 12:29 | XMS_ITS | Encounter Summary ---
Author Organization [employer] Address [address] [facility] 7t [place] [address] Care Team Providers Care Supervisor Of Way Name Role Phone Jorge Calvillo MD Primary Care Provide r Reason for Visit * Reason Comments Med Refill Encounter Details Date Type Department Care Team ([facility] st Contact Info) Description 03/21/2025 Refill [facility] [address] [place] [phone] Name, MD Luis [address] [place] [address] Social History Tobacco Use Types Packs/Day Years [...] documented as of this encounter Care Teams Supervisor Of Way Relationship Specialty Start Date End Date Jorge Calvillo MD [address] [place] [address] PCP - General Internal Medicine 01/08/21 documented as of this encounter
--- OUTSIDE RECORDS SUMMARY | 2025-07-14 12:29 | XMS_ITS | Encounter Summary ---
Author Organization [employer] Address [address] [facility] 7t [place] [address] Care Team Providers Care High School Band Director Name Role Phone Jorge Calvillo MD Primary Care Provide r Encounter Details Date Type Department Care Team (Latest Contact Info) Description 07/14/2025 Travel Social History Tobacco Use Types Packs/Day [...] documented as of this encounter Care Teams High School Band Director Relationship Specialty Start Date End Date Jorge Calvillo MD [address] [place] [address] PCP - General Internal Medicine 01/08/21 documented as of this encounter
--- OUTSIDE RECORDS SUMMARY | 2025-07-14 12:29 | XMS_ITS | Patient Health Record ---
Author Organization [facility] Address [address] [place] [address] Care Team Providers Care Jawbone Breaker Name Role Phone Yi De Leon Primary Care Provider Rey Marte Jr Unavailable Allergies Allergen (clinical drug ingredient) Drug/Non Drug Allergy documented on EMR Reaction Allergy Type Onset Date Status Levaquin Unknown Drug Allergy Active Reason For Referral No Information Medications Medication SIG (Take, Route, Frequency, Duration) Notes Start Date End Date Status Colyte with Flavor Packs 240 GM As directed Orally Over the specified time. for 1 day(s) Active Social History Tobacco Use: Social History Observation Description Date Details (start date - stop date) Never Smoker NA - NA Tobacco Use/Smoking Question Answer Notes Patient is a nonsmoker Alcohol Screen Question Answer Notes Did you have a drink containing alcohol in the p ast year? No Points 0 Interpretation Negative Problems Problem Type SNOMED Code ICD Code Onset Dates Problem Status W/U Status Risk Notes Problem 601821994 Colon cancer screening (Z12.11) Active confirmed Problem 44528406 Encounter for other preprocedural examination (Z01.818) Active confirmed Plan Of Treatment Future Test Test Name Order Date COLONOSCOPY 08/09/2018 Insurance Providers Payer Name Payer Address Payer Phone Subscriber Number Group Number Insured Name Patient Relationship to Insured Coverage Start Date Coverage End Date [facility] [address] [facility] [place] [phone] [id number] BRADY COPELAND Self - patient is the insured Medical (General) History Medical History History ICD Code gout elevated cholesterol Surgical History Surgery Date(Month/Year) nose surgery
--- OUTSIDE RECORDS SUMMARY | 2025-07-14 12:29 | XMS_ITS | Encounter Summary ---
Author Organization [employer] Address [address] [facility] 7t [place] [address] Care Team Providers Care Package Lift Operator Name Role Phone Jorge Calvillo MD Primary Care Provide r Reason for Visit * Reason Comments Med Refill Encounter Details Date Type Department Care Team ([facility] st Contact Info) Description 02/12/2024 Refill [facility] MED[facility]INE [address] [place], [place] [phone] Jorge Calivllo MD [address] [place] [address] Hyperuricemia Social History Tobacco Use Types Packs/Day [...] documented as of this encounter Care Teams Package Lift Operator Relationship Specialty Start Date End Date Jorge Calvillo MD [address] [place] [phone] PCP - General Internal Medicine 01/08/21 documented as of this encounter
--- OUTSIDE RECORDS SUMMARY | 2025-07-14 12:29 | XMS_ITS | Encounter Summary ---
Author Organization [employer] Address [address] [place] [address] 7 [place] [address] Care Team Providers Care Burglar Alarm Mechanic Name Role Phone Jorge Calvillo MD Primary Care Provide r Reason for Visit * Reason Onset Date Comments Med Refill 12/20/2023 Encounter Details Date Type Department Care Team (Late st Contact Info) Description 12/20/2023 Refill [facility] MEDICINE 230 [place], [place] [phone] Jorge Calvillo MD [address] [place], [place] [phone] Erectile dysfunction, unspecified erectile dysfunction type Social [...] documented as of this encounter Care Teams Burglar Alarm Mechanic Relationship Specialty Start Date End Date Jorge Calvillo MD [address] [place] [address] PCP - General Internal Medicine 01/08/21 documented as of this encounter
--- OUTSIDE RECORDS SUMMARY | 2025-07-14 12:29 | XMS_ITS | Encounter Summary ---
Author Organization [employer] Address [address] [place] [address] 7t [place] [address] Care Team Providers Care Aircraft Maintenance Technician Name Role Phone Jorge Calvillo MD Primary Care Provide r Reason for Visit * Reason Comments Med Refill Encounter Details Date Type Department Care Team (Late st Contact Info) Description 12/28/[address] [facility] [address] [place], [place] [phone] Kodak Delacruz FNP Acute idiopathic gout of [...] foot documented in this encounter Care Teams Aircraft Maintenance Technician Relationship Specialty Start Date End Date Jorge Calvillo MD [address] [place], [place] [phone] PCP - General Internal Medicine 01/08/21 documented as of this encounter
--- OUTSIDE RECORDS SUMMARY | 2025-07-14 12:30 | XMS_ITS | Clinical Summary ---
Author Organization [employer] Address [address] [place] [address] 7t [place] [address] Care Team Providers Care Regional Administrative Assistant Name Role Phone Jorge Calvillo MD [...] of breath. 75 mL 11 09/30/20 24 2024 Active fluticasone (Flonase) 50 MCG/ACT nasal sprayIndicatio ns:Cough in adult patient Administer 1 spray into each nostril if needed at bedtime for rhinitis. Shake gently. Before first use, prime pump. After use, clean tip and replace cap. 16 g 1 10/07/20 24 2024 Active fluticasone furoate (Arnuity Ellipta) 200 MCG/ACT inhaler Inhale 1 puff Once per day. Rinse mouth with water after use to reduce aftertaste and incidence of candidiasis. Do not swallow. 1 each 11 11/11/19 25 2025 Active montelukast (Singulair) 10 MG tablet Take 10 mg by mouth at bedtime. 12/12/19 25 Active allopurinol (Zyloprim) 100 MG tabletIndicati ons:Hyperurice estefanía TAKE 1 TABLET BY MOUTH DAILY IN THE MORNING 30 tablet 1 02/18/20 25 Active sildenafil (Viagra) 100 MG tabletIndicati ons:Erectile dysfunction, unspecified erectile dysfunction type TAKE 1 TABLET 1 HOUR BEFORE SEXUAL RELATIONS ONCE DAILY NEEDED. 10 tablet 1 05/02/20 25 Active acetaminophen (Tylenol Extra Strength) 500 MG tablet Take 1 tablet (500 mg) by mouth every 6 (six) hours if needed for mild pain. 120 tablet 07/14/20 25 2024 Active amoxicillin-cl avulanate (Augmentin) 875-125 MG tablet Take 1 tablet by mouth 2 times daily for 7 days. 14 tablet 07/14/20 25 2024 Active predniSONE (Deltasone) 20 MG tablet 2 tablets PO/d x 2d then 1 tab PO/d x 3d then 1/2 tab PO x 2 d then stop 9 tablet 07/14/20 25 Active albuterol (Ventolin HFA) 108 (90 Base) MCG/ACT inhaler Inhale 2 puffs every 6 (six) hours if needed for wheezing. 18 g 1 07/14/20 25 Active albuterol (Ventolin HFA) 108 (90 Base) MCG/ACT inhaler Inhale 2 puffs every 6 (six) hours if needed for wheezing. 18 g 1 11/11/19 25 2024 Discontinued Ventolin HFA 108 (90 Base) MCG/ACT inhaler INHALE 2 PUFFS EVERY 6 HOURS NEEDED FOR WHEEZING 18 g 1 06/20/20 25 2024 Discontinued(R eorder (will not trigger notification to Pharmacy)) Active Problems Problem Noted Date Diagnosed Date Bronchitis 07/14/2025 Assessment & Plan (07/14/2025 10:54 AM EDT): Rapid viral tests are NEG today, I will prescription Augmentin x 7d, order chest x-ray to ro CAP, if so, may need a second ab. Rest (sleep at least 8 hours a night), out of work x 5d PRD 40mg taper dose. Hydrate with plenty of water (avoid caffeine and alcohol). Use saline nose drops to loosen mucus Take Acetaminophen (Tylenol ) as needed to reduce fever, headache, body aches or discomfort Gargle with salt water and use throat sprays/lozenges for throat pain. If you have exertional CP, worsening REYES, got to ED immediately. Advised to quit smoking Elevated LFTs 12/26/2024 Assessment & Plan (12/26/2024 [...] as clinically needed. I placed order, [facility] recommended to on [facility] order to CT of chest with and [...] 11:35 AM EDT): Blood pressure controlled on [facility] Lab Results Component Value Date NA 138 [...] 9:17 AM EST): Blood pressure controlled on [facility] 02/23/2024 Normal Losartan 50 mg po daily and Metoprolol XL 100 mg po daily Assessment & Plan (03/28/2024 1:19 PM EDT): Blood pressure controlled on [facility] 02/23/2024 Normal Losartan 50 mg po daily and Metoprolol XL 100 mg po daily Assessment & Plan (02/01/2024 3:12 PM EDT): Blood pressure controlled on Losartan 50 mg po daily and Metoprolol XL 100 mg po daily History of ST elevation myocardial infarction (S PRO) 08/17/2023 Assessment & Plan (08/17/2023 11:29 AM EDT): Pt comes in after recently having been in his [place] [facility] where he apparently had an [...] On August 10 he was evaluated by [employer] and he was allowed to return to [place] in a commercial flight. Today his vital signs are stable, he denies any chest pain, sob or any other symptom. EKG shows evidence of previous AL. Recent Lipid profile within acceptable ranges Plan: Cardiology referral Pt requested specifically Dr Ravi He tells me he has a 6 month supply of all of his medications that he purchased in [facility] Follow up with me after he sees Cardiology Coronary artery disease invo lving [place] coronary artery of [place] heart without angina pectoris 08/17/2023 Assessment & Plan (12/26/2024 11:36 AM EDT): Here for a f/u Had STEMI on 08/03/2023 in [facility]. [...] for a total of 30 months post AL. he is currently on aspirin and prasugrel. Continue metoprolol, losartan and rosuvastatin. [place] LDL goal less than 70. Labs done [...] for a total of 30 months post AL. he is currently on aspirin and prasugrel. Continue metoprolol, losartan and rosuvastatin. [place] LDL goal less than 70. Labs done [...] On August 10 he was evaluated by [employer] and he was allowed to return to [place] in a commercial flight. He is now [...] participate in phase 2 cardiac rehabilitation by [employer]. Assessment & Plan (02/01/2024 3:03 PM EDT): [...] On August 10 he was evaluated by [employer] and he was allowed to return to [place] in a commercial flight. He is now [...] participate in phase 2 cardiac rehabilitation by [employer]. Assessment & Plan (11/23/2023 11:50 AM EST): [...] On August 10 he was evaluated by [employer] and he was allowed to return to [place] in a commercial flight. He is now [...] had one 4 years ago at [facility] records requested never obtained. [...] had one 4 years ago at [facility] records requested never obtained. [...] had one 4 years ago at [facility] records requested never obtained. [...] Triglycerides <150 mg/dL 140 Comment: Desirable Triglyceride: less than 150 mg/dLBorderline High Triglyceride 150-199 mg/dLHigh Triglyceride: 200-499 mg/dLVery High Triglyceride: greater than or equal to 5OO mg/dL Cholesterol <200 mg/dL 126 Comment: Desirable Cholesterol: less than 200 mg/dLBorderline High Cholesterol: 200-239 mg/dLHigh Cholesterol: greater than 239 mg/dL LDL Cholesterol Calculated <100 mg/dL 74 Comment: Desirable LDL: less than 100 mg/dLNear Optimal/Above Optimal LDL: 110-129 mg/dLBorderline High LDL: 130-159 mg/dLHigh LDL: 160-189 mg/dLVery High LDL: greater than or equal to 190 mg/dL HDL Cholesterol >40 mg/dL 24 Low On Crestor 40 Assessment & Plan (08/17/2023 11:30 AM EDT): Pt had lab work done in [facility] that showed elevated Triglicerides of 271 back in January 2023 Repeat 08/14/2023 Triglycerides <150 mg/dL 140 Comment: Desirable Triglyceride: less than 150 mg/dLBorderline High Triglyceride 150-199 mg/dLHigh Triglyceride: 200-499 mg/dLVery High Triglyceride: greater than or equal to 5OO mg/dL Cholesterol <200 mg/dL 126 Comment: Desirable Cholesterol: less than 200 mg/dLBorderline High Cholesterol: 200-239 mg/dLHigh Cholesterol: greater than 239 mg/dL LDL Cholesterol Calculated <100 mg/dL 74 Comment: Desirable LDL: less than 100 mg/dLNear Optimal/Above Optimal LDL: 110-129 mg/dLBorderline High LDL: 130-159 mg/dLHigh LDL: 160-189 mg/dLVery High LDL: greater than or equal to 190 mg/dL HDL Cholesterol >40 mg/dL 24 Low Assessment & Plan (06/08/2023 2:32 PM EDT): [...] 9:22 AM EDT): Pt seen at our [facility] on 2 different ocasions first 01/09 diagnosed [...] 3:09 PM EDT): Pt seen at our [facility] on 2 different ocasions first 01/09 diagnosed [...] Encounters Date Type Department Care Team Description 07/14/2025 10:00 AM EDT Office Visit [facility] [address] [place] [address] Yi Toribio MD Bronchitis (Primary Dx); Cough in adult patient 07/14/2025 Telephone [facility] MEDICINE [address] [place] [address] Jorge Calvillo MD Nurse Triage 07/14/2025 Travel 06/20/2025 Refill [facility] [address] [place] [address] Luis Wilks MD 05/02/2025 Refill [facility] MEDICINE [address] [place] [address] Jorge Calvillo MD Erectile dysfunction, unspecified erectile dysfunction type from Last 3 Months Social History Tobacco [...] 3min Inhaled Oxygen Concentration - - Weight 88.2 kg (194 lb 6.4 oz) 12/26/2024 11:19 AM EDT Height 170.2 cm (5' 7 ) 12/26/2024 11:1 9 AM EDT Body Mass Index 30.45 12/26/2024 11:19 AM EDT Plan of Treatment Health Maintenance Due Date Last Done Comments CT Colonography 1965 FIT DNA/Cologuard 1965 FIT 1965 FOBT 1965 Sigmoidoscopy 1965 DTaP/Tdap/Td Vaccines (1 - Tdap) 1984 Pneumococcal Vaccine: 50+ Years (1 of 2 - PCV) 1984 Zoster Vaccines (1 of 2) 2015 RSV Patients and Patients Aged 60 years or older (1 - Risk 60-74 years 1-dose series) 2025 COVID-19 Vaccine (1 - 2023-2 5 season) 2025 Influenza Vaccine (#1) 2025 Alcohol/Substance Use Screening 08/29/2025 08/29/2024 Depression Screening 08/29/2025 08/29/2024, 08/29/2024 Disability Screening 08/29/2025 08/29/2024 SDOH Screening 08/29/2025 08/29/2024 Tobacco Screening 12/26/2025 12/26/2024 Colonoscopy 11/16/2028 11/16/2018 Colorectal Cancer Screening 11/16/2028 Lipid Panel 10/02/2029 10/02/2024, 08/14/2023 HIV Screening Completed 12/11/2021 Hepatitis C Screening Completed 12/11/2021 HIB Vaccines Aged Out No longer eligi ble based on patient's age to complete this topic HPV Vaccines Aged Out No longer eligi ble based on patient's age to complete this topic Hepatitis A Vaccines Aged Out No long er eligible based on patient's age to complete this topic Hepatitis B Vaccines Aged Out No long er eligible based on patient's age to complete this topic IPV Vaccines Aged Out No longer eligi ble based on patient's age to complete this topic Meningococcal B Vaccine Aged Out No l onger eligible based on patient's age to complete this topic Meningococcal Vaccine Aged Out No amber yarlei eligible based on patient's age to complete [...] 10:26 AM EDT Cough in adult patient LIPID PANEL, STANDARD Routine 10/02/2024 8:40 AM EST Hypertriglyceridemi a ZZZ HISTORICAL HEPATITIS C ANTIBODY RFLX Routine 12/11/2021 7:26 AM EST ZZZ HISTORICAL HIV AB/AG Routine 12/11/2021 7:26 AM EST HM COLONOSCOPY Routine 11/16/2018 from Last 3 Months or Most Recently Relevant to Health Maintenance Results * XR Chest 2 Views (07/14/2025 11:10 AM EDT) Anatomical Region Laterality Modality Chest Radiographic Erin ging 07/14/2025 11:1 0 AM EDT Narrative 07/14/2025 11:20 AM EDT [address] [address] XRay Report Signed Patient: Christiano Magaña MR#: [id number] : 1965 Acct:[id number] Age/Sex: 60 / M ADM Date: 07/14/25 Loc: HO.XRAY Attending Dr: Yi Toribio MD Ordering Physician: Yi Toribio MD Date of Service: 07/14/25 Procedure(s): XR chest 2V Accession Number(s): [id number] cc: Yi Toribio MD; Jorge Cherry MD [...] Goldy Stanton MD 07/14/2025 11:17 AM EDT Dictated By: Goldy Rowley MD Signed By: <Electronically signed by Goldy Olguin MD in OV> 07/14/251116 DD/ 09 TD/TT: 07/14/251109 Passenger Representative: Procedure Note Garhtter, Image - 07/14/[address] [address] XRay Report Signed Patient: Timo Magaña#: M [id number] : 1965Acct:[id number] Age/Sex: 60 / MADM Date: 07/14/25 Loc: HO.XRAY Attending Dr: Yi Toribio MD Ordering Physician: Yi Toribio MD Date of Service: 07/14/25 Procedure(s): XR chest 2V Accession Number(s): [id number] cc: Yi Toribio MD; Jorge Cherry MD [...] Goldy Stanton MD 07/14/2025 11:17 AM EDT Dictated By: Goldy Rowley MD Signed By: <Electronically signed by Goldy Olguin MDin OV> 07/14/25 111 DD/ 111 TD/TT: 07/14/251109 Passenger Representative: Yi Toribio MD IMG XR PROCEDURES Final Result * Influenza B (ID NOW Rapid Molecular) (07/14/2025 10:32 AM EDT) [facility] Influenza B Negative Negative, Indeterminate [facility] Swab 07/14/2025 10:3 2 AM EDT Yi Toribio MD POINT OF CARE TEST ENTER /EDIT ORDERABLES Final Result Performing Organization Address [facility]/ZIP Co de Phone Number [facility] [address] [place] [phone] * Influenza A (ID NOW Rapid Molecular) (07/14/2025 10:32 AM EDT) [facility] Influenza A Negative Negative, Indeterminate [facility] Swab 07/14/2025 10:3 2 AM EDT Yi Toribio MD POINT OF CARE TEST ENTER /EDIT ORDERABLES Final Result Performing Organization Address [facility] Co de Phone Number [facility] [address] [place] [phone] * POCT Rapid COVID Ag (07/14/2025 10:26 AM EDT) [facility] Rapid COVID Ag Negative Swab 07/14/2025 10:2 6 AM EDT Yi Toribio MD POINT OF CARE TEST ENTER /EDIT ORDERABLES Final Result * (ABNORMAL) Lipid Panel, Standard (10/02/2024 8:40 AM EST) [facility] Triglycerides 90 <150 mg/dL [facility] Comment:Desirable Triglyceri de: less than 150 mg/dLBorderline High Triglyceride 150-199 mg/dLHigh Triglyceride: 200-499 mg/dLVery High Triglyceride: greater than or equal to 5OO mg/dL Cholesterol 103 <200 mg/dL [facility] Comment:Desirable Cholestero l: less than 200 mg/dLBorderline High Cholesterol: 200-239 mg/dLHigh Cholesterol: greater than 239 mg/dL LDL Cholesterol Calculated 54 <100 mg/dL [facility] Comment:Desirable LDL: less than 100 mg/dLNear Optimal/Above Optimal LDL: 110- 129 mg/dLBorderline High LDL: 130-159 mg/dLHigh LDL: 160-189 mg/dLVery High LDL: greater than or equal to 190 mg/dL HDL Cholesterol 31(L) >40 mg/dL [facility] Comment:Desirable HDL: great er than 40 mg/dL Note: This HDL assay may give artificially low results in patients with liver disease. Blood Venous blood specimen / Unknown 10/02/2024 8:40 AM EST 10/02/2024 11:52 AM EST us Jorge Thomas MD LAB BLOOD ORDERABLES Final Result Performing Organization Address [facility]/ZIP Co de Phone Number [facility] [address] [place] [phone] * HEPATITIS C ANTIBODY RFLX (12/11/2021 7:26 AM EST) Hepatitis C Antibody Nonreactive Nonreactive [facility] Comment: Antibodies to HCV not detected; does not exclude early acute HCV infection. 12/11/2021 7:26 AM EST us Jorge Thomas MD HISTORICAL/NON ORDERA BLE LABS Final Result [facility] [address] * HIV AB/AG (12/11/2021 7:26 AM EST) HIV AB/AG Nonreactive Nonreactive [facility] Comment: HIV-1 p24 Ag and/or HIV-1/HIV-2 Ab not detected. A test result that is nonreactive does not exclude the possibility of exposure to or infection with HIV-1 and/or HIV-2. Nonreactive results in this assay for individuals with prior exposure to HIV-1 and/or HIV-2 may be due to antigen and antibody levels that are below the limit of detection of this assay. The [employer] HIV Ag/Ab Combo assay result and supplemental assay results should be interpreted in conjunction with the patient's clinical presentation, history and other laboratory results. If the results are inconsistent with clinical evidence, additional testing is suggested to confirm the result. 12/11/2021 7:26 AM EST Jorge Thomas MD HISTORICAL/NON ORDERA BLE LABS Final Result [facility] On license of [facility] * Colonoscopy (11/16/2018) Colonoscopy Normal Normal 11/16/2018 Historical Provider HEALTH MAINTENANCE Final Result from Last 3 Months or Most Recently Relevant to Health Maintenance [place] [address] [place] [address] Care Teams Regional Administrative Assistant Relationship Specialty Start Date End Date Jorge Calvillo MD [address] [place] [address] PCP - General Internal Medicine 01/08/21
--- OUTSIDE RECORDS SUMMARY | 2025-07-14 12:30 | XMS_ITS | Encounter Summary ---
Author Organization [employer] Address [address] [place] [address] 7 [place] [address] Care Team Providers Care Supervisor Photostat Name Role Phone Jorge Calvillo MD Primary Care Provide r Reason for Visit * Reason Onset Date Comments Med Refill 08/28/2023 Encounter Details Date Type Department Care Team (Late st Contact Info) Description 08/28/2023 Refill [facility] MEDICINE [address] [place], [place] [phone] Jorge Calvillo MD [address] [place], [place] [phone] Erectile dysfunction, unspecified erectile dysfunction type Social [...] as of this encounter Care Teams Supervisor Photostat Relationship Specialty Start Date End Date Jorge Calvillo MD [address] [place] [address] PCP - General Internal Medicine 01/08/21 documented as of this encounter
--- OUTSIDE RECORDS SUMMARY | 2025-07-14 12:30 | XMS_ITS | Encounter Summary ---
Author Organization [employer] Address [address] [place] [address] 7t [place] [address] Care Team Providers Care Content Checker Name Role Phone Jorge Calvillo MD Primary Care Provide r Reason for Visit * Reason Comments Med Refill Encounter Details Date Type Department Care Team ([facility] st Contact Info) Description 04/11/2023 Refill [facility] MEDICINE [address] [place], [place] [phone] Apple Munguia FNP [address] [place], [place] [phone] Social History Tobacco Use Types Packs/Day Years [...] on filedocumented in this encounter Care Teams Content Checker Relationship Specialty Start Date End Date Jorge Calvillo MD [address] [place] [address] PCP - General Internal Medicine 01/08/21 documented as of this encounter
== END 2025-07-14 11:01 | disposition home or self-care (01) ==
LOC: HO.XRAY 11:00
PROVIDERS: PCP Internal Medicine; Visit Provider Internal Medicine
DX: R05.9 Cough, unspecified (principal)
CPT/HCPCS: 71046

== ENCOUNTER → 2025-07-14 11:05 | Outpatient (BNV) | payer OTHER, SELFPAY | PROVIDERS: PCP Internal Medicine; Visit Provider Radiology Diagnostic Radiology | DX: R06.2 Wheezing (principal) | CPT/HCPCS: 71046 ==